=== PATIENT | female | born 2000 | race Caucasian/White ===

== ENCOUNTER 2021-12-30 10:39 | Outpatient (CLI) | payer MEDICAID, SELFPAY ==
--- OUTSIDE RECORDS SUMMARY | 2021-12-30 10:42 | XMS_ITS | Encounter Summary ---
:2000 Author Organization [place] Address [address] [facility] [place] [address] Care Team Providers Name Role Phone Caryl Trujillo MD Primary Care Provider [phone] Caryl Trujillo MD Unavailable [phone] Reason for Referral Care Coordination (Routine) - Closed Specialty Diagnoses / Procedures Referred By Contact Refer red To Contact Diagnoses Infection due to 2019 [place] [address] [place] [address] Referral ID Status Reason Start Date Expiration Date Visits Requ ested Visits Authorized [id number] Closed 02/13/2020 02/12/2021 1 1 Encounter Details Date Type Department Care Team Description 02/13/2020 Orders Only [facility] Caryl Trujillo Infecti on due to 2019 Care Coordination MD Sharee novel coronavirus [address] [address] [address] [place], [place] [id number] [phone] Social History Tobacco Use Types Packs/Day Years Used Date Former Smoker Quit: 04/26/19 18 Smokeless Tobacco: Never Used Alcohol Use Standard Drinks/Week Comments No 0 (1 standard drink = 0.6 oz pure alcoho l) Sex Assigned at Date Recorded Not on file COVID-19 Exposure Response Date Recorded In the last month, have you been in contact with No / Unsure 02/09/2020 2:48 PM CDT someone who was confirmed or suspected to have Coronavirus / COVID-19? 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
--- OUTSIDE RECORDS SUMMARY | 2021-12-30 10:42 | XMS_ITS | Encounter Summary ---
:2000 Author Organization [place] Address [address] [place] [address]. [place] [address] Care Team Providers Name Role Phone Caryl Trujillo MD Primary Care Provider [phone] Caryl Trujillo MD Unavailable [phone] Encounter Details Date Type Department Care Team Description 02/09/2020 Travel Social History Tobacco Use Types Packs/Day Years [...] as of this encounter Plan of Treatment Not on filedocumented as of this encounter Visit Diagnoses Not on filedocumented in this encounter Additional Health Concerns Assessment Noted Time PHQ-9 Depression Total Score: 6 11/07/2016 7:23 AM CDT documented as of this encounter Care Teams Prototype Machine Operator Relationship Specialty Start Date End Date Caryl Trujillo MD PCP - General Family Practice 12/16/10 Caryl Trujillo MD Assigned PCP 06/26/18 06/07/21 [id number] [address] [id number] documented as of this encounter
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
--- OUTSIDE RECORDS SUMMARY | 2021-12-30 10:42 | XMS_ITS | Encounter Summary ---
:2000 Author Organization [place] Address [facility] [address] Care Team Providers Name Role Phone Caryl Trujillo MD Primary Care Provider [phone] Caryl Trujillo MD Unavailable [phone] Reason for Visit Auth/Cert Specialty Diagnoses / Procedures Referred By Contact Refer red To Contact art history professor Diagnoses Breech Breech [O32.1XX0] Rh Labor And Delivery Procedures ZZC DELIVERY ONLY [facility] DELIVERY+ CARE ZZC C-SEC ONLY,PREV C-SEC SECTION primary [address] [place], [place] [address] Phone: Fax: Referral ID Status Reason Start Date Expiration Date Visits Requ ested Visits Authorized [id number] 1 1 Encounter Details Date Type Department Care Team Description 02/10/2020 Anesthesia Event [facility] Fly Fay DO [facility] [place] [address] [facility] [place] [place] [address] [facility] [phone] [address] [place], [place] [address] (Wo rk) Anesthesia Record Procedure Summary Procedure Name Responsible Anesthesia Start Anesthesia Stop Time Anesthesiologist Time SECTION Fly Fay DO 02/10/20 0816 02/10/20 0 903 primary (N/A Abdomen) Events Date Time Event Comment 02/10/2020 0816 An Start 0818 Present 0819 An Start Data 0833 Present 0834 AN INCISION 0835 An Induction 0836 Uterine Incision 0837 Baby Delivered 0839 Placenta Delivered 0840 MD Present 0900 an stop data 0901 Present 0903 An Stop Electronically s igned by Lupis Cummins APRN CRNA on February 10, 2020 9:03 AM 0925 Name Total bupivacaine spinal 0.75% in dextrose 8.25% 13.5 mg fentaNYL (SUBLIMAZE) injection 20 mcg morphine PF 1mg/mL 0.4 mg ondansetron 2mg/mL 4 mg oxytocin 30 units in 500 mL 0.9% NaCl infusion 200 mL ceFAZolin (ANCEF) intermittent infusion 2 g in 100 mL dextrose PRE-MIX 2 g phenylephrine 0.1 mg/mL infusion (mcg/kg/min) 0.42 mg lactated ringers infusion 1,000 mL Agents Name NO HELIOX O2 N2O Air Exp Sevoflurane Exp Isoflurane Exp Desflurane Exp N2O Ins Sevoflurane Ins Isoflurane Ins Desflurane O2 Auxiliary Blood No blood administrations on file. Lines, Drains, and Airways Type Details Placement Removal Incision/Surgical Site 02/10/20; 0909; 02/10/20 0909 by Abdomen Philomena Domingo RN Peripheral IV 02/10/20; 0634; 18 G; 02/10/20 0634 by 02/10/20 0930 by Left, Posterior; Aarti Sage RN Zwieg, Jenn ifer A, Hand; Chlorhexidine; RN None; Tolerated well Urethral Catheter 02/10/20; 0828; 02/10/20 0828 by 02/11/20 0000 by Anesthesia; 16 fr Philomena Domingo, Alysia Rowan RN documented in this encounter Social History Tobacco Use Types Packs/Day Years [...] / COVID-19? documented as of this encounter OR Notes Anesthesia Postprocedure Evaluation - Fly Fay DO - 02/10/2020 11:52 AM CDT Patient: Teodora Eisenberg Procedure(s): SECTION primary Diagnosis:Breech [O32.1XX0] Diagnosis Additional Information: No value filed. Anesthesia Type: Spinal Note: Anesthesia Post Evaluation Patient location during evaluation: PACU Patient participation: Able to fully participate in evaluation Level of consciousness: awake Pain management: adequate Airway patency: patent Cardiovascular status: acceptable Respiratory status: acceptable Hydration status: acceptable PONV: controlled Anesthetic complications: None Comments: .Anticipate full return of neurologic function Last vitals: Vitals: 02/10/20 1026 02/10/20 1027 02/10/20 1031 BP: 121/66 130/70 Resp: Temp: SpO2: 97% 97% Electronically Signed By: Fly Fay DO February 10, 2020 11:52 AM Anesthesia Procedure Notes - Fly Fay DO - 02/10/2020 9:24 AM CDT Associated Order(s): Spinal Block Procedure note : intrathecal Staff - Anesthesiologist: Fly Fay DO Performed By: anesthesiologist Pre-Procedure Performed by Fly Fay DO Location: OR Pre-Anesthestic Checklist: patient identified, IV checked, risks and benefits discussed, informed consent, monitors and equipment checked, pre-op evaluation and at physician/surgeon's request Timeout Correct Patient: Yes Correct Procedure: Yes Correct Site: Yes Correct Laterality: N/A Correct Position: Yes Site Marked: N/A . Procedure Documentation . Procedure: intrathecal, . Patient Position:sitting Insertion Site:L2-3 (midline approach) Patient Prep/Sterile Barriers; mask, sterile gloves, povidone-iodine 7.5% surgical scrub. . Needle: Spinal Needle (gauge): 24 Spinal/LP Needle Length (inches): 3.5 # of attempts: 1 and # of redirects: Introducer used . Assessment/Narrative Paresthesias: No. . . clear CSF fluid removed . Comments: .Bupivicaine 13.5mg + Fentanyl 20mcg + Morphine 0.2mg Christoph Fay Anesthesia Preprocedure Evaluation - Fly Fay DO - 02/10/2020 9:21 AM CDT Anesthesia Pre-Procedure Evaluation Patient: Teodora Eisenberg : 2000 Preoperative Diagnosis: Breech [O32.1XX0] Procedure(s): SECTION primary Past Medical History: Diagnosis Date ??? ADHD (attention deficit hyperactivity disorder) ??? Depression 2012 ??? Gastroesophageal reflux disease ??? Uncomplicated asthma exercise induced asthma Past Surgical History: Procedure Laterality Date ??? APPENDECTOMY OPEN 08/01/2012 Procedure: APPENDECTOMY OPEN; APPENDECTOMY OPEN; Surgeon: Lakisha Adame MD; Location: OR Anesthesia Evaluation . ROS/MED HX ENT/Pulmonary: - neg pulmonary ROS (+)asthma , . . Neurologic: - neg neurologic ROS Cardiovascular: - neg cardiovascular ROS METS/Exercise Tolerance: Hematologic: - neg hematologic ROS Musculoskeletal: - neg musculoskeletal ROS GI/Hepatic: (+) GERD Renal/Genitourinary: - ROS Renal section negative Endo: - neg endo ROS Psychiatric: (+) psychiatric history depression Infectious Disease: - neg infectious disease ROS Malignancy: Other: Comment: .Lab Test 02/10/20 09/26/12 07/31/12 0634 1116 2246 WBC -- 7.3 17.3* HGB 13.8 14.9 13.9 MCV -- 80 82 PLT -- 244 197 Lab Test 07/31/12 2246 NA 142 POTASSIUM 3.9 CHLORIDE 102 CO2 28 BUN 7 CR 0.71 ANIONGAP 12 BRIEN 9.5 GLC 74 - neg other ROS Physical Exam Normal systems: cardiovascular and pulmonary Airway Mallampati: II Dental Cardiovascular Rhythm and rate: regular and normal Pulmonary breath sounds clear to auscultation Lab Results Component Value Date WBC 7.3 09/26/2012 HGB 13.8 02/10/2020 HCT 41.3 09/26/2012 PLT 244 09/26/2012 CRP <2.9 11/24/2013 SED 6 11/24/2013 NA 142 07/31/2012 POTASSIUM 3.9 07/31/2012 CHLORIDE 102 07/31/2012 CO2 28 07/31/2012 BUN 7 07/31/2012 CR 0.71 07/31/2012 GLC 74 07/31/2012 BRIEN 9.5 07/31/2012 TSH 1.87 09/26/2012 HCG Negative 08/25/2014 HCGS Negative 07/31/2012 Preop Vitals BP Readings from Last 3 Encounters: 02/10/20 124/78 11/27/19 120/69 06/07/18 128/64 Pulse Readings from Last 3 Encounters: 06/07/18 76 11/06/16 56 01/22/16 60 Resp Readings from Last 3 Encounters: 02/10/20 24 06/07/18 20 11/06/16 16 SpO2 Readings from Last 3 Encounters: 02/10/20 98% 01/22/16 99% 11/19/15 97% Temp Readings from Last 1 Encounters: 02/10/20 97.9 ??F (36.6 ??C) (Oral) Ht Readings from Last 1 Encounters: 02/09/20 1.575 m (5' 2) Wt Readings from Last 1 Encounters: 02/09/20 91.6 kg (202 lb) Estimated body mass index is 36.95 kg/m?? as calculated from the following: Height as of this encounter: 1.575 m (5' 2). Weight as of this encounter: 91.6 kg (202 lb). Anesthesia Plan History & Physical Review History and physical reviewed and following examination; no interval change. ASA Status: 2 . Plan for Spinal PONV prophylaxis: Ondansetron (or other 5HT-3) and Dexamethasone or Solumedrol Breech presentation Postoperative Care Postoperative pain management: IV analgesics, Oral pain medications and Multi- modal analgesia. Consents Fly Fay DO . documented in this encounter Miscellaneous Notes Anesthesia Care Transfer Note - Lupis Cummins APRN PRIMARY THERAPIST - 02/10/2020 9:02 AM CDT Patient: Teodora Eisenberg Procedure(s): SECTION primary Diagnosis: Breech [O32.1XX0] Diagnosis Additional Information: No value filed. Anesthesia Type: No value filed. Note: Airway :Room Air Patient transferred to:Labor and Delivery Comments: VSS. Report to RN. Vitals: (Last set prior to Anesthesia Care Transfer) PRIMARY THERAPIST VITALS 02/10/2020 0830 - 02/10/2020 0902 02/10/2020 NIBP: 106/66 NIBP Mean: 73 Electronically Signed By: Lupis Cummins APRN CRNA February 10, 2020 9:02 AM documented in this encounter Plan of Treatment Not on filedocumented as of this encounter Procedures Procedure Name Priority Date/Time Associated Diagnosis Comme nts ANE SPINAL BLOCK Routine 02/10/2020 9:24 AM Resul ts for this FORM CDT procedure are i n the results section. documented in this encounter Results Spinal Block (02/10/2020 9:24 AM CDT) Narrative Fly Fay, DO - 02/10/2020 9:24 A M CDT Fly Fay, DO ? 02/10/2020 ??9:25 AM Procedure note : intrathecal Staff - Anesthesiologist: ??Fly Fay, Performed By: anesthesiologist Pre-Procedure Performed by Fly Fay, Location: OR ?? Pre-Anesthestic Checklist: patient ident ified, IV checked, risks and benefits discussed, informed consent, mo nitors and equipment checked, pre-op evaluation and at physician/surge on's request ?? Timeout Correct Patient: Yes Correct Procedure: Yes Correct Site: Yes Correct Laterality: N/A Correct Position: Yes Site Marked: N/A . Procedure Documentation . ?? Procedure: intrathecal, . Patient Position:sitting Insertion Site: L2-3 ??(midline approach) Patient Prep/Sterile Barriers; mask, latia rile gloves, povidone-iodine 7.5% surgical scrub. ??. ??Needle: ??Spinal N eedle (gauge): 24 ??Spinal/LP Needle Length (inches): 3.5 # of attempts: 1 an d # of redirects: ??Introducer used . ?? Assessment/Narrative Paresthesias: No. ??. ??. ??clear CSF fl uid removed . Comments: ??.Bupivicaine 13.5mg + Fentanyl 20mcg + Morphine 0.2mg Christoph Fay Fly D Nya DO ID ANESTHESIA documented in this encounter Visit Diagnoses Not on filedocumented in this encounter Administered Medications Inactive Administered Medications - up to 3 most recent administrations Medication Order MAR Action Action Date Dose Rate Site bupivacaine 0.75% in dextrose Given 02/10/2020 8:18 AM CDT 13.5 mg 8.25% (intrathecal) (SENSORCAINE) 0.75-8.25 % injection PRN, Starting on 02/10/20 at 0818, Anesthesia Intra-op ceFAZolin (ANCEF) intermittent infusion 2 g in Given 020 8:16 AM CDT 2 g 100 mL dextrose PRE-MIX STAT, 2 g, Intravenous, ONCE, On 02/10/20 at 0830, For 1 dose, Indications: Perioperative Pharmacoprophylaxis fentaNYL (PF) (SUBLIMAZE) injection Given 02/10/2020 8:18 AM CDT 20 mcg Intrathecal, PRN, Administer over 3-5 Minutes, Starting on 02/10/20 at 0818, Anesthesia Intra-op lactated ringers infusion New Bag 02/10/2020 8:36 AM CDT at 200 mL/hr, Intravenous, CONTINUOUS, Up to 500 mL total, Pre-procedure, Starting on 02/10/20 at 0630, Until 02/10/20 at 1536 New Bag 02/10/2020 8:16 AM CDT New Bag 02/10/2020 6:44 AM CDT 200 mL/hr morphine (PF) (DURAMORPH) injection Given 02/10/2020 8:18 AM CDT 0.4 mg Intrathecal, PRN, Administer over 4-5 Minutes, Starting on 02/10/20 at 0818, Anesthesia Intra-op ondansetron (ZOFRAN) injection Given 02/10/2020 8:31 AM CDT 4 mg PRN, Administer over 2-5 Minutes, Starting on 02/10/20 at 0831, Anesthesia Intra-op oxytocin (PITOCIN) 30 units in 500 mL 0.9% Given 02/10/2020 8:54 AM CDT 100 mLs NaCl infusion Intravenous, PRN, Starting on 02/10/20 at 0839, Anesthesia Intra-op Given 02/10/2020 8:39 AM CDT 100 mLs phenylephrine 0.1 mg/mL Rate/Dose 02/10/2020 8:45 0.05 mcg/kg/min 2. 7 mL/hr infusion (mcg/kg/min) Change AM CDT CONTINUOUS PRN, Starting on 02/10/20 at 0824, Anesthesia Intra-op Rate/Dose Change 02/10/2020 8:40 AM CDT 0.1 mcg/kg/min 5.5 mL/hr New Bag 02/10/2020 8:24 AM CDT 0.2 mcg/kg/min 11 mL/hr documented in this encounter Additional Health Concerns Assessment Noted Time PHQ-9 Depression Total Score: 6 11/07/2016 7:23 AM CDT documented as of this encounter Care Teams Sleeping Room Cleaner Relationship Specialty Start Date End Date Caryl Trujillo MD PCP - General Family Practice 12/16/10 Caryl Trujillo MD Assigned PCP 06/26/18 06/07/21 [id number] SAM[address] BRAMBILA [id number] documented as of this encounter
--- OUTSIDE RECORDS SUMMARY | 2021-12-30 10:42 | XMS_ITS | Encounter Summary ---
:2000 Author Organization [place] Address [facility] [place] [address] Care Team Providers Name Role Phone Caryl Trujillo MD Primary Care Provider Caryl Trujillo MD Unavailable [phone] Encounter Details Date Type Department Care Team Description 02/09/2020 Orders Only [facility] Services - Eugenio Mane, Womens and Child Service PA-C Line [address] [place] [phone] Social History Tobacco Use Types Packs/Day Years [...] filedocumented in this encounter Additional Health Concerns Infection Onset Date Last Indicated Resolved Time COVID-19 02/10/2020 02/10/2020 03/02/2020 11:39 PM H[employer] Assessment Noted Time PHQ-9 Depression Total Score: 6 11/07/2016 7:23 AM CDT documented as of this encounter Care Teams Quality Improvement Manager Relationship Specialty Start Date End Date Caryl Trujillo MD PCP - General Family Practice 12/16/10 Caryl Trujillo MD Assigned PCP 06/26/18 06/07/21 [id number] SAMANTHA BRAMBILA [id number] documented as of this encounter
--- OUTSIDE RECORDS SUMMARY | 2021-12-30 10:42 | XMS_ITS | Encounter Summary ---
:2000 Author Organization [place] Address [address] [place] [address]. [place] [address] Care Team Providers Name Role Phone Caryl Trujillo MD Primary Care Provider [phone] Caryl Trujillo MD Unavailable [phone] Encounter Details Date Type Department Care Team Description 11/27/2019 Travel Social History Tobacco Use Types Packs/Day [...] documented as of this encounter Care Teams Call Center Representative Relationship Specialty Start Date End Date Caryl Trujillo MD PCP - General Family Practice 12/16/10 Caryl Trujillo MD Assigned PCP 06/26/18 06/07/21 [id number] SAMANTHA BRAMBILA [id number] documented as of this encounter
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
--- OUTSIDE RECORDS SUMMARY | 2021-12-30 10:42 | XMS_ITS | Encounter Summary ---
:2000 Author Organization [place] Address [address] [facility] [place] [address] Care Team Providers Name Role Phone Caryl Trujillo MD Primary Care Provider [phone] Caryl Trujillo MD Unavailable [phone] Reason for Visit Reason Comments Scheduled Section Auth/Cert Specialty Diagnoses / Procedures Referred By Contact Refer red To Contact finishing lab technician Diagnoses Breech Breech [O32.1XX0] Rh Labor And Delivery Procedures ZZC DELIVERY ONLY ZZC DELIVERY+ CARE ZZC C-SEC ONLY,PREV C-SEC SECTION primary [address] [place], [place] [address] Phone: Fax: Referral ID Status Reason Start Date Expiration Date Visits Requ ested Visits Authorized [id number] 1 1 Encounter Details Date Type Department Care Team Description 02/10/2020 Surgery [facility] Francis Koenig SECTION primary [facility] MD Anthony [address] [facility] [place], [place] [address] [facility] [place] [id number] [address] [place], [place] [address] (Wo rk) Surgery Details Date/Time Status Location OR Service Patient Case Case Traum a Class Class Type Case? 02/10/20 8:00 Posted RH L+D LD 01 Obstetrics Surgery AM Admit Panel 1 Procedure LRB Anes Op Region Wound Class Commen ts SECTION primary N/A Regional Abdomen I-Clean Surgeon Surgeon Role Service Panel Francis Koenig MD Primary Obstetrics 1 Special Needs 5ft 2in, 202 lbs per ptLate add on-no co vid test scheduledPat labs on admissionCalled clinic for pre-op, Dr. Koenig will do d os. vh 02/09/20 documented in this encounter Social History Tobacco [...] Sign Reading Time Taken Comments Blood Pressure 129/79 02/10/2020 9:57 AM CDT Pulse - - Temperature 36.6 ??C (97.9 ??F) 02/10/2020 9:57 AM CDT Respiratory Rate 16 02/10/2020 9:57 AM CDT Oxygen Saturation 97% 02/10/2020 10:00 AM CDT Inhaled Oxygen Concentration - - Weight 91.6 kg (202 lb) 02/09/2020 3:00 PM CDT per pt Height 157.5 cm (5' 2) 02/09/2020 3:00 PM CDT per pt Body Mass Index 36.95 02/09/2020 3:00 PM CDT documented in this encounter Discharge Summaries Francis Koenig MD - 02/12/2020 10:50 AM CDT This patient had an uncomplicated and was discharged in good condition with her . Refer to chart for additional details. documented in this encounter Discharge Instructions Discharge InstructionsAllison Negron RN - 02/12/2020 8:17 AM CDT Postop Instructions Activity ?? Do not lift more than 10 pounds for 6 weeks after surgery. Ask family and friends for help when you need it. ?? No driving until you have stopped taking your pain medications (usually two weeks after surgery). ?? No heavy exercise or activity for 6 weeks. Don't do anything that will put a strain on your surgery site. ?? Don't strain when using the toilet. Your care team may prescribe a stool softener if you have problems with your bowel movements. To care for your incision: ?? Keep the incision clean and dry. ?? Do not soak your incision in water. No swimming or hot tubs until it has fully healed. You may soak in the bathtub if the water level is below your incision. ?? Do not use peroxide, gel, cream, lotion, or ointment on your incision. ?? Adjust your clothes to avoid pressure on your surgery site (check the elastic in your underwear for example). You may see a small amount of clear or pink drainage and this is normal. Check with your health care provider: ?? If the drainage increases or has an odor. ?? If the incision reddens, you have swelling, or develop a rash. ?? If you have increased pain and the medicine we prescribed doesn't help. ?? If you have a fever above 100.4 F (38 C) with or without chills when placing thermometer under your tongue. The area around your incision (surgery wound), will feel numb. This is normal. The numbness should go away in less than a year. Keep your hands clean: Always wash your hands before touching your incision (surgery wound). This helps reduce your risk ofinfection. If your hands aren't dirty, you may use an alcohol hand-rub to clean your hands. Keep your nails clean and short. Call your healthcare provider if you have any of these symptoms: ?? You soak a sanitary pad with blood within 1 hour, or you see blood clots larger than a golf ball. ?? Bleeding that lasts more than 6 weeks. ?? Vaginal discharge that smells bad. ?? Severe pain, cramping or tenderness in your lower belly area. ?? A need to urinate more frequently (use the toilet more often), more urgently (use the toilet veryquickly), or it king when you urinate. ?? Nausea and vomiting. ?? Redness, swelling or pain around a vein in your leg. ?? Problems or a red or painful area on your breast. ?? Chest pain and cough or are gasping for air. ?? Problems with coping with sadness, anxiety or depression. If you have concerns about hurting yourself or the baby, call your provider immediately. ?? You have questions or concerns after you return home. [facility] Referral: IF you have not been in contact with home care in the next 24 hours. Please call. Phone number: [phone] documented in this encounter Medications at Time of Discharge Medication Sig Dispensed Refills Start Date End Date acetaminophen (TYLENOL) Take 2 tablets (650 0 325 MG tabletIndications: mg) by mouth every 4 delivery hours as needed for delivered other (multimodal surgical pain management along with NSAIDS and opioid medication as indicated based on pain control and physical function) calcium carbonate (TUMS) Take 1 chew tab by 0 500 MG chewable tablet mouth as needed for heartburn hydrocortisone 2.5 % Place rectally 3 0 0 creamIndications: times daily as needed delivery delivered (hemorrhoids) ibuprofen (ADVIL/MOTRIN) Take 1 tablet (800 0 800 MG tabletIndications: mg) by mouth every 6 delivery hours as needed for delivered other (cramping) lanolin Apply topically every 0 02/12/2020 ointmentIndications: hour as needed for delivery dry skin (soreness) delivered oxyCODONE (ROXICODONE) 5 Take 1 tablet (5 mg) 20 tablet 0 1 MG tabletIndications: by mouth every 4 delivery hours as needed delivered Vit-Fe Take 1 tablet by 0 Fumarate-FA (PNV mouth daily PLUS MULTIVITAMIN) 27-1 MG TABS per tablet senna-docusate Take 1 tablet by 0 02/12/2020 (SENOKOT-S/PERICOLACE) mouth 2 times daily 8.6-50 MG tabletIndications: delivery delivered documented as of this encounter Progress Notes Mishel Krishnan RN - 02/12/2020 10:50 AM CDT Discharge instructions completed. Patient states she understands all discharge instructions and all her questions have been answered. Verbalizes when she needs to return to clinic for follow up for herself and baby. She is caring for herself and her baby independently. Prescriptions reviewed and sent with patient to fill in pharmacy. depression symptoms reviewed and encouraged frequent review of depression scale. Discharged home via ambulatory at 1055am in stable condition. Celia Valentine MD - 02/12/2020 9:00 AM CDT POD2 SPoke to patient over phone due to COVID positive status Feels well, pain controlled, no concerns. BP 122/54 Pulse 62 Temp 98.2 ??F (36.8 ??C) (Oral) Resp 16 Ht 1.575 m (5' 2) Wt 91.6 kg (202 lb) SpO2 100% Unknown BMI 36.95 kg/m?? She desires discharge to home today. Requests oxycodone prescription. Reviewed discharge instructions, f/u 2 weeks for virtual visit. Celia Valentine MD Francis Koenig MD - 02/11/2020 10:39 AM CDT LABOR PROGRESS NOTE Vitals were reviewed Induced Bradycardia with hyperstim on pitocin responded top pitocin off and 02 and position changes Cervical Exam C/C/+1 OP Spontaneousclear fluid Uterine activity:frequency q 2-3 minutes Status:Tier 2 (indeterminate) +BTBV and accels Impression: Induction Plan:Anticipate Francis Koenig MD - 02/11/2020 9:59 AM CDT [facility] Obstetrics Post-Op / Progress Note Interval History: Doing well. Pain is well-controlled. No fevers. No history of wound drainage, warmth or significant erythema. Good appetite. Denies chest pain, shortness of breath, nausea or vomiting. Ambulatory. well. Significant Problems: Medications: All medications related to the patient's surgery have been reviewed Physical Exam: All vitals stable EXAM: Constitutional: healthy, alert, no distress. Abdomen: Abdomen soft, non-tender. BS normal. No masses, fundus is firm. Incision: Clean, dry and intact, no erythema or induration. JOINT/EXTREMITIES: extremities normal- no calf tenderness Data: All laboratory data related to this surgery reviewed Lab Results Component Value Date HGB 11.5 (L) 02/11/2020 Assessment and Plan: Assessment: Post-operative day #1 Low transverse primary section Breech COVID + asymptomatic Plan: Ambulation encouraged Francis Koenig MD Francis Koenig MD - 02/10/2020 8:05 AM CDT Limited OB ultrasound dictated Breech Confirmed documented in this encounter H&P Notes Francis Koenig MD - 02/10/2020 8:05 AM CDT The patient's history and physical have been reviewed, and the patient was examined. There has been no interval change in condition. Francis Koenig MD documented in this encounter Miscellaneous Notes Plan of Care - Sharon Daly RN - 02/12/2020 6:13 AM CDT Good relief of incisional pain with Tylenol, Motrin, and Oxycodone. Tegraderm covering incision withold drainage. Afebrile. Good PO fluid intake. FF@U2. Scant rubra drainage. She was able to sleep well. Mother doing all cares. Father sleeping at bedside. Using lanolin to nipples which have scabbing. Breasts are feeling loo. Voiding without difficulty. Continue to monitor pain. Assist with breast feeding as needed. ROP needs to be filled out. Plan of Care - Charlene Sabillon RN - 02/11/2020 10:16 PM CDT Vital signs: Stable; BP stable; afebrile Pain Control: Pain controlled with PO oxycodone, PO Tylenol, and PO Motrin Diet: Regular; tolerating well; no nausea or vomiting Output: Voiding adequately. Passing gas. Denies stool. Given two senna. Activity: Independent; up in room frequently. Updates: independently. Scabbed nipples. Using Lanolin cream and hydrogel pads. Scant vaginal drainage. Fundus firm and U/2. Will continue to monitor and provide for cares. Plan of Care - Alyisa Myers RN - 02/11/2020 2:06 PM CDT Vital Signs: VSS. Afebrile. Pain/Comfort: Pain well managed with tylenol, motrin and oxycodone. Assessment: WDL. Fundus firm. Scant bleeding. Incision c/d/I. Breasts with some scabbing on nipplies, using nipple cream. Diet: Tolerating regular diet. Drinking well. Output: Voiding Activity/Ambulation: Up independently in room. Showered. Social: Attentive to infants needs, bonding well with baby. Significant other at bedside. Pharmacy-Admission Medication History - Chapo Wright, [facility] - 02/11/2020 6:37 AM CDT Medication reconciliation completed by pre-admitting. Prior to Admission medications Medication Sig Last Dose Taking? Auth Provider calcium carbonate (TUMS) 500 MG chewable tablet Take 1 chew tab by mouth as needed for heartburn YesReported, Patient Vit-Fe Fumarate-FA (PNV PLUS MULTIVITAMIN) 27-1 MG TABS per tablet Take 1 tablet by mouth daily 02/09/2020 at Unknown time Yes Reported, Patient Plan of Care - Sharon Daly RN - 02/11/2020 5:07 AM CDT Minimal incisional discomfort rated 2. Medicated with Toradol and Tylenol. Fundus firm At U1. Small rubra flow. Garland catheter drained 525 ml. Removed without complication. Stood and bedside and marched in place. N further nausea.Bowel sounds are hypoactive. Tolerated a cracker and water. Continued wit h itching on face, arms ,and chest. Benadryl given with little relief. Nubain given with some relief. Incision has unchanged serosanguinous drainage. Encourage PO fluids. IV infusing at 125 ml's/hr. Monitor for urination. Pain medication as needed. Ambulate in room. Remains on Covid isolation. Plan of Care - Charlene Sabillon RN - 02/10/2020 10:47 PM CDT Vital signs: Stable; afebrile; BP stable Pain Control: Pain controlled with scheduled IV Toradol and PO Tylenol as well as PO PRN oxycodone x1. Diet: Regular diet; frequent emesis post PO intact; Patient denies nausea with emesis. Given ODT Zofran, IV compazine, and scopolamine patch in place. Output: Garland catheter in place. Garland cares completed. Putting out small amounts of duc urine. Oral intake encouraged with patient and output carefully monitored. Activity: Stood at bedside with minimal assist from RN. Updates: Fundus firm and 1 below the U. Scant rubra vaginal drainage. Independently breast feeding. Denying nipple soreness. Plan: Encourage fluid intake. Garland out on POD #1 per order. Pain and nausea control as needed. Significant other at bedside and supportive of patient. Will continue to monitor and provide for cares. Plan of Care - Susy Esqueda RN - 02/10/2020 4:15 PM CDT Data: Teodora Eisenberg transferred to [facility] via cart at 1530. Baby transferred via parent's arms. Action: Receiving unit notified of transfer: Yes. Patient and family notified of room change. Reportgiven to Charlene CORREIA at 1545. Belongings sent to receiving unit. Accompanied by Registered Nurse. Oriented patient to surroundings. Call light within reach. ID bands double-checked with receiving RN. Response: Patient tolerated transfer and is stable. Op Note - Francis Koenig MD - 02/10/2020 8:59 AM CDT Procedure Date: 02/10/2020 PREOPERATIVE DIAGNOSIS: Breech presentation. POSTOPERATIVE DIAGNOSIS: Breech presentation. PROCEDURE: Primary low transverse section. SURGEON: Francis Koenig MD ANESTHESIA: Spinal. BLOOD LOSS: 409 mL COMPLICATIONS: None. INDICATIONS AND CONSENT: This patient is a 20-year-old 1, para 0 found to be breech. The patient is 40 weeks' gestation. She is offered a primary section. Alternatives of external version, which she declined. The benefits and risks were discussed including risks of bleeding, infection, injury to bowels, bladder, anesthetic complications, perioperative risks, blood transfusions life threatening risks including DVT and . Informed consent was obtained. DESCRIPTION PROCEDURE: The patient was taken to the operating room where spinal anesthesia was administered. She was placed in supine position on a wedge. Garland catheter was sterilely inserted. The abdomen, perineum and vagina were prepped and draped in the usual sterile fashion. A Pfannenstiel skin incision was made, carried out in layers to the fascia, which was sharply incised, extended laterally,dissected superiorly and inferiorly. Peritoneal cavity was sharply entered. Low transverse uterine incision was made and extended laterally with bandage scissors. Membranes were ruptured for clear fluid. The was delivered in the herber breech presentation using the standard breech cardinal maneuvers and the Pvrqsmzqt-Rulkbpu-Qzrk maneuver for the aftercoming head. The nares and oropharynx were suctioned on the abdomen. Delayed cord clamping and chloride employed. The cord was clamped and cut and the baby was taken to the [place]. This was a vigorous female with Apgars of 8 and 9. The placenta was manually removed, the uterus exteriorized. Fallopian tubes, ovaries and the uterus were normal in appearance. Uterus was swabbed clean with a sponge and closed with 2-layer closure of 0 Monocryl. There was excellent hemostasis and the uterus was placed in the pelvis. The pelvis was inspected and the uterine incision was again noted to be hemostatic. The subfascial space was noted to be hemostatic and the fascia was closed with 0 PDS. Subcutaneous tissue was well approximated and hemostatic and the skin was closed with Insorb subcuticular staple. Tegaderm dressing was placed. All sponge and instrument counts were reported to me as correct, and the total blood loss again by QBL was 409 mL FRANCIS KOENIG MD MT: Name: TEODORA NÚÑEZ MRN: [id number] Account: [id number] : 2000 Procedure Date: 02/10/2020 Document: [id number] L&D Delivery Note - Francis Koenig MD - 02/10/2020 8:55 AM CDT Primary LTCS for breech Op Note - Francis Koenig MD - 02/10/2020 8:07 AM CDT Procedure Date: 02/10/2020 PROCEDURE: Limited obstetric ultrasound. INDICATIONS: position. FINDINGS: Transabdominal imaging shows a single fetus in the herber breech presentation with normal cardiac activity. There is normal-appearing amniotic fluid. There is no evidence of placenta previa. IMPRESSION: Herber breech presentation. FRANCIS KOENIG MD MT: JOSE LUIS Name: TEODORA NÚÑEZ Account: [id number] : 2000 Procedure Date: 02/10/2020 Document: [id number] Plan of Care - Estefania Mabry RN - 02/10/2020 6:45 AM CDT Data: [facility]: 02/10/2020 5:59 AM for scheduled c/s. Patient is a . record reviewed. has been uncomplicated.. Gestational Age 40w1d. VSS. movement present. Patient denies uterine contractions, leaking of vaginal fluid/rupture of membranes, vaginal bleeding, abdominal pain, pelvic pressure, nausea, vomiting, headache, visual disturbances, epigastric or URQ pain, significant edema. Support person is present. Of note, when external monitor was first applied, the FHR was found to be in the 90's - 110's.70 seconds recorded on strip. Audibly longer in room. SPO2 monitor applied to compare maternal HR tofetal. FHR gradually, spontaneously, increased to normal limits, moderate variability, and frequent accelerations. No further decelerations. Also, heart rate is found on EFM bilateral lower abdomen, oppose to the upper abdomen where the heart rate is found when babies are breech. Will inform Dr. Koenig to preform a ultrasound prior to surgery. Action: Verbal consent for EFM. Initial assessment completed. Bill of rights reviewed. Response: Patient verbalized agreement with plan. Will contact Dr Francis Koenig with update and further orders. Estefania Mabry RN on 02/10/2020 at 7:34 AM documented in this encounter Plan of Treatment Not on filedocumented as of this encounter Procedures Procedure Name Priority Date/Time Associated Diagnosis Comme nts HEMOGLOBIN Routine 02/11/2020 7:05 AM Results f or this CDT procedure are i n the results section. GLUCOSE Routine 02/11/2020 7:05 AM Results f or this CDT procedure are i n the results section. SECTION 02/10/2020 8:18 AM Breech CDT Special Needs 5ft 2in, 202 lbs per ptLate add on-no covid test scheduledPat labs on admissionCalled clinic for p re-op, Dr. Koenig will do dos. vh 02/09/20 TREPONEMA ABS W REFLEX TO STAT 02/10/2020 6:34 AM CDT Results for this RPR AND TITER procedure are in the results section . HEMOGLOBIN STAT 02/10/2020 6:34 AM CDT Resul ts for this procedure are i n the results section . ABO/RH TYPE AND SCREEN STAT 02/10/2020 6:34 AM CDT Results for this procedure are i n the results section . SARS-COV-2 (COVID-19) VIRUS Routine 02/10/2020 6:20 AM CDT Results for this RT-PCR procedure are i n the results section . COVID-19 VIRUS STAT 02/10/2020 6:20 AM CDT Res ults for this (CORONAVIRUS) BY PCR procedu re are in the results section . GROUP B STREP PCR Routine 01/12/2020 Results fo r this procedure are i n the results section . RUBELLA ANTIBODY IGG Routine 07/13/2019 Results for this procedure are i n the results section . HIV ANTIGEN ANTIBODY COMBO Routine 07/13/2019 R esults for this procedure are i n the results section . HEPATITIS B SURFACE ANTIGEN Routine 07/13/2019 Results for this procedure are i n the results section . documented in this encounter Results Glucose (02/11/2020 7:05 AM CDT) athologist Signature Glucose 88 70 - 99 02/11/2020 [place] mg/dL 7:49 AM CDT [facility] Specimen Anatomical Collection Method Collection Time Receive d Time (Source) Location / / Volume Laterality Blood specimen 02/11/2020 7:05 AM 020 7:06 (specimen) CDT AM CDT Francis Koenig MD LAB - BLOOD ORDERABLES Performing Organization Address City/State/ZIP Code Phon e Number M [facility] [address] [address] [phone] [facility] [address] [place] [address], [place] [phone] (ABNORMAL) Hemoglobin (02/11/2020 7:05 AM CDT) athologist Signature Hemoglobin 11.5 (L) 11.7 - 15.7 02/11/2020 [place] g/dL 7:26 AM CDT [facility] Specimen Anatomical Collection Method Collection Time Receive d Time (Source) Location / / Volume Laterality Blood specimen 02/11/2020 7:05 AM 020 7:06 (specimen) CDT AM CDT Francis Koenig MD LAB - BLOOD ORDERABLES Performing Organization Address City/State/ZIP Code Phon e Number [facility] [address] [place], [place] [address] [facility] [address] [place], [place] [address] [phone] Treponema Abs w Reflex to RPR and Titer (02/10/2020 6:34 AM CDT) [employer] Method Time Signature Treponema Nonreactive NR^Nonrea 02/10/2020 [facility] ctive 12:50 PM CDT [facility] Comment: Methodology Change: Test performed on DiaSorin Liaison XL by Treponema pallidum Total Antibodies Assay as of . Specimen Anatomical Collection Method Collection Time Receive d Time (Source) Location / / Volume Laterality Blood specimen 02/10/2020 6:34 AM 020 6:54 (specimen) CDT AM CDT Francis Koenig MD LAB - BLOOD ORDERABLES Performing Organization Address City/State/ZIP Code Phon e Number [address] [address] [facility] Hemoglobin (02/10/2020 6:34 AM CDT) athologist Signature Hemoglobin 13.8 11.7 - 15.7 02/10/2020 [facility] [place] g/dL 6:59 AM CDT [facility] Specimen Anatomical Collection Method Collection Time Receive d Time (Source) Location / / Volume Laterality Blood specimen 02/10/2020 6:34 AM 020 6:54 (specimen) CDT AM CDT Francis Koenig MD LAB - BLOOD ORDERABLES Performing Organization Address City/[facility]/ZIP Code Phon e Number M [facility] [address] [place], [place] [address] [facility] [address] [place], [place] [address], [facility] [phone] ABO/Rh type and screen (02/10/2020 6:34 AM CDT) [place] DEPT. Method Time Signature ABO AB 02/10/2020 [place] 7:40 AM CDT [facility] RH(D) Pos [facility] Antibody Neg 02/10/2020 [place] Screen 7:40 AM CDT [facility] Test Valid [place] 02/10/2020 [place] Only [facility] 7:21 AM CDT [facility] Specimen 02/13/2020 02/10/2020 [place] Expires 7:21 AM T [facility] Specimen Anatomical Collection Method Collection Time Receive d Time (Source) Location / / Volume Laterality Blood specimen 02/10/2020 6:34 AM 020 6:54 (specimen) CDT AM CDT Francis Koenig MD LAB - BLOOD BANK TEST ORDER Performing Organization Address [facility] Phon e Number M [facility] [address] [place], [place] [address] [facility] [address] [place], [place] [address], [facility] [phone] (ABNORMAL) SARS-CoV-2 COVID-19 Virus (Coronavirus) RT-PCR Nasopharyngeal (02/10/2020 6:20 AM CDT) [facility] Method Time Signature SARS-CoV-2 Nasopharyngeal 02/10/2020 [facility] Virus 11:33 AM [place] [facility] Specimen CDT [facility] SARS-CoV-2 POSITIVE (AA) 02/10/2020 [facility] PCR Result 11:33 AM [place] MEDICAL CDT [facility] Comment: SARS-CoV2 (COVID-19) RNA detect ed, presumed positive. SARS-CoV-2 PCR Testing was performed using the Xpert Xpress SARS-CoV-2 Assay on the [employer] Gene-Xpert 02/10/2020 11:33 AM [facility] Comment Instrument Systems. Addition al information about this Emergency Use Authorization (EUA) [facility] assay can be found via the Lab Guide. [place] Comment: This test should be ordered for the dete ction of SARS-CoV-2 in individuals who meet SARS-CoV-2 clinical and/or epidemi ological criteria. Test performance is unknown in asymptomatic patients. This test is for in vitro diagnostic use under the FDA EUA for laboratories certified under CLIA to perform high com plexity testing. This test has not been FDA cleared or approved. A negative result does not rule out the presence of PCR inhibitors in the specimen or target RNA in concentration below the limit of detection for the assay. The possibility of a false negati ve should be considered if the patient's recent exposure or clinical pr esentation suggests COVID-19. This test was validated by the [facility]. This laboratory i s certified under the Clinical Laboratory Improvement Amendments of 198 8 (CLIA-88) as qualified to perform high complexity laboratory testing. Specimen (Source) Anatomical Collection Method Collection Time Re ceived Time Location / / Volume Laterality Specimen from 02/10/2020 6:20 02/10/2020 nasopharyngeal AM CDT 6:29 AM CDT structure (specimen) Francis Koenig MD LAB - MICRO GENERAL ORDERABL ES Performing Organization Address City/State/ZIP Code Phon e Number [facility] [address] [place], [place] [id number] [place] [address] Asymptomatic COVID-19 Virus (Coronavirus) by PCR (02/10/2020 6:20 AM CDT) Component Value Ref Test Analysis Performed At [facility] gist Range Method Time Signature COVID-19 Nasopharyngeal 02/10/2020 [place] Virus PCR to 6:29 AM CDT [facility] Source COVID-19 Test received-See 02/10/2020 INFECTIOUS Virus PCR to reflex to IDDL 10:33 AM DISEAS[facility] - test SARS CoV2 CDT DIAGNOSTIC Result (COVID-19) Virus LABORATORY, RT-PCR [facility] Comment: Critical Value/Significant Value called to and read back by MASOOD ESQUEDA ??02/10/2020 AT 11.40A M,ZG Specimen (Source) Anatomical Collection Method Collection Time Re ceived Time Location / / Volume Laterality Specimen from 02/10/2020 6:20 02/10/2020 nasopharyngeal AM CDT 6:29 AM CDT structure (specimen) Francis Koenig MD LAB - MICRO GENERAL ORDERABL ES Performing Organization Address City/State/ZIP Code Phon e Number INFECTIOUS DISEASES [address] [place] [address] DIAGNOSTIC LABORATORY, [facility] [address] [place] [address] [facility] [phone] Group B strep PCR (01/12/2020) athologist Signature Group B Strep positive PCR Patient Reported LAB - MICRO GENERAL ORDERABL ES Rubella Antibody IgG Quantitative (07/13/2019) athologist Signature Rubella YURIY IgG immune Specimen (Source) Anatomical Location Collection Method / Collectio n Time Received Time / Laterality Volume Blood specimen (specimen) Patient Reported LAB - BLOOD ORDERABLES HIV Antigen Antibody Combo (07/13/2019) Patholo gist Method Time Signature HIV Antigen non reactive Antibody Combo Specimen (Source) Anatomical Location Collection Method / Collectio n Time Received Time / Laterality Volume Blood specimen (specimen) Patient Reported LAB - BLOOD ORDERABLES Hepatitis B surface antigen (07/13/2019) athologist Signature Hep B Surface negative Agn Specimen (Source) Anatomical Location Collection Method / Collectio n Time Received Time / Laterality Volume Blood specimen (specimen) Patient Reported LAB - BLOOD ORDERABLES documented in this encounter Visit Diagnoses Diagnosis delivery delivered - Primary delivery, without mention of in dication, delivered, with or without mention of antepartum condition Breech Breech presentation without mention of v ersion, unspecified as to episode of care documented in this encounter Administered Medications Inactive Administered Medications - up to 3 most recent administrations Medication Order MAR Action Action Date Dose Rate Site acetaminophen (TYLENOL) tablet 650 mg 650 mg, Oral, EVERY 4 HOURS PRN, other, multimodal surgical pain management along with NSAIDS and opioid medication as ind icated based on pain control and physical function, Starting on Wed02/13/20 at 16 00, May give first dose 4 hours after last scheduled dose of acetaminophen. Maximum acetaminophen dose from all sources = 75 mg/kg/day not to exceed 4 grams/day., Post-procedure acetaminophen (TYLENOL) tablet 975 mg Given 02/12/2020 6:57 AM CDT 975 mg 975 mg, Oral, EVERY 6 HOURS, First dose on 02/10/20 at 1600, For 3 days, Do not use if patient has an active opioid/acetaminophen combined analgesic product ordered for pain. Maximum acetaminophen dose from all sources = 75 mg/kg/day not to exceed 4 grams/day., Post-procedure Given 02/12/2020 12:11 AM CDT 975 mg Given 02/11/2020 6:29 PM CDT 975 mg bisacodyl (DULCOLAX) Suppository 10 mg 10 mg, Rectal, DAILY PRN, constipation, Starting on 02/12/20 at 0000, Start POD 2 Hold for loose stools., Post-procedure dimenhyDRINATE (DRAMAMINE) injection 25 mg 25 mg, Intravenous, ONCE PRN, other, francisco j sea, Starting on 02/10/20 at 1523, For 1 dose, Dilute in 10 ml 0.9% Sodium chloride., PACU/Ph ase II diphenhydrAMINE (BENADRYL) injection 25 mg Given 02/11/2020 12:44 AM CDT 25 mg 25 mg, Intravenous, EVERY 6 HOURS PRN, itching, Starting on 02/10/20 at 1147, For ordered IV doses 1-50 mg, give IV Push undiluted. Give each 25mg over a minimum of 1 minute. Extend in non-emergency Given 02/10/2020 12:09 PM CDT 25 mg fentaNYL (PF) (SUBLIMAZE) injection 25-5 0 mcg 25-50 mcg, Intravenous, EVERY 15 MIN PRN, other, acute pain while in Phase II, Starting on 02/10/20 at 1523, Indica tions: Sedated State, MAX cumulative dose = 250 mcg. Use Fentanyl initially, as a sh ort acting agent for acute pain control. If insufficient, or a longer acting agent i s needed, begin Morphine or Hydromorphone if ordered. For ordered IV doses 1-100 m cg give IV Push undiluted over a minimum of 3-5 minutes., Phase ll hydrocortisone 2.5 % cream Rectal, 3 TIMES DAILY PRN, hemorrhoids, Starting on 02/10/20 at 0918, Apply to hemorrhoids. Send only if nurse requests., Post-proced ure HYDROmorphone (PF) (DILAUDID) injection Given 02/10/2020 3:20 PM CDT 0.5 mg 0.3-0.5 mg 0.3-0.5 mg, Intravenous, EVERY 30 MIN PRN, other, for pain control or improvement in physical function. Hold dose for analgesic side effects., Starting on 02/10/20 at 0918, Offer at least every 2 hours. Start at the lowest dose. May adjust dose by 0.1 mg every 2 hours as needed. Notify provider to assess for uncontrolled pain or analgesic side effects. Hold while on IV SEO ASSOCIATE. For ordered IV doses 0.1-4 mg give IV Push undiluted. Administer each 2mg over 2-5 minutes., Post-procedure Given 02/10/2020 1:44 PM CDT 0.5 mg Given 02/10/2020 12:50 PM CDT 0.5 mg HYDROmorphone (PF) (DILAUDID) injection 0.3-0.5 mg 0.3-0.5 mg, Intravenous, EVERY 10 MIN NE N, other, acute pain.?May administer if Respiratory Rate is greater than 10, Sta rting on 02/10/20 at 1523, If fentanyl is also ordered, use HYDROmorphone if pa in control insufficient with fentanyl or a longer acting agent is needed. Max cumulative dose = 2 mg For ordered IV doses 0.1-4 mg give IV Push undiluted. Adminis ter each 2mg over 2-5 minutes., PACU/Phase II ibuprofen (ADVIL/MOTRIN) tablet 800 mg Given 02/12/2020 6:57 AM CDT 800 mg 800 mg, Oral, EVERY 6 HOURS PRN, other, cramping, Starting on 02/11/20 at 0930, Start 6 hours after ketorolac is completed (if ordered). Max dose: 3200 mg/day, Post-procedure Given 02/11/2020 11:31 PM CDT 800 mg Given 02/11/2020 4:54 PM CDT 800 mg lactated ringers BOLUS 1,000 mL Intravenous, 1,000 mL, ONCE PRN, post hemorrhag e (PPH), Starting on 02/10/20 at 0918, For 1 dose, Rate: 500- 1000 mL/hr. Start IF HEMORRHAGE, Post-procedure lactated ringers BOLUS 250 mL Intravenous, 250 mL, ONCE PRN, other, hypotension, Sta rting on 02/10/20 at 0941, For 1 dose, If no improvement in Blood Pressure with repositioning(if ordered), administer IV bolus as ordered . Treat for Systolic Blood Pressure less than 100 mmHg or drop in Blood Pressure by 20%. If unr esponsive to Fluid Bolus, administer ePHEDrine OR phenylephrine (CESAR-SYNEPHRINE) [if ordered] or page Anesthesia. lanolin cream Given 02/12/2020 12:10 AM CDT Topical, EVERY 1 HOUR PRN, dry skin, soreness, Starting on 02/10/20 at 0918, Apply to sore nipples after feedings, Post-procedure lidocaine (LMX4) cream Topical, EVERY 1 HOUR PRN, pain, with VA D insertion or accessing implanted port., Starting on 02/10/20 at 0918, Do NOT give if patient has a history of allergy to any local anesthetic or any blaine p roduct. Apply at least 30 minutes prior to VAD insertion or port access. In divided doses as need ed for size of site for insertion with MAX Dose: 2.5 g (?? of 5 g tube), Post- procedure lidocaine (LMX4) cream Topical, EVERY 1 HOUR PRN, pain, with VA D insertion or accessing implanted port., Starting on 02/10/20 at 0941, Do NOT give if patient has a history of allergy to any local anesthetic or any blaine p roduct. Apply at least 30 minutes prior to VAD insertion or port access. In divided doses as need ed for size of site for insertion with MAX Dose: 2.5 g (?? of 5 g tube) lidocaine 1 % 0.1-1 mL 0.1-1 mL, Other, EVERY 1 HOUR PRN, mild pain with VAD insertion., Starting on 02/10/20 at 0918, Do NOT give if patient has a history of allergy to any local anesthetic or any blaine product. MAX dose 1 mL subcu taneous OR intradermal in divided doses as needed for VAD insertion., Post-proce dure lidocaine 1 % 0.1-1 mL 0.1-1 mL, Other, EVERY 1 HOUR PRN, mild pain with VAD insertion., Starting on 02/10/20 at 0941, Do NOT give if patient has a history of allergy to any local anesthetic or any blaine product. MAX dose 1 mL subcu taneous OR intradermal in divided doses as needed for VAD insertion. medication instruction CONTINUOUS PRN, Starting on 02/10/20 at 0941, Until 02/12/20 at 1257, -All intrathecal medications must be preserva tive free -All orders must be compounded in preservative free Normal Saline -Absolut natalie no anticoagulants, thrombolytics, or antiplatelet medications or other opioid analgesics or other sedatives without prior notification of Anesthesia Service -All patients who receive intrathecal medications must have IV access. meperidine (DEMEROL) injection 12.5 mg 12.5 mg, Intravenous, EVERY 15 MIN PRN, post anesthesia shivering, Starting on 02/10/20 at 1523, For 2 doses, Give IV P ush undiluted. 10-40 mg over 2-3 minutes, up to 125 mg over 3-15 minutes, PACU/Phase II nalbuphine (NUBAIN) injection 5 mg Given 02/11/2020 4:37 AM CDT 5 mg 5 mg, Intravenous, EVERY 2 HOURS PRN, itching, Starting on 02/10/20 at 0934 Given 02/10/2020 9:56 AM CDT 5 mg naloxone (NARCAN) injection 0.1-0.4 mg 0.1-0.4 mg, Intravenous, EVERY 2 MIN PRN , opioid reversal, Starting on 02/10/20 at 0918, For respiratory rate LESS than or EQUAL to 8. Partial reversal dose: 0.1 mg titrated q 2 minutes for Analgesia Si de Effects Monitoring Sedation Level of 3 (frequently drowsy, arousable, drifts to sleep during conversation).Full reversal dose: 0.4 mg bolus for Analgesia Side Effects Monitori ng Sedation Level of 4 (somnolent, minimal or no response to st imulation). For ordered IV doses 0.1-2mg give IVP. Give each 0.4mg over 15 second s in emergency situations. For non-emergent situations further dilute in 9mL of NS to facilitate t itration of response., Post-procedure No MMR Needed - Assessment: Patient does not need MMR vaccine CONTINUOUS PRN, Starting on 02/10/20 at 0918, Unti l 02/12/20 at 1257, Post-procedure NO Rho (D) immune globulin (RhoGam) need ed - mother Rh POSITIVE CONTINUOUS PRN, Starting on 02/10/20 at 0918, Unti l 02/12/20 at 1257, Post-procedure No Tdap Needed - Assessment: Patient castro s not need Tdap vaccine CONTINUOUS PRN, Starting on 02/10/20 at 0918, Unti l 02/12/20 at 1257, Post-procedure ondansetron (ZOFRAN) injection 4 mg 4 mg, Intravenous, EVERY 6 HOURS PRN, nausea, vomiting , Administer over 2-5 Minutes, Starting on 02/10/20 at 091 8, If nausea not resolved in 15 minutes, notify provider before proceeding to prochlorperazine (COMPAZINE) [if ordered]. Irritant. For ordered IV doses 0.1-4 mg, give IV Push undiluted over 2-5 minutes., Post-procedure ondansetron (ZOFRAN) injection 4 mg 4 mg, Intravenous, EVERY 30 MIN PRN, francisco j sea, vomiting, Administer over 2-5 Minutes, Starting on 02/10/20 at 1523, For 2 doses, MAX total dose = 8 mg, including OR dosing. This is step 1 of nausea and vomiting manageme nt. If not resolved in 15 minutes, then go to step 2 [prochlorpera zine (COMPAZINE) if ordered]. Irritant. For ordered IV doses 0.1-4 mg, give IV Push undiluted over 2-5 minutes., PACU/Phase II ondansetron (ZOFRAN-ODT) ODT tab 4 mg Given 02/10/2020 6:52 PM CDT 4 mg 4 mg, Oral, EVERY 30 MIN PRN, nausea, vomiting, Starting on 02/10/20 at 1523, For 2 doses, MAX total dose = 8 mg, including OR dosing. This is step 1 of nausea and vomiting management. If not resolved in 15 minutes, then go to step 2 [prochlorperazine (COMPAZINE) if ordered]. With dry hands, peel back foil backing and gently remove tablet. Do not push oral disintegrating tablet through foil backing. Administer immediately on tongue and oral disintegrating tablet dissolves in seconds, then swallow with saliva. Liquid not required., PACU/Phase II Opioid plan - medication inst ruction CONTINUOUS PRN, Starting on 02/10/20 at 0941, Until 02/12/20 at 1257, May give opioids (NOT Sedatives) as ordered by OB provider when patient meets parameters: respirations greater than 14 breaths per m inute, is NOT somnolent, oxygen saturation is greater than 95%, pain inadequate ly controlled with other adjuvant medications. May give other medications per O B provider orders. oxyCODONE (ROXICODONE) tablet 5 mg Given 02/12/2020 8:43 AM CDT 5 mg 5 mg, Oral, EVERY 4 HOURS PRN, other, pain control or improvement in physical function. Hold dose for analgesic side effects., Starting on 02/10/20 at 0918, Notify provider to assess for uncontrolled pain or analgesic side effects. Hold while on SEO ASSOCIATE or with regular IV opioid dosing. Maximum total is 60 mg in 24 hours., Post-procedure Given 02/12/2020 4:04 AM CDT 5 mg Given 02/11/2020 11:36 PM CDT 5 mg oxytocin (PITOCIN) 30 units in New Bag 02/10/2020 9:00 AM CDT 340 mL/hr 340 mL/hr 500 mL 0.9% NaCl infusion 340 mL/hr, Intravenous, CONTINUOUS PRN, for hemorrhage (PPH) UNTIL bleeding subsided, Starting on 02/10/20 at 0918, When bleeding subsides decrease rate to 100 mL/hr. Notify provider immediately when infusion begun. Oxytocin is first line medication for PPH., Post-procedure oxytocin (PITOCIN) injection 10 Units 10 Units, Intramuscular, ONCE PRN, postp artum hemorrhage (PPH). IF no IV access is available., Starting on 02/10/20 at 0918, For 1 dose, Oxytocin is first line medication for PPH., Post-procedure phenylephrine (CESAR-SYNEPHRINE) injection 100 mcg 100 mcg, Intravenous, EVERY 5 MIN PRN, if Systolic Blo od Pressure less than 100 mmHg., Starting on 02/10/20 at 0941, For 4 doses, IF unresponsive to phenylephrine, page Anesthesia Maximum of 4 doses (400 mcg) Vesicant. prochlorperazine (COMPAZINE) injection 1 0 mg Given 02/10/2020 9:37 PM CDT 10 mg 10 mg, Intravenous, EVERY 6 HOURS PRN, nausea, vomiting, Administer over 1-2 Minutes, Starting on 02/10/20 at 1523, This is Step 2 of nausea and vomiting management. If nausea not resolved in 15 minutes, give metoclopramide (REGLAN) if ordered [step 3 of nausea and vomiting management]. For ordered IV doses 0.1-10 mg, give IV push undiluted, each 5 mg over 1 minute., PACU/Phase II senna-docusate (SENOKOT-S/PERICOLACE) Given 02/11/2020 9:18 AM C DT 1 tablet 8.6-50 MG per tablet 1 tablet 1 tablet, Oral, 2 TIMES DAILY, First dose on 02/10/20 at 0930, If no bowel movement in 24 hours, increase to 2 tablets PO. Hold for loose stools. Preferred agent for constipation related to opioids. Hold for loose stools., Post-procedure Given 02/10/2020 8:23 PM CDT 1 tablet senna-docusate (SENOKOT-S/PERICOLACE) Given 02/12/2020 8:43 AM C DT 2 tablets 8.6-50 MG per tablet 2 tablet 2 tablet, Oral, 2 TIMES DAILY, First dose on 02/10/20 at 0930, Hold for loose stools. Preferred agent for constipation related to opioids. Hold for loose stools., Post-procedure Given 02/11/2020 8:57 PM CDT 2 tablets simethicone (MYLICON) chewable tablet 80 mg 80 mg, Oral, 4 TIMES DAILY PRN, other, gas, Starting o n 02/10/20 at 0918, Chew., Post-procedure sodium chloride (PF) 0.9% PF flush 3 mL 3 mL, Intracatheter, EVERY 1 MIN PRN, li ne flush, for peripheral IV flush post IV meds, Starting on 02/10/20 at 0918, Post-procedure sodium chloride (PF) 0.9% PF flush 3 mL 3 mL, Intracatheter, EVERY 1 MIN PRN, li ne flush, for peripheral IV flush post IV meds, Starting on 02/10/20 at 0941 sodium phosphate (FLEET ENEMA) 1 enema 1 enema, Rectal, DAILY PRN, constipation , , Starting on 02/12/20 at 0000, Use if bisacodyl not effective. Start POD 2. Hold for loos e stools., Post-procedure tranexamic acid 1 g in 100 mL 0.7% NaCl IV bag (premix) 1 g, Intravenous, Administer over 10 Minutes, EVERY 30 MIN PRN, Post- hemorrhage (PPH), Starting on 02/10/20 at 0918, Fo r 2 doses, Provider consultation REQUIRED and MUST be admini stered as soon as the ONSET of bleeding AND within 3 hours of regardless of ca use of the PPH (atony OR laceration). IF bleeding continues, a 2nd dose may be ad ministered after 30 minutes. IF concern for DIC (Disseminated Intravascular Coagulat ion), obtain coagulation studies PRIOR to administration. Mix in 50 mL or 100 mL n ormal saline and infuse. Contraindications include: history of PE (Pulmonary Emboli ), DVT (Deep Vein Thrombosis) and current Subarachnoid hemorrhage and active DIC., Post-procedur e documented in this encounter Active and Recently Administered Medications Times are shown in CDT. Scheduled Medication Order 02/10/2020 02/11/2020 02/12/2020 acetaminophen (TYLENOL) tablet 975 mg (COMPLETED) 0812 (Given - Provider: Susy Esqueda RN - Comment: pre op)1125 (Canceled Entry - Provider: Susy Esqueda RN) 975 mg, Oral, ONCE, 02/10/20 at 0830 , For 1 dose, Maximum acetaminophen dose from all sources = 75 mg/kg/day not to exceed 4 grams/day. acetaminophen (TYLENOL) tablet 975 mg 1734 (Given - Pr ovider: Charlene Sabillon RN) 0044 (Given - Provider: Sharon Daly RN)0546 (Not Given - Provider: Sharon Daly RN - Reason: Patient sleeping)0635 (Given - Provider: Sharon Daly RN)1229 (Given - Provider: Alysia Myers, MASOOD)1829 (Given - Provider: Brandie Mason, MASOOD) 0011 (Given - Provider: Sharon Daly, MASOOD)0657 (Given - Provider: Sharon Daly RN)1230 (Canceled Entry - Provider: Orders Generic Provider - Comment: Automatically canceled at discontinue of medication order) 975 mg, Oral, EVERY 6 HOURS, First dose on 02/10/20 at 1600, For 3 days, Do not use if patient has an active opioid/acetaminophen combined analgesic product ordered for pain. Maximum acetaminophen d ose from all sources = 75 mg/kg/day not to exceed 4 grams/da y., Post-procedure ceFAZolin (ANCEF) intermittent infusion 2 g in 100 mL dextrose PRE-MIX (COMPLETED) 08 (Given - Provider: Lupis Cummins APRN PIE ICER MACHINE) STAT, 2 g, Intravenous, ONCE, Sat at 0830, For 1 dose, Indications: Perioperative Pharmacoprophylaxis ketorolac (TORADOL) injection 30 mg (COMPLETED) 09 ( Given - Provider: Susy Esqueda RN)1519 (Given - Provider: Susy Esqueda RN)2135 (Given - Provider: Charlene Sabillon RN) 0335 (Given - Provider: Sharon Daly RN) 30 mg, Intravenous, EVERY 6 HOURS, First dose on 02/10/20 at 0930, For 24 hours, Give first dose in PACU (alright to give with narcotic analgesic if ordered) X 24 hours Can cause pain on injection. If ordered intravenously (IV) : administ er through a running maintenance fluid over 1 minute followed by a flush. If patient complains of pain on injection, may dilute 15-30 mg in 5 mL and push over 1 to 2 minutes. , Post-procedure scopolamine (TRANSDERM) 72 hr patch 1 patch (COMPLETED ) 1126 (Canceled Entry - Provider: Susy Esqueda RN)190 (Patch/Med Applied - Provider: Charlene Sabillon RN) 192 (Patch/Med Removed - Provider: Christoph Oliveira N) 1 patch, Transdermal, ONCE, Administer o annelise 24 Hours, 02/10/20 at 1000, For 1 dose, For nausea/vomiting. Apply patch to skin, behind ear. Remove after 24 hours. Each 1.5 mg patch delivers 1 mg of sc opolamine. Reminder: Remove previous patch before applying new p atch. senna-docusate (SENOKOT-S/PERICOLACE) 8. 6-50 MG per tablet 1 tablet(Linked Group 1) 1126 (Not Given - Provider: Susy fabian RN - Reason: Nausea)2022 (Given - Provider: Charlene Sabillon RN) 0918 (Given - Provider: Alysia Myers RN) 2056 (See Alternative - Provider: Charlene Sabillon RN) 0843 (See Alternative - Provider: Mishel Krishnan RN) 1 tablet, Oral, 2 TIMES DAILY, First dos e on 02/10/20 at 0930, If no bowel movement in 24 hours, increase to 2 tablets PO. Hold for loose stools. Preferred agent for constipation related to opioids. Hold for loose stools., Post-procedure senna-docusate (SENOKOT-S/PERICOLACE) 8. 6-50 MG per tablet 2 tablet(Linked Group 1) 1126 (See Alternative - Provider: Britt Esqueda RN)2022 (See Alternative - Provider: Charlene Sabillon RN) 0918 (See Alternative - Provider: Alysia Myers RN)2056 (Given - Provider: Charlene Sabillon RN) 0843 (Given - Provider: Mishel Krishnan RN) 2 tablet, Oral, 2 TIMES DAILY, First dos e on 02/10/20 at 0930, Hold for loose stools. Preferred agent for constipation related to opioids. Hold for loose stools., Post-procedure sodium chloride (PF) 0.9% PF flush 3 mL (CANCELED) 112 6 (Canceled Entry - Provider: Susy Esqueda RN)1910 (Not Given - Provider: Charlene Sabillon RN - Reason: IV Infusing) 0402 (Not Given - Provider: Sharon stubbs RN - Reason: IV Infusing)0647 (Given - Provider: Sharon Daly RN)1000 (Canceled Entry - Provider: Alysia Myers RN - Comment: Automatically canceled at discontinue of medication order) 3 mL, Intracatheter, EVERY 8 HOURS, Firs t dose on 02/10/20 at 1000, And Q1H PRN, to lock peripheral IV dormant line. Continuous Medication Order 02/10/2020 02/11/2020 02/12/2020 dextrose 5% in lactated ringers infusion (CANCELED) 11 25 (Canceled Entry - Provider: Susy Esqueda, MASOOD)1302 (New Bag - Provider: Susy Esqueda, MASOOD)202 (New Bag - Provider: Charlene Sabillon, MASOOD) 0353 (New Bag - Provider: Sharon Daly RN) at 125 mL/hr, Intravenous, CONTINUOUS, S ubsequent IV at nurse's discretion. DC IV when tolerating fluids or at nurse's discretion & saline lock., Post- procedure, Starting 02/10/20 at 0930, Until 02/11/20 at 1311 lactated ringers infusion (CANCELED) 0644 (New Bag - P rovider: Estefania Mabry RN)0816 (New Bag - Provider: Lupis Cummins APRN PIE ICER MACHINE)0836 (New Bag - Provider: Lupis Cummins APRN PIE ICER MACHINE) at 200 mL/hr, Intravenous, CONTINUOUS, U p to 500 mL total, Pre-procedure, Starting 02/10/20 at 0630, Until 02/10/20 at 1536 oxytocin (PITOCIN) 30 units in 500 mL 0.9% NaCl infusi on (CANCELED) 0955 (New Bag - Provider: Susy Esqueda, MASOOD) 100 mL/hr, at 100 mL/hr, Intravenous, CO NTINUOUS, Starting 02/10/20 at 0930, Anesthesia Provider to administer at 340 mL/hr for 30 minutes (or longer per provider discretion) then decrease to 100 mL /hr. Continue until a total of 2 bags ad ministered (1st bag initiated by Anesthesia Provider.) Discontinue IV or saline lock IV per nurse discretion., Post-procedure PRN Medication Order 02/10/2020 02/11/2020 02/12/2020 acetaminophen (TYLENOL) tablet 650 mg 650 mg, Oral, EVERY 4 HOURS PRN, other, multimodal surgical pain management along with NSAIDS and opioid medication as indicated based on pain control and physical function, Starting 02/13/20 at 160 0, May give first dose 4 hours after las t scheduled dose of acetaminophen. Maximum acetaminophen dose from all sources = 75 mg/kg/day not to exceed 4 grams/day., Post-procedure bisacodyl (DULCOLAX) Suppository 10 mg 10 mg, Rectal, DAILY PRN, constipation, Starting 02/12/20 at 0000, Start POD 2 Hold for loose stools., Post-procedure dimenhyDRINATE (DRAMAMINE) injection 25 mg 25 mg, Intravenous, ONCE PRN, other, francisco j sea, Starting 02/10/20 at 1523, For 1 dose, Dilute in 10 ml 0.9% Sodium chloride., PACU/Phase II diphenhydrAMINE (BENADRYL) injection 25 mg 1209 (Given - Provider: Susy Esqueda RN) 0044 (Given - Provider: Sharon Daly RN) 25 mg, Intravenous, EVERY 6 HOURS PRN, i tching, Starting 02/10/20 at 1147, For ordered IV doses 1-50 mg, give IV Push undiluted. Give each 25mg over a minimum of 1 minute. Extend in non-emergency fentaNYL (PF) (SUBLIMAZE) injection 25-50 mcg 25-50 mcg, Intravenous, EVERY 15 MIN PRN , other, acute pain while in Phase II, Starting 02/10/20 at 1523, Indications: Sedated State, MAX cumulative dose = 250 mcg. Use Fentanyl initially, as a shor t acting agent for acute pain control. I f insufficient, or a longer acting agent is needed, begin Morphine or Hydromorphone if ordered. For ordered IV doses 1- 100 mcg give IV Push undiluted over a minimum of 3-5 minutes., Phase ll hydrocortisone 2.5 % cream Rectal, 3 TIMES DAILY PRN, hemorrhoids, Starting 02/10/20 at 0918, Apply to hemorrhoids. Send only if nurse requests., Post-procedure HYDROmorphone (PF) (DILAUDID) injection 0.3-0.5 mg 120 3 (Given - Provider: Susy Esqueda RN)1250 (Given - Provider: Susy Esqueda RN)1344 (Given - Provider: Susy Esqueda, MASOOD)1520 (Given - Provider: Susy Esqueda RN) 0.3-0.5 mg, Intravenous, EVERY 30 MIN NE N, other, for pain control or improvement in physical function. Hold dose for analgesic side effects., Starting 02/10/20 at 0918, Offer at least every 2 hours . Start at the lowest dose. May adjust d ose by 0.1 mg every 2 hours as needed. Notify provider to assess for uncontrolled pain or analgesic side effects. Hold while on IV [employer] ASSOCI[employer]. For ordered IV doses 0.1-4 mg give IV Push undiluted. Administer e ach 2mg over 2-5 minutes., Post-procedure HYDROmorphone (PF) (DILAUDID) injection 0.3-0.5 mg 0.3-0.5 mg, Intravenous, EVERY 10 MIN NE N, other, acute pain.?May administer if Respiratory Rate is greater than 10, Starting 02/10/20 at 1523, If fentanyl is also ordered, use HYDROmorphone if p ain control insufficient with fentanyl o r a longer acting agent is needed. Max cumulative dose = 2 mg For ordered IV doses 0.1-4 mg give IV Push undiluted. Administer each 2mg over 2-5 minutes., PACU/Phase II ibuprofen (ADVIL/MOTRIN) tablet 800 mg 1 043 (Given - Provider: Alysia Myers RN)1654 (Given - Provider: Charlene Sabillon RN)2331 (Given - Provider: Sharon Daly, MASOOD) 0657 (Given - Provider: Sharon Daly, MASOOD) 800 mg, Oral, EVERY 6 HOURS PRN, other, cramping, Starting 02/11/20 at 0930, Start 6 hours after ketorolac is completed (if ordered). Max dose: 3200 mg/day, Post-procedure lactated ringers BOLUS 1,000 mL Intravenous, 1,000 mL, ONCE PRN, post pa rtum hemorrhage (PPH), Starting 02/10/20 at 0918, For 1 dose, Rate: 500-1000 mL/hr. Start IF HEMORRHAGE, Post-procedure lactated ringers BOLUS 250 mL Intravenous, 250 mL, ONCE PRN, other, hy potension, Starting 02/10/20 at 0941, For 1 dose, If no improvement in Blood Pressure with repositioning(if ordered), administer IV bolus as ordered. Treat fo r Systolic Blood Pressure less than 100 mmHg or drop in Blood Pressure by 20%. If unresponsive to Fluid Bolus, administer ePHEDrine OR phenylephrine (CESAR- SYNEPHRINE) [if ordered] or page Anesthesia. lanolin cream 0010 (Given - Pr ovider: Sharon Daly RN) Topical, EVERY 1 HOUR PRN, dry skin, sor eness, Starting 02/10/20 at 0918, Apply to sore nipples after feedings, Post-procedure lidocaine (LMX4) cream Topical, EVERY 1 HOUR PRN, pain, with VA D insertion or accessing implanted port., Starting 02/10/20 at 0918, Do NOT give if patient has a history of allergy to any local anesthetic or any blaine pr oduct. Apply at least 30 minutes prior t o VAD insertion or port access. In divided doses as needed for size of site for insertion with MAX Dose: 2.5 g (?? of 5 g tube), Post-procedure lidocaine (LMX4) cream Topical, EVERY 1 HOUR PRN, pain, with VA D insertion or accessing implanted port., Starting 02/10/20 at 0941, Do NOT give if patient has a history of allergy to any local anesthetic or any blaine pr oduct. Apply at least 30 minutes prior t o VAD insertion or port access. In divided doses as needed for size of site for insertion with MAX Dose: 2.5 g (?? of 5 g tube) lidocaine 1 % 0.1-1 mL 0.1-1 mL, Other, EVERY 1 HOUR PRN, mild pain with VAD insertion., Starting 02/10/20 at 0918, Do NOT give if patient has a history of allergy to any local anesthetic or any blaine product. MAX dose 1 mL subcutaneous OR intradermal in divi ded doses as needed for VAD insertion., Post-procedure lidocaine 1 % 0.1-1 mL 0.1-1 mL, Other, EVERY 1 HOUR PRN, mild pain with VAD insertion., Starting 10/17/20 at 0941, Do NOT give if patient has a history of allergy to any local anesthetic or any blaine product. MAX dose 1 mL subcutaneous OR intradermal in divided doses as needed for VAD insertion. medication instruction CONTINUOUS PRN, Starting 02/10/20 at 0941, Until 02/12/20 at 1257, -All intrathecal medications must be preservative free -All orders must be compounded in preservative free Normal Saline -Absol utely no anticoagulants, thrombolytics, or antiplatelet medications or other opioid analgesics or other sedatives without prior notification of Anesthesia Service -All patients who receive intrathecal medications must have IV access. meperidine (DEMEROL) injection 12.5 mg 12.5 mg, Intravenous, EVERY 15 MIN PRN, post anesthesia shivering, Starting 02/10/20 at 1523, For 2 doses, Give IV Push undiluted. 10-40 mg over 2-3 minutes, up to 125 mg over 3-15 minutes, PACU/Phase II nalbuphine (NUBAIN) injection 5 mg 0956 (Given - Provi mukul: Susy Esqueda, MASOOD) 0437 (Given - Provider: Sharon Daly, MASOOD) 5 mg, Intravenous, EVERY 2 HOURS PRN, itching, Starting Sat 01/24 11/12 at 0934 naloxone (NARCAN) injection 0.1-0.4 mg 0.1-0.4 mg, Intravenous, EVERY 2 MIN PRN , opioid reversal, Starting 02/10/20 at 0918, For respiratory rate LESS than or EQUAL to 8. Partial reversal dose: 0.1 mg titrated q 2 minutes for Analgesia S deepti Effects Monitoring Sedation Level of 3 (frequently drowsy, arousable, drifts to sleep during conversation).Full reversal dose: 0.4 mg bolus for Analgesia Side Effects Monitoring Sedation Level of 4 (somnolent, minimal or no response to st imulation). For ordered IV doses 0.1-2mg give IVP. Give each 0.4mg over 15 seconds in emergency situations. For non- emergent situations further dilute in 9mL of N S to facilitate titration of response., Post-procedure No MMR Needed - Assessment: Patient does not need MMR vaccine CONTINUOUS PRN, Starting 02/10/20 at 0918, Until 02/12/20 at 1257, Post-procedure NO Rho (D) immune globulin (RhoGam) needed - mother Rh POSITIVE CONTINUOUS PRN, Starting 02/10/20 at 0918, Until 02/12/20 at 1257, Post-procedure No Tdap Needed - Assessment: Patient does not need Tdap vaccine CONTINUOUS PRN, Starting 02/10/20 at 0918, Until 02/12/20 at 1257, Post-procedure ondansetron (ZOFRAN) injection 4 mg 4 mg, Intravenous, EVERY 6 HOURS PRN, na usea, vomiting, Administer over 2-5 Minutes, Starting 02/10/20 at 0918, If nausea not resolved in 15 minutes, notify provider before proceeding to prochlorper azine (COMPAZINE) [if ordered]. Irritant . For ordered IV doses 0.1-4 mg, give IV Push undiluted over 2-5 minutes., Post-procedure ondansetron (ZOFRAN) injection 4 mg(Linked Group 2) 18 52 (See Alternative - Provider: Charlene Sabillon RN) 4 mg, Intravenous, EVERY 30 MIN PRN, francisco j sea, vomiting, Administer over 2-5 Minutes, Starting 02/10/20 at 1523, For 2 doses, MAX total dose = 8 mg, including OR dosing. This is step 1 of nausea and v omiting management. If not resolved in 1 5 minutes, then go to step 2 [prochlorperazine (COMPAZINE) if ordered]. Irritant. For ordered IV doses 0.1-4 mg, give IV Push undiluted over 2-5 minutes., PACU/Phase II ondansetron (ZOFRAN-ODT) ODT tab 4 mg(Linked Group 2) 185 (Given - Provider: Charlene Sabillon, MASOOD) 4 mg, Oral, EVERY 30 MIN PRN, nausea, vo miting, Starting 02/10/20 at 1523, For 2 doses, MAX total dose = 8 mg, including OR dosing. This is step 1 of nausea and vomiting management. If not resolved in 15 minutes, then go to step 2 [prochl orperazine (COMPAZINE) if ordered]. With dry hands, peel back foil backing and gently remove tablet. Do not push oral disintegrating tablet through foil backing. Administer immediately on tongue and ora l disintegrating tablet dissolves in seconds, then swallow with saliva. Liquid not required., PACU/Phase II Opioid plan - medication instruction CONTINUOUS PRN, Starting 02/10/20 at 0941, Until 02/12/20 at 1257, May give opioids (NOT Sedatives) as ordered by OB provider when patient meets parameters: respirations greater than 14 breaths per minute, is NOT somnolent, oxygen sat uration is greater than 95%, pain inadequately controlled with other adjuvant medications. May give other medications per OB provider orders. oxyCODONE (ROXICODONE) tablet 5 mg 1810 (Given - Provider: Hannah Sabillon, MASOOD) 0635 (Given - Provider: Sharon Daly, MASOOD)1229 (Given - Provider: Alysia Myers RN)1829 (Given - Provider: Brandie aMson RN - Comment: cramping/incisional)2336 (Given - Provider: Sharon Daly, MASOOD) 0404 (Given - Provider: Sharon Daly, MASOOD)0843 (Given - Provider: Mishel Krishnan RN) 5 mg, Oral, EVERY 4 HOURS PRN, other, pa in control or improvement in physical function. Hold dose for analgesic side effects., Starting 02/10/20 at 0918, Notify provider to assess for uncontrolled p ain or analgesic side effects. Hold whil e on [employer] ASS[employer]IATE or with regular IV opioid dosing. Maximum total is 60 mg in 24 hours., Post-procedure oxytocin (PITOCIN) 30 units in 500 mL 0.9% NaCl infusi on 0900 (New Bag - Provider: Susy Esqueda RN) 340 mL/hr, at 340 mL/hr, Intravenous, CO NTINUOUS PRN, for hemorrhage (PPH) UNTIL bleeding subsided, Starting 02/10/20 at 0918, When bleeding subsides decrease rate to 100 mL/hr. Notify pr ovider immediately when infusion begun. Oxytocin is first line medication for PPH., Post-procedure oxytocin (PITOCIN) injection 10 Units 10 Units, Intramuscular, ONCE PRN, postp artum hemorrhage (PPH). IF no IV access is available., Starting 02/10/20 at 0918, For 1 dose, Oxytocin is first line medication for PPH., Post-procedure phenylephrine (CESAR-SYNEPHRINE) injection 100 mcg 100 mcg, Intravenous, EVERY 5 MIN PRN, i f Systolic Blood Pressure less than 100 mmHg., Starting 02/10/20 at 0941, For 4 doses, IF unresponsive to phenylephrine, page Anesthesia Maximum of 4 doses (400 mcg) Vesicant. prochlorperazine (COMPAZINE) injection 10 mg 2137 (Giv en - Provider: Charlene Sabillon RN) 10 mg, Intravenous, EVERY 6 HOURS PRN, n ausea, vomiting, Administer over 1-2 Minutes, Starting 02/10/20 at 1523, This is Step 2 of nausea and vomiting management. If nausea not resolved in 15 minute s, give metoclopramide (REGLAN) if order ed [step 3 of nausea and vomiting management]. For ordered IV doses 0.1-10 mg, give IV push undiluted, each 5 mg over 1 minute., PACU/Phase II simethicone (MYLICON) chewable tablet 80 mg 80 mg, Oral, 4 TIMES DAILY PRN, other, g as, Starting 02/10/20 at 0918, Chew., Post-procedure sodium chloride (PF) 0.9% PF flush 3 mL 3 mL, Intracatheter, EVERY 1 MIN PRN, li ne flush, for peripheral IV flush post IV meds, Starting 02/10/20 at 0918, Post-procedure sodium chloride (PF) 0.9% PF flush 3 mL 3 mL, Intracatheter, EVERY 1 MIN PRN, li ne flush, for peripheral IV flush post IV meds, Starting 02/10/20 at 0941 sodium phosphate (FLEET ENEMA) 1 enema 1 enema, Rectal, DAILY PRN, constipation , , Starting 02/12/20 at 0000, Use if bisacodyl not effective. Start POD 2. Hold for loose stools., Post-procedure tranexamic acid 1 g in 100 mL 0.7% NaCl IV bag (premix) 1 g, Intravenous, Administer over 10 Min utes, EVERY 30 MIN PRN, Post- hemorrhage (PPH), Starting 02/10/20 at 0918, For 2 doses, Provider consultation REQUIRED and MUST be administered as soon as the ONSET of bleeding AND within 3 ho urs of regardless of cause of the PPH (atony OR laceration). IF bleeding continues, a 2nd dose may be administered after 30 minutes. IF concern for DIC (Dis seminated Intravascular Coagulation), ob tain coagulation studies PRIOR to administration. Mix in 50 mL or 100 mL normal saline and infuse. Contraindications include: history of PE (Pulmonary Emboli), DV T (Deep Vein Thrombosis) and current Sub arachnoid hemorrhage and active DIC., Post-procedure Linked Groups Order Group 1: senna-docusate (SENOKOT-S/PERICOLACE) 8.6-50 MG per tablet 1 tabletJump to med 1 tablet, Oral, 2 TIMES DAILY, First dos e on 02/10/20 at 0930
If no bowel movement in 24 hours, increase to 2 tablets PO. Hold for loose stools. Preferred agent for constipation related to opioids.&nbs p;Hold for loose stools.
Post-procedure Or senna-docusate (SENOKOT-S/PERICOLACE) 8.6-50 MG per tablet 2 tabletJump to med 2 tablet, Oral, 2 TIMES DAILY, First dos e on 02/10/20 at 0930
Hold for loose stools. Preferred agent for constipation related to opioids. Hold for loose stools.
Post-procedure Group 2: ondansetron (ZOFRAN-ODT) ODT tab 4 mgJump to med 4 mg, Oral, EVERY 30 MIN PRN, nausea, vo miting, Starting 02/10/20 at 1523, For 2 doses
MAX total dose = 8 mg, including OR dosing. This is step 1 of nausea and vomiting management.&nbsp ; If not resolved in 15 minutes, th en go to step 2 [prochlorperazine (COMPAZINE) if ordered]. With dry hands, peel back foil backing and gently remove tablet. Do not push oral disinteg rating tablet through foil backing. Admi nister immediately on tongue and oral disintegrating tablet dissolves in seconds, then swallow with saliva. Liquid not required.
PACU/Phase II Or ondansetron (ZOFRAN) injection 4 mgJump to med 4 mg, Intravenous, EVERY 30 MIN PRN, francisco j sea, vomiting, Administer over 2-5 Minutes, Starting 02/10/20 at 1523, For 2 doses
MAX total dose = 8 mg, including OR dosing. This is step 1 of naus ea and vomiting management. I f not resolved in 15 minutes, then go to step 2 [prochlorperazine (COMPAZINE) if ordered]. Irritant. For ordered IV doses 0.1-4 mg, give IV Push undiluted over 2-5 minutes.
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
--- OUTSIDE RECORDS SUMMARY | 2021-12-30 10:42 | XMS_ITS | Encounter Summary ---
:2000 Author Organization [facility] Address [address] [place] [address]. [place] [address] Care Team Providers Name Role Phone Caryl Trujillo MD Primary Care Provider [phone] Caryl Trujillo MD Unavailable [phone] Yumiko Cheek RN Unavailable Encounter Details Date Type Department Care Team Description 06/07/2018 Travel Social History Tobacco Use Types Packs/Day Years Used Date Former Smoker Smokeless Tobacco: Never Used Alcohol Use Standard Drinks/Week Comments No 0 (1 standard drink = 0.6 oz pure alcoho l) Sex Assigned at Date Recorded Not on file documented as of this encounter Plan of Treatment Not on filedocumented as of this encounter Visit Diagnoses Not on filedocumented in this encounter Additional Health Concerns Assessment Noted Time PHQ-9 Depression Total Score: 6 11/07/2016 7:23 AM CDT documented as of this encounter Care Teams Tunnel Heading Supervisor Relationship Specialty Start Date End Date Caryl Trujillo, PCP - General Family Practice 12/16/10 Caryl Trujillo, PCP - Assigned PCP 11/07/17 06/28/18 [id number] [place] [address] Robeck, Yumiko L, RN Clinic Electronics Mechanic Apprentice 06/07/18 06/09/18 documented as of this encounter
--- OUTSIDE RECORDS SUMMARY | 2021-12-30 10:42 | XMS_ITS | Encounter Summary ---
:2000 Author Organization [place] Address Formerly [facility], later [facility] [place] [address] Care Team Providers Name Role Phone Caryl Trujillo MD Primary Care Provider [phone] Caryl Trujillo MD Unavailable [phone] Reason for Visit Reason Comments Scheduled Section Auth/Cert Specialty Diagnoses / Procedures Referred By Contact Refer red To Contact ball holder Diagnoses Breech Breech [O32.1XX0] Rh Labor And Delivery Procedures ZZC DELIVERY ONLY ZZC DELIVERY+ CARE ZZC C-SEC ONLY,PREV C-SEC SECTION primary [address] [place], [place] [address] Phone: Fax: Referral ID Status Reason Start Date Expiration Date Visits Requ ested Visits Authorized [id number] 1 1 Encounter Details Date Type Department Care Team Description 02/10/2020 - Hospital Encounter [facility] FransiscoFrancis Tito arean delivery 02/12/2020 [facility] Pediatric MD Anthony delivered (Primary [address] OBGYN Dx) [place], [place] [facility] [id number] [address] [facility] [phone] [address] [id number] Social History Tobacco Use Types Packs/Day Years [...] questions or concerns after you return home. [place] [facility] Referral: IF you have not been in contact with home care in the next 24 hours. Please call. Phone number: [phone] documented in this encounter Medications at Time [...] via ambulatory at 1055am in stable condition. Celai Valentine MD - 02/12/2020 9:00 AM CDT [...] Koenig MD - 02/11/2020 9:59 AM CDT [facility] Ob[facility]etrics Post-Op / Progress Note Interval [...] able to sleep well. Mother doing all infant cares. Father sleeping at bedside. Using lanolin [...] provide for cares. Plan of Care - Alysia Myers RN - 02/11/2020 2:06 PM CDT [...] at bedside. Pharmacy-Admission Medication History - Chapo Wright Naga - 02/11/2020 6:37 AM CDT Medication reconciliation [...] PM CDT Data: Teodora Eisenberg transferred to [facility] via cart at 1530. Baby transferred via parent's arms. Action: Receiving unit notified of transfer: Yes. Patient and family notified of room change. Reportgiven to Charlene RN at 1545. Belongings sent to receiving unit. [...] the standard breech cardinal maneuvers and the Lipbplfjq-Wmeqsjb-Kvwq maneuver for the aftercoming head. The nares and oropharynx were suctioned on the abdomen. Delayed cord clamping and chloride employed. The cord was clamped and cut and the baby was taken to the [place]. This was a vigorous female infant with Apgars of 8 and 9. The [...] FRANCIS KOENIG MD MT: Name: TEODORA NÚÑEZ Account: [id number] : 2000 Procedure Date: 02/10/2020 Document: [id number] L&D Delivery Note - Francis Koenig MD - 02/10/2020 8:55 AM CDT Primary LTCS for breech Op Note - Franics Koenig MD - 02/10/2020 8:07 AM CDT Procedure Date: 02/10/2020 PROCEDURE: Limited obstetric ultrasound. INDICATIONS: position. FINDINGS: Transabdominal imaging shows a single fetus in the herber breech presentation with normal cardiac activity. There is normal-appearing amniotic fluid. There is no evidence of placenta previa. IMPRESSION: Herber breech presentation. FRANCIS KOENIG MD MT: NTS Name: TEODORA NÚÑEZ Account: [id number] : 2000 Procedure Date: 02/10/2020 Document: [id number] Plan of Care - Estefania Mabry RN [...] Signature Glucose 88 70 - 99 02/11/2020 [place] mg/dL 7:49 AM CDT [facility] Specimen Anatomical Collection Method Collection Time Receive d Time (Source) Location / / Volume Laterality Blood specimen 02/11/2020 7:05 AM 020 7:06 (specimen) CDT AM CDT Francis Koenig MD LAB - BLOOD ORDERABLES Performing Organization Address City/State/ZIP Code Phon e Number M [facility] [address] [place] [address] [facility] [address] [address], [place] [phone] (ABNORMAL) Hemoglobin (02/11/2020 7:05 AM CDT) athologist Signature Hemoglobin 11.5 (L) 11.7 - 15.7 02/11/2020 [place] g/dL 7:26 AM CDT [facility] Specimen Anatomical Collection Method Collection Time Receive d Time (Source) Location / / Volume Laterality Blood specimen 02/11/2020 7:05 AM 020 7:06 (specimen) CDT AM CDT Francis Koenig MD LAB - BLOOD ORDERABLES Performing Organization Address City/[facility]/ZIP Code Phon e Number M [facility] [address], [place] [address] [facility] [address] [place], [place] [address], [facility] [phone] Treponema Abs w Reflex to RPR and Titer (02/10/2020 6:34 AM CDT) [facility] gist Method Time Signature Treponema Nonreactive NR^Nonrea 02/10/2020 [facility] ctive 12:50 PM CDT [facility] Comment: Methodology Change: Test performed on DiaSorin Liaison XL by Treponema pallidum Total Antibodies Assay as of . Specimen Anatomical Collection Method Collection Time Receive d Time (Source) Location / / Volume Laterality Blood specimen 02/10/2020 6:34 AM 020 6:54 (specimen) CDT AM CDT Francis Koenig MD LAB - BLOOD ORDERABLES Performing Organization Address City/[facility]/ZIP Code Phon e Number [facility] [address] [place] [address] [facility] Hemoglobin (02/10/2020 6:34 AM CDT) P athologist Signature Hemoglobin 13.8 11.7 - 15.7 02/10/[address] [facility] g/dL 6:59 AM CDT HOSPITAL Specimen Anatomical Collection Method Collection Time Receive d Time (Source) Location / / Volume Laterality Blood specimen 02/10/2020 6:34 AM 020 6:54 (specimen) CDT AM CDT Francis Koenig MD LAB - BLOOD ORDERABLES Performing Organization Address City/[facility]/ZIP Code Phon e Number M [facility] [address], [place] [address] [facility] [address] [place], [place] [address] [phone] ABO/Rh type and screen (02/10/2020 6:34 AM CDT) [facility] Method Time Signature ABO AB 02/10/2020 [place] 7:40 AM CDT [facility] RH(D) Pos [facility] Antibody Neg 02/10/2020 [place] Screen 7:40 AM T [facility] Test Valid [place] 02/10/2020 [place] Only At [facility] 7:21 AM CDT [facility] HOSPITAL Specimen 02/13/2020 02/10/2020 [place] Expires 7:21 AM [facility] Specimen Anatomical Collection Method Collection Time Receive d Time (Source) Location / / Volume Laterality Blood specimen 02/10/2020 6:34 AM 020 6:54 (specimen) CDT AM CDT Francis Koenig MD LAB - BLOOD BANK TEST ORDER Performing Organization Address City/State/ZIP Code Phon e Number M [place] [address], [place] [address] [phone] [facility] [address] [phone] (ABNORMAL) SARS-CoV-2 COVID-19 Virus (Coronavirus) RT-PCR Nasopharyngeal (02/10/2020 6:20 AM CDT) [facility] Method Time Signature SARS-CoV-2 Nasopharyngeal 02/10/2020 [facility] Virus 11:33 AM [facility] Specimen T [facility] SARS-CoV-2 POSITIVE (AA) 02/10/2020 [facility] PCR Result 11:33 AM [facility] Comment: SARS-CoV2 (COVID-19) RNA detect ed, presumed positive. SARS-CoV-2 PCR Testing was performed using the Xpert Xpress SARS-CoV-2 Assay on the [employer] Gene-Xpert 02/10/2020 11:33 AM [facility] Comment Instrument Systems. Addition al information about this Emergency Use Authorization (EUA) [facility] assay can be found via the Lab Guide. [place] Comment: This test should be ordered for [...] COVID-19. This test was validated by the [facility] Infectious Diseases Diagnostic Laboratory. This laboratory i [...] MICRO GENERAL ORDERABL ES Performing Organization Address City/[facility]/ZIP Code Phon e Number [facility] [address] [place], [place] [id number] [place] [address] Asymptomatic COVID-19 Virus (Coronavirus) by PCR (02/10/2020 6:20 AM CDT) Component Value Ref Test Analysis Performed At Patholo gist Range Method Time Signature COVID-19 Nasopharyngeal 02/10/2020 [place] Virus PCR to 6:29 AM CDT [facility] Source COVID-19 Test received-See 02/10/2020 INFECTIOUS Virus PCR to reflex to IDDL 10:33 AM DISEASES [facility] - test SARS CoV2 CDT DIAGNOSTIC Result (COVID-19) Virus LABORATORY, RT-PCR [facility] Comment: Critical Value/Significant Value called to and read back by MASOOD ESQUEDA ??02/10/2020 AT 11.40A M,ZG Specimen (Source) Anatomical Collection Method Collection Time Re ceived Time Location / / Volume Laterality Specimen from 02/10/2020 6:20 02/10/2020 nasopharyngeal AM CDT 6:29 AM CDT structure (specimen) Francis Koenig MD LAB - MICRO GENERAL ORDERABL ES Performing Organization Address City/[facility]/ZIP Code Phon e Number INFECTIOUS DISEASES [address] [place] [address] DIAGNOSTIC LABORATORY, [facility] [address] [place], [place] [address] [facility] [phone] Group B strep PCR (01/12/2020) athologist Signature Group B Strep positive PCR Patient Reported LAB - MICRO GENERAL ORDERABL ES Rubella Antibody IgG Quantitative (07/13/2019) athologist Signature Rubella YURIY IgG immune Specimen (Source) Anatomical Location Collection Method / Collectio n Time Received Time / Laterality Volume Blood specimen (specimen) Patient Reported LAB - BLOOD ORDERABLES HIV Antigen Antibody Combo (07/13/2019) [facility] gist Method Time Signature HIV Antigen non [...] with or without mention of antepartum condition documented in this encounter Administered Medications Inactive [...] Post-procedure acetaminophen (TYLENOL) tablet 975 mg Given 02/10/2020 8:12 AM CDT 975 mg 975 mg, Oral, ONCE, On 02/10/20 at 0830, For 1 dose, Maximum acetaminophen dose from all sources = 75 mg/kg/day not to exceed 4 grams/day. acetaminophen (TYLENOL) tablet 975 mg Given 02/12/2020 [...] POD 2 Hold for loose stools., Post-procedure dextrose 5% in lactated ringers infusion New Bag 02/11/2020 3:53 AM CDT 125 mL/hr at 125 mL/hr, Intravenous, CONTINUOUS, Subsequent IV at nurse's discretion. DC IV when tolerating fluids or at nurse's discretion & saline lock., Post-procedure, Starting on 02/10/20 at 0930, Until 02/11/20 at 1311 New Bag 02/10/2020 8:21 PM CDT 125 mL/hr New Bag 02/10/2020 1:02 PM CDT 125 mL/hr 125 mL/hr dimenhyDRINATE (DRAMAMINE) injection 25 mg 25 mg, [...] analgesic side effects. Hold while on IV FISH BIN TENDER. For ordered IV doses 0.1-4 mg give IV Push undiluted. Administer each 2mg over 2-5 minutes., Post-procedure Given 02/10/2020 1:44 PM CDT 0.5 mg Given 02/10/2020 12:50 PM CDT 0.5 mg HYDROmorphone (PF) (DILAUDID) injection 0.3-0.5 mg 0.3-0.5 mg, Intravenous, EVERY 10 MIN TX N, other, acute pain.?May administer if Respiratory [...] Given 02/11/2020 4:54 PM CDT 800 mg ketorolac (TORADOL) injection 30 mg Given 02/11/2020 3:35 AM CDT 30 mg 30 mg, Intravenous, EVERY 6 HOURS, First dose on 02/10/20 at 0930, For 24 hours, Give first dose in PACU (alright to give with narcotic analgesic if ordered) X 24 hours Can cause pain on injection. If ordered intravenously (IV) : administer through a running maintenance fluid over 1 minute followed by a flush. If patient complains of pain on injection, may dilute 15-30 mg in 5 mL and push over 1 to 2 minutes. , Post-procedure Given 02/10/2020 9:35 PM CDT 30 mg Given 02/10/2020 3:19 PM CDT 30 mg lactated ringers BOLUS 1,000 mL Intravenous, [...] phenylephrine (CESAR-SYNEPHRINE) [if ordered] or page Anesthesia. lactated ringers infusion New Bag 02/10/2020 8:36 AM CDT at 200 mL/hr, Intravenous, CONTINUOUS, Up to 500 mL total, Pre-procedure, Starting on 02/10/20 at 0630, Until 02/10/20 at 1536 New Bag 02/10/2020 8:16 AM CDT New Bag 02/10/2020 6:44 AM CDT 200 mL/hr lanolin cream Given 02/12/2020 12:10 AM CDT [...] PRN, Starting on 02/10/20 at 0941, Until Wed02/12/20 at 1257, -All intrathecal medications must be [...] or analgesic side effects. Hold while on FISH BIN TENDER or with regular IV opioid dosing. Maximum total is 60 mg in 24 hours., Post-procedure Given 02/12/2020 4:04 AM CDT 5 mg Given 02/11/2020 11:36 PM CDT 5 mg oxytocin (PITOCIN) 30 units in New Bag 02/10/2020 9:55 AM CDT 100 mL/hr 100 mL/hr 500 mL 0.9% NaCl infusion 100 mL/hr, Intravenous, CONTINUOUS, Starting on 02/10/20 at 0930, Anesthesia Provider to administer at 340 mL/hr for 30 minutes (or longer per provider discretion) then decrease to 100 mL/hr. Continue until a total of 2 bags administered (1st bag initiated by Anesthesia Provider.) Discontinue IV or saline lock IV per nurse discretion., Post-procedure oxytocin (PITOCIN) 30 units in New Bag [...] 5 mg over 1 minute., PACU/Phase II scopolamine (TRANSDERM) Patch/Med Applied 02/10/2020 7:09 PM 1 patch Behind Left 72 hr patch 1 patch CDT Ear 1 patch, Transdermal, ONCE, Administer over 24 Hours, On 02/10/20 at 1000, For 1 dose, For nausea/vomiting. Apply patch to skin, behind ear. Remove after 24 hours. Each 1.5 mg patch delivers 1 mg of scopolamine. Reminder: Remove previous patch before applying new patch. senna-docusate (SENOKOT-S/PERICOLACE) Given 02/11/2020 9:18 AM C [...] meds, Starting on 02/10/20 at 0941 sodium chloride (PF) 0.9% PF flush 3 mL Given 02/11/2020 6:47 AM CDT 3 mLs 3 mL, Intracatheter, EVERY 8 HOURS, First dose on 02/10/20 at 1000, And Q1H PRN, to lock peripheral IV dormant line. sodium phosphate (FLEET ENEMA) 1 enema 1 [...] Reason: Patient sleeping)0635 (Given - Provider: Sharon Daly, MASOOD)1229 (Given - Provider: Alysia Myers, MASOOD)1829 (Given - Provider: Brandie Mason RN) 0011 (Given - Provider: Sharon Daly RN)0657 (Given - Provider: Sharon Daly RN)1230 (Canceled [...] g in 100 mL dextrose PRE-MIX (COMPLETED) 0816 (Given - Provider: Lupis Cummins APRN PRIMING POWDER PREMIX BLENDER) STAT, 2 g, Intravenous, ONCE, Sat at 0830, For 1 dose, Indications: Perioperative Pharmacoprophylaxis ketorolac (TORADOL) injection 30 mg (COMPLETED) 0954 ( Given - Provider: Susy Esqueda RN)1519 (Given - Provider: Susy Esqueda RN)2135 (Given - Provider: Charlene Sabillon, MASOOD) 0335 (Given - Provider: Sharon Daly RN) [...] RN) 192 (Patch/Med Removed - Provider: Christoph Oliveira) 1 patch, Transdermal, ONCE, Administer o annelise [...] Britt Esqueda RN)2022 (See Alternative - Provider: Cahrlene Sabillon RN) 0918 (See Alternative - Provider: [...] Reason: IV Infusing)0647 (Given - Provider: Sharon Daly, MASOOD)1000 (Canceled Entry - Provider: Alysia Myers RN - Comment: Automatically canceled at discontinue of medication order) 3 mL, Intracatheter, EVERY 8 HOURS, Firs t dose on 02/10/20 at 1000, And Q1H PRN, to lock peripheral IV dormant line. Continuous Medication Order 02/10/2020 02/11/2020 02/12/2020 dextrose 5% in lactated ringers infusion (CANCELED) 11 25 (Canceled Entry - Provider: Susy Esqueda RN)1302 (New Bag - Provider: Susy Esqueda RN)2020 (New Bag - Provider: Charlene Sabillon RN) 0353 (New Bag - Provider: Sharon Daly RN) at 125 mL/hr, Intravenous, CONTINUOUS, S ubsequent IV at nurse's discretion. DC IV when tolerating fluids or at nurse's discretion & saline lock., Post- procedure, Starting 02/10/20 at 0930, Until 02/11/20 at 1311 lactated ringers infusion (CANCELED) 0644 (New Bag - P rovider: Estefania Mabry RN)0816 (New Bag - Provider: Lupis Cummins APRN PRIMING POWDER PREMIX BLENDER)0836 (New Bag - Provider: Lupis Cummins APRN PRIMING POWDER PREMIX BLENDER) at 200 mL/hr, Intravenous, CONTINUOUS, U p to 500 mL total, Pre-procedure, Starting 02/10/20 at 0630, Until 02/10/20 at 1536 oxytocin (PITOCIN) 30 units in 500 mL 0.9% NaCl infusi on (CANCELED) 0955 (New Bag - Provider: Susy Esqueda RN) 100 mL/hr, at 100 mL/hr, Intravenous, CO [...] 25 mg 1209 (Given - Provider: Susy Esqueda, RN) 0044 (Given - Provider: Sharon Daly [...] mg 120 3 (Given - Provider: Susy Esqueda, MASOOD)1250 (Given - Provider: Susy Esqueda, MASOOD)1344 (Given - Provider: Susy Esqueda RN)1520 (Given - Provider: Susy Esqueda RN) 0.3-0.5 mg, Intravenous, EVERY 30 MIN TX N, other, for pain control or improvement in physical function. Hold dose for analgesic side effects., Starting 02/10/20 at 0918, Offer at least every 2 hours . Start at the lowest dose. May adjust d ose by 0.1 mg every 2 hours as needed. Notify provider to assess for uncontrolled pain or analgesic side effects. Hold while on IV FISH BIN TENDER. For ordered IV doses 0.1-4 mg give IV Push undiluted. Administer e ach 2mg over 2-5 minutes., Post-procedure HYDROmorphone (PF) (DILAUDID) injection 0.3-0.5 mg 0.3-0.5 mg, Intravenous, EVERY 10 MIN TX N, other, acute pain.?May administer if Respiratory [...] Alysia Myers RN)1654 (Given - Provider: Charlene Sabillon, MASOOD)2331 (Given - Provider: Sharon Daly, MASOOD) 0657 [...] pain with VAD insertion., Starting 02/10/20 at 0941, Do NOT give [...] 0956 (Given - Provi mukul: Susy Esqueda, RN) 0437 (Given - Provider: Sharon Daly, MASOOD) [...] (ZOFRAN-ODT) ODT tab 4 mg(Linked Group 2) 1852 (Given - Provider: Charlene Sabillon RN) 4 mg, Oral, EVERY 30 MIN PRN, [...] 5 mg 1810 (Given - Provider: Hannah Sabillon RN) 0635 (Given - Provider: Sharon Daly RN)1229 (Given - Provider: Alysia Myers RN)1829 (Given - Provider: Brandie Mason RN - Comment: cramping/incisional)2336 (Given - Provider: Sharon Daly RN) 0404 (Given - Provider: Sharon Daly RN)0843 (Given - Provider: Mishel Krishnan, MASOOD) 5 mg, Oral, EVERY 4 HOURS PRN, other, pa in control or improvement in physical function. Hold dose for analgesic side effects., Starting 02/10/20 at 0918, Notify provider to assess for uncontrolled p ain or analgesic side effects. Hold whil e on FISH BIN TENDER or with regular IV opioid dosing. Maximum [...] mcg) Vesicant. prochlorperazine (COMPAZINE) injection 10 mg 213 (Giv en - Provider: Charlene Sabillon RN) [...] Time COVID-19 02/10/2020 02/10/2020 03/02/2020 11:39 PM MANAGER OF RECRUITING Assessment Noted Time PHQ-9 Depression Total Score: 6 11/07/2016 7:23 AM CDT documented as of this encounter Care Teams Supervisor Costuming Relationship Specialty Start Date End Date Caryl Trujillo MD PCP - General Family Practice 12/16/10 Caryl Trujillo MD Assigned PCP 06/26/18 06/07/21 [id number] [id number] documented as of this encounter
--- OUTSIDE RECORDS SUMMARY | 2021-12-30 10:43 | XMS_ITS | Encounter Summary ---
:2000 Author Organization [place] Address [address] [place] [address]. [place] [address] Care Team Providers Name Role Phone Caryl Trujillo MD Primary Care Provider [phone] Reason for Visit Reason Onset Date Comments Call Back 08/27/2014 returned mother's ca ll requesting info about diagnosis. Left message acknowledgin call and wanting to conncect withher and daughter.. Encounter Details Date Type Department Care Team Description 08/27/2014 Telephone [facility] Haley Harding LP Call Back (returned Services [facility] BUGGY DRIVER KNOB mother's call requesting BUGGY DRIVER KNOB [address] info about diagnosis. [place], [place]ag [place] [phone] acknowledgin call and [phone] wanting to conn cect (Work) withher and daughter.. ) Social History Tobacco Use Types Packs/Day Years Used Date Passive Smoke Exposure - Never Smoker Smokeless Tobacco: Never Used Comments: father and step-mom Alcohol Use Standard Drinks/Week Comments No 0 (1 standard drink = 0.6 oz pure alcoho l) Sex Assigned at Date Recorded Not on file documented as of this encounter Plan of Treatment Not on filedocumented as of this encounter Visit Diagnoses Not on filedocumented in this encounter Care Teams Candle Pourer Relationship Specialty Start Date End Date Caryl Trujillo MD PCP - General Family Practice 12/16/10 documented as of this encounter
--- OUTSIDE RECORDS SUMMARY | 2021-12-30 10:43 | XMS_ITS | Encounter Summary ---
:2000 Author Organization [place] Address [address] [place] [address]. [place] [address] Care Team Providers Name Role Phone Caryl Trujillo MD Primary Care Provider [phone] Encounter Details Date Type Department Care Team Description 01/08/2015 [facility] Haley Harding LP Documentation Services [facility] [place], [place] [id number] Social History Tobacco Use Types Packs/Day Years Used Date Passive Smoke Exposure - Never Smoker Smokeless Tobacco: Never Used Alcohol Use Standard Drinks/Week Comments No 0 (1 standard drink = 0.6 oz pure alcoho l) Sex Assigned at Date Recorded Not on file documented as of this encounter Progress Notes Haley Harding LP - 01/08/2015 4:08 PM CDT Images from the original note were not included. Discharge Summary Multiple Sessions Client Name: Teodora Eisenberg Date: 2000 Intake / Discharge Date: 01-08-15 DSM5 Diagnoses: (Sustained by DSM5 Criteria Listed Above) Diagnoses: ADHd/ ADD , anxiety, adjustment DO Psychosocial & Contextual Factors: student Presenting Concern: interpersonal Reason for Discharge: Client is satisfied with progress and Client did not return Disposition at Time of Last Encounter: Comments: none Risk Management: Client denies a history of suicidal ideation, suicide attempts, self-injurious behavior, homicidal ideation, homicidal behavior and and other safety concerns A safety and risk management plan has not been developed at this time, however client was given the after-hours number should there be a change in any of these risk factors. Referred To: Med managment Haley Harding LP 01/08/2015 documented in this encounter Plan of Treatment Not on filedocumented as of this encounter Visit Diagnoses Not on filedocumented in this encounter Care Teams Exchange Administrator Relationship Specialty Start Date End Date Caryl Trujillo MD PCP - General Family Practice 12/16/10 documented as of this encounter
--- OUTSIDE RECORDS SUMMARY | 2021-12-30 10:43 | XMS_ITS | Encounter Summary ---
:2000 Author Organization [place] Address [address] [place] [address]. [place] [address] Care Team Providers Name Role Phone Crayl Trujillo MD Primary Care Provider [phone] Reason for Visit Reason Onset Date Comments Patient Cancelled 06/10/2015 Adderall Encounter Details Date Type Department Care Team Description 06/10/2015 Virtual Visit [facility] Caryl Trujillo [facility] Vitor Tolliver MD ENCOUNTER--DISREGARD [facility] [address] [facility], [address] [place] [phone] Social History Tobacco Use Types Packs/Day Years Used Date Passive Smoke Exposure - Never Smoker Smokeless Tobacco: Never Used Alcohol Use Standard Drinks/Week Comments No 0 (1 standard drink = 0.6 oz pure alcoho l) Sex Assigned at Date Recorded Not on file documented as of this encounter Plan of Treatment Not on filedocumented as of this encounter Visit Diagnoses Diagnosis ERRONEOUS ENCOUNTER--DISREGARD documented in this encounter Additional Health Concerns Assessment Noted Time PHQ-9 Depression Total Score: 2 02/16/2015 7:24 AM CDT documented as of this encounter Care Teams Engine Tester Relationship Specialty Start Date End Date Caryl Trujillo MD PCP - General Family Practice 12/16/10 documented as of this encounter
--- OUTSIDE RECORDS SUMMARY | 2021-12-30 10:43 | XMS_ITS | Encounter Summary ---
:2000 Author Organization [place] Address [facility] [place] [address] Care Team Providers Name Role Phone Caryl Trujillo MD Primary Care Provider [phone] Reason for Visit Reason Onset Date Comments Panel Management 06/11/2016 Encounter Details Date Type Department Care Team Description 06/11/2016 Telephone [facility] Caryl Trujillo [place] [address] [facility], [address] [place] [address] [place] [address] [place] [address] [phone] Social History Tobacco Use Types Packs/Day Years Used Date Passive Smoke Exposure - Never Smoker Smokeless Tobacco: Never Used Comments: patient's boyfriend and also h is family Alcohol Use Standard Drinks/Week Comments No 0 (1 standard drink = 0.6 oz pure alcoho l) Sex Assigned at Date Recorded Not on file documented as of this encounter Miscellaneous Notes Telephone Encounter - Teressa Rose CMA - 06/11/2016 2:23 PM CST Patient returned call. ACT completed. Patient currently has NO INS. Teressa Rose CMA ASSOCIATE Telephone Encounter - Teressa Rose CMA - 06/11/2016 9:59 AM CST Panel Management Review Patient has the following on her problem list: Depression / Dysthymia review PHQ-9 SCORE 02/26/2014 08/28/2014 02/15/2015 Total Score 6 12 - Total Score - - 2 Patient is due for: FE-7 Asthma review ACT Total Scores 11/26/2015 ACT TOTAL SCORE (Goal Greater than or Equal to 20) 13 In the past 12 months, how many times did you visit the emergency room for your asthma without beingadmitted to the hospital? 0 In the past 12 months, how many times were you hospitalized overnight because of your asthma? 0 1. Is Asthma diagnosis on the Problem List? No 2. Is Asthma listed on Health Maintenance? No 3. Patient is due for: ACT Composite cancer screening Chart review shows that this patient is due/due soon for the following None Summary: Patient is due/failing the following: FE-7 and ACT Action needed: Patient needs office visit for ASTHMA. Type of outreach: Phone, left message for patient to call back. Questions for provider review: None Teressa Rose CMA Chart routed to Care Team . ASSOCIATE documented in this encounter Plan of Treatment Not on filedocumented as of this encounter Visit Diagnoses Not on filedocumented in this encounter Additional Health Concerns Assessment Noted Time PHQ-9 Depression Total Score: 2 02/16/2015 7:24 AM CDT documented as of this encounter Care Teams Sandblaster Glass Relationship Specialty Start Date End Date Caryl Trujillo MD PCP - General Family Practice 12/16/10 documented as of this encounter
--- OUTSIDE RECORDS SUMMARY | 2021-12-30 10:43 | XMS_ITS | Encounter Summary ---
:2000 Author Organization [place] Address [address] [place] [address]. [place] [address] Care Team Providers Name Role Phone Caryl Trujillo MD Primary Care Provider Reason for Visit Reason Comments Letter Request model technician animal letter. Anxiety Encounter Details Date Type Department Care Team Description 11/06/2016 Office Visit [facility] Marshal [facility] ed anxiety disorder (Primary Dx); Clinic Vitor Cuello MD Special screening examination for chlamy dial disease [address] [place] [address] [facility], [address] [place] [address] [place], [place] [phone] (Wo rk) [address] [phone] Social History Tobacco Use Types Packs/Day Years Used Date Current Every Day Smoker Smokeless Tobacco: Never Used Comments: patient smokes about [address] patient's boyfriend and also his family Alcohol Use Standard Drinks/Week Comments No 0 (1 standard drink = 0.6 oz pure alcoho l) Sex Assigned at Date Recorded Not on file documented as of this encounter Last Filed Vital Signs Vital Sign Reading Time Taken Comments Blood Pressure 100/64 11/06/2016 8:09 AM CDT Pulse 56 11/06/2016 8:09 AM CDT Temperature 36.8 ??C (98.3 ??F) 11/06/2016 8:09 AM CDT Respiratory Rate 16 11/06/2016 8:09 AM CDT Oxygen Saturation - - Inhaled Oxygen Concentration - - Weight 59.1 kg (130 lb 3.2 oz) 11/06/2016 8:09 AM CDT Height 160 cm (5' 3) 11/06/2016 8:09 AM CDT Body Mass Index 23.06 11/06/2016 8:09 AM CDT Body Mass Index Percentile 66.87 % 11/06/2016 8:09 AM CD T Growth Chart: [facility] (Girls, 2-20 Years) documented in this encounter Progress Notes Marshal Young MD - 11/06/2016 8:00 AM CDT HPI SUBJECTIVE: Teodora Eisenberg is a 16 year old female who presents to clinic today for the following health issues: Anxiety Follow-Up ?? Status since last visit: Worsened because patient has stopped her medication due to not having INS. ?? Other associated symptoms:None ?? Complicating factors: Significant life event: Yes- Has own apt. Current substance abuse: None Depression symptoms: Yes- Situational FE-7 SCORE 01/02/2014 02/27/2014 08/28/2014 Total Score 14 3 8 GAD7 ?? Amount of exercise or physical activity: 2-3 days/week for an average of 15- 30 minutes ?? Problems taking medications regularly: Yes, cost of medication due to NO INS coverage. ?? Medication side effects: not applicable ?? Diet: regular (no restrictions) DOCUMENTATION SPECIALIST LETTER TO HAVE A ANIMAL: Not currently using medication - was using citalopram previously, found it helpful. Would be willingto start again. Anxiety is moderate right now. Sleep is so-so, difficulty falling asleep. Has a dog that she finds helpful for her mood. Would like to be able to have at her apartment. Not looking to have it at work or school. Dog has no specific service animal certification or training. Not currently on control, single male partner, using condoms. Is currently sexually active. OCP made her gain weight. Not taking PNV. Review of Systems Constitutional: Negative. Respiratory: Negative. Cardiovascular: Negative. Psychiatric/Behavioral: Negative for substance abuse and suicidal ideas. The patient is nervous/anxious and has insomnia. Physical Exam Constitutional: She is oriented to person, place, and time and well-developed, well-nourished, and in no distress. Eyes: Conjunctivae and EOM are normal. Cardiovascular: Normal rate, regular rhythm and normal heart sounds. Pulmonary/Chest: Effort normal and breath sounds normal. Musculoskeletal: She exhibits no edema. Neurological: She is alert and oriented to person, place, and time. Skin: Skin is warm and dry. Psychiatric: Mood and affect normal. PHQ9:6 GAD7:6 Vitals reviewed. (F41.1) Generalized anxiety disorder (primary encounter diagnosis) Comment: printed rx - hopefully can fill and pay out of pocket Plan: citalopram (CELEXA) 20 MG tablet Letter provided to have dog in apt. (Z11.8) Special screening examination for chlamydial disease Comment: advised to be on PNV Plan: Chlamydia trachomatis PCR RTC in 1m Marshal Young MD documented in this encounter Nursing Notes Teressa Rose CMA - 11/06/2016 8:00 AM CDT Chief Complaint Patient presents with ??? Letter Request model technician animal letter. ??? Anxiety Initial BP 100/64 (BP Location: Right arm, Patient Position: Chair, Cuff Size: Adult Regular) Pulse 56 Temp 98.3 ??F (36.8 ??C) (Oral) Resp 16 Ht 5' 3 (1.6 m) Wt 130 lb 3.2 oz (59.1 kg) LMP 10/15/2016 BMI 23.06 kg/m2 Estimated body mass index is 23.06 kg/(m^2) as calculated from the following: Height as of this encounter: 5' 3 (1.6 m). Weight as of this encounter: 130 lb 3.2 oz (59.1 kg). BP completed using cuff size regular right arm. Teressa Rose CMA documented in this encounter Plan of Treatment Not on filedocumented as of this encounter Visit Diagnoses Diagnosis Generalized anxiety disorder - Primary Special screening examination for chlamy dial disease Special screening examination for unspec ified chlamydial disease documented in this encounter Additional Health Concerns Assessment Noted Time PHQ-9 Depression Total Score: 6 11/07/2016 7:23 AM CDT documented as of this encounter Care Teams Molding Utility Worker Relationship Specialty Start Date End Date Caryl Trujillo MD PCP - General Family Practice 12/16/10 documented as of this encounter
--- OUTSIDE RECORDS SUMMARY | 2021-12-30 10:43 | XMS_ITS | Encounter Summary ---
:2000 Author Organization [place] Address [address] [place] [address]. [place] [address] Care Team Providers Name Role Phone Caryl Trujillo MD Primary Care Provider [phone] Caryl Trujillo MD Unavailable [phone] Reason for Visit Reason Onset Date Comments No Show 12/07/2017 Encounter Details Date Type Department Care Team Description 12/07/2017 Office Visit [facility] Caryl Trujillo NO SHOW (Primary Dx) [place] [address] [place] [address] [facility], [address] [place] [id number] [place], [place] [phone] (Wo rk) [address] [phone] Social History Tobacco Use Types Packs/Day Years Used Date Current Every Day Smoker Smokeless Tobacco: Never Used Comments: patient smokes about [address] patient's boyfriend and also his family Alcohol Use Standard Drinks/Week Comments No 0 (1 standard drink = 0.6 oz pure alcoho l) Sex Assigned at Date Recorded Not on file documented as of this encounter Progress Notes Josefina Moore MA - 12/07/2017 11:00 AM CDT This patient was a no show for this scheduled appointment. documented in this encounter Plan of Treatment Not on filedocumented as of this encounter Visit Diagnoses Diagnosis NO SHOW - Primary documented in this encounter Additional Health Concerns Assessment Noted Time PHQ-9 Depression Total Score: 6 11/07/2016 7:23 AM CDT documented as of this encounter Care Teams Nurse Anesthetist Relationship Specialty Start Date End Date Caryl Trujillo MD PCP - General Family Practice 12/16/10 Caryl Trujillo MD PCP - Assigned PCP 11/07/17 06/28/18 [address] [place] [address] documented as of this encounter
--- OUTSIDE RECORDS SUMMARY | 2021-12-30 10:43 | XMS_ITS | Encounter Summary ---
:2000 Author Organization [place] Address [address] [place] [address]. [place] [address] Care Team Providers Name Role Phone Caryl Trujillo MD Primary Care Provider [phone] Reason for Visit Reason Onset Date Comments A.D.H.D No Show 04/16/2016 Encounter Details Date Type Department Care Team Description 04/16/2016 Office Visit [facility] Caryl Trujillo, NO SHOW Vitor CHERRY [address] [place] [address], [address] [place] [address] [place] [address] [place] [address] [phone] Social History Tobacco Use Types Packs/Day Years Used Date Passive Smoke Exposure - Never Smoker Smokeless Tobacco: Never Used Comments: patient's boyfriend and also h is family Alcohol Use Standard Drinks/Week Comments No 0 (1 standard drink = 0.6 oz pure alcoho l) Sex Assigned at Date Recorded Not on file documented as of this encounter Progress Notes Caryl Trujillo MD - 04/13/2016 3:41 PM CST HPI SUBJECTIVE: ROS Physical Exam This patient was a no show for this scheduled appointment. NO FLOOR RUNNER documented in this encounter Plan of Treatment Not on filedocumented as of this encounter Visit Diagnoses Diagnosis NO SHOW documented in this encounter Additional Health Concerns Assessment Noted Time PHQ-9 Depression Total Score: 2 02/16/2015 7:24 AM CDT documented as of this encounter Care Teams Shade Cloth Finisher Relationship Specialty Start Date End Date Caryl Trujillo MD PCP - General Family Practice 12/16/10 documented as of this encounter
--- OUTSIDE RECORDS SUMMARY | 2021-12-30 10:43 | XMS_ITS | Encounter Summary ---
:2000 Author Organization [place] Address [address] [place] [address] Care Team Providers Name Role Phone Caryl Trujillo MD Primary Care Provider [phone] Reason for Visit Reason Comments Well Child w/sports physical Encounter Details Date Type Department Care Team Description 11/26/2015 Office Visit [facility] Artemio Byers for routine child health examination with abnormal findings (Primary Dx); [facility] Exercise-induced asthma; [place] [address] [address] AV[address]lyn Vaccine refused by patient Road, [address] [place] [address] [place], [place] [phone] (Wo rk) [id number] [phone] Social History Tobacco Use Types Packs/Day Years [...] Sign Reading Time Taken Comments Blood Pressure 88/50 11/26/2015 2:37 PM CDT Pulse 42 11/26/2015 2:37 PM CDT Temperature 37.1 ??C (98.8 ??F) 11/26/2015 2:37 PM CDT Respiratory Rate 16 11/26/2015 2:37 PM CDT Oxygen Saturation - - Inhaled Oxygen Concentration - - Weight 67.1 kg (148 lb) 11/26/2015 2:37 PM CDT Height 159.4 cm (5' 2.75) 11/26/2015 2:37 PM CDT Body Mass Index 26.43 11/26/2015 2:37 PM CDT Body Mass Index Percentile 87.94 % 11/26/2015 2:37 PM CD T Growth Chart: [facility] (Girls, 2-20 Years) documented in this encounter Patient Instructions Patient InstructionsJosefina Moore MA - 11/26/2015 12:03 PM CDT Preventive Care at the 15 - 18 Year Visit Growth Percentiles & Measurements Weight: 0 lbs 0 oz / 67.77 kg / No weight on file for this encounter. Length: Data Unavailable / 0 cm No height on file for this encounter. BMI: There is no weight on file to calculate BMI. No unique date with height and weight on file. Blood Pressure: No blood pressure reading on file for this encounter. Next Visit ??? Continue to see your health care provider every one to two years for preventive care. Nutrition ??? It???s very important to eat breakfast. This will help you make it through the morning. ??? Sit down with your family for a meal on a regular basis. ??? Eat healthy meals and snacks, including fruits and vegetables. Avoid salty and sugary snack foods. ??? Be sure to eat foods that are high in calcium and iron. ??? Avoid or limit caffeine (often found in soda pop). Sleeping ??? Your body needs about 9 hours of sleep each night. ??? Keep screens (TV, computer, and video) out of the bedroom / sleeping area. They can lead to poorsleep habits and increased obesity. Health ??? Limit TV, computer and video time. ??? Set a goal to be physically fit. Do some form of exercise every day. It can be an active sport like skating, running, swimming, a team sport, etc. ??? Try to get 30 to 60 minutes of exercise at least three times a week. ??? Make healthy choices: don???t smoke or drink alcohol; don???t use drugs. In your teen years, you can expect . . . ??? To develop or strengthen hobbies. ??? To build strong friendships. ??? To be more responsible for yourself and your actions. ??? To be more independent. ??? To set more goals for yourself. ??? To use words that best express your thoughts and feelings. ??? To develop self-confidence and a sense of self. ??? To make choices about your education and future career. ??? To see big differences in how you and your friends grow and develop. ??? To have body odor from perspiration (sweating). Use underarm deodorant each day. ??? To have some acne, sometimes or all the time. (Talk with your doctor or nurse about this.) ??? Most girls have finished going through puberty by 15 to 16 years. Often, boys are still growing and building muscle mass. Sexuality ??? It is normal to have sexual feelings. ??? Find a supportive person who can answer questions about puberty, sexual development, sex, abstinence (choosing not to have sex), sexually transmitted diseases (STDs) and control. ??? Think about how you can say no to sex. Safety ??? Accidents are the greatest threat to your health and life. ??? Avoid dangerous behaviors and situations. For example, never drive after drinking or using drugs. Never get in a car if the sales driver has been drinking or using drugs. ??? Always wear a seat belt in the car. When you drive, make it a rule for all passengers to wear seat belts, too. ??? Stay within the speed limit and avoid distractions. ??? Practice a fire escape plan at home. Check smoke detector batteries twice a year. ??? Keep electric items (like blow dryers, razors, curling irons, etc.) away from water. ??? Wear a helmet and other protective gear when bike riding, skating, skateboarding, etc. ??? Use sunscreen to reduce your risk of skin cancer. ??? Learn first aid and CPR (cardiopulmonary resuscitation). ??? Avoid peers who try to pressure you into risky activities. ??? Learn skills to manage stress, anger and conflict. ??? Do not use or carry any kind of weapon. ??? Find a supportive person (teacher, parent, health provider, counselor) whom you can talk to whenyou feel sad, angry, lonely or like hurting yourself. ??? Find help if you are being abused physically or sexually, or if you fear being hurt by others. As a teenager, you will be given more responsibility for your health and health care decisions. While your parent or guardian still has an important role, you will likely start spending some time alonewith your health care provider as you get older. Some teen health issues are actually considered confidential, and are protected by law. Your health care team will discuss this and what it means with you. Our goal is for you to become comfortable and confident caring for your own health. documented in this encounter Progress Notes Artemio Byers PA-C - 11/26/2015 12:03 PM CDT SUBJECTIVE: Teodora Eisenberg is a 15 year old female, here for a routine health maintenance visit, accompanied by her self. Patient was roomed by: Josefina SOCIAL HISTORY Family members in house: father Language(s) spoken at home: [place] Recent family changes/social stressors: none noted SAFETY/HEALTH RISKS TB exposure: No Cardiac risk assessment: none VISION No corrective lenses Question Validity: no Right eye: 20/20 Left eye: 20/20 Vision Assessment: normal HEARING Right Ear: 500 Hz: RESPONSE- on Level: 20 db 1000 Hz: RESPONSE- on Level: 20 db 2000 Hz: RESPONSE- on Level: 20 db 4000 Hz: RESPONSE- on Level: 20 db Left Ear: 500 Hz: RESPONSE- on Level: 20 db 1000 Hz: RESPONSE- on Level: 20 db 2000 Hz: RESPONSE- on Level: 20 db 4000 Hz: RESPONSE- on Level: 20 db Question Validity: no Hearing Assessment: normal DENTAL Dental health HIGH risk factors: child has or had a cavity Water source: city water and BOTTLED WATER SPORTS QUESTIONNAIRE: School: [employer] Grade: 12th Sports: Soccer 1. YES - Has a doctor ever denied or restricted your participation in sports for any reason or told you to give up sports? Due to multiple concussions 2. no - Do you have an ongoing medical condition (like diabetes,asthma, anemia, infections)? 3. no - Are you currently taking any prescription or nonprescription (uzao-[id number]-[id number]) medicines orpills? 4. No - Do you have allergies to medicines, pollens, foods or stinging insects? 5. YES - Have you ever spent a night in a hospital? Appendectomy 2013 6. no - Have you ever had surgery? 7. no - Have you ever passed out or nearly passed out DURING exercise? 8. no - Have you ever passed out or nearly passed out AFTER exercise? 9. YES - Have you ever had discomfort, pain, tightness, or pressure in your chest during exercise? Shortness of breath with exercise 10.. YES - Does your heart race or skip beats (irregular beats) during exercise? Feels like it races 11. no - Has a doctor ever told you that you have High Blood Pressure, a Heart Murmur, High Cholesterol, a Heart Infection, Rheumatic Fever or Kawasaki's Disease? 12. no - Has a doctor ever ordered a test for your heart? (example, ECG/EKG, Echocardiogram, stress test) 13. YES -Do you get lightheaded or feel more short of breath than expected during exercise? Shortness of breath 14. no- Have you ever had an unexplained seizure? 15. YES - Do you get tired or short of breath more quickly than your friends do during exercise? Shortness of breath, tired easy 16. no- Has any family member or relative of heart problems or had an unexpected or unexplainedsudden before age 50 (including unexplained drowning, unexplained car accident or sudden syndrome)? 17. no - Does anyone in your family have hypertrophic cardiomyopathy, Marfan syndrome, arrhythmogenic right ventricular cardiomyopathy, long QT syndrome, short QT syndrome, Brugada syndrome, or catecholaminergic polymorphic ventricular tachycardia? 18. no - Does anyone in your family have a heart problem, pacemaker, or implanted defibrillator? 19.no- Has anyone in your family had an unexplained fainting, unexplained seizures, or near drowning? 20. YES - Have you ever had an injury, like a sprain, muscle or ligament tear or tendinitis, that caused you to miss a practice or game? What area: Knee, Ankle 21. no - Have you had any broken or fractured bones, or dislocated joints? 22. YES - Have you had an injury that required x-rays, MRI, CT, surgery, injections, therapy, a brace, a cast, or crutches? What area: Head, Hip 23. no - Have you ever had a stress fracture? 24. no - Have you ever been told that you have or have you had an x-ray for neck instability or atlantoaxial instability? (Down syndrome or dwarfism) 25. no - Do you regularly use a brace, orthotics or other assistive device? 26. no -Do you have a bone, muscle or joint injury that bothers you ? 27. no- Do any of your joints become painful, swollen, feel warm or look red? 28. no- Do you have a history of juvenile arthritis or connective tissue disease? 29. no - Has a doctor ever told you that you have asthma or allergies? 30. YES - Do you cough, wheeze, have chest tightness, or have difficulty breathing during or after exercise? Chest tightness, trouble breathing 31. YES - Is there anyone in your family who has asthma? Aunt, mother use to 32. no - Have you ever used an inhaler or taken asthma medicine? 33. no - Do you develop a rash or hives when you exercise? 34. no - Were you born without or are you missing a kidney, an eye, a testicle (males), or any otherorgan? 35. no- Do you have groin pain or a painful bulge or hernia in the groin area? 36. no - Have you had infectious mononucleosis (mono) within the last month? 37. no - Do you have any rashes, pressure sores, or other skin problems? 38. no - Have you had a herpes or MRSA skin infection? 39. YES - Have you ever had a head injury or concussion? concussion 40. YES - Have you ever had a hit or blow to the head that caused confusion, prolonged headaches or memory problems? Concussion - headache 41. no - Do you have a history of seizure disorder? 42. YES - Do you have headaches with exercise? Feel heart beating in head 43. no - Have you ever had numbness, tingling or weakness in your arms or legs after being hit or falling? 44. no - Have you ever been unable to move your arms or legs after being hit or falling? 45. YES - Have you ever become ill when exercising in the heat? Feels weak, over worked 46. no -Do you get frequent muscle cramps when exercising? 47. no - Do you or someone in your family have sickle cell trait or disease? 48. no - Have you had any problems with your eyes or vision? 49. no- Have you had any eye injuries? 50. no - Do you wear glasses or contact lenses? 51. no - Do you wear protective eyewear, such as goggles or a face shield? 52. no - Do you worry about your weight? 53. no - Are you trying to or has anyone recommended that you gain or lose weight? 54. YES - Are you on a special diet or do you avoid certain types of foods? Try to eat healthy 55. no - Have you ever had an eating disorder? 56. no - Do you have any concerns that you would like to discuss with a doctor? 57. YES - Have you ever had a menstrual period? 58. How old were you when you had your first menstrual period? [age]. How many menstrual periods have you had in the last year? 12 PROBLEM LIST Patient Active Problem List Diagnosis ??? Ulceration of vulva ??? Appendicitis ??? Muscle pain ??? Coxalgia ??? Adjustment disorder with mixed disturbance of emotions and conduct ??? Generalized anxiety disorder ??? Attention deficit hyperactivity disorder (ADHD), predominantly inattentive type ??? Irritable bowel syndrome with diarrhea MEDICATIONS Current Outpatient Prescriptions Medication Sig Dispense Refill ??? clindamycin (CLEOCIN T) 1 % external solution Apply topically 2 times daily 60 mL 3 ??? [START ON 01/20/2016] amphetamine-dextroamphetamine (ADDERALL XR) 20 MG per capsule Take 1 capsule (20 mg) by mouth daily 30 capsule 0 ??? norgestimate-ethinyl estradiol (ORTHO-CYCLEN, SPRINTEC) 0.25-35 MG-MCG per tablet Take 1 tablet by mouth daily 90 tablet 3 ??? psyllium 0.52 G capsule Take 1 capsule (0.52 g) by mouth daily 90 capsule 3 ??? amphetamine-dextroamphetamine (ADDERALL XR) 20 MG per capsule Take 1 capsule (20 mg) by mouth daily 30 capsule 0 ??? [START ON 12/20/2015] amphetamine-dextroamphetamine (ADDERALL XR) 20 MG per capsule Take 1 capsule (20 mg) by mouth daily 30 capsule 0 ??? amphetamine-dextroamphetamine (ADDERALL XR) 20 MG per capsule Take 1 capsule (20 mg) by mouth daily 30 capsule 0 ALLERGY No Known Allergies IMMUNIZATIONS Immunization History Administered Date(s) Administered ? ? DTAP (<7y) 1998, 1998, 1998, 04/15/1999 ??? HIB 1998, 1998, 1998, 04/15/1999 ??? Hepatitis B 2000, 1998, 1998 ??? IPV 1998, 1998, 04/15/1999, 08/14/2003 ??? MMR 04/15/1999, 08/14/2003 ??? Varicella 09/02/1999, 02/10/2000 HEALTH HISTORY SINCE LAST VISIT No surgery, major illness or injury since last physical exam HOME Living with father EDUCATION School: [employer] Grade: 12th School performance / Academic skills: at grade level - takes adderall for attention deficit. SAFETY Driving: Seat belt always worn: No: not always and Citations: yes: Explain: speeding Helmet worn for bicycle/roller blades/skateboard? Not applicable Guns/firearms in the home: No No safety concerns ACTIVITIES Do you get at least 60 minutes per day of physical activity, including time in and out of school: Yes Organized / team sports: Soccer ELECTRONIC MEDIA >2 hours/ day TV/video/DVD: Social media: DIET Do you get at least 4 helpings of a fruit or vegetable every day: NO How many servings of juice, non-diet soda, punch or sports drinks per day: 0 Meals: Trying to eat healthy QUESTIONS/CONCERNS: shortness of breath with exercise - she is wondering if she should have an inhaler. She has noticed that it feels like she has a hard time getting air in when she has restarted soccer. She feels that her performance is effected and that she has to stop to catch her breath. She has heard herself wheeze but denies feeling rattles in her chest. She also notes that her heart rate increases a lot when she exercises. SLEEP No concerns, sleeps well through night DRUGS Smoking: no Passive smoke exposure: no Alcohol: no Drugs: no SEXUALITY Sexual activity: Yes - with boyfriend control: oral contraceptives (combined) - for the past 2 years. PSYCHO-SOCIAL/DEPRESSION General screening: Pediatric Symptom Checklist-Youth PASS (score 16--<30 pass), no followup necessary =16 No concerns ROS GENERAL: See health history, nutrition and daily activities SKIN: No rash, hives or significant lesions HEENT: Hearing/vision: see above. No eye, nasal, ear symptoms. RESP: No cough or other concerns except for some difficulties catching her breath with exercise (seeabove) ACT: 13 CV: No concerns GI: See nutrition and elimination. No concerns. : See elimination. No concerns NEURO: No headaches or concerns. This document serves as a record of the services and decisions personally performed and made by Artemio Byers PA-C. It was created on her behalf by Aubrie Escalona, a trained medical bill processor. The creation of this document is based the provider's statements to the medical bill processor. Aubrie Escalona November 26, 2015 2:54 PM OBJECTIVE: EXAM BP 88/50 mmHg Pulse 42 Temp(Src) 98.8 ??F (37.1 ??C) (Oral) Resp 16 Ht 5' 2.75 (1.594 m) Wt 148 lb (67.132 kg) BMI 26.42 kg/m2 LMP 10/22/2015 (Approximate) 28%ile based on CDC 2-20 Years [id number] data using vitals from 11/26/2015. 83%ile based on CDC 2-20 Years [id number] data using vitals from 11/26/2015. 88%ile based on CDC 2-20 Years BMI-for-age data using vitals from 11/26/2015. Blood pressure percentiles are 2% systolic and 8% diastolic based on 2000 NHANES data. GENERAL: Active, alert, in no acute distress. SKIN: Clear. No significant rash, abnormal pigmentation or lesions HEAD: Normocephalic EYES: Pupils equal, round, reactive, Extraocular muscles intact. Normal conjunctivae. EARS: Normal canals. Tympanic membranes are normal; graves and translucent. NOSE: Normal without discharge. MOUTH/THROAT: Clear. No oral lesions. Teeth without obvious abnormalities. NECK: Supple, no masses. No thyromegaly. LYMPH NODES: No adenopathy LUNGS: Clear. No rales, rhonchi, wheezing or retractions HEART: Regular rhythm. Normal S1/S2. No murmurs. Normal pulses. ABDOMEN: Soft, non-tender, not distended, no masses or hepatosplenomegaly. Bowel sounds normal. NEUROLOGIC: No focal findings. Cranial nerves grossly intact: Normal gait, strength and tone BACK: Spine is straight, no scoliosis. EXTREMITIES: Full range of motion, no deformities : Exam deferred. SPORTS EXAM: Shoulder: normal Elbow: normal Hand/Wrist: normal Back: normal Quad/Ham: normal Knee: normal Ankle/Feet: normal Heel/Toe: normal ASSESSMENT/PLAN: 1. Encounter for routine child health examination with abnormal findings - PURE TONE HEARING TEST, AIR - SCREENING, VISUAL ACUITY, QUANTITATIVE, BILAT - BEHAVIORAL / EMOTIONAL ASSESSMENT [22818] - DEVELOPMENTAL SCREENING [65351] 2. Exercise-induced asthma Will try inhaler and discussed how to use the inhaler. - albuterol (PROAIR HFA, PROVENTIL HFA, VENTOLIN HFA) 108 (90 BASE) MCG/ACT inhaler; Inhale 2 puffs into the lungs every 4 hours as needed for shortness of breath / dyspnea or wheezing Dispense: 2 Inhaler; Refill: 1 - Follow up in 1 month or so for recheck (phone call, given ACT paper) Anticipatory Guidance The following topics were discussed: SOCIAL/ FAMILY: School/ homework NUTRITION: HEALTH / SAFETY: Adequate sleep/ exercise SEXUALITY: Dating/ relationships Contraception Safe sex/ STDs Preventive Care Plan Immunizations ?? Reviewed, parents have declined immunizations since age 3, and the patient does not wish to vaccinate, risks of not vaccinating discussed Referrals/Ongoing Specialty care: No See other orders in [facility]. Cleared for sports: Yes BMI at 88%ile based on CDC 2-20 Years BMI-for-age data using vitals from 11/26/2015. OBESITY ACTION PLAN the patient is exercising regularly and watching her diet Dental visit recommended: Yes, Continue care every 6 months FOLLOW-UP: in 1 year for a Preventive Care visit The information in this document, created by the medical bill processor for me, accurately reflects the services I personally performed and the decisions made by me. I have reviewed and approved this document for accuracy prior to leaving the patient care area. 2:54 PM 11/26/2015 Artemio Byers PA-C [facility] documented in this encounter Nursing Notes Josefina Moore MA - 11/26/2015 2:52 PM CDT Chief Complaint Patient presents with ??? Well Child w/sports physical Initial BP 88/50 mmHg Pulse 42 Temp(Src) 98.8 ??F (37.1 ??C) (Oral) Resp 16 Ht 5' 2.75 (1.594 m) Wt 148 lb (67.132 kg) BMI 26.42 kg/m2 LMP 10/22/2015 (Approximate) Estimated body mass index is 26.42 kg/(m^2) as calculated from the following: Height as of this encounter: 5' 2.75 (1.594 m). Weight as of this encounter: 148 lb (67.132 kg). BP completed using cuff size: regular Josefina Moore MA documented in this encounter Plan of Treatment Not on filedocumented as of this encounter Procedures Procedure Name Priority Date/Time Associated Diagnosis Comme nts HC SCREENING TEST, Routine 11/26/2015 3:12 PM Encounter for PURE TONE, AIR ONLY CDT routine child health examination with abnormal findings DIAGNOSTIC 11/26/2015 12:00 (NON-INVASIVE) AM CDT RESULT - HIM SCAN HC BEHAV ASSMT Routine 11/26/2015 Encounter for Results for this W/SCORE & DOCD/STAND routine child health procedure are in INSTRUMENT examination with the results abnormal findings section. documented in this encounter Results DIAGNOSTIC (NON-INVASIVE) RESULT - HIM SCAN (11/26/2015 12:00 AM CDT) Specimen (Source) Anatomical Location Collection Method / Collectio n Time Received Time / Laterality Volume 11/26/2015 Narrative This result has an attachment that is no t available. Provider Outside OTHER BEHAVIORAL / EMOTIONAL ASSESSMENT [23211] (11/26/2015) P athologist Signature YOUTH P[facility]IAT[facility]IC 13 SYMPTOM CHECK LIST - 35 (Y PSC ? 35) Artemio Byers PA-C OTHER documented in this encounter Visit Diagnoses Diagnosis Encounter for routine child health exami nation with abnormal findings - Primary Routine infant or child health check Exercise-induced asthma Exercise induced bronchospasm Vaccine refused by patient Vaccination not carried out for other re ason documented in this encounter Additional Health Concerns Assessment Noted Time PHQ-9 Depression Total Score: 2 02/16/2015 7:24 AM CDT documented as of this encounter Care Teams Astrobiologist Relationship Specialty Start Date End Date Caryl Trujillo MD PCP - General Family Practice 12/16/10 documented as of this encounter
--- OUTSIDE RECORDS SUMMARY | 2021-12-30 10:43 | XMS_ITS | Encounter Summary ---
:2000 Author Organization [place] Address [facility] [facility] [place] [address] Care Team Providers Name Role Phone Caryl Trujillo MD Primary Care Provider [phone] Reason for Visit Reason Onset Date Comments Patient Request for Note/Letter 11/04/2016 Isaiah n animal note for appartment Encounter Details Date Type Department Care Team Description 11/04/[address] [facility] Caryl Trujillo Patient Request for Clinic Vitor Tolliver MD Note/Letter (Gas Truck Driver [id number] [facility], [address] [place] [address] [employer] animal note for [address] [place] [address] appartment) [place], [place] [phone] (Wo rk) [phone] Social History Tobacco Use Types Packs/Day Years Used Date Passive Smoke Exposure - Never Smoker Smokeless Tobacco: Never Used Comments: patient's boyfriend and also h is family Alcohol Use Standard Drinks/Week Comments No 0 (1 standard drink = 0.6 oz pure alcoho l) Sex Assigned at Date Recorded Not on file documented as of this encounter Miscellaneous Notes Telephone Encounter - Alexa Niño - 11/05/2016 12:19 PM CDT Patient called, will schedule appointment. Alexa Niño. Referral Clerk Telephone Encounter - Velia Holt RN - 11/05/2016 11:11 AM CDT Patient has not been seen for anxiety/depression since 01/22/[address] Young. She needs to be seenagain for a note to be written. LMOM for patient to call clinic back. Velia Holt RN Telephone Encounter - Rafaela Vora - 11/04/2016 10:09 AM CDT Reason for call: Other Patient called regarding (reason for call): Note Additional comments: pt calling requesting a note for her apartment allowing her to have a companionanimal for anxiety/depression. Phone number to reach patient: Cell number on file: Telephone Information: Best Time: any Can we leave a detailed message on this number? YES Otis Diony Referral Clerk 11/04/16 documented in this encounter Plan of Treatment Not on filedocumented as of this encounter Visit Diagnoses Not on filedocumented in this encounter Additional Health Concerns Assessment Noted Time PHQ-9 Depression Total Score: 2 02/16/2015 7:24 AM CDT documented as of this encounter Care Teams Spanish Teacher Relationship Specialty Start Date End Date Caryl Trujillo MD PCP - General Family Practice 12/16/10 documented as of this encounter
--- OUTSIDE RECORDS SUMMARY | 2021-12-30 10:43 | XMS_ITS | Encounter Summary ---
:2000 Author Organization [facility] Address [address] [place] [address] Care Team Providers Name Role Phone Caryl Trujillo MD Primary Care Provider [phone] Reason for Visit Reason Onset Date Comments A.D.H.D 02/15/2015 Encounter Details Date Type Department Care Team Description 02/15/2015 Virtual Visit [facility] Caryl Trujillo Attent ion deficit hyperactivity disorder (ADHD), predominantly inattentive type (Primary Dx); Clinic Vitor Tolliver MD Major depressive disorder, recurrent epi sode, mild (H); [place] [address] [address] Attention deficit hyperactivity disorder (ADHD), combined type Road, [address] [place], [place] [phone] Social History Tobacco Use Types Packs/Day Years Used Date Passive Smoke Exposure - Never Smoker Smokeless Tobacco: Never Used Alcohol Use Standard Drinks/Week Comments No 0 (1 standard drink = 0.6 oz pure alcoho l) Sex Assigned at Date Recorded Not on file documented as of this encounter Progress Notes Caryl Trujillo MD - 02/15/2015 2:10 PM CDT Teodora Eisenberg is a 15 year old female who is being evaluated via a telephone visit. The patient has been notified of following: This telephone visit will be conducted via a call between you and your physician/provider. We have found that certain health care needs can be provided without the need for a physical exam. This service lets us provide the care you need with a short phone conversation. If a prescription is necessary we can send it directly to your pharmacy. If lab work is needed we can place an order for that and you can then stop by our lab to have the test done at a later time. We will bill your insurance company for this service. Please check with your medical insurance if this type of visit is covered. You may be responsible for the cost of this type of visit if insurance coverage is denied. The typical cost is $30 (10min), $59 (11-20min) and $85 (21-30min). Most often these visits are shorter than 10 minutes. If during the course of the call the physician/provider feels a telephone visit is not appropriate, you will not be charged for this service. Consent has been obtained for this service by 2 care team members: yes. See the scanned image in themedical record. Teodora Eisenberg complains of A.D.H.D I have reviewed and updated the patient's Past Medical History, Social History, Family History and Medication List. ALLERGIES Review of patient's allergies indicates no known allergies. Additional provider notes: insurance via [place]. Did not take her med during the summer, now back on themedication, working a lot and going school. Vitor Mares, living with her dad now. No motivation to be at school or get homework, procrastinates. And at work, does not feel like she wants to work if off the med, no motivation. Never hyper, just not able to focus. Assessment/Plan: (F90.0) Attention deficit hyperactivity disorder (ADHD), predominantly inattentive type (primary encounter diagnosis) Comment: continue same, doing well, will print 2 more months, so follow up 3 months Plan: no side effects and is working well (F33.0) Major depressive disorder, recurrent episode, mild Comment: restart med, follow up 3 months, med worked well for her in the past, menstrual related Plan: citalopram (CELEXA) 20 MG tablet (F90.2) Attention deficit hyperactivity disorder (ADHD), combined type Comment: Plan: amphetamine-dextroamphetamine (ADDERALL XR) 20 MG per capsule, DISCONTINUED: amphetamine-dextroamphetamine (ADDERALL XR) 20 MG per capsule I have reviewed the note as documented above. This accurately captures the substance of my conversation with the patient, Caryl Trujillo Family [facility], Total time of call between patient and provider was 7 minutes documented in this encounter Plan of Treatment Not on filedocumented as of this encounter Visit Diagnoses Diagnosis Attention deficit hyperactivity disorder (ADHD), predominantly inattentive type - Primary Major depressive disorder, recurrent epi sode, mild (H) Major depressive disorder, recurrent epi sode, mild Attention deficit hyperactivity disorder (ADHD), combined type documented in this encounter Additional Health Concerns Assessment Noted Time PHQ-9 Depression Total Score: 2 02/16/2015 7:24 AM CDT documented as of this encounter Care Teams Supervisor Multifocal Lens Relationship Specialty Start Date End Date Caryl Trujillo MD PCP - General Family Practice 12/16/10 documented as of this encounter
--- OUTSIDE RECORDS SUMMARY | 2021-12-30 10:43 | XMS_ITS | Encounter Summary ---
:2000 Author Organization [facility] Address [address] [place] [address]. 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) [facility] (Primary Dx) [employer] [place] [phone] Social History Tobacco Use Types Packs/Day Years Used Date Passive Smoke Exposure - Never Smoker Smokeless Tobacco: Never Used Comments: father and step-mom Alcohol Use Standard Drinks/Week Comments No 0 (1 standard drink = 0.6 oz pure alcoho l) Sex Assigned at Date Recorded Not on file documented as of this encounter Progress Notes Haley Harding LP - 06/05/2014 4:35 PM CST Progress Note Client Name: Teodora Eisenberg Date: 06-05-14 Service Type: [id number] Session Start Time: 4:30 Session End Time: 5:20 Session Length: 45-50 min Session #: 5 Attendees: Mother, client via phone Treatment Plan Last Reviewed: today DATA Progress Since Last Session (Related to Symptoms / Goals / Homework): Symptoms: stable per client report. Homework: Completed in session Episode of Care Goals: Satisfactory progress - PREPARATION (Decided to change - considering how); Intervened by negotiating a change plan and determining options / strategies for behavior change, identifying triggers, exploring social supports, and working towards setting a date to begin behavior change Current / Ongoing Stressors and Concerns: Discord with mom and step dad has been improving until last few daysweek Missing her family Having trouble with Geometry Treatment Objective(s) Addressed in This Session: Teach conflict relsoluaion skils identify 4 stressors which contribute to feelings of depression use cognitive strategies identified in therapy to challenge anxious thoughts complete at least 15 minutes of self-regulation practice (e.g.: yoga, meditation, relaxation breathing, etc.) per day Intervention: Mother presents for session; confirmed with client by phone that this is ok. Client on phone for 1/2 of the session. Mother shares that she has done work in letting go when Teodora moved out. Last Update is now dad is drinking and client wants to move to mothers. Client moved back to [employer] on Wednesday bringing 1 weeks worth of clothing.. Mother shows a family meeting booklet she put together that was used on Wednesday to set rules. Client shares she got triggered by that and was adjusting to how it was presented: overall didn't feel welcome. Client had a meeting at school today, principal and guidance counselor to talk about academics and stressors. Teodora indicates Geometry is of concern; mom thinks she is failing more classes. Mom shares they recommended family counseling. Gave referral for [facility] Rodriguez to mom . Mom indicates it was decided that mom would go to dad to get her things today . Once there client did not want to leave, mom called breaker engineer. Mom described that Teodora got triggered when mom said: Can I trust you to do whats right to come home when they got to dad's house. Each member indicating that they have love for each other. Teodora states she would like to be treated as a 14 year old. ASSESSMENT: Current Emotional / Mental Status (status of significant symptoms): Risk status (Self / Other harm or suicidal ideation) Client denies current fears or concerns for personal safety. Client denies current or recent suicidal ideation or behaviors. Client denies current or recent homicidal ideation or behaviors. Client denies current or recent self injurious behavior or ideation. Client denies other safety concerns. A safety and risk management plan has not been developed at this time, however client was given theafter-hours number should there be a change in any of these risk factors. Appearance: Appropriate Eye Contact: Good Psychomotor Behavior: Normal Attitude: Cooperative Orientation: All Speech Rate / Production: Normal Volume: Normal Mood: Anxious Depressed Normal Affect: Appropriate Thought Content: Clear Thought Form: Coherent Logical Insight: Good Medication Review: No current psychiatric medications prescribed Medication Compliance: Yes Changes in Health Issues: None reported Chemical Use Review: Substance Use: Chemical use reviewed, no active concerns identified Tobacco Use: No current tobacco use. Collateral Reports Completed: Not Applicable PLAN: (Client Tasks / Therapist Tasks / Other) Offered [facility] after hours number if conflict arise and creates triggers Invited Teodora to attend next weeks visit Referral for family counseling Past hw Share info on c/r from session with mom Past hw Respite at [facility] this reframe despair Invite parent to session Past hw 2 action steps Haley Harding LP Treatment Plan Client's Name: Teodora Eisenberg Date Of : 2000 Date: 02-26-14 DSM-V Diagnoses: ADHD, anxiety, depression Psychosocial / Contextual Factors: lives with mom and step dad WHODAS: n/a Referral / Collaboration: Referral to another professional/service is not indicated at this time.. Anticipated number of session or this episode of care: 6-10 MeasurableTreatment Goal(s) related to diagnosis / functional impairment(s) Goal 1: Client will use 6-9 skills daily to manage distresss ???I will know I've met my goal when ( i am no longer deeply effected by stressors).??? Objective #A (Client Action) Client will use cognitive strategies identified in therapy to challenge anxious and stressful thoughts. Status: New - Date: 02-26-14 Intervention(s) Therapist will teach CBT/ DBT skills. Teach conflict resolution skills Assist with identifying values and healthy expression of identify Client has reviewed and agreed to the above plan. Haley Beran, LP February 26, 2014 DATA Base line symtoms: Relationship problems with parents: More than half days. Onset: chldhoodd... client described as spicey. Severe. Relationship problems with siblings: More than half days. Onset: childhood. Moderate. The focus of initial interventions will be to increase ability to function adaptively, increase coping skills, increase self esteem, teach CBT skills, teach conflict management skills, teach DBT skillsand teach distress tolerance skills. Baseline of sx at DX Symptoms: Feeling sad: Several days. Onset: off and on for a few years. Mild. Problems concentrating: More than half days. Onset: unsure. Moderate. Seeming withdrawn or isolated: Several days. Onset: last few years. Mild. Low self-esteem, poor self-image: Nearly every day. Onset: 8th grade. Moderate. Worry: Several days. Onset: high schools. Moderate. Startles more easily: Several days. Onset: last few years. Moderate. Avoids people, situations: More than half days. Onset: last few years. Moderate. Irritable and angry: More than half days. Onset: 3-4 years. Moderate. Strives to be perfect: Several days. Onset: [employer]. Moderate. The mother denies their child has any of the following symptoms: Crying without knowing why, Sleeping more or less than normal, Wanting to eat more or less than normal, Fears or phobias, Nightmares Behaviors: Hyperactive: Several days. Onset: elementary school. Moderate. Tells lies: More than half days. Onset: school age. Moderate. Defiant: More than half days. Onset: school age. Moderate. Aggressive: More than half days. Onset: school age. Moderate. Problems with attention or focus: nearly every day. Onset: school age. Severe. The mother denies their child has any of the following symptoms: Shoplifts or steals, Sets fires, Stays up all night, Acts out sexually, Gets into fights, Cruel to animals, Running away, Bullying, Using weapons, Cruel to people, Property destruction Progress Note Client Name: Teodora Eisenberg Date: 05-14-14 Service Type: family Session Start Time: 12:30 Session End Time: 1:20 Session Length: 45-50 min Session #: 4 Attendees: Client Treatment Plan Last Reviewed: today DATA Progress Since Last Session (Related to Symptoms / Goals / Homework): Symptoms: stable Homework: Completed in session Episode of Care Goals: Satisfactory progress - PREPARATION (Decided to change - considering how); Intervened by negotiating a change plan and determining options / strategies for behavior change, identifying triggers, exploring social supports, and working towards setting a date to begin behavior change Current / Ongoing Stressors and Concerns: Discord with mom and step dad improving Missing her family Having trouble with Geometry Treatment Objective(s) Addressed in This Session: Teach conflict relsoluaion skils identify 4 stressors which contribute to feelings of depression use cognitive strategies identified in therapy to challenge anxious thoughts complete at least 15 minutes of self-regulation practice (e.g.: yoga, meditation, relaxation breathing, etc.) per day Intervention: Moved in with dad after Thanksgiving Step brother came and picked her up. Reviewed the experience. Got her licence and is driving back to her school every day. Is earning A's and B's except Geometrywhich she is likely gonna drop it. Visited moms house all weekend; 1st real visit since part March 2013. Has had some good conversation with bio mom. Step dad is making an effort and she and he have an outing planned. Client would like to go back more frequently. Bio mom and client talked about a clean slate. Shares that her mom indicated that she had been over controlling with client. ASSESSMENT: Current Emotional / Mental Status (status of significant symptoms): Risk status (Self / Other harm or suicidal ideation) Client denies current fears or concerns for personal safety. Client denies current or recent suicidal ideation or behaviors. Client denies current or recent homicidal ideation or behaviors. Client denies current or recent self injurious behavior or ideation. Client denies other safety concerns. A safety and risk management plan has not been developed at this time, however client was given theafter-hours number should there be a change in any of these risk factors. Appearance: Appropriate Eye Contact: Good Psychomotor Behavior: Normal Attitude: Cooperative Orientation: All Speech Rate / Production: Normal Volume: Normal Mood: Anxious Depressed Normal Affect: Appropriate Thought Content: Clear Thought Form: Coherent Logical Insight: Good Medication Review: No current psychiatric medications prescribed Medication Compliance: Yes Changes in Health Issues: None reported Chemical Use Review: Substance Use: Chemical use reviewed, no active concerns identified Tobacco Use: No current tobacco use. Collateral Reports Completed: Not Applicable PLAN: (Client Tasks / Therapist Tasks / Other) Share info on c/r from session with mom Past hw [facility] this weekend reframe despair Invite parent to session Past hw 2 action steps Haley Harding LP Treatment Plan Client's Name: Teodora Eisenberg Date Of : 2000 Date: 02-26-14 DSM-V Diagnoses: ADHD, anxiety, depression Psychosocial / Contextual Factors: lives with mom and step dad WHODAS: n/a Referral / Collaboration: Referral to another professional/service is not indicated at this time.. Anticipated number of session or this episode of care: 6-10 MeasurableTreatment Goal(s) related to diagnosis / functional impairment(s) Goal 1: Client will use 6-9 skills daily to manage distresss ???I will know I've met my goal when ( i am no longer deeply effected by stressors).??? Objective #A (Client Action) Client will use cognitive strategies identified in therapy to challenge anxious and stressful thoughts. Status: New - Date: 02-26-14 Intervention(s) Therapist will teach CBT/ DBT skills. Teach conflict resolution skills Assist with identifying values and healthy expression of identify Client has reviewed and agreed to the above plan. Haley Harding LP February 26, 2014 DATA Base line symtoms: Relationship problems with parents: More than half days. Onset: chldhoodd... client described as spicey. Severe. Relationship problems with siblings: More than half days. Onset: childhood. Moderate. The focus of initial interventions will be to increase ability to function adaptively, increase coping skills, increase self esteem, teach CBT skills, teach conflict management skills, teach DBT skillsand teach distress tolerance skills. Baseline of sx at DX Symptoms: Feeling sad: Several days. Onset: off and on for a few years. Mild. Problems concentrating: More than half days. Onset: unsure. Moderate. Seeming withdrawn or isolated: Several days. Onset: last few years. Mild. Low self-esteem, poor self-image: Nearly every day. Onset: 8th grade. Moderate. Worry: Several days. Onset: high schools. Moderate. Startles more easily: Several days. Onset: last few years. Moderate. Avoids people, situations: More than half days. Onset: last few years. Moderate. Irritable and angry: More than half days. Onset: 3-4 years. Moderate. Strives to be perfect: Several days. Onset: [employer]. Moderate. The mother denies their child has any of the following symptoms: Crying without knowing why, Sleeping more or less than normal, Wanting to eat more or less than normal, Fears or phobias, Nightmares Behaviors: Hyperactive: Several days. Onset: elementary school. Moderate. Tells lies: More than half days. Onset: school age. Moderate. Defiant: More than half days. Onset: school age. Moderate. Aggressive: More than half days. Onset: school age. Moderate. Problems with attention or focus: nearly every day. Onset: school age. Severe. The mother denies their child has any of the following symptoms: Shoplifts or steals, Sets fires, Stays up all night, Acts out sexually, Gets into fights, Cruel to animals, Running away, Bullying, Using weapons, Cruel to people, Property destruction [facility] [employer] documented in this encounter Plan of Treatment Not on filedocumented as of this encounter Visit Diagnoses Diagnosis ADHD (attention deficit hyperactivity di sorder) - Primary Attention deficit disorder with hyperact ivity documented in this encounter Care Teams Air Quality Consultant Relationship Specialty Start Date End Date Caryl Trujillo MD PCP - General Family Practice 12/16/10 documented as of this encounter
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
--- OUTSIDE RECORDS SUMMARY | 2021-12-30 10:43 | XMS_ITS | Encounter Summary ---
:2000 Author Organization [place] Address [facility] [place] [address] Care Team Providers Name Role Phone Caryl Trujillo MD Primary Care Provider [phone] Reason for Visit Reason Onset Date Comments Refill Request 11/15/2015 Adderall Encounter Details Date Type Department Care Team Description 11/15/2015 Refill [facility] Caryl Trujillo Refill Request Clinic Vitor Tolliver MD (Adderall) [address] [facility], [address] [place] [address] [address] [place] [address] [place], [place] [phone] (Wo rk) [address] [phone] Social History Tobacco Use Types Packs/Day Years Used Date Passive Smoke Exposure - Never Smoker Smokeless Tobacco: Never Used Comments: patient's boyfriend and also h is family Alcohol Use Standard Drinks/Week Comments No 0 (1 standard drink = 0.6 oz pure alcoho l) Sex Assigned at Date Recorded Not on file documented as of this encounter Miscellaneous Notes Telephone Encounter - Latosha Stephenson RN - 11/18/2015 11:49 AM CDT Pt no showed to the 08/13/15 appt Per last refill pt needs to be seen before next Spoke with patient and scheduled appt for tomorrow 11/19/15 Latosha Stephenson RN, BSN Telephone Encounter - Hilary Padron - 11/15/2015 10:15 AM CDT Controlled Substance Refill Request for Adderall Problem List Complete: No PROVIDER TO CONSIDER COMPLETION OF PROBLEM LIST AND OVERVIEW/CONTROLLED SUBSTANCE AGREEMENT Last Written Prescription Date: 10/18/15 Last Fill Quantity: 30, # refills: 0 Last Office Visit with [facility] primary care provider: 08/13/15 w/Dr Trujillo Future Office visit: Controlled substance agreement on file: No. Processing: Patient will corn picker in clinic COMMUNITY RELATIONS MANAGER checked in past 6 months? No, route to RN documented in this encounter Plan of Treatment Not on filedocumented as of this encounter Visit Diagnoses Diagnosis Attention deficit hyperactivity disorder (ADHD), predominantly inattentive type - Primary documented in this encounter Additional Health Concerns Assessment Noted Time PHQ-9 Depression Total Score: 2 02/16/2015 7:24 AM CDT documented as of this encounter Care Teams Storekeeper Helper Relationship Specialty Start Date End Date Caryl Trujillo MD PCP - General Family Practice 12/16/10 documented as of this encounter
--- OUTSIDE RECORDS SUMMARY | 2021-12-30 10:43 | XMS_ITS | Encounter Summary ---
:2000 Author Organization [place] Address [address] [place] [address]. [place] [address] Care Team Providers Name Role Phone Caryl Trujillo MD Primary Care Provider [phone] Reason for Visit Reason Onset Date Comments Derm Problem *Wants to talk about getting back on her acne medication* No Show 08/13/2015 Encounter Details Date Type Department Care Team Description 08/13/2015 Office Visit [facility] Carly Trujillo NO SHOW (Primary Dx) [place] [address] [place] [address] [facility], [address] [place] [address] [place], [place] [phone] (Wo rk) [phone] Social History Tobacco Use Types Packs/Day Years Used Date Passive Smoke Exposure - Never Smoker Smokeless Tobacco: Never Used Comments: patient's boyfriend and also h is family Alcohol Use Standard Drinks/Week Comments No 0 (1 standard drink = 0.6 oz pure alcoho l) Sex Assigned at Date Recorded Not on file documented as of this encounter Progress Notes Caryl Trujillo MD - 08/13/2015 9:10 AM CDT This patient was a no show for this scheduled appointment. documented in this encounter Plan of Treatment Not on filedocumented as of this encounter Visit Diagnoses Diagnosis NO SHOW - Primary documented in this encounter Additional Health Concerns Assessment Noted Time PHQ-9 Depression Total Score: 2 02/16/2015 7:24 AM CDT documented as of this encounter Care Teams Treating Inspector Relationship Specialty Start Date End Date Caryl Trujillo MD PCP - General Family Practice 12/16/10 documented as of this encounter
--- OUTSIDE RECORDS SUMMARY | 2021-12-30 10:43 | XMS_ITS | Encounter Summary ---
:2000 Author Organization [place] Address [address] [place] [address]. 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
--- OUTSIDE RECORDS SUMMARY | 2021-12-30 10:43 | XMS_ITS | Encounter Summary ---
:2000 Author Organization [place] Address [facility] [place] [address] Care Team Providers Name Role Phone Caryl Trujillo MD Primary Care Provider [phone] Reason for Visit Reason Comments A.D.H.D Recheck Medication Encounter Details Date Type Department Care Team Description 11/19/2015 Office Visit [facility] Caryl Trujillo on deficit hyperactivity disorder (ADHD), predominantly inattentive type (Primary Dx); Clinic Vitor Tolliver MD Irritable bowel syndrome with diarrhea; [place] [address] [facility] Screening examination for venereal disea se; [address], [address] [place], [place] Generalized anxiety disorder ; [place] [address] Acne vulgaris [id number] Social History Tobacco Use Types Packs/Day [...] Sign Reading Time Taken Comments Blood Pressure 100/60 11/19/2015 8:54 AM CDT Pulse 67 11/19/2015 8:54 AM CDT Temperature 36.6 ??C (97.8 ??F) 11/19/2015 8:54 AM CDT Respiratory Rate 18 11/19/2015 8:54 AM CDT Oxygen Saturation 97% 11/19/2015 8:54 AM CDT Inhaled Oxygen Concentration - - Weight 67.8 kg (149 lb 6.4 oz) 11/19/2015 8:54 AM CDT Height 159.4 cm (5' 2.75) 11/19/2015 8:54 AM CDT Body Mass Index 26.68 11/19/2015 8:54 AM CDT Body Mass Index Percentile 88.72 % 11/19/2015 8:54 AM CD T Growth Chart: [facility] (Girls, 2-20 Years) documented in this encounter Progress Notes Caryl Trujillo MD - 11/19/2015 8:52 AM CDT HPI SUBJECTIVE: Teodora Eisenberg is a 15 year old female who presents to clinic today for the following health issues: Medication Followup of ADDERALL ?? Taking Medication as prescribed: yes ?? Side Effects: None ?? Medication Helping Symptoms: Yes The patient reports that she cannot stay on task when she is not taking her adderall. She states that she has decreased appetite with adderall. PROBLEMS TO ADD ON... The patient reports that she never started taking her Celexa after the school year ended. She is concerned about side effects, and reports that it made her stomach hurt. She reports that once she stopped taking her medication her stomach pain disappeared. The patient states that she has more anxiety than depression but her symptoms are not as bad in the summer. The patient had stopped playing soccer but has started playing again. She also works at a [employer] and lives at home with her father. Acne: The patient states that tretinoin made her skin too dry. She states she does not have oily skin and breaks out once a month on her chin and between her eyebrows. She has not noticed a decrease since taking oral contraceptive. Problem list and histories reviewed & adjusted, as indicated. Additional history: as documented BP Readings from Last 3 Encounters: 11/19/15 100/60 06/18/15 100/60 10/17/14 96/60 Wt Readings from Last 3 Encounters: 11/19/15 67.767 kg (149 lb 6.4 oz) (84.12 %*) 06/18/15 69.174 kg (152 lb 8 oz) (86.82 %*) 10/17/14 64.048 kg (141 lb 3.2 oz) (79.60 %*) * Growth percentiles are based on [facility] 2-20 Years data. Labs reviewed in [facility] Problem list, Medication list, Allergies, and Medical/Social/Surgical histories reviewed in EPIC andupdated as appropriate. ROS: Constitutional, HEENT, cardiovascular, pulmonary, gi and gu systems are negative, except as otherwise noted. This document serves as a record of the services and decisions personally performed and made by Caryl Trujillo MD. It was created on her behalf by Aubrie Escalona, a trained medical oncologist. The creation of this document is based the provider's statements to the medical oncologist. Aubrie Escalona November 19, 2015 9:24 AM OBJECTIVE: BP 100/60 mmHg Pulse 67 Temp(Src) 97.8 ??F (36.6 ??C) (Oral) Resp 18 Ht 1.594 m (5' 2.75) Wt 67.767 kg (149 lb 6.4 oz) BMI 26.67 kg/m2 SpO2 97% LMP 10/22/2015 (Approximate) Body mass index is 26.67 kg/(m^2). GENERAL: healthy, alert and no distress EYES: Eyes grossly normal to inspection, PERRL and conjunctivae and sclerae normal NECK: no adenopathy, no asymmetry, masses, or scars and thyroid normal to palpation RESP: lungs clear to auscultation - no rales, rhonchi or wheezes CV: regular rate and rhythm, normal S1 S2, no S3 or S4, no murmur, click or rub, no peripheral edemaand peripheral pulses strong MS: no gross musculoskeletal defects noted, no edema SKIN: no suspicious lesions or rashes, minor judi noted in T zone NEURO: Normal strength and tone, mentation intact and speech normal, no tremors noted PSYCH: mentation appears normal, affect normal/bright ASSESSMENT/PLAN: (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 Plan: amphetamine-dextroamphetamine (ADDERALL XR) 20 MG per capsule, amphetamine-dextroamphetamine (ADDERALL XR) 20 MG per capsule, amphetamine-dextroamphetamine (ADDERALL XR) 20 MG per capsule Followup in January. (F41.1) Generalized anxiety disorder (K58.0) Irritable bowel syndrome with diarrhea Comment: The patient is not on Celexa. She feels that her symptoms have improved since the summer started. Plan: Follow up when school resumes. (Z11.3) Screening examination for venereal disease Comment: Plan: Chlamydia trachomatis PCR (L70.0) Acne vulgaris Comment: The patient was on tretinoin previously but did not like it. Will start clindamycin. Wash daily, also use daily lotion Plan: clindamycin (CLEOCIN T) 1 % external solution Follow up as needed. The information in this document, created by the medical oncologist for me, accurately reflects the services I personally performed and the decisions made by me. I have reviewed and approved this document for accuracy prior to leaving the patient care area. Caryl Trujillo MD 9:24 AM 11/19/2015 Caryl Trujillo MD [facility] Physical Exam documented in this encounter Nursing Notes Teressa Rose CMA - 11/19/2015 9:01 AM CDT Chief Complaint Patient presents with ??? A.D.H.D ??? Recheck Medication Initial BP 100/60 mmHg Pulse 67 Temp(Src) 97.8 ??F (36.6 ??C) (Oral) Resp 18 Ht 5' 2.75 (1.594 m) Wt 149 lb 6.4 oz (67.767 kg) BMI 26.67 kg/m2 SpO2 97% LMP 10/22/2015 (Approximate) Estimated body mass index is 26.67 kg/(m^2) as calculated from the following: Height as of this encounter: 5' 2.75 (1.594 m). Weight as of this encounter: 149 lb 6.4 oz (67.767 kg). BP completed using cuff size regular Teressa Rose CMA documented in this encounter Plan of Treatment Not on filedocumented as of this encounter Procedures Procedure Name Priority Date/Time Associated Diagnosis Comme nts CHLAMYDIA Routine 11/19/2015 9:14 AM Screening Results f or this TRACHOMATIS PCR CDT examination for procedure are in venereal disease the results section. documented in this encounter Results Chlamydia trachomatis PCR (11/19/2015 9:14 AM CDT) Component Value Ref Test Analysis Performed At [facility] [place] gist Range Method Time Signature Specimen Vagina [facility] Chlamydia Negative [facility] Negative for C. trachomatis rRNA by biodiesel plant manager mediated amplification. [place] [facility] PCR A negative result by transc ription mediated amplification does not preclude the [facility] presence of C. trachomatis infection because re sults are dependent on proper BANK and adequate collection, absence of inhibitors, and suffici ent rRNA to be detected. Specimen Anatomical Collection Method Collection Time Receive d Time (Source) Location / / Volume Laterality Specimen from 11/19/2015 9:14 AM 11/19/19 16 9:15 vagina CDT AM CDT (specimen) Caryl Trujillo MD LAB - MICRO GENERAL ORDERABL ES Performing Organization Address City/State/ZIP Code Phon e Number [address] [address] [facility] [id number] [place] [address] documented in this encounter Visit Diagnoses Diagnosis Attention deficit hyperactivity disorder (ADHD), predominantly inattentive type - Primary Irritable bowel syndrome with diarrhea Irritable bowel syndrome Screening examination for venereal disea se Generalized anxiety disorder Acne vulgaris Other acne documented in this encounter Additional Health Concerns Assessment Noted Time PHQ-9 Depression Total Score: 2 02/16/2015 7:24 AM CDT documented as of this encounter Care Teams Occupational Safety And Health Manager Relationship Specialty Start Date End Date Caryl Trujillo MD PCP - General Family Practice 12/16/10 documented as of this encounter
--- OUTSIDE RECORDS SUMMARY | 2021-12-30 10:43 | XMS_ITS | Encounter Summary ---
:2000 Author Organization [place] Address [facility] [place] [address] Care Team Providers Name Role Phone Caryl Trujillo MD Primary Care Provider [phone] Reason for Visit Reason Onset Date Comments Refill Request 02/13/2015 Encounter Details Date Type Department Care Team Description 02/13/2015 Refill [facility] Caryl Trujillo, Refill Request Vitor CHERRY [address] [facility], [address] [place] [address] [address] [place] [address] [place] [address] [phone] Social History Tobacco Use Types Packs/Day Years Used Date Passive Smoke Exposure - Never Smoker Smokeless Tobacco: Never Used Alcohol Use Standard Drinks/Week Comments No 0 (1 standard drink = 0.6 oz pure alcoho l) Sex Assigned at Date Recorded Not on file documented as of this encounter Miscellaneous Notes Telephone Encounter - Jazmine Hampton - 02/13/2015 8:07 AM CDT Ph. [phone] Pending Prescriptions: Disp Refills amphetamine-dextroamphetamine (ADDERALL X*30 cap*0 Sig: Take 1 capsule (20 mg) by mouth daily Last Written Prescription Date: 01/23/2015 Last Fill Quantity: 30, # refills: 0 Last Office Visit with [facility] primary care provider: 08/28/2014 Future Office visit: Routing refill request to provider for review/approval because: Drug not on the [facility] refill protocol or controlled substance Jazmine Hampton Cabinet Builder documented in this encounter Plan of Treatment Not on filedocumented as of this encounter Visit Diagnoses Diagnosis Attention deficit hyperactivity disorder (ADHD), combined type - Primary documented in this encounter Care Teams Law Examiner Relationship Specialty Start Date End Date Caryl Trujillo MD PCP - General Family Practice 12/16/10 documented as of this encounter
--- OUTSIDE RECORDS SUMMARY | 2021-12-30 10:43 | XMS_ITS | Encounter Summary ---
:2000 Author Organization [place] Address [facility] [place] [address] Care Team Providers Name Role Phone Caryl Trujillo MD Primary Care Provider [phone] Encounter Details Date Type Department Care Team Description 01/28/2015 Telephone [facility] Nurse Mariela Barr , RN [phone] [place] [address] Social History Tobacco Use Types Packs/Day Years Used Date Passive Smoke Exposure - Never Smoker Smokeless Tobacco: Never Used Alcohol Use Standard Drinks/Week Comments No 0 (1 standard drink = 0.6 oz pure alcoho l) Sex Assigned at Date Recorded Not on file documented as of this encounter Miscellaneous Notes Telephone Encounter - Mariela Barr RN - 01/28/2015 7:31 PM CDT Call Type: Triage Call Presenting Problem: Pt calling re Adderall refill, asking if it can be sent to [facility]. Referring to 01/25/15 9:38AM note, pt was informed that the prescription needs to be picked up at the [facility], and to bring her ID. Triage Note: Guideline Title: Medication Question Call (Pediatric) Recommended Disposition: Provide Information or Advice Only Original Inclination: Wanted to speak with a nurse Override Disposition: Intended Action: Follow advice given Physician Contacted: No Caller has medication question only, child not sick, and triager answers question ? YES Caller requesting information not related to medication ? NO Caller requesting a prescription for Strep throat and has a positive culture result ? NO Pharmacy calling with prescription question and triager unable to answer question ? NO Caller has medication question about med not prescribed by PCP and triager unable to answer question (e.g. compatibility with other med, storage) ? NO Diarrhea from taking antibiotic ? NO Caller has urgent medication question about med that PCP prescribed and triager unable to answer question ? NO Caller has nonurgent medication question about med that PCP prescribed and triager unable to answer question ? NO Immunization reaction suspected ? NO Diabetes medication overdose (e.g., insulin) ? NO Drug overdose and nurse unable to answer question ? NO [1] Asthma and [2] having symptoms of asthma (cough, wheezing, etc) ? NO [1] Caller requesting a non-essential refill (no harm to patient if med not taken) AND [2] triager unable to fill per unit policy ? NO [1] Prescription not at pharmacy AND [2] was prescribed today by PCP ? NO [1] Symptom of illness (e.g., headache, abdominal pain, earache, vomiting) AND [2] more than mild ? NO Medication administration techniques, questions about ? NO Medication refusal OR child uncooperative when trying to give medication ? NO Rash while taking a prescription medication or within 3 days of stopping it ? NO Vomiting or nausea due to medication OR medication re-dosing questions after vomiting medicine ? NO [1] Request for urgent new prescription or refill (likelihood of harm to patient if med not taken) AND [2] triager unable to fill per unit policy ? NO [1] Caller requesting a refill for spilled medication (e.g., antibiotics or essential medication) AND [2] triager unable to fill per unit policy ? NO Caller requesting a nonurgent new prescription (Exception: non-essential refill) ? NO Post-op pain or meds, questions about ? NO Reflux med questions and child fussy ? NO Physician Instructions: Care Advice: CARE ADVICE given per Medication Question Call - No Triage (Pediatric) guideline. documented in this encounter Plan of Treatment Not on filedocumented as of this encounter Visit Diagnoses Not on filedocumented in this encounter Care Teams Supervisor Rework Relationship Specialty Start Date End Date Caryl Trujillo MD PCP - General Family Practice 12/16/10 documented as of this encounter
--- OUTSIDE RECORDS SUMMARY | 2021-12-30 10:43 | XMS_ITS | Encounter Summary ---
:2000 Author Organization [place] Address [address] [place] [address]. [place] [address] Care Team Providers Name Role Phone Caryl Trujillo MD Primary Care Provider [phone] Reason for Visit Reason Comments Recheck Medication Encounter Details Date Type Department Care Team Description 01/22/[address] [facility] Marshal Young Attention deficit hyperactivity disorder (ADHD), predominantly inattentive type (Primary Dx); Clinic Vitor Cuello MD control counseling [id number] [address] [id number] [facility], [address] [place] [phone] Social History Tobacco Use Types Packs/Day Years [...] Sign Reading Time Taken Comments Blood Pressure 92/60 01/22/2016 8:33 AM CDT Pulse 60 01/22/2016 8:33 AM CDT Temperature 36.9 ??C (98.5 ??F) 01/22/2016 8:33 AM CDT Respiratory Rate 20 01/22/2016 8:33 AM CDT Oxygen Saturation 99% 01/22/2016 8:33 AM CDT Inhaled Oxygen Concentration - - Weight 67.1 kg (148 lb) 01/22/2016 8:33 AM CDT Height - - Body Mass Index 26.43 11/26/2015 2:37 PM CDT Body Mass Index Percentile 87.71 % 01/22/2016 8:33 AM CD T Growth Chart: [facility] (Girls, 2-20 Years) documented in this encounter Progress Notes Marshal Young MD - 01/22/2016 8:31 AM CDT HPI SUBJECTIVE: Teodora Eisenberg is a 16 year old female who presents to clinic today for the following health issues: Medication Followup of Adderall Taking Medication as prescribed: yes Side Effects: None Medication Helping Symptoms: yes 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 Denies appetite suppression, irritability, anxiety, sleep disturbance. Interested in Nexplanon, considering having this ut in at the end of this current pack of pills. Review of Systems Respiratory: Negative for shortness of breath. Cardiovascular: Negative for palpitations. Gastrointestinal: Negative. Psychiatric/Behavioral: Negative. Physical Exam Constitutional: She is oriented to [...] and dry. Psychiatric: Mood and affect normal. Vitals reviewed. 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 Recheck Medication Initial BP 92/60 mmHg Pulse 60 Temp(Src) 98.5 ??F (36.9 ??C) (Oral) Resp 20 Wt 148 lb (67.132 kg) SpO2 99% Estimated body mass index is 26.42 kg/(m^2) as calculated from the following: Height as of 16: 5' 2.75 (1.594 m). Weight as of this encounter: 148 lb (67.132 kg). BP completed using cuff size: regular Josefina Moore MA documented in this encounter Plan of Treatment Not on filedocumented as of this encounter Visit Diagnoses Diagnosis Attention deficit hyperactivity disorder (ADHD), predominantly inattentive type - Primary control counseling General counseling for initiation of oth er contraceptive measures documented in this encounter Additional Health Concerns Assessment Noted Time PHQ-9 Depression Total Score: 2 02/16/2015 7:24 AM CDT documented as of this encounter Care Teams Candle Making Supervisor Relationship Specialty Start Date End Date Caryl Trujillo MD PCP - General Family Practice 12/16/10 documented as of this encounter
--- OUTSIDE RECORDS SUMMARY | 2021-12-30 10:43 | XMS_ITS | Encounter Summary ---
:2000 Author Organization [place] Address [address] [place] [address]. [place] [address] Care Team Providers Name Role Phone Caryl Trujillo MD Primary Care Provider [phone] Reason for Visit Reason Comments Contraception Encounter Details Date Type Department Care Team Description 10/17/[address] [facility] Maribel Cruz Contrac eption (Primary [facility] [place] RICHY Roe CLOTHES SEPARATOR Dx) [address] [phone] [id number] Social History Tobacco Use Types Packs/Day Years Used Date Passive Smoke Exposure - Never Smoker Smokeless Tobacco: Never Used Alcohol Use Standard Drinks/Week Comments No 0 (1 standard drink = 0.6 oz pure alcoho l) Sex Assigned at Date Recorded Not on file documented as of this encounter Last Filed Vital Signs Vital Sign Reading Time Taken Comments Blood Pressure 96/60 10/17/2014 1:54 PM CDT Pulse 69 10/17/2014 1:54 PM CDT Temperature 36.7 ??C (98 ??F) 10/17/2014 1:54 PM CDT Respiratory Rate 16 10/17/2014 1:54 PM CDT Oxygen Saturation 99% 10/17/2014 1:54 PM CDT Inhaled Oxygen Concentration - - Weight 64 kg (141 lb 3.2 oz) 10/17/2014 1:54 PM CDT Height 157.5 cm (5' 2) 10/17/2014 1:54 PM CDT Body Mass Index 25.83 10/17/2014 1:54 PM CDT Body Mass Index Percentile 87.85 % 10/17/2014 1:54 PM CD T Growth Chart: [facility] (Girls, 2-20 Years) documented in this encounter Patient Instructions Patient InstructionsMaribel Cruz APRN CLOTHES SEPARATOR - 10/17/2014 2:06 PM CDT Images from the original note were not included. Control: The Pill control pills contain hormones that help prevent . The hormones stop the ovaries fromreleasing a mature egg. The pills are prescribed by your health care provider. There are many types of control pills available. If you have side effects from one type of pill, tell your health care provider. He or she may be able to prescribe a pill that works better for you. Rates Talk to your health care provider about the effectiveness of this control method. Using the Pill ?? Take one pill daily. Take it at around the same time each day. ?? Follow your health care provider???s guidelines on when to start your first pack of pills. You may need to use another form of control for a week or more after you start. ?? Know what to do if you forget to take a pill. (Consult your health care provider or check the package.) If you miss more than one pill, you may need to use a backup method of control for a week or more. Pros ?? Low rate. ?? No interruption to sex. ?? Easy to use. ?? Can help make periods more regular. ?? May lower your risk of ovarian cysts and certain cancers. ?? May decrease menstrual cramps, menstrual flow, and acne. Cons ?? Does not protect against sexually transmitted??infection (STIs). ?? Requires taking a pill on time each day. ?? May not work as well when taken with certain other medications. Check with your pharmacist. ?? May cause side effects such as nausea, weight gain, breast tenderness, fatigue, or mood changes. These often go away within 3 months. ?? May increase the risk of blood clots, heart attack, and stroke. The pill may not be for you if: ?? You are a smoker and over age 35. ?? You have??high blood pressure??or gallbladder, liver, or heart disease. ?? You have diabetes, migraines, bleeding, or vein problems. (In these cases, discuss the risks withyour doctor.) ?? [id number] [employer]. [address] [place] [address]. All rights reserved. This information is not intended as a substitute for professional medical care. Always follow your healthcare professional's instructions. documented in this encounter Progress Notes Maribel Cruz APRN CNP - 10/17/2014 1:55 PM CDT Images from the original note were not included. SUBJECTIVE: Teodora Eisenberg is a 14 year old female who presents to clinic today for the following health issues: Patient is here to talk about contraception. She was taking the pill without side effects, stopped at mother's request. She would like to get back on the pill, sexually active with monogamous male partner. LMP 10/12/14. No vaginal or urinary symptoms that are abnormal or concerning. Problem list and histories reviewed & adjusted, as indicated. Additional history: as documented Patient Active Problem List Diagnosis ??? Unspecified ulceration of vulva ??? Appendicitis ??? Muscle pain ??? ADHD (attention deficit hyperactivity disorder) ??? Coxalgia ??? Adjustment disorder with mixed disturbance of emotions and conduct ??? FE (generalised anxiety disorder) Past Surgical History Procedure Laterality Date ??? Appendectomy open 08/01/2012 Procedure: APPENDECTOMY OPEN; APPENDECTOMY OPEN; Surgeon: Lakisha Adame MD; Location: [facility] OR History Substance Use Topics ??? Smoking status: Passive Smoke Exposure - Never Smoker ??? Smokeless tobacco: Never Used ??? Alcohol Use: No Family History Problem Relation Age of Onset ??? Thyroid Disease Mother ??? Cancer - colorectal Paternal Grandfather ROS: Constitutional, HEENT, cardiovascular, pulmonary, gi and gu systems are negative, except as otherwise noted. OBJECTIVE: BP 96/60 mmHg Pulse 69 Temp(Src) 98 ??F (36.7 ??C) (Oral) Resp 16 Ht 5' 2 (1.575 m) Wt 141 lb 3.2 oz (64.048 kg) BMI 25.82 kg/m2 SpO2 99% LMP 10/09/2014 ? No Body mass index is 25.82 kg/(m^2). GENERAL: healthy, alert and no distress HENT: ear canals and TM's normal, nose and mouth without ulcers or lesions NECK: no adenopathy, no asymmetry, masses, or scars and thyroid normal to palpation RESP: lungs clear to auscultation - no rales, rhonchi or wheezes CV: regular rate and rhythm, normal S1 S2, no S3 or S4, no murmur, click or rub, no peripheral edemaand peripheral pulses strong ABDOMEN: soft, nontender, no hepatosplenomegaly, no masses and bowel sounds normal MS: no gross musculoskeletal defects noted, no edema SKIN: no suspicious lesions or rashes BACK: no CVA tenderness, no paralumbar tenderness PSYCH: mentation appears normal, affect normal/bright Diagnostic Test Results: Results for orders placed or performed in visit on 10/17/14 (from the past 24 hour(s)) Beta HCG qual IFA urine Result Value Ref Range Beta HCG Qual IFA Urine Negative NEG ASSESSMENT/PLAN: ICD-9-CM 1. Contraception V25.9 Beta HCG qual IFA urine norgestimate-ethinyl estradiol (ORTHO-CYCLEN, SPRINTEC) 0.25-35 MG-MCG tablet FUTURE APPOINTMENTS: - Follow-up for annual visit or as needed Patient Instructions Control: The Pill control pills contain hormones that help prevent . The hormones stop the ovaries fromreleasing a mature egg. The pills are prescribed by your health care provider. There are many types of control pills available. If you have side effects from one type of pill, tell your health care provider. He or she may be able to prescribe a pill that works better for you. Rates Talk to your health care provider about the effectiveness of this control method. Using the Pill ?? Take one pill daily. Take it at around the same time each day. ?? Follow your health care provider???s guidelines on when to start your first pack of pills. You may need to use another form of control for a week or more after you start. ?? Know what to do if you forget to take a pill. (Consult your health care provider or check the package.) If you miss more than one pill, you may need to use a backup method of control for a week or more. Pros ?? Low rate. ?? No interruption to sex. ?? Easy to use. ?? Can help make periods more regular. ?? May lower your risk of ovarian cysts and certain cancers. ?? May decrease menstrual cramps, menstrual flow, and acne. Cons ?? Does not protect against sexually transmitted??infection (STIs). ?? Requires taking a pill on time each day. ?? May not work as well when taken with certain other medications. Check with your pharmacist. ?? May cause side effects such as nausea, weight gain, breast tenderness, fatigue, or mood changes. These often go away within 3 months. ?? May increase the risk of blood clots, heart attack, and stroke. The pill may not be for you if: ?? You are a smoker and over age 35. ?? You have??high blood pressure??or gallbladder, liver, or heart disease. ?? You have diabetes, migraines, bleeding, or vein problems. (In these cases, discuss the risks withyour doctor.) ?? [id number] [employer]. [address] [place] [address], [place] [address]. All rights reserved. This information is not intended as a substitute for professional medical care. Always follow your healthcare professional's instructions. Maribel Cruz APRN CNP [facility] documented in this encounter Nursing Notes Aubrie Diaz, CHECO - 10/17/2014 1:55 PM CDT Chief Complaint Patient presents with ??? Contraception Initial Ht 5' 2 (1.575 m) Wt 141 lb 3.2 oz (64.048 kg) BMI 25.82 kg/m2 LMP 10/09/2014 ? No Estimated body mass index is 25.82 kg/(m^2) as calculated from the following: Height as of this encounter: 5' 2 (1.575 m). Weight as of this encounter: 141 lb 3.2 oz (64.048 kg). BP completed using cuff size: regular right arm. Aubrie Diaz CMA documented in this encounter Plan of Treatment Not on filedocumented as of this encounter Procedures Procedure Name Priority Date/Time Associated Diagnosis Comme nts BETA HCG QUALITATIVE Routine 10/17/2014 1:51 PM Contraception Results for this IFA URINE CDT procedure are i n the results section. documented in this encounter Results Beta HCG qual IFA urine (10/17/2014 1:51 PM CDT) athologist Signature Beta HCG Qual Negative NEG [facility] Urine [facility] Specimen Anatomical Collection Method Collection Time Receive d Time (Source) Location / / Volume Laterality Urine specimen 10/17/2014 1:51 PM 015 1:56 (specimen) CDT PM CDT Maribel Cruz APRN CLOTHES SEPARATOR LAB - URINE ORDERABLES Performing Organization Address City/State/ZIP Code Phon e Number [facility] [id number] [place] [address] documented in this encounter Visit Diagnoses Diagnosis Contraception - Primary Unspecified contraceptive management documented in this encounter Care Teams Emt/Dispatcher Relationship Specialty Start Date End Date Caryl Trujillo MD PCP - General Family Practice 12/16/10 documented as of this encounter
--- OUTSIDE RECORDS SUMMARY | 2021-12-30 10:43 | XMS_ITS | Encounter Summary ---
:2000 Author Organization [place] Address [facility] [place] [address] Care Team Providers Name Role Phone Caryl Trujillo MD Primary Care Provider [phone] Encounter Details Date Type Department Care Team Description 06/01/2015 Telephone [facility] rse Advisors Arelis Mcdonald RN [address] [place] [address] Social History Tobacco Use Types Packs/Day Years Used Date Passive Smoke Exposure - Never Smoker Smokeless Tobacco: Never Used Alcohol Use Standard Drinks/Week Comments No 0 (1 standard drink = 0.6 oz pure alcoho l) Sex Assigned at Date Recorded Not on file documented as of this encounter Miscellaneous Notes Telephone Encounter - Dante Navarro - 06/05/2015 2:20 PM CST Pt picked up rx with ID ICAL SECRETARY Telephone Encounter - Arelis Mcdonald RN - 06/01/2015 12:03 PM CST Call Type: Triage Call Presenting Problem: I want to come pickup a refill of my medication... caller requesting refill of Adderall. Instructed that clinic is closed on weekends and that FNA will send a request to her provider for review on Wednesday. Patient agreeable to plan. Triage Note: Guideline Title: Medication Question Call (Pediatric) Recommended Disposition: Call Provider When Office is Open Original Inclination: Wanted to speak with a nurse Override Disposition: Intended Action: See /Bayron Lópezt Physician Contacted: No [1] Caller requesting a non-essential refill (no harm to patient if med not taken) AND [2] triager unable to fill per unit policy ? YES Caller requesting information not related [...] asthma (cough, wheezing, etc) ? NO [1] Prescription not at pharmacy [...] to fill per unit policy ? NO Post-op pain or meds, questions about ? NO Reflux med questions and child fussy ? NO control pills, questions about ? NO Caller requesting a nonurgent new prescription (Exception: non-essential refill) ? NO Physician Instructions: Care Advice: CALL PCP WHEN OFFICE IS OPEN: You need to discuss this with your child's doctor within the next few days. Call him/her during regular office hours. CARE ADVICE given per Medication Question Call - No Triage (Pediatric) guideline. CALL BACK IF: * You have other questions or concerns * Your child becomes worse ICAL SECRETARY documented in this encounter Plan of Treatment Not on filedocumented as of this encounter Visit Diagnoses Not on filedocumented in this encounter Additional Health Concerns Assessment Noted Time PHQ-9 Depression Total Score: 2 02/16/2015 7:24 AM CDT documented as of this encounter Care Teams Retail Service Technician Relationship Specialty Start Date End Date Caryl Trujillo MD PCP - General Family Practice 12/16/10 documented as of this encounter
--- OUTSIDE RECORDS SUMMARY | 2021-12-30 10:43 | XMS_ITS | Encounter Summary ---
:2000 Author Organization [place] Address [facility] [place] [address] Care Team Providers Name Role Phone Caryl Trujillo MD Primary Care Provider [phone] Reason for Visit Reason Comments A.D.H.D Recheck Medication amphetamine-dextroamphetamin e (ADDERALL XR) 20 MG per capsule Encounter Details Date Type Department Care Team Description 06/18/2015 Office Visit [facility] Caryl Trujillo on deficit hyperactivity disorder (ADHD), predominantly inattentive type (Primary Dx); Clinic Vitor Tolliver MD Major depressive disorder, recurrent epi sode, mild (H); [place] [address] [address] Generalized anxiety disorder; [address] [place], [place] Screen for STD (sexually tra nsmitted disease); [place] [address] Irritable bowel syndrome with diarrhea; [id number] Encounter for other general counseling or advice on contraception Social History Tobacco Use Types Packs/Day Years [...] Reading Time Taken Comments Blood Pressure 100/60 06/18/2015 8:12 AM TORTS LAW PROFESSOR Pulse 87 06/18/2015 8:12 AM TORTS LAW PROFESSOR Temperature 36.7 ??C (98.1 ??F) 06/18/2015 8:12 AM TORTS LAW PROFESSOR Respiratory Rate 16 06/18/2015 8:12 AM TORTS LAW PROFESSOR Oxygen Saturation 96% 06/18/2015 8:12 AM TORTS LAW PROFESSOR Inhaled Oxygen Concentration - - Weight 69.2 kg (152 lb 8 oz) 06/18/2015 8:12 AM TORTS LAW PROFESSOR Height 159.4 cm (5' 2.75) 06/18/2015 8:12 AM TORTS LAW PROFESSOR Body Mass Index 27.23 06/18/2015 8:12 AM TORTS LAW PROFESSOR Body Mass Index Percentile 90.72 % 06/18/2015 8:12 AM CS T Growth Chart: [facility] (Girls, 2-20 Years) documented in this encounter Progress Notes Caryl Trujillo MD - 06/17/2015 3:02 PM CST HPI SUBJECTIVE: Teodora Eisenberg is a 15 year old female who presents to clinic today with self because of: Chief Complaint Patient presents with ??? A.D.H.D ??? Recheck Medication amphetamine-dextroamphetamine (ADDERALL XR) 20 MG per capsule HPI: ADHD Follow-Up Date of last ADHD office visit: 01/28/15-virtual visit Status since last visit: Stable Taking controlled (daily) medications as prescribed: No-for a few days patient has not taken it because she ran out Gets anxious at school, easily upset, her ex best friend was spreading rumors, and was so up set yesterday she was screaming. Still living with her dad, gets along well with her mom. Never picked up the celexa, so not on this, but feels she needs it. Gets irritable and anxious and really upset at times. Patient needing refill on control, is willing to get STD screening done. No sx School: Name of SCHOOL: [employer] Grade: 11th School Concerns/Teacher Feedback: Stable School services/Modifications: none Homework: Improving Grades: Stable Sleep: no problems Home/Family Concerns: Stable Peer Concerns: Worse, see above Co-Morbid Diagnosis: Depression Currently in counseling: no, but needs to be, really likes Haley Landeros Medication Benefits: Controlled symptoms: Attention span and School failure Uncontrolled symptoms: Impulse control Medication side effects: Parent/Patient Concerns with Medications: None Denies: All of the above appetite suppression, weight loss, insomnia, tics, palpitations, stomach ache, headache, emotional lability (due to anxiety and MDD, not depression), rebound irritability, drowsiness, zombie effect, growth suppression and dry mouth ROS: Negative for constitutional, eye, ear, nose, throat, skin, respiratory, cardiac, and gastrointestinal other than those outlined in the HPI. PROBLEM LIST: Patient Active Problem List Diagnosis Date Noted ??? Coxalgia 11/25/2013 Priority: Medium ??? ADHD (attention deficit hyperactivity disorder) 10/17/2013 Priority: Medium ??? Adjustment disorder with mixed disturbance of emotions and conduct 01/02/2014 ??? Generalized anxiety disorder 01/02/2014 Diagnosis updated by automated process. Provider to review and confirm. ??? Muscle pain 09/26/2012 ??? Appendicitis 08/01/2012 ??? Ulceration of vulva 12/18/2010 Problem list name updated by automated process. Provider to review MEDICATIONS: Current Outpatient Prescriptions Medication Sig Dispense Refill ??? amphetamine-dextroamphetamine (ADDERALL XR) 20 MG per capsule Take 1 capsule (20 mg) by mouth daily 15 capsule 0 ??? norgestimate-ethinyl estradiol (ORTHO-CYCLEN, SPRINTEC) 0.25-35 MG-MCG tablet Take 1 tablet by mouth daily 3 Package 3 ALLERGIES: No Known Allergies Problem list and histories reviewed & adjusted, as indicated. OBJECTIVE: BP 100/60 mmHg Pulse 87 Temp(Src) 98.1 ??F (36.7 ??C) (Oral) Resp 16 Ht 5' 2.75 (1.594 m) Wt 152 lb 8 oz (69.174 kg) BMI 27.22 kg/m2 SpO2 96% LMP 06/03/2015 Blood pressure percentiles are 16% systolic and 30% diastolic based on 2000 NHANES data. Blood pressure percentile targets: 90: 124/80, 95: 128/84, 99 + 5 mmH/96. GENERAL: Active, alert, in no acute distress. SKIN: Clear. No significant rash, abnormal pigmentation or lesions Mood appears normal DIAGNOSTICS: None ASSESSMENT/PLAN: 1. Attention deficit hyperactivity disorder (ADHD), predominantly inattentive type Follow up 3 month - amphetamine-dextroamphetamine (ADDERALL XR) 20 MG per capsule; Take 1 capsule (20 mg) by mouth daily Dispense: 30 capsule; Refill: 0 - amphetamine-dextroamphetamine (ADDERALL XR) 20 MG per capsule; Take 1 capsule (20 mg) by mouth daily Dispense: 30 capsule; Refill: 0 - amphetamine-dextroamphetamine (ADDERALL XR) 20 MG per capsule; Take 1 capsule (20 mg) by mouth daily Dispense: 30 capsule; Refill: 0 2. Major depressive disorder, recurrent episode, mild (HCC) Follow up 1 month , phone appointment ok - citalopram (CELEXA) 20 MG tablet; Take 1 tablet (20 mg) by mouth daily Dispense: 90 tablet; Refill: 1 3. Generalized anxiety disorder See above - citalopram (CELEXA) 20 MG tablet; Take 1 tablet (20 mg) by mouth daily Dispense: 90 tablet; Refill: 1 4. Screen for STD (sexually transmitted disease) Patient left in hurry, will ask her to get this next time - Chlamydia trachomatis PCR; Future 6. Irritable bowel syndrome with diarrhea Follow up if nto helpful - psyllium 0.52 G capsule; Take 1 capsule (0.52 g) by mouth daily Dispense: 90 capsule; Refill: 3 7. Encounter for other general counseling or advice on contraception refilled - norgestimate-ethinyl estradiol (ORTHO-CYCLEN, SPRINTEC) 0.25-35 MG-MCG per tablet; Take 1 tablet by mouth daily Dispense: 90 tablet; Refill: 3 FOLLOW UP: follow up 3 month Caryl Trujillo MD ROS Physical Exam S LAW PROFESSOR documented in this encounter Nursing Notes Teressa Rose, CHECO - 06/18/2015 8:17 AM CST Chief Complaint Patient presents with ??? A.D.H.D ??? Recheck Medication amphetamine-dextroamphetamine (ADDERALL XR) 20 MG per capsule Initial BP 100/60 mmHg Pulse 87 Temp(Src) 98.1 ??F (36.7 ??C) (Oral) Resp 16 Ht 5' 2.75 (1.594 m) Wt 152 lb 8 oz (69.174 kg) BMI 27.22 kg/m2 SpO2 96% LMP 06/03/2015 Estimated body massindex is 27.22 kg/(m^2) as calculated from the following: Height as of this encounter: 5' 2.75 (1.594 m). Weight as of this encounter: 152 lb 8 oz (69.174 kg). BP completed using cuff size regular right arm. Teressa Rose CMA S LAW PROFESSOR documented in this encounter Plan of Treatment Not on filedocumented as of this encounter Visit Diagnoses Diagnosis Attention deficit hyperactivity disorder (ADHD), predominantly inattentive type - Primary Major depressive disorder, recurrent epi sode, mild (H) Major depressive disorder, recurrent epi sode, mild Generalized anxiety disorder Encounter for other general counseling o r advice on contraception Irritable bowel syndrome with diarrhea Irritable bowel syndrome documented in this encounter Additional Health Concerns Assessment Noted Time PHQ-9 Depression Total Score: 2 02/16/2015 7:24 AM CDT documented as of this encounter Care Teams Bridge Builder Relationship Specialty Start Date End Date Caryl Trujillo MD PCP - General Family Practice 12/16/10 documented as of this encounter
--- OUTSIDE RECORDS SUMMARY | 2021-12-30 10:43 | XMS_ITS | Encounter Summary ---
:2000 Author Organization [place] Address [address] [place] [address]. 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 [facility] ADHD (atten tion deficit hyperactivity disorder); [facility] FE (generalised anxiety disorder) HYDROELECTRIC PLANT MAINTAIN[place] [address] [phone] Social History Tobacco Use Types Packs/Day Years Used Date Passive Smoke Exposure - Never Smoker Smokeless Tobacco: Never Used Alcohol Use Standard Drinks/Week Comments No 0 (1 standard drink = 0.6 oz pure alcoho l) Sex Assigned at Date Recorded Not on file documented as of this encounter Progress Notes Haley Harding LP - 08/28/2014 12:36 PM CDT Progress Note Client Name: Teodora Eisenberg Date: 08-28-14 Service Type: 00601 Session Start Time: 12:35 Session End Time: 1:25 Session Length: 45-50 min Session #: 6 Attendees: client , mother for colateral Treatment Plan Last Reviewed: today DATA Progress Since Last Session (Related to Symptoms / Goals / Homework): Symptoms: irritable, anxious , feeling misunderstood, low energy, depressed mood , denies SI/ SIB Homework: Completed in session Episode of Care Goals: Satisfactory progress - PREPARATION (Decided to change - considering how); Intervened by negotiating a change plan and determining options / strategies for behavior change, identifying triggers, exploring social supports, and working towards setting a date to begin behavior change Current / Ongoing Stressors and Concerns: Recent mood related ER visit Conflict with family Treatment Objective(s) Addressed in This Session: Teach conflict relsolution skils Intervention: Reviewed diagosis on record. Mom reports client is returning to Medications for depressin and ADHD Discussed current family constelations and patterns of communication /conflict / power struggle.. Helped client name experiences. Conducted conflict resolution skill work exploring manageable expectations/ triggers ASSESSMENT: Current Emotional / Mental Status (status [...] (Client Tasks / Therapist Tasks / Other) Attend family therapy Client to begin to look at triggers Past hw Offered [facility]V after hours number if conflict arise and creates triggers Invited Teodora to attend next weeks visit Referral for family counseling Past hw Share info on c/r from session with mom Past hw Respite at [facility] this weekend reframe despair Invite parent to [...] i am no longer deeply effected by stressors). Objective #A (Client Action) Client will use cognitive strategies identified in therapy to challenge anxious and stressful thoughts. identify 4 stressors which contribute to feelings of depression use cognitive strategies identified in therapy to challenge anxious thoughts complete at least 15 minutes of self-regulation practice (e.g.: yoga, meditation, relaxation breathing, etc.) per day Status: New - Date: 02-26-14 Update 08-28-14 continue with tx plan Intervention(s) Therapist will teach CBT/ DBT skills. 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
--- OUTSIDE RECORDS SUMMARY | 2021-12-30 10:43 | XMS_ITS | Encounter Summary ---
:2000 Author Organization [place] Address [facility] [place] [address] Care Team Providers Name Role Phone Caryl Trujillo MD Primary Care Provider Reason for Visit Reason Onset Date Comments Refill Request 10/17/2015 Adderall XR 20 Mg Refill Request 10/17/2015 Ortho Cyclen 0.25-35 Mg-MCG per tablet Encounter Details Date Type Department Care Team Description 10/17/2015 Refill [facility] Caryl Trujillo Refill Request Clinic Vitor Tolliver MD (Adderall XR 20 Mg); [facility], [address] [place] [address] Refill Request (Ortho [address] [place] [address] Cyclen 0.25-35 Mg-MCG [place], [place] [phone] (Wo rk) per tablet) [id number] [phone] Social History Tobacco Use Types Packs/Day Years [...] Notes Telephone Encounter - Dante Navarro - 10/18/2015 2:29 PM CDT Pt did poultry picker rx with ID Telephone Encounter - Dante Navarro - 10/18/2015 10:11 AM CDT Pt notified to poultry picker rx at manager front at Telephone Encounter - Caryl Trujillo MD - 10/18/2015 8:36 AM CDT I have not seen her since May, please recommend follow up appointment, will refill. Thank you Telephone Encounter - Susy Morataya I - 10/17/2015 12:11 PM CDT Please call patient at [phone] when paper Adderall prescription is available for poultry picker at the clinic. Susy Morataya/Chemical Engineering Technologist Telephone Encounter - Susy Morataya I - 10/17/2015 12:04 PM CDT Ortho Cyclen 0.25-35 Mg-MCG per tablet Last Written Prescription Date: 06/18/2015 Last Fill Quantity: 90, # refills: 3 Last Office Visit with [facility], [facility] or Health prescribing provider: 08/13/2015 Future Office visit: Please send control prescription to the [facility] pharmacy in [place]. Susy Morataya/Chemical Engineering Technologist Telephone Encounter - Susy Morataya I - 10/17/2015 12:02 PM CDT Adderall 20 Mg Last Written Prescription Date: 09/18/2015 Last Fill Quantity: 30, # refills: 0 Last Office Visit with [facility], [facility] or Health prescribing provider: 08/13/2015 Future Office visit: Routing refill request to provider for review/approval because: Drug not on the [facility], [facility] or Health refill protocol or controlled substance Please call patient when patients paper prescription is available for poultry picker at the [facility] clinic. Susy Morataya/Chemical Engineering Technologist documented in this encounter Plan of Treatment Not on filedocumented as of this encounter Visit Diagnoses Diagnosis Attention deficit hyperactivity disorder (ADHD), combined type - Primary Encounter for other general counseling o r advice on contraception documented in this encounter Additional Health Concerns Assessment Noted Time PHQ-9 Depression Total Score: 2 02/16/2015 7:24 AM CDT documented as of this encounter Care Teams Network Announcer Relationship Specialty Start Date End Date Caryl Trujillo MD PCP - General Family Practice 12/16/10 documented as of this encounter
--- OUTSIDE RECORDS SUMMARY | 2021-12-30 10:43 | XMS_ITS | Encounter Summary ---
:2000 Author Organization [place] Address [facility] [place] [address] Care Team Providers Name Role Phone Caryl Trujillo MD Primary Care Provider [phone] Reason for Visit Reason Onset Date Comments Medication Request 09/18/2015 Adderall Encounter Details Date Type Department Care Team Description 09/18/2015 Telephone [facility] Caryl Trujillo Medicat ion Request Clinic Vitor Tolliver MD (Adderall) [address] [facility], [address] [place] [address] [address] [place] [address] [place], [place] [phone] (Wo rk) [address] [phone] Social History Tobacco Use Types Packs/Day Years Used Date Passive Smoke Exposure - Never Smoker Smokeless Tobacco: Never Used Comments: patient's boyfriend and also h is family Alcohol Use Standard Drinks/Week Comments No 0 (1 standard drink = 0.6 oz pure alcoho l) Sex Assigned at Date Recorded Not on file documented as of this encounter Miscellaneous Notes Telephone Encounter - Manjula Christian - 09/19/2015 3:10 PM CDT PT picked up RX 09/19/15 Telephone Encounter - Susy Mendez - 09/18/2015 4:18 PM CDT Pt notified their RX is ready for garbage pick up man at manager front. Pt asked to bring ID when picking up. Susy KWON Addictions Counselor Assistant [facility] Telephone Encounter - Marshal Young MD - 09/18/2015 3:00 PM CDT Rx signed. Marshal Young MD Telephone Encounter - Velia Holt RN - 09/18/2015 10:32 AM CDT Adderall Last Written Prescription Date: 08/19/2015 Last Fill Quantity: 1 month, # refills: 0 Last Office Visit with [facility] or [facility] prescribing provider: 06/18/2015 Future Office visit: Routing refill request to provider for review/approval because: Drug not on the [facility] or [facility] refill protocol or controlled substance. Velia Holt, RN Telephone Encounter - Sajan Navarro - 09/18/2015 9:29 AM CDT Reason for Call: Medication or medication refill: Do you use a [facility]? Name of the pharmacy and phone number for the current request: Pt topick up at Name of the medication requested: Adderall 3 months at a time Other request: Can we leave a detailed message on this number? YES Phone number patient can be reached at: Home number on file [phone] (home) Best Time: Call taken on 09/18/2015 at 9:57 AM by SAJAN NAVARRO documented in this encounter Plan of Treatment Not on filedocumented as of this encounter Visit Diagnoses Diagnosis Attention deficit hyperactivity disorder (ADHD), predominantly inattentive type - Primary documented in this encounter Additional Health Concerns Assessment Noted Time PHQ-9 Depression Total Score: 2 02/16/2015 7:24 AM CDT documented as of this encounter Care Teams Insulation Worker Interior Surface Relationship Specialty Start Date End Date Caryl Trujillo MD PCP - General Family Practice 12/16/10 documented as of this encounter
--- OUTSIDE RECORDS SUMMARY | 2021-12-30 10:43 | XMS_ITS | Encounter Summary ---
:2000 Author Organization [place] Address [facility] [place] [address] Care Team Providers Name Role Phone Caryl Trujillo MD Primary Care Provider [phone] Reason for Visit Reason Onset Date Comments Refill Request 04/02/2015 rx Encounter Details Date Type Department Care Team Description 04/02/2015 Telephone [facility] Caryl Trujillo Refill Request (rx) [place] [address] [facility], [address] [place] [address] [address] [place] [address] [place], [place] [phone] (Wo rk) [id number] [phone] Social History Tobacco Use Types Packs/Day Years Used Date Passive Smoke Exposure - Never Smoker Smokeless Tobacco: Never Used Alcohol Use Standard Drinks/Week Comments No 0 (1 standard drink = 0.6 oz pure alcoho l) Sex Assigned at Date Recorded Not on file documented as of this encounter Miscellaneous Notes Telephone Encounter - Dante Navarro - 04/02/2015 12:31 PM CST Pt picked up rx at with ID OLOGICAL SURGEON documented in this encounter Plan of Treatment Not on filedocumented as of this encounter Visit Diagnoses Not on filedocumented in this encounter Additional Health Concerns Assessment Noted Time PHQ-9 Depression Total Score: 2 02/16/2015 7:24 AM CDT documented as of this encounter Care Teams E Commerce Developer Relationship Specialty Start Date End Date Caryl Trujillo MD PCP - General Family Practice 12/16/10 documented as of this encounter
--- OUTSIDE RECORDS SUMMARY | 2021-12-30 10:43 | XMS_ITS | Encounter Summary ---
:2000 Author Organization [place] Address [facility] [place] [address] Care Team Providers Name Role Phone Caryl Trujillo MD Primary Care Provider [phone] Reason for Visit Reason Onset Date Comments Refill Request 01/23/2015 Adderall Encounter Details Date Type Department Care Team Description [facility] [place] (Adderall) [address] [place] [address], [address] [place] [address] [address] [place] [address] [place], [place] [phone] (Wo rk) [id number] [phone] Social History Tobacco Use Types Packs/Day Years Used Date Passive Smoke Exposure - Never Smoker Smokeless Tobacco: Never Used Alcohol Use Standard Drinks/Week Comments No 0 (1 standard drink = 0.6 oz pure alcoho l) Sex Assigned at Date Recorded Not on file documented as of this encounter Miscellaneous Notes Telephone Encounter - Susy Mendez - 01/25/2015 9:38 AM CDT Pt notified their RX is ready for berry picker at front end software engineer. Pt asked to bring ID when picking up. Susy KWON Watch Case Polisher [facility] Telephone Encounter - Susy Mendez - 01/23/2015 9:08 AM CDT Teodora calling Pending Prescriptions: Disp Refills amphetamine-dextroamphetamine (ADDERALL X*30 cap*0 Sig: Take 1 capsule (20 mg) by mouth daily Last Written Prescription Date: 02/22/14 Last Fill Quantity: 30, # refills: 0 Last Office Visit [facility] primary care provider: 10/17/14 Future Office Visit: BP Readings from Last 3 Encounters: 10/17/14 96/60 08/28/14 110/60 08/25/14 94/50 documented in this encounter Plan of Treatment Not on filedocumented as of this encounter Visit Diagnoses Diagnosis ADHD (attention deficit hyperactivity di sorder) - Primary Attention deficit disorder with hyperact ivity documented in this encounter Care Teams Site Engineer Relationship Specialty Start Date End Date Caryl Trujillo MD PCP - General Family Practice 12/16/10 documented as of this encounter
--- OUTSIDE RECORDS SUMMARY | 2021-12-30 10:43 | XMS_ITS | Encounter Summary ---
:2000 Author Organization [place] Address [address] [place] [address]. [place] [address] Care Team Providers Name Role Phone Caryl Trujillo MD Primary Care Provider [phone] Reason for Visit Reason Comments ER F/U MENTAL HEALTH Anxiety *fill out FE-7 & PHQ-9* Encounter Details Date Type Department Care Team Description 08/28/2014 Office Visit [facility] Caryl Trujillo ADHD (a ttention deficit hyperactivity disorder) (Primary Dx); Clinic Vitor Tolliver MD FE (generalised anxiety disorder) [place] [address] [facility], [address] [place] [phone] Social History Tobacco Use Types Packs/Day Years Used Date Passive Smoke Exposure - Never Smoker Smokeless Tobacco: Never Used Alcohol Use Standard Drinks/Week Comments No 0 (1 standard drink = 0.6 oz pure alcoho l) Sex Assigned at Date Recorded Not on file documented as of this encounter Last Filed Vital Signs Vital Sign Reading Time Taken Comments Blood Pressure 110/60 08/28/2014 11:43 AM CDT Pulse 83 08/28/2014 11:43 AM CDT Temperature 36.8 ??C (98.3 ??F) 08/28/2014 11:43 AM CDT Respiratory Rate 16 08/28/2014 11:43 AM CDT Oxygen Saturation 99% 08/28/2014 11:43 AM CDT Inhaled Oxygen Concentration - - Weight 61.1 kg (134 lb 11.2 oz) 08/28/2014 11:43 AM CDT Height 160 cm (5' 3) 08/28/2014 11:43 AM CDT Body Mass Index 23.86 08/28/2014 11:43 AM CDT Body Mass Index Percentile 79.33 % 08/28/2014 11:43 AM CDT Growth Chart: CDC (Girls, 2-20 Years) documented in this encounter Progress Notes Caryl Trujillo MD - 08/27/2014 3:34 PM CDT HPI SUBJECTIVE: Teodora Eisenberg is a 14 year old female who presents to clinic today for the following health issues: ED/UC Followup: Facility: [facility]. Date of visit: 08/25/14 Reason for visit: Adjustment disorder with mixed disturbance of emotions and conduct Current Status: Concerns about: Proper diagnosis, medication check-she patient be on different medications or dosages? Does patient need a MRI Scan regarding multiple concussions that happened last year, Referral for a psychologist? Has moved back in with her mother. Her dad is living in a hotel currently. Reviewed the ED notes Meeting with Haley Reno after this appointment Family counseling meeting karley. In school every day, poor grades Restarted the celexa, 4 days ago Was off adderal for 6 months. PROBLEMS TO ADD ON... Problem list and histories reviewed & adjusted, as indicated. Additional history: as documented BP Readings from Last 3 Encounters: 08/28/14 110/60 08/25/14 94/50 05/01/14 100/68 Wt Readings from Last 3 Encounters: 08/28/14 134 lb 11.2 oz (61.1 kg) (72.95 %*) 05/01/14 123 lb 11.2 oz (56.11 kg) (57.59 %*) 03/29/14 123 lb (55.792 kg) (56.79 %*) * Growth percentiles are based on CDC 2-20 Years data. Labs reviewed in [facility] Problem list, Medication list, Allergies, and Medical/Social/Surgical histories reviewed in [facility] andupdated as appropriate. ROS: ROS:4 point ROS including Respiratory, CV, GI and , other than that noted in the HPI, is negative OBJECTIVE: BP 110/60 Pulse 83 Temp(Src) 98.3 ??F (36.8 ??C) (Oral) Resp 16 Ht 5' 3 (1.6 m) Wt 134 lb11.2 oz (61.1 kg) BMI 23.87 kg/m2 SpO2 99% LMP 08/20/2014 (Approximate) Body mass index is 23.87 kg/(m^2). GENERAL: healthy, alert and no distress MS: no gross musculoskeletal defects noted, no edema SKIN: no suspicious lesions or rashes NEURO: Normal strength and tone, mentation intact and speech normal PSYCH: mentation appears normal, affect normal/bright Diagnostic Test Results: none ASSESSMENT: PLAN: ICD-9-CM 1. ADHD (attention deficit hyperactivity disorder) 314.01 amphetamine- dextroamphetamine (ADDERALL XR) 30 MG per capsule amphetamine-dextroamphetamine (ADDERALL XR) 30 MG per capsule amphetamine-dextroamphetamine (ADDERALL XR) 30 MG per capsule 2. FE (generalised anxiety disorder) 300.02 citalopram (CELEXA) 20 MG tablet Regular exercise Follow up with talk therapist Follow up 1 month Caryl Trujillo MD [facility] Physical Exam documented in this encounter Nursing Teressa Butt CMA - 08/28/2014 11:46 AM CDT Chief Complaint Patient presents with ??? ER F/U MENTAL HEALTH ??? Anxiety *fill out FE-7 & PHQ-9* Initial BP 110/60 Pulse 83 Temp(Src) 98.3 ??F (36.8 ??C) (Oral) Resp 16 Ht 5' 3 (1.6 m) Wt 134 lb 11.2 oz (61.1 kg) BMI 23.87 kg/m2 SpO2 99% LMP 08/20/2014 Estimated body mass index is23.87 kg/(m^2) as calculated from the following: Height as of this encounter: 5' 3 (1.6 m). Weight as of this encounter: 134 lb 11.2 oz (61.1 kg). BP completed using cuff size regular right arm. Teressa Rose CMA documented in this encounter Plan of Treatment Not on filedocumented as of this encounter Visit Diagnoses Diagnosis ADHD (attention deficit hyperactivity di sorder) - Primary Attention deficit disorder with hyperact ivity FE (generalised anxiety disorder) Generalized anxiety disorder documented in this encounter Care Teams Molding Machine Setter Relationship Specialty Start Date End Date Caryl Trujillo MD PCP - General Family Practice 12/16/10 documented as of this encounter
--- OUTSIDE RECORDS SUMMARY | 2021-12-30 10:43 | XMS_ITS | Encounter Summary ---
:2000 Author Organization [place] Address [address] [facility] [place] [address] Care Team Providers Name Role Phone Caryl Trujillo MD Primary Care Provider [phone] Reason for Visit Reason Onset Date Comments Nurse Advice Line 06/01/2015 Adderall Refill Refill Request 06/04/2015 adderrall refill, sc heduled telephone visit, out until then Encounter Details Date Type Department Care Team Description 06/01/2015 Telephone [facility] Caryl Trujillo Nurse A dvice Line Clinic Vitor Tolliver MD (Adderall Refill ); [facility], [address] [place] [address] Refill Request [address] [place] [address] (adderrall refill, [place], [place] [phone] (Wo rk) scheduled telephone [phone] visit, out until then) [phone] Social History Tobacco Use Types Packs/Day Years Used Date Passive Smoke Exposure - Never Smoker Smokeless Tobacco: Never Used Alcohol Use Standard Drinks/Week Comments No 0 (1 standard drink = 0.6 oz pure alcoho l) Sex Assigned at Date Recorded Not on file documented as of this encounter Miscellaneous Notes Telephone Encounter - Velia Holt RN - 06/05/2015 8:52 AM CST Left a detailed message that rx was ready to be picked up at the front office director. Velia Holt RN HIC SPECIALIST Telephone Encounter - Artemio Byers PA-C - 06/04/2015 5:42 PM GRAPHIC SPECIALIST #15 given. ajp HIC SPECIALIST Telephone Encounter - Yady Bella - 06/04/2015 8:07 AM CST Patient scheduled a telephone visit for this. She is completely out of meds until then. Can we give her enough to hold her over until her visit? Please call patient to advise. HIC SPECIALIST Telephone Encounter - Artemio Byers PA-C - 06/03/2015 1:05 PM GRAPHIC SPECIALIST She is very overdue for OV. I will let Dr. Trujillo take care of this when back in office. Artemio Delgado HIC SPECIALIST Telephone Encounter - Sada Caballero RN - 06/03/2015 12:23 PM CST amphetamine-dextroamphetamine (ADDERALL XR) 20 MG Last Written Prescription Date: 02/15/15 Last Fill Quantity: 30, # refills: 0 Last Office Visit with [facility] primary care provider: 10/17/14 Future Office visit: Routing refill request to provider for review/approval because: Drug not on the [facility] refill protocol or controlled substance - Unable to check PROGRAM CHECKER Out of medication. Please call Teodora at [phone] when ready to grain picker. Sarai Caballero RN, BSN HIC SPECIALIST Telephone Encounter - Arelis Mcdonald RN - 06/01/2015 11:58 AM CST Clinic Action Needed: Please call Teodora on her home phone when the rx is ready for pickup. Reason for Call: Teodora calling FNA requesting a refill of Adderall. Patient Recommendations/Teaching: None at this time. Routed to: [place] Nurse Sal Mcdonald RN/[place] Nurse Advisor HIC SPECIALIST documented in this encounter Plan of Treatment Not on filedocumented as of this encounter Visit Diagnoses Diagnosis Attention deficit hyperactivity disorder (ADHD), combined type - Primary documented in this encounter Additional Health Concerns Assessment Noted Time PHQ-9 Depression Total Score: 2 02/16/2015 7:24 AM CDT documented as of this encounter Care Teams Dealer Card Room Relationship Specialty Start Date End Date Caryl Trujillo MD PCP - General Family Practice 12/16/10 documented as of this encounter
--- OUTSIDE RECORDS SUMMARY | 2021-12-30 10:43 | XMS_ITS | Encounter Summary ---
:2000 Author Organization [place] Address [facility] [place] [address] Care Team Providers Name Role Phone Caryl Trujillo MD Primary Care Provider [phone] Reason for Visit Reason Onset Date Comments Same Day Appointment 01/20/2016 Telephone visit Encounter Details Date Type Department Care Team Description 01/20/2016 Telephone [facility] Caryl Trujillo Same Da y Appointment Clinic Vitor Tolliver MD (Telephone visit) [address] [facility], [address] [place] [address] [address] [place] [address] [place], [place] [phone] (Wo rk) [address] [phone] Social History Tobacco Use Types Packs/Day Years [...] Telephone Encounter - Latosha Stephenson RN - 01/22/2016 8:15 AM CDT Pt is scheduled for today with Dr Hannah Stephenson RN, BSN Telephone Encounter - Carol Rodrigez - 01/21/2016 2:17 PM CDT LVM asking patient to call the clinic, please inform her the message below and help her make a telephone/office visit with a provider. Carol Rodrigez Follow Up Clerk Telephone Encounter - Caryl Trujillo MD - 01/21/2016 12:06 PM CDT Can she do this with Sophia instead? I am out of the office this afternoon. Is there anyway she cancome in? Telephone Encounter - Carol Rodrigez - 01/20/2016 1:16 PM CDT Patient needs a refill on her Adderall medication, patient states she needs a telephone visit and would like one tomorrow because she will be out of her Adderall medication. Will Dr. Trujillo do a telephone visit tomorrow for patient? Carol Rodrigez Follow Up Clerk documented in this encounter Plan of Treatment Not on filedocumented as of this encounter Visit Diagnoses Not on filedocumented in this encounter Additional Health Concerns Assessment Noted Time PHQ-9 Depression Total Score: 2 02/16/2015 7:24 AM CDT documented as of this encounter Care Teams Insulation Professional Relationship Specialty Start Date End Date Caryl Trujillo MD PCP - General Family Practice 12/16/10 documented as of this encounter
--- OUTSIDE RECORDS SUMMARY | 2021-12-30 10:43 | XMS_ITS | Encounter Summary ---
:2000 Author Organization [place] Address [address] [place] [address] Care Team Providers Name Role Phone Caryl Trujillo MD Primary Care Provider [phone] Reason for Visit Reason Comments Psychiatric Evaluation Fight with Mother. Parents a re and patient justmoved in with Mom and Step Dad [place] ago. Arguments about living situation and punishment, mota [employer] phone taken away. Told her Mother SI this AM. Currently denies SI, or Hx SI. Encounter Details Date Type Department Care Team Description 08/25/2014 Emergency [facility] Lawrence Desai , Adjustment disorder Emergency Department MD with mixed disturbance [address] [facility] [place] [place] [address] [employer] conduct [phone] [place] [address] (Wo rk) Social History Tobacco Use Types Packs/Day Years [...] Sign Reading Time Taken Comments Blood Pressure 94/50 08/25/2014 1:16 PM CDT Pulse - - Temperature 36.6 ??C (97.9 ??F) 08/25/2014 1:16 PM CDT Respiratory Rate 18 08/25/2014 1:16 PM CDT Oxygen Saturation 98% 08/25/2014 1:16 PM CDT Inhaled Oxygen Concentration - - Weight - - Height - - Body Mass Index - - documented in this encounter Discharge Instructions Discharge InstructionsLawrence Desai MD - 08/25/2014 12:39 PM CDT Follow-up established care and services. Continue with family therapy. documented in this encounter Medications at Time of Discharge Medication Sig Dispensed Refills Start Date End Date amphetamine-dextroamphet Take 1 capsule (20 30 capsule 0 01/23/2015 amine (ADDERALL XR) 20 mg) by mouth daily MG per capsuleIndications: ADHD (attention deficit hyperactivity disorder) amphetamine-dextroamphet Take 1 tablet (10mg) 30 tablet 0 1 08/28/2014 amine (ADDERALL) 10 MG in the afternoon as tabletIndications: ADHD needed. (attention deficit hyperactivity disorder) citalopram (CELEXA) 20 Take 1 tablet (20 45 tablet 0 201408/28/2014 MG tabletIndications: mg) by mouth daily FE (generalised anxiety disorder) documented as of this encounter ED Notes Lawrence Desai MD - 08/25/2014 12:09 PM CDT History Chief Complaint Patient presents with ??? Psychiatric Evaluation Fight with Mother. Parents are and patient justmoved in with Mom and Step Dad a week ago. Arguments about living situation and punishment, having phone taken away. Told her Mother SI this AM.Currently denies SI, or Hx SI. The history is provided by the patient. Teodora Eisenberg is a 14 year old female who is here after she made suicidal commentsout of anger from an argument with mother this morning. Patient recently moved back to live with mother and stepfather as it would save on gas money and commuting to school. In addition, mother was threatening her with lack of family support if she does not return to live with her. She previously had lived with father for past 6 months. Patient also works at [employer]. She reports there wereinsurance issues and she has not taken her meds. Since she has returned to live with mother, her Adderall has been restarted but her citalopram is still in process. Mother requires that she takes her meds. They had an argument this morning about patient not taking her meds. Mother also noticed a speeding ticket in her car. She took the car keys and cell phone away and patient got angry as she needed to go to work. She commented about she might as well kill herself. Patient denies any intent or thoughts or plan presently. There is no sign of major depression or psychosis. Patient has no history of suicide attempt. She has had family therapy previously. She is open to trying family therapy. She is planning on possibly moving back with father, once school is done. I have reviewed the Medications, Allergies, Past Medical and Surgical History, and Social History inthe [employer] system. Review of Systems Constitutional: Negative. HENT: Negative. Eyes: Negative. Respiratory: Negative. Cardiovascular: Negative. Gastrointestinal: Negative. Endocrine: Negative. Genitourinary: Negative. Musculoskeletal: Negative. Skin: Negative. Allergic/Immunologic: Negative. Neurological: Negative. Hematological: Negative. Psychiatric/Behavioral: Positive for suicidal ideas, behavioral problems and decreased concentration. Negative for hallucinations. The patient is not hyperactive. All other systems reviewed and are negative. Physical Exam BP: 90/44 mmHg Heart Rate: 60 Temp: 98 ??F (36.7 ??C) Resp: 14 SpO2: 100 % Physical Exam Constitutional: She appears well-developed and well-nourished. HENT: Head: Normocephalic. Eyes: Pupils are equal, round, and reactive to light. Neck: Normal range of motion. Cardiovascular: Normal rate. Pulmonary/Chest: Effort normal. Abdominal: Soft. Musculoskeletal: Normal range of motion. Neurological: She is alert. Skin: Skin is warm. Psychiatric: She has a normal mood and affect. Her speech is normal and behavior is normal. Judgmentand thought content normal. She is not agitated, not aggressive, not hyperactive, not actively hallucinating and not combative. Thought content is not paranoid and not delusional. Cognition and memory are normal. She expresses no homicidal and no suicidal ideation. Nursing note and vitals reviewed. ED Course Procedures Labs Ordered and Resulted from Time of ED Arrival Up to the Time of Departure from the ED - No data to display Assessments & Plan (with Medical Decision Making) Patient with family conflict. She can be discharged. She is to follow-up established care and services. She would benefit from family therapy. I have reviewed the nursing notes. I have reviewed the findings, diagnosis, plan and need for follow up with the patient. New Prescriptions No medications on file Final diagnoses: None 08/25/2014 [facility] [place], EMERGENCY DEPARTMENT Lawrence Desai MD 08/25/14 1238 Suzanne Concepcion RN - 08/25/2014 11:49 AM CDT Patient had a fight with her Mother today and expressed SI. Patient then retracted saying SI statement was just for attention. Patient has just recently moved in with her Mother and Step Father after living with her Father for the last 6 months to 1 year, where she felt she had more freedom. Argumentswith Mother regarding living situation and punishments, such as taking away her cell phone. Patient has medical history of ADD/ADHD and Depression. Noncompliant with Celexa and Adderal. Carol Diamond RN - 08/25/2014 11:43 AM CDT Bed: ED10 Expected date: Expected time: Means of arrival: Comments: falgunialfreda Walters Age 14 Psych eval. documented in this encounter Plan of Treatment Not on filedocumented as of this encounter Procedures Procedure Name Priority Date/Time Associated Diagnosis Comme nts HCG QUALITATIVE STAT 08/25/2014 12:00 Results for this URINE PM CDT procedure are i n the results section. DRUG ABUSE SCREEN 6 STAT 08/25/2014 12:00 Adjustment disord er Results for this CHEM DEP URINE PM CDT with mixed procedure are in ([facility]) disturbance of the results emotions and conduct section . documented in this encounter Results HCG qualitative urine (08/25/2014 12:00 PM CDT) Analysis Performed At Patho logist Time Signature HCG Qual Urine Negative NEG [facility] Specimen Anatomical Collection Method Collection Time Receive d Time (Source) Location / / Volume Laterality Urine specimen URINE SPECIMEN 08/25/2014 12:00 015 (specimen) OBTAINED BY CLEAN PM CDT 12:09 PM C DT CATCH PROCEDURE / Unknown Joshua Rosario MD LAB - URINE ORDERABLES Performing Organization Address City/State/ZIP Code Phon e Number [facility] [address] [place] [address] [facility] Drug abuse screen 6 urine (tox) (08/25/2014 12:00 PM CDT) Component Value Ref Test Analysis Performed Pathologis t Range Method Time At Signature Amphetamine Qual Negative [facility]G [facility] Urine Cutoff for a negative amphetamine is 500 ng/mL or less. [facility] Barbiturates Qual Negative [facility]G [facility] Urine Cutoff for a negative barbiturate is 200 ng/mL or less. [facility] Benzodiazepine Negative [facility] Qual Urine Cutoff for a negative benzodiazepine is 200 ng/mL or less . [facility] Cannabinoids Qual Negative [facility] Urine Cutoff for a negative cannabinoid is 50 ng/mL or less. [facility] Cocaine Qual Negative [facility] Urine Cutoff for a negative cocaine is 300 ng/mL or less. [facility] Ethanol Qual Negative [facility] Urine Cutoff for a negative urine ethanol is 0.05 g/dL or less [facility] Opiates Negative [facility] Qualitative Urine Cutoff for a negative opiate is 300 ng/mL or less. [facility] Specimen Anatomical Collection Method Collection Time Receive d Time (Source) Location / / Volume Laterality Urine specimen URINE SPECIMEN 08/25/2014 12:00 015 (specimen) OBTAINED BY CLEAN PM CDT 12:09 PM C DT CATCH PROCEDURE / Unknown Joshua Rosario MD LAB - URINE ORDERABLES Performing Organization Address City/State/ZIP Code Phon e Number [facility] documented in this encounter Visit Diagnoses Diagnosis Adjustment disorder with mixed disturban ce of emotions and conduct documented in this encounter Care Teams Cryogenics Repairer Relationship Specialty Start Date End Date Cassandra, Caryl Sharee, MD PCP - General Family Practice 12/16/10 documented as of this encounter
--- OUTSIDE RECORDS SUMMARY | 2021-12-30 10:43 | XMS_ITS | Encounter Summary ---
:2000 Author Organization [place] Address [facility] [place] [address] Care Team Providers Name Role Phone Caryl rTujillo MD Primary Care Provider [phone] Reason for Visit Reason Onset Date Comments Refill Request 03/23/2016 amphetamine-dextroam phetamine (ADDERALL XR) 20 MG per capsule Encounter Details Date Type Department Care Team Description 03/23/[address] [facility] Caryl Trujillo Refill Request Clinic Vitor Tolliver MD (amphetamine-dextroamph [facility], [address] [place] [address] etamine (ADDERALL XR) [address] [place] [address] 20 MG per capsule) [place], [place] [phone] (Wo rk) [address] [phone] Social History Tobacco Use Types Packs/Day Years [...] Notes Telephone Encounter - Dante Navarro - 03/24/2016 4:01 PM CST Pt did crab picker rx with ID ULTING UTILITY FORESTER Telephone Encounter - Carol Rodrigez - 03/24/2016 3:27 PM CST Rx approve by Dr. Trujillo but didn't sign before she left, Otis spoke with Artemio Byers and she will sign the Rx. Gave patient the message below, made it very clear that Dr. Trujillo will not be able to replace Rx's in the future. Otis will placed Rx up at the front end developer javascript html css for patient to crab picker. Carol Rodrigez Animal Scientist ULTING UTILITY FORESTER Telephone Encounter - Caryl Trujillo MD - 03/24/2016 1:12 PM CONSULTING UTILITY FORESTER Please have her use [facility], as they will hold all rx, were are not supposed to refill lost or stollen rx's ULTING UTILITY FORESTER Telephone Encounter - Cecilia Acosta RN - 03/23/2016 3:19 PM CST Routing refill request to provider for review/approval because: Drug not on the [facility] refill protocol ORGANIC GARDENING TEACHER done 03/13/16, last fill 12/20/15 Routed to PCP Cecilia Acosta RN, BS Message handled by Nurse Triage . ULTING UTILITY FORESTER Telephone Encounter - Rafaela Vora - 03/23/2016 12:04 PM CONSULTING UTILITY FORESTER Pt just moved into an apartment and lost her script for March 24. Pending Prescriptions: Disp Refills amphetamine-dextroamphetamine (ADDERALL X*30 cap*0 Sig: Take 1 capsule (20 mg) by mouth daily Controlled Substance Refill Request for amphetamine-dextroamphetamine (ADDERALL XR) 20 MG per capsule Problem List Complete: No PROVIDER TO CONSIDER COMPLETION OF PROBLEM LIST AND OVERVIEW/CONTROLLED SUBSTANCE AGREEMENT Last Written Prescription Date: 01/22/16 Last Fill Quantity: 30, # refills: 2 Last Office Visit with [facility] primary care provider: 01/22/16 Future Office visit: Next 5 appointments (look out 90 days) Apr 16, 2016 1:00 PM SHORT with Caryl Trujillo MD [facility] [address] [place] [address], [address] [facility] [address] Controlled substance agreement on file: No. Processing: Patient will crab picker in clinic ORGANIC GARDENING TEACHER checked in past 6 months? No, route to RN OK to leave detailed VM on Cell phone [phone] Otis Vora Animal Scientist ULTING UTILITY FORESTER documented in this encounter Plan of Treatment Not on filedocumented as of this encounter Visit Diagnoses Diagnosis Attention deficit hyperactivity disorder (ADHD), predominantly inattentive type - Primary documented in this encounter Additional Health Concerns Assessment Noted Time PHQ-9 Depression Total Score: 2 02/16/2015 7:24 AM CDT documented as of this encounter Care Teams Legal Referee Relationship Specialty Start Date End Date Caryl Trujillo MD PCP - General Family Practice 12/16/10 documented as of this encounter
--- OUTSIDE RECORDS SUMMARY | 2021-12-30 10:43 | XMS_ITS | Encounter Summary ---
:2000 Author Organization [place] Address [address] [place] [address]. [place] [address] Care Team Providers Name Role Phone Caryl Trujillo MD Primary Care Provider [phone] Reason for Visit Reason Comments Recheck Medication Contraception Patient requesting a form of BC. Encounter Details Date Type Department Care Team Description 10/17/2014 Office Visit [facility] Artemio ByersS [facility] NAZARIO Mir ENCOUNTER--DISREGARD [place] [id number] [place] [address] (Primary Dx) [facility], [address] [place] [address] [place], [place] [phone] (Wo rk) [address] [phone] Social History Tobacco Use Types Packs/Day Years Used Date Passive Smoke Exposure - Never Smoker Smokeless Tobacco: Never Used Alcohol Use Standard Drinks/Week Comments No 0 (1 standard drink = 0.6 oz pure alcoho l) Sex Assigned at Date Recorded Not on file documented as of this encounter Progress Notes Artemio Byers PA-C - 10/17/2014 8:26 AM CDT Patient no-showed today's appointment. documented in this encounter Plan of Treatment Not on filedocumented as of this encounter Visit Diagnoses Diagnosis ERRONEOUS ENCOUNTER--DISREGARD - Primary documented in this encounter Care Teams Waistline Joiner Overlock Relationship Specialty Start Date End Date Caryl Trujillo MD PCP - General Family Practice 12/16/10 documented as of this encounter
--- OUTSIDE RECORDS SUMMARY | 2021-12-30 10:44 | XMS_ITS | Encounter Summary ---
:2000 Author Organization [place] Address On license of [facility] [place] [address] Care Team Providers Name Role Phone Caryl Trujillo MD Primary Care Provider [phone] Reason for Visit Reason Comments Vaginal Problem 4 days ago had burning with urination, frequency and urgency. Vaginal area was also itchy. Encounter Details Date Type Department Care Team Description 05/01/[address] [facility] Caryl Trujillo Acne (P rimary Dx); Clinic Vitor Tolliver MD Contraception; [facility], [address] [place] [address] Vaginal discharge [address] [place] [address] [place], [place] [phone] (Wo rk) [address] [phone] Social History Tobacco Use Types Packs/Day Years [...] Sign Reading Time Taken Comments Blood Pressure 100/68 05/01/2014 10:20 AM DATA DEVELOPER Pulse 96 05/01/2014 10:20 AM DATA DEVELOPER Temperature 37 ??C (98.6 ??F) 05/01/2014 10:20 AM DATA DEVELOPER Respiratory Rate 16 05/01/2014 10:20 AM DATA DEVELOPER Oxygen Saturation - - Inhaled Oxygen Concentration - - Weight 56.1 kg (123 lb 11.2 oz) 05/01/2014 10:20 AM DATA DEVELOPER Height 158.8 cm (5' 2.5) 05/01/2014 10:20 AM DATA DEVELOPER Body Mass Index 22.26 05/01/2014 10:20 AM DATA DEVELOPER Body Mass Index Percentile 68.66 % 05/01/2014 10:20 AM DATA DEVELOPER Growth Chart: [facility] (Girls, 2-20 Years) documented in this encounter Progress Notes Caryl Trujillo MD - 05/01/2014 10:24 AM CST HPI SUBJECTIVE: Teodora Eisenberg is a 14 year old female who presents to clinic today for the following health issues: Vaginal Symptoms ?? Onset: Day of New avtar. Symptoms for (4) days , resolved now, itching and burning, had to void all the time, bu then could not. Slowly went away on its own. ?? In grown hair was lanced a few weeks ago, resolved now. ?? Description: Vaginal Discharge: none Itching (Pruritis): no Burning sensation: YES Odor: no ?? Accompanying Signs & Symptoms: Pain with Urination: YES Abdominal Pain: no Fever: no ?? History: Sexually active: YES New Partner: no Possibility of : YES ?? Precipitating factors: Recent Antibiotic Use: no ?? Alleviating factors: none ?? Therapies Tried and outcome: warm wash cloth and warm bath. Lives with her dad and step-mom, is here today for OCPs, her mom brings her in today, mom is not happy with her being sexually active. Patient did take home test, which was negative. Has not actually missed a period, but has been having unprotected sex. Also wanting refills on celexa-doing well, see PHQ-9. And adderal, also doing well, able to focus inschool and no side effects, this dose is working well for her. PROBLEMS TO ADD ON... Problem list and histories reviewed & adjusted, as indicated. Additional history: as documented Problem list, Medication list, Allergies, and Medical/Social/Surgical histories reviewed in EPIC andupdated as appropriate. ROS: Constitutional, HEENT, cardiovascular, pulmonary, gi and gu systems are negative, except as otherwise noted. OBJECTIVE: BP 100/68 Pulse 96 Temp(Src) 98.6 ??F (37 ??C) (Oral) Resp 16 Ht 5' 2.5 (1.588 m) Wt 123 lb 11.2 oz (56.11 kg) BMI 22.25 kg/m2 LMP 04/08/2014 Body mass index is 22.25 kg/(m^2). GENERAL: healthy, alert and no distress. Her mother was asked to step out of room. EYES: Eyes grossly normal to inspection, PERRL [...] no gross musculoskeletal defects noted, no edema Diagnostic Test Results: none ASSESSMENT/PLAN: ICD-9-CM 1. Acne 706.1 tretinoin (RETIN-A) 0.025 % cream 2. Contraception V25.9 Beta HCG qual IFA urine norgestimate-ethinyl estradiol (ORTHO-CYCLEN, SPRINTEC) 0.25-35 MG-MCG tablet 3. Vaginal discharge 623.5 Wet prep Chlamydia trachomatis PCR Neisseria gonorrhoeae PCR Concerns raised about unprotected sex, risk of stds and using 2 forms of control. Patient reassured this is confidential and will not be discussed with mom. Follow up 3 months Caryl Trujillo MD [facility] Physical Exam DEVELOPER documented in this encounter Nursing Notes Teressa Rose, CHECO - 05/01/2014 10:23 AM CST Chief Complaint Patient presents with ??? Vaginal Problem 4 days ago had burning with urination, frequency and urgency. Vaginal area was also itchy. Initial BP 100/68 Pulse 96 Temp(Src) 98.6 ??F (37 ??C) (Oral) Resp 16 Ht 5' 2.5 (1.588 m) Wt 123 lb 11.2 oz (56.11 kg) BMI 22.25 kg/m2 LMP 04/08/2014 Estimated body mass index is 22.25 kg/(m^2) as calculated from the following: Height as of this encounter: 5' 2.5 (1.588 m). Weight as of this encounter: 123 lb 11.2 oz (56.11 kg). BP completed using cuff size regular right arm. Teressa Rose CMA DEVELOPER documented in this encounter Plan of Treatment Not on filedocumented as of this encounter Procedures Procedure Name Priority Date/Time Associated Diagnosis Comme nts BETA HCG QUALITATIVE Routine 05/01/2014 10:59 Contraception Re sults for this IFA URINE AM DATA DEVELOPER procedure are i n the results section. WET PREPARATION Routine 05/01/2014 10:58 Vaginal discharge Res ults for this AM DATA DEVELOPER procedure are i n the results section. NEISSERIA Routine 05/01/2014 10:58 Vaginal discharge Result s for this GONORRHOEAE PCR AM DATA DEVELOPER procedure ar e in the results section. CHLAMYDIA Routine 05/01/2014 10:58 Vaginal discharge Result s for this TRACHOMATIS PCR AM DATA DEVELOPER procedure ar e in the results section. documented in this encounter Results Beta HCG qual IFA urine (05/01/2014 10:59 AM DATA DEVELOPER) Analysis Performed At [facility] logist Time Signature Beta HCG Qual Negative NEG [facility] Urine [facility] Specimen Anatomical Collection Method Collection Time Receive d Time (Source) Location / / Volume Laterality Urine specimen 05/01/2014 10:59 5 (specimen) AM DATA DEVELOPER 11:00 AM DATA DEVELOPER Caryl Trujillo MD LAB - URINE ORDERABLES Performing Organization Address City/State/ZIP Code Phon e Number [facility] [place] [address] Neisseria gonorrhoeae PCR (05/01/2014 10:58 AM DATA DEVELOPER) Component Value Ref Test Analysis Performed At [facility] gist Range Method Time Signature Specimen Urine [facility] N Gonorrhea Negative NEG [facility] PCR Negative for N. gonorrhoeae rRNA by transcripti on mediated amplification. MICROBIOLOGY A negative result by transc ription mediated amplification does not preclude the presence of N. gonorrhoeae infection because re sults are dependent on proper and adequate collection, absence of inhibitors, and suffici ent rRNA to be detected. Specimen Anatomical Collection Method Collection Time Receive d Time (Source) Location / / Volume Laterality Urine specimen 05/01/2014 10:58 5 (specimen) AM DATA DEVELOPER 10:59 AM DATA DEVELOPER Caryl Trujillo MD LAB - MICRO GENERAL ORDERABL ES Performing Organization Address City/[facility]/ZIP Code Phon e Number [address] [address] [facility] MICROBIOLOGY Chlamydia trachomatis PCR (05/01/2014 10:58 AM DATA DEVELOPER) Component Value Ref Test Analysis Performed At Patholo gist Range Method Time Signature Specimen Urine [facility] Chlamydia Negative NEG [facility] Trachomatis Negative for C. trachomatis rRNA by kaitara taraka mediated amplification. MICROBIOLOGY PCR A negative result by transc ription mediated amplification does not preclude the presence of C. trachomatis infection because re sults are dependent on proper and adequate collection, absence of inhibitors, and suffici ent rRNA to be detected. Specimen Anatomical Collection Method Collection Time Receive d Time (Source) Location / / Volume Laterality Urine specimen 05/01/2014 10:58 5 (specimen) AM DATA DEVELOPER 10:59 AM DATA DEVELOPER Caryl Trujillo MD LAB - MICRO GENERAL ORDERABL ES Performing Organization Address City/[facility]/ZIP Code Phon e Number [address] [address] [facility] MICROBIOLOGY (ABNORMAL) Wet prep (05/01/2014 10:58 AM DATA DEVELOPER) Component Value Ref Test Analysis Performed At Patholo gist Range Method Time Signature Specimen Vagina SELF [place] Description [facility] Wet Prep No Trichomonas seen [place] No clue cells seen CLINICS Yeast seen [place] (A) Micro Report [facility] Status 05/01/2014 [facility] Specimen Anatomical Collection Method Collection Time Receive d Time (Source) Location / / Volume Laterality 05/01/2014 10:58 05/01/2014 AM DATA DEVELOPER 10:59 AM DATA DEVELOPER Caryl Trujillo MD LAB - MICRO GENERAL ORDERABL ES Performing Organization Address City/[facility]/ZIP Code Phon e Number [place] [address] [place] [address] documented in this encounter Visit Diagnoses Diagnosis Acne - Primary Other acne Contraception Unspecified contraceptive management Vaginal discharge Leukorrhea, not specified as infective documented in this encounter Care Teams Nutrition Tech Relationship Specialty Start Date End Date Caryl Trujillo MD PCP - General Family Practice 12/16/10 documented as of this encounter
--- OUTSIDE RECORDS SUMMARY | 2021-12-30 10:44 | XMS_ITS | Encounter Summary ---
:2000 Author Organization [place] Address [address] [place] [address]. 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 (Primary Dx); Services [facility] CROWN PERFORATOR OPERATOR [facility] ADHD (atten tion deficit hyperactivity disorder); [facility] FE (generalised anxiety disorder) CROWN PERFORATOR OPERATOR [place] [phone] Social History Tobacco Use Types Packs/Day Years Used Date Passive Smoke Exposure - Never Smoker Smokeless Tobacco: Never Used Comments: father and step-mom Alcohol Use Standard Drinks/Week Comments No 0 (1 standard drink = 0.6 oz pure alcoho l) Sex Assigned at Date Recorded Not on file documented as of this encounter Progress Notes Haley Harding LP - 05/14/2014 12:30 PM CST Progress Note Client Name: Teodora Eisenberg Date: 05-14-14 Service Type: Individual Session Start Time: 12:30 Session End Time: [...] she had been over controlling with client. Explored how to have more predictability. Reviewed conflict resolution: using approach, avoid, attack. Client connects with concept of when she becomes dysregulated or having poor choice or and dishonors others, that she can find a way to re-balance the account and honor them again. Made a list of example. 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
--- OUTSIDE RECORDS SUMMARY | 2021-12-30 10:44 | XMS_ITS | Encounter Summary ---
:2000 Author Organization [place] Address [address] [place] [address]. [place] [address] Care Team Providers Name Role Phone Caryl Trujillo MD Primary Care Provider [phone] Encounter Details Date Type Department Care Team Description 05/01/2014 Telephone [facility] [place] [address] [facility], [address] [place] [address] [address] [place] [address] [place] [address] [phone] Social History Tobacco Use Types Packs/Day Years Used Date Passive Smoke Exposure - Never Smoker Smokeless Tobacco: Never Used Comments: father and step-mom Alcohol Use Standard Drinks/Week Comments No 0 (1 standard drink = 0.6 oz pure alcoho l) Sex Assigned at Date Recorded Not on file documented as of this encounter Miscellaneous Notes Telephone Encounter - Dante Navarro - 05/18/2014 10:12 AM CST Mom picked up rx with ID SHARPSHOOTER Telephone Encounter - Caryl Trujillo MD - 05/01/2014 12:59 PM [employer] SHARPSHOOTER Refilled and printed adderal SHARPSHOOTER Telephone Encounter - Dante Navarro - 05/01/2014 11:11 AM CST Pt's phone number is [phone]. Pt is requesting new written rx's for Adderall and her Celexa. Please call mom at [phone] when rx's are ready. Pt was just seen this morning. SHARPSHOOTER documented in this encounter Plan of Treatment Not on filedocumented as of this encounter Visit Diagnoses Diagnosis FE (generalised anxiety disorder) - Prema muniz Generalized anxiety disorder ADHD (attention deficit hyperactivity di sorder) Attention deficit disorder with hyperact ivity documented in this encounter Care Teams Lacquerer Relationship Specialty Start Date End Date Caryl Trujillo MD PCP - General Family Practice 12/16/10 documented as of this encounter
--- OUTSIDE RECORDS SUMMARY | 2021-12-30 10:45 | XMS_ITS | Encounter Summary ---
:2000 Author Organization [place] Address Formerly [facility]0 [facility] [place] [address] Care Team Providers Name Role Phone Caryl Trujillo MD Primary Care Provider [phone] Reason for Referral - Closed Specialty Diagnoses / Procedures Referred By Contact Refer red [place] [address] [place] [address] Referral ID Status Reason Start Date Expiration Date Visits Requ ested Visits Authorized [id number] Closed 09/26/2012 03/25/2013 1 1 Reason for Visit Reason Comments Well Child Encounter Details Date Type Department Care Team Description 09/26/2012 Office Visit [facility] Caryl Kumar Routine or child health check (Primary Dx); Clinic Vitor Tolliver MD Muscle pain; [place] [address] [address] (H) [facility], [address] [place] [address] [place], [place] [phone] (Wo rk) [address] [phone] Social History Tobacco Use Types Packs/Day Years Used Date Never Smoker Alcohol Use Standard Drinks/Week Comments No 0 (1 standard drink = 0.6 oz pure alcoho l) Sex Assigned at Date Recorded Not on file documented as of this encounter Last Filed Vital Signs Vital Sign Reading Time Taken Comments Blood Pressure 92/62 09/26/2012 10:39 AM CDT Pulse 70 09/26/2012 10:39 AM CDT Temperature 36.6 ??C (97.9 ??F) 09/26/2012 10:39 AM CDT Respiratory Rate 16 09/26/2012 10:39 AM CDT Oxygen Saturation 98% 09/26/2012 10:39 AM CDT Inhaled Oxygen Concentration - - Weight 53 kg (116 lb 12.8 oz) 09/26/2012 10:39 AM CDT Height 157.5 cm (5' 2) 09/26/2012 10:39 AM CDT Body Mass Index 21.36 09/26/2012 10:39 AM CDT Body Mass Index Percentile 68.53 % 09/26/2012 10:39 AM C DT Growth Chart: [facility] (Girls, 2-20 Years) documented in this encounter Patient Instructions Patient InstructionsDoCaryl robles MD - 09/26/2012 11:10 AM CDT The Mediterranean Diet can reduce your risk of Heart Disease and Stroke Recommended: [place] oil >4 Tbs/day Tree nuts >3 handfuls/wk, prefer once daily 1/4 cup, Almonds, Walnuts, Hazelnuts preferred Fresh Fruits >3/day Vegetables >2/day Fish, seafood >3/week Legumes >3/week White meat Instead of red meat Wine with meals, optional, only for those who wish to drink, up to 7 drinks per week Discouraged; Limit the following Soda drinks <1/day Commercial baked goods, sweets, pastries <3/week Spread fats <1/day Red meat <1/day Or processed meats <1/day Taken from [place] [facility] May 2012 documented in this encounter Progress Notes Caryl Trujillo MD - 09/26/2012 10:42 AM CDT Teodora Eisenberg is an 12 year old female here for a routine health maintenance visit, accompanied by her self, mother and sister. QUESTIONS/CONCERNS: 1. Neck pain-tightness issues. 2. Major muscle tension 3. Right hip out of place since March. Daily pain. FAMILY/ SOCIAL HISTORY Child lives with: mother, father, brother and 2 sisters Recent family changes/social stressors: none noted Family History: No changes since last physical Language(s) spoken at home: Y[place]ut ENVIRONMENTAL RISK ASSESSMENT Is your child around anyone who smokes? NO Seat belt? YES Bike/sport helmet? NO (Recommended) TB exposure? NO Pets in the home? NO Guns/firearms in the home? YES, Trigger locks present? YES, Ammunition separate from firearm: YES Water source: [facility] water CHICKEN POX HISTORY: Previously vaccinated with 2 doses of Varivax DEVELOPMENTAL/ Behavioral Screening form: Form given. VISION Wears glasses? NONE. Right eye: 20/20 Left eye: 20/20 Both eyes: 20/20 HEARING Right Ear: 500 Hz: RESPONSE- on Level: 20 db 1000 Hz: RESPONSE- on Level: 20 db 2000 Hz: RESPONSE- on Level: 20 db 4000 Hz: RESPONSE- on Level: 20 db Left Ear: 500 Hz: RESPONSE- on Level: 20 db 1000 Hz: RESPONSE- on Level: 20 db 2000 Hz: RESPONSE- on Level: 20 db 4000 Hz: RESPONSE- on Level: 20 db REQUIRED VITAL SIGNS COMPLETED: yes BP 92/62 Pulse 70 Temp 97.9 ??F (36.6 ??C) (Oral) Resp 16 Ht 5' 2 (1.575 m) Wt 116 lb 12.8 oz (52.98 kg) BMI 21.36 kg/m2 SpO2 98% LMP 09/22/2012 26.69%ile based on CDC 2-20 Years [id number] data. 56.68%ile based on CDC 2-20 Years mbokem-ssj-xiy data. 68.52%ile based on CDC 2-20 Years BMI-for-age data. Will you need a sports physical in the next year? No sports physical needed. Staff signature: Teressa Santa CMA HEALTH HISTORY SINCE LAST VISIT No surgery, major illness or injury since last physical exam Cardiac risk assessment: none Immunization History Administered Date(s) Administered ? ? DTAP (<7y) 1998, 1998, 1998, 04/15/1999 ??? HIB 1998, 1998, 1998, 04/15/1999 ??? Hepatitis B 1998, 1998, 1998 ??? IPV 1998, 1998, 04/15/1999, 08/14/2003 ??? MMR 04/15/1999, 08/14/2003 ??? Varicella 09/02/1999, 02/10/2000 ALLERGIES No Known Allergies DAILY ACTIVITIES NUTRITION: good appetite, eats variety of foods SLEEP: No concerns, sleeps well through night ELIMINATION: Normal bowel movements and Normal urination EXERCISE/ RECREATION: Organized / Team sports: cheerleading and soccer ACTIVITIES: none TV/ Media: < 2 hours/ day EDUCATION / EMPLOYMENT Concerns: no School performance / Academic skills: doing well in school MENTAL HEALTH Concerns: no SEXUALITY Dating: no SUBSTANCE ABUSE Smoking: no Alcohol: no Drugs: no VISION: For details see above, normal HEARING: For details see above, normal ROS GENERAL: See health history, nutrition and daily activities SKIN: No rash, hives or significant lesions HEENT: Hearing/vision: see above. No eye redness/discharge, nasal congestion, sneezing, snoring RESP: No cough, wheezing, SOB CV: No cyanosis, palpitations, syncope GI: See nutrition and elimination : See elimination MS: No swelling, arthralgia, weakness, gait problem NEURO: No headaches PSYCH: See development and behavior, or mental health EXAM GENERAL: Active, alert, in no acute distress. SKIN: Clear. No significant rash, abnormal pigmentation or lesions HEAD: Normocephalic EYES: Sharp optic discs. Pupils equal, round, reactive, Extraocular muscles intact. [...] No focal findings. Cranial nerves grossly intact: DTR's normal. Normal gait, strength and tone BACK: Spine is straight, no scoliosis. EXTREMITIES: Full range of motion, no deformities : Exam deferred. SPORTS EXAM: Shoulder: normal Elbow: normal Hand/Wrist: normal Back: normal Quad/Ham: normal Knee: normal Ankle/Feet: normal Heel/Toe: normal Duck walk: normal ANTICIPATORY GUIDANCE The following topics were discussed: SOCIAL/ FAMILY: School/ homework Future plans/ College NUTRITION: HEALTH / SAFETY: SEXUALITY: ASSESSMENT 1. Well teen with normal growth and development 2. Muscle aches, discussed diet, exercise, stretches for SI joint, lab work ordered PLAN 68.52%ile based on CDC 2-20 Years BMI-for-age data. Immunizations: Reviewed, up to date [facility] Referrals/Ongoing Specialty care: No Dental visit recommended: Yes Lifestyle, health, and safety counseling RTC: 1 year RHM visit This patient is cleared for sports: YES documented in this encounter Nursing Notes 09/26/2012 11:00 AM CDT >> TERESSA SANTA Mon Sep 26, 2012 10:50 AM Patient presents with: Well Child Initial BP 92/62 Pulse 70 Temp 97.9 ??F (36.6 ??C) (Oral) Resp 16 Ht 5' 2 (1.575 m) Wt 116 lb 12.8 oz (52.98 kg) BMI 21.36 kg/m2 SpO2 98% LMP 09/22/2012 Estimated Body mass index is 21.36 kg/(m^2) as calculated from the following: Height as of this encounter: 5' 2(1.575 m). Weight as of this encounter: 116 lb 12.8 oz(52.98 kg). BP completed using cuff size regular right arm. Teressa Santa CMA documented in this encounter Plan of Treatment Scheduled Referrals Name Type Priority Associated Diagnoses Order [facility] MENTAL HEALTH REFERRAL Referral Routine Mood swings (H) Or dered: 09/26/2012 documented as of this encounter Procedures Procedure Name Priority Date/Time Associated Comments Diagnosis VITAMIN D DEFICIENCY Routine 09/26/2012 11:16 AM Muscle pain Results for this SCREENING CDT procedure are i n the results section. TSH WITH FREE T4 Routine 09/26/2012 11:16 AM Muscle pain Resu lts for this REFLEX CDT procedure are i n the results section. CBC WITH PLATELETS Routine 09/26/2012 11:16 AM Muscle pain Re sults for this CDT procedure are i n the results section. HC SCREENING TEST, Routine 09/26/2012 11:05 AM Routine or PURE TONE, AIR ONLY CDT child health check documented in this encounter Results CBC with platelets (09/26/2012 11:16 AM CDT) athologist Signature WBC 7.3 4.0 - 11.0 [facility] 10e9/L [facility] RBC Count 5.16 3.7 - 5.3 [place] 10e12/L [facility] Hemoglobin 14.9 11.7 - [facility] 15.7 g/dL [facility] Hematocrit 41.3 35.0 - [facility] 47.0 % [facility] MCV 80 77 - 100 [facility] MCH 28.9 26.5 - [facility] 33.0 pg [facility] MCHC 36.1 31.5 - [facility] 36.5 g/dL [facility] RDW 12.3 10.0 - [facility] 15.0 % [facility] Platelet Count 244 150 - 450 [place] 10e9/L [facility] Specimen Anatomical Collection Method Collection Time Receive d Time (Source) Location / / Volume Laterality Blood specimen 09/26/2012 11:16 3 (specimen) AM CDT 11:18 AM CDT Caryl Trujillo MD LAB - BLOOD ORDERABLES Performing Organization Address City/State/ZIP Code Phon e Number [facility] [place] [address] [facility] [place], [place] [id number] LAB Vitamin D Deficiency (09/26/2012 11:16 AM CDT) athologist Signature Vitamin D 41 30 - 75 [facility] Deficiency ug/L [place] [facility] screening Comment: Season, race, dietary intake, and treatm ent affect the concentration of 17-cuoejlp-Ivwzmpu D. Values may decrea se during winter months and increase during summer months. Values less than 30 ug/L may indicate Vitamin D deficiency. Vitamin D determiniation is routinely p erformed by an immunoassay specific for 25 hydroxyvitamin D3. ??If an individua l is on vitamin D2 (ergocalciferol) supplementation, please specify 25 [place] v itamin D2 and D3 level determination by LCMSMS test VITD23. ??For questions, pl ease contact the laboratory at [phone]. Specimen Anatomical Collection Method Collection Time Receive d Time (Source) Location / / Volume Laterality Blood specimen 09/26/2012 11:16 3 (specimen) AM CDT 11:18 AM CDT Caryl Trujillo MD LAB - BLOOD ORDERABLES Performing Organization Address City/[facility]/ZIP Code Phon e Number [phone] [place] [address] LABS TSH with free T4 reflex (09/26/2012 11:16 AM CDT) athologist Signature TSH 1.87 0.4 - 5.0 [place] [facility] mU/L CLINIC LAB Specimen Anatomical Collection Method Collection Time Receive d Time (Source) Location / / Volume Laterality Blood specimen 09/26/2012 11:16 3 (specimen) AM CDT 11:18 AM CDT Caryl Trujillo MD LAB - BLOOD ORDERABLES Performing Organization Address City/State/ZIP Code Phon e Number [facility] [address] [place] [address] [facility] [address] [place] [id number] documented in this encounter Visit Diagnoses Diagnosis Routine infant or child health check - P rimary Muscle pain Mylagia and myositis, unspecified Mood swings Other specified episodic mood disorder documented in this encounter Care Teams Assessment Nurse Practitioner Relationship Specialty Start Date End Date Caryl Trujillo MD PCP - General Family Practice 12/16/10 documented as of this encounter
--- OUTSIDE RECORDS SUMMARY | 2021-12-30 10:45 | XMS_ITS | Encounter Summary ---
:2000 Author Organization [place] Address Formerly [facility] [place] [address] Care Team Providers Name Role Phone Caryl Trujillo MD Primary Care Provider [phone] Reason for Visit Reason Onset Date Comments Refill Request 02/05/2014 Concerta 27mg, Cital opram 20mg Encounter Details Date Type Department Care Team Description 02/05/2014 Refill [facility] Caryl Trujillo Refill Request Clinic Vitor Tolliver MD (Concerta 27mg, [address] [facility], [address] [place] [address] Citalopram 20mg) [address] [place] [address] [place], [place] [phone] (Wo rk) [address] [phone] Social History Tobacco Use Types Packs/Day Years Used Date Never Smoker Smokeless Tobacco: Never Used Alcohol Use Standard Drinks/Week Comments No 0 (1 standard drink = 0.6 oz pure alcoho l) Sex Assigned at Date Recorded Not on file documented as of this encounter Miscellaneous Notes Telephone Encounter - Dante Navarro - 02/06/2014 10:49 AM CDT Pt mom advised to lemon picker rx at Telephone Encounter - Velia Holt RN - 02/05/2014 7:56 AM CDT Teodora Needs a refill on her ADHD meds and her anti-depressant as well. She informed me today-Wednesday, that she was taking her last pill! Can you please have this ready RAMIRO Wednesday /, so she can take itbefore school? Sorry for the late notice. Sarai Eisenberg Last OV: 01/02/2014 Reason: ADHD Last filled: 01/02/2014 #30 Velia Holt RN documented in this encounter Plan of Treatment Not on filedocumented as of this encounter Visit Diagnoses Diagnosis ADHD (attention deficit hyperactivity di sorder) Attention deficit disorder with hyperact ivity FE (generalised anxiety disorder) Generalized anxiety disorder documented in this encounter Care Teams Car Repossessor Relationship Specialty Start Date End Date Caryl Trujillo MD PCP - General Family Practice 12/16/10 documented as of this encounter
--- OUTSIDE RECORDS SUMMARY | 2021-12-30 10:45 | XMS_ITS | Encounter Summary ---
:2000 Author Organization [place] Address [address] [place] [address]. [place] [address] Care Team Providers Name Role Phone Caryl Trujillo MD Primary Care Provider [phone] Reason for Visit Reason Comments MOOD CHANGES depression, anxiety and OCD brought up in counseling with Haley see note Encounter Details Date Type Department Care Team Description 01/02/2014 Office Visit [facility] Marshal Young FE (gene ralised Clinic [place] Cuello MD anxiety disorder) [address] [address] [address] [facility] (Primary Dx) [facility], [address] [place] [address] [place], [place] [phone] (Wo rk) [address] [phone] Social History Tobacco Use Types Packs/Day Years Used Date Never Smoker Smokeless Tobacco: Never Used Alcohol Use Standard Drinks/Week Comments No 0 (1 standard drink = 0.6 oz pure alcoho l) Sex Assigned at Date Recorded Not on file documented as of this encounter Last Filed Vital Signs Vital Sign Reading Time Taken Comments Blood Pressure 98/62 01/02/2014 3:48 PM CDT Pulse 78 01/02/2014 3:48 PM CDT Temperature 37.5 ??C (99.5 ??F) 01/02/2014 3:48 PM CDT Respiratory Rate 14 01/02/2014 3:48 PM CDT Oxygen Saturation - - Inhaled Oxygen Concentration - - Weight 54.4 kg (120 lb) 01/02/2014 3:48 PM CDT Height 158.8 cm (5' 2.5) 01/02/2014 3:48 PM CDT Body Mass Index 21.6 01/02/2014 3:48 PM CDT Body Mass Index Percentile 63.87 % 01/02/2014 3:48 PM CD T Growth Chart: [facility] (Girls, 2-20 Years) documented in this encounter Patient Instructions Patient InstructionsMarshal Young MD - 01/02/2014 4:30 PM CDT Your new medication is citalopram 20mg. Take this dose daily for two weeks. If after two weeks you are not noticing much improvement you should double your dose. Please be seen for follow-up in one month. documented in this encounter Progress Notes Marshal Young MD - 01/02/2014 4:16 PM CDT HPI Started seeing behavioral counseling yesterday. Did confirm depression, some aspects of OCD. Perhapssome ODD. Teodora's biggest concern is more on anxiety side of the spectrum, worry, tearful, irritable/angry. Feels tired, some difficulty falling asleep. Does c/o frequent OREILLY. Finds disruption or distraction extremely unsettling. Denies suicidal thoughts. Review of Systems Constitutional: Negative. Respiratory: Negative. Cardiovascular: Negative. Neurological: Negative. Psychiatric/Behavioral: Positive for depression. Negative for suicidal ideas. The patient is nervous/anxious and has insomnia. Physical Exam Constitutional: She is oriented to person, place, and time and well-developed, well-nourished, and in no distress. Neurological: She is alert and oriented to person, place, and time. Skin: Skin is warm and dry. Psychiatric: Mood and affect normal. PHQ9: 14 GAD7: 14 (300.02) FE (generalised anxiety disorder) (primary encounter diagnosis) Comment: double PRN in 2 w Plan: citalopram (CELEXA) 20 MG tablet RTC in 1m Marshal Young MD documented in this encounter Miscellaneous Notes Addendum Note - Mario Christian - 01/02/2014 6:10 PM CDT Addended by: MARIO CHRISTIAN on: 01/02/2014 06:10 PM Modules accepted: Orders, SmartSet documented in this encounter Plan of Treatment Not on filedocumented as of this encounter Visit Diagnoses Diagnosis FE (generalised anxiety disorder) - [facility] Generalized anxiety disorder documented in this encounter Care Teams Machinist Outside Relationship Specialty Start Date End Date Caryl Trujillo MD PCP - General Family Practice 12/16/10 documented as of this encounter
--- OUTSIDE RECORDS SUMMARY | 2021-12-30 10:45 | XMS_ITS | Encounter Summary ---
:2000 Author Organization [place] Address [address] [place] [address]. [place] [address] Care Team Providers Name Role Phone Caryl Trujillo MD Primary Care Provider [phone] Encounter Details Date Type Department Care Team Description 09/04/2013 Therapy Visit [facility] for Pascual James, DARRIAN Pain in joint, pelvic Athletic Medicine - [address] region and thigh, Marcelina Physical SAMANTHA KAUR [address] unspecified Therapy [phone] laterality (Primary [address] (Work) Dx) [place]THA KAUR [address] Social History Tobacco Use Types Packs/Day Years Used Date Never Smoker Smokeless Tobacco: Never Used Alcohol Use Standard Drinks/Week Comments No 0 (1 standard drink = 0.6 oz pure alcoho l) Sex Assigned at Date Recorded Not on file documented as of this encounter Progress Notes Pascual James, PT - 10/30/2013 3:28 PM CDT Subjective: HPI Objective: System Physical Exam General ROS Assessment/Plan: DISCHARGE REPORT Progress reporting period is from 08/14/13 to 09/04/13. SUBJECTIVE Subjective changes noted by patient: Patient was last seen on 09/04/13 and no showed an appointment on 09/12/13. When last seen she reported that she could not participate in any activities until 5 days without concussion symptoms. That day was the 3rd day. No hip pain since last in. No soccer for 2 weeks. Current pain level is NA . Previous pain level was 5/10 (intermittently). Changes in function: Yes (See Goal flowsheet attached for changes in current functional level) Adverse reaction to treatment or activity: None OBJECTIVE Changes noted in objective findings: Yes, Bilateral glut medius grade 5/5. Fair to good lower abdominal control. ASSESSMENT/PLAN Updated problem list and treatment plan: Diagnosis 1: Bilateral hip pain Pain - home program Decreased strength - home program Decreased function - home program STG/LTGs have been met or progress has been made towards goals: Yes (See Goal flow sheet completed today.) Assessment of Progress: The patient has not returned to therapy. Current status is unknown. Self Management Plans: Patient has been instructed in a home treatment program. Teodora continues to require the following intervention to meet STG and LTG's: PT intervention is no longer required to meet STG/LTG. Recommendations: This patient will be discharged from therapy and continue their home treatment program after failingto return for any appointments. Please refer to the daily flowsheet for treatment today, total treatment time and time spent performing 1:1 timed codes. documented in this encounter Miscellaneous Notes Addendum Note - Pascual James PT - 10/30/2013 3:34 PM CDT Addended by: PASCUAL JAMES on: 10/30/2013 03:34 PM Modules accepted: Orders documented in this encounter Plan of Treatment Not on filedocumented as of this encounter Procedures Procedure Name Priority Date/Time Associated Diagnosis Comme nts [facility] NEUROMUSCULAR Routine 09/04/2013 5:04 PM Pain in joint, pe lvic RE-EDUCATION CDT region and thigh, unspecified laterality [facility] THERAPEUTIC EXERCISES Routine 09/04/2013 5:04 PM Pain in j oint, pelvic CDT region and thigh, unspecified laterality documented in this encounter Visit Diagnoses Diagnosis Pain in joint, pelvic region and thigh, unspecified laterality - Primary documented in this encounter Care Teams Knuckler Relationship Specialty Start Date End Date Caryl Trujillo MD PCP - General Family Practice 12/16/10 documented as of this encounter
--- OUTSIDE RECORDS SUMMARY | 2021-12-30 10:45 | XMS_ITS | Encounter Summary ---
:2000 Author Organization [place] Address [facility] [place] [address] Care Team Providers Name Role Phone Caryl Trujillo MD Primary Care Provider [phone] Reason for Visit Reason Onset Date Comments Medication Question 02/22/2014 ADHD meds Encounter Details Date Type Department Care Team Description 02/22/[address] [facility] Marshal Young Medicnamo n Question Clinic Vitor Cuello MD (ADHD meds) [address] [facility], [address] [place] [address] [address] [place] [address] [place], [place] [phone] (Wo rk) [address] [phone] Social History Tobacco Use Types Packs/Day Years Used Date Never Smoker Smokeless Tobacco: Never Used Alcohol Use Standard Drinks/Week Comments No 0 (1 standard drink = 0.6 oz pure alcoho l) Sex Assigned at Date Recorded Not on file documented as of this encounter Miscellaneous Notes Telephone Encounter - Susy Mendez - 02/23/2014 8:53 AM CDT RX placed at front facer for cook pickled meat. Telephone Encounter - Marshal Young MD - 02/22/2014 4:22 PM CDT Pt will need f/u visit for refill. Rx signed. Marshal Young MD Telephone Encounter - Velia Holt RN - 02/22/2014 4:02 PM CDT Patient mom calling stating the patient and mom don't think that the Concerta 36mg is working well for her. Does not feel like it is doing anything. Becoming unfocused again. Would like to go back to taking Adderall XR 20mg in am and Adderall 10mg in afternoon. Please advise. [phone] documented in this encounter Plan of Treatment Not on filedocumented as of this encounter Visit Diagnoses Diagnosis ADHD (attention deficit hyperactivity di sorder) Attention deficit disorder with hyperact ivity documented in this encounter Care Teams Reading Teacher Relationship Specialty Start Date End Date Caryl Trujillo MD PCP - General Family Practice 12/16/10 documented as of this encounter
--- OUTSIDE RECORDS SUMMARY | 2021-12-30 10:45 | XMS_ITS | Encounter Summary ---
:2000 Author Organization [place] Address [address] [place] [address]. 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 Progress Note Client Name: Teodora Eisenberg Date: 01-08-14 Service Type: Individual Session Start Time: 12:30 Session End Time: 1:20 Session Length: 45 - 50 Session #: 2 Attendees: Client Treatment Plan pending see below DATA Base line symtoms: Relationship problems with parents: More than half days. Onset: cong... client described as spicey. Severe. Relationship problems with siblings: More than half days. Onset: childhood. Moderate. The mother denies their child has any of the following issues: Relationship problems with peers The mother reports hours per week their child spends in the following: Internet use: 1 hour, plus school work time Computer or video games: social media 1 hr, video games 0. TV: 3 hours The family uses blocking devices for computer, TV, or internet: NO. Computer is in an open area of the home? YES Other information reported by parent: client interested in the or law enforcement DSM-IV Diagnoses: AXIS I: 309.40 - Adjustment Disorder with Mixed Disturbance of Emotions and Conduct 314.01 - Attention Deficit With Hyperactivity By History Concerta 27 mg AXIS II: V71.09 - No Diagnosis AXIS III: acne AXIS IV: Interpersonal conflict AXIS V: Int GAF estimated at:55 Highest GAF past year estimated at:68 Preliminary Treatment Plan: As a preliminary treatment goal, client will develop coping/problem-solving skills to facilitate more adaptive adjustment. The focus of initial interventions will be to increase ability to function adaptively, increase coping skills, increase self esteem, teach CBT skills, teach conflict management skills, teach DBT skillsand teach distress tolerance skills. Over the past 2 weeks, mother reports their child had problems with the following: Symptoms: Feeling sad: Several days. Onset: off [...] Using weapons, Cruel to people, Property destruction Treatment Objective(s) Addressed in This Session will develop coping/problem-solving skills to facilitate more adaptive adjustment Progress on / Status of Treatment Objective(s) / Homework: Satisfactory progress - ACTION (Actively working towards change); Intervened by reinforcing change plan / affirming steps taken Intervention: Explore triggers. Client able to own and articulate several. Reviewed / processed bullying experience Current Stressors / Issues: interpersonal Medication Review: No changes to current psychiatric medication(s) Medication Compliance: Yes Changes in Health Issues: None reported Chemical Use Review: Substance Use: Chemical use reviewed, no active concerns identified Tobacco Use: No current tobacco use. 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
--- OUTSIDE RECORDS SUMMARY | 2021-12-30 10:45 | XMS_ITS | Encounter Summary ---
:1998 Author Organization [place] Address [address] [place] [address] Care Team Providers Name Role Phone Caryl Trujillo MD Primary Care Provider [phone] Reason for Visit Reason Onset Date Comments Refill Request 01/01/2014 methylphenidate (CON CERTA) 27 MG CR tablet Encounter Details Date Type Department Care Team Description 01/01/2014 Refill [facility] Marshal Young Refill Re [facility] MD Cuate (methylphenidate [address] [facility], [address] [place] [address] MINOO BRISENO (CONCERTA) 27 MG CR [address] [place] [address] tablet) [place], [place] [phone] (Wo rk) [address] [phone] Social History Tobacco Use Types Packs/Day Years Used Date Never Smoker Smokeless Tobacco: Never Used Alcohol Use Standard Drinks/Week Comments No 0 (1 standard drink = 0.6 oz pure alcoho l) Sex Assigned at Date Recorded Not on file documented as of this encounter Miscellaneous Notes Telephone Encounter - Susy Ojeda RN - 01/02/2014 3:18 PM CDT Refill request for Concerta 27mg. Last OV 12/18/13, last filled 12/18/13 qty 15. Pt had appt 01/01/14 with Haley Núñez Unable to refill per SO protocol, to for auth. Telephone Encounter - Manjula Christian - 01/01/2014 3:03 PM CDT MomSarai, requesting a refill of methylphenidate (CONCERTA) 27 MG CR tablet. documented in this encounter Plan of Treatment Not on filedocumented as of this encounter Visit Diagnoses Diagnosis ADHD (attention deficit hyperactivity di sorder) Attention deficit disorder with hyperact ivity documented in this encounter Care Teams Cath Lab Radiological Technologist Relationship Specialty Start Date End Date Caryl Trujillo MD PCP - General Family Practice 12/16/10 documented as of this encounter
--- OUTSIDE RECORDS SUMMARY | 2021-12-30 10:45 | XMS_ITS | Encounter Summary ---
:2000 Author Organization [place] Address [address] [place] [address]. [place] [address] Care Team Providers Name Role Phone Caryl Trujillo MD Primary Care Provider [phone] Encounter Details Date Type Department Care Team Description 08/14/2013 Therapy Visit [facility] for Debra Pendleton PT Pain in joint, pelvic Athletic Medicine - [address] region and thigh, Marcelina Physical SAMANTHA KAUR [address] unspecified Therapy [phone] laterality (Primary [address] (Work) Dx) [place] [id number] Social History Tobacco Use Types Packs/Day Years Used Date Never Smoker Smokeless Tobacco: Never Used Alcohol Use Standard Drinks/Week Comments No 0 (1 standard drink = 0.6 oz pure alcoho l) Sex Assigned at Date Recorded Not on file documented as of this encounter Progress Notes Vandana Romeo - 08/15/2013 7:51 AM CDT Subjective: Pertinent medical history includes: Mental illness. Medical allergies: no. Other surgeries include:Other. Current medications: Other. Current occupation is student. Objective: System Physical Exam General ROS Assessment/Plan: Debra Pendleton PT - 08/14/2013 4:42 PM CDT [facility] Initial Evaluation Subjective: Teodora Eisenberg is a 13 year old female with a bilateral hips (currently left greater than right) condition. Condition occurred with: Repetition/overuse. Condition occurred: during recreation/sport. This is a chronic condition Patient reports a 2 year history of bilateral hip pain which is getting worse over time. Pain is related to soccer and cheerleading. Chief complaints are of intermittent bilateral lateral hip pain after running, jumping and sitting cross legged. Once painful ittake a week to resolve. he does also have some stiffness. Nothing make it better. Last episode was 1month ago.. Patient reports pain: Lateral. Radiates to: Low back. and is intermittent and reported as 7/10. Associated symptoms: Loss of strength. Symptoms are exacerbated by activity and running and relieved by nothing. Since onset symptoms are gradually worsening. Previous treatment includes chiropractic. Therewas moderate improvement following previous treatment. General health as reported by patient is good. Objective: System Lumbar/SI Evaluation SI joint/Sacrum: SI screen is negative Hip Evaluation HIP AROM: AROM: Left Hip: Normal (except IR 50 deg bilaterally) Right Hip: Hip Strength: : poor lower abdominal control. Flexion: Left: 5-/5 Pain: Right: 5-/5 Pain: Extension: Left: 5/5 Pain:Right: 5/5 Pain: Abduction: Left: 4-/5 Pain:Right: 4-/5 Pain: Hip Special Testing: Left hip positive for the following special tests: Perez and Fadir/Labrum Left hip negative for the following special tests: Bogdan Right hip positive for the following special tests: Perez and Fadir/LabrumRight hip negative for the following special tests: Bogdan Hip Palpation: Left hip tenderness present at: Greater Trachanter and IT Band Right hip tenderness present at: Greater Trachanter and IT Band Functional Testing: Quad: Single leg squat: Left: Femoral IR Right: Femoral IR Proprioception: Stork balance test: Left: 30 Right: 30 % of Uninvolved: General ROS Assessment/Plan: Patient is a 13 year old female with both sides hip complaints. Patient has the following significant findings with corresponding treatment plan. Diagnosis 1: Bilateral hip pain Pain - hot/cold therapy and education Decreased strength - therapeutic exercise and therapeutic activities Inflammation - cold therapy Impaired muscle performance - neuro re-education Decreased function - therapeutic activities Previous and current functional limitations: (See Goal Flow Sheet for this information) Short term and FPC goals: (See Goal Flow Sheet for this information) Communication ability: Patient appears to be able to clearly communicate and understand verbal and written communication and follow directions correctly. Treatment Explanation - The following has been discussed with the patient: RX ordered/plan of care Anticipated outcomes Possible risks and side effects This patient would benefit from PT intervention to resume normal activities. Rehab potential is good. Frequency: 1 X week, once daily Duration: for 8 weeks Discharge Plan: Achieve all LTG. Independent in home treatment program. Reach maximal therapeutic benefit. Please refer to the daily flowsheet for treatment today, total treatment time and time spent performing 1:1 timed codes. documented in this encounter Plan of Treatment Not on filedocumented as of this encounter Procedures Procedure Name Priority Date/Time Associated Diagnosis Comme nts Z NEUROMUSCULAR Routine 08/14/2013 5:39 PM Pain in joint, pe lvic RE-EDUCATION CDT region and thigh, unspecified laterality [facility] THERAPEUTIC EXERCISES Routine 08/14/2013 5:39 PM Pain in j oint, pelvic CDT region and thigh, unspecified laterality documented in this encounter Visit Diagnoses Diagnosis Pain in joint, pelvic region and thigh, unspecified laterality - Primary documented in this encounter Care Teams Manager Animal Relationship Specialty Start Date End Date Caryl Trujillo MD PCP - General Family Practice 12/16/10 documented as of this encounter
--- OUTSIDE RECORDS SUMMARY | 2021-12-30 10:45 | XMS_ITS | Encounter Summary ---
:1998 Author Organization [place] Address [address] [place] [address]. [place] [address] Care Team Providers Name Role Phone Caryl Trujillo MD Primary Care Provider [phone] Reason for Visit Reason Comments Recheck Medication Encounter Details Date Type Department Care Team Description 02/07/2014 Office Visit [facility] Marshal Young FE (gene ralised anxiety disorder) (Primary Dx); Clinic Vitor Cuello MD ADHD (attention deficit hyperactivity di sorder) [place] [address] [facility], [address] [place] [phone] Social History Tobacco Use Types Packs/Day Years Used Date Never Smoker Smokeless Tobacco: Never Used Alcohol Use Standard Drinks/Week Comments No 0 (1 standard drink = 0.6 oz pure alcoho l) Sex Assigned at Date Recorded Not on file documented as of this encounter Last Filed Vital Signs Vital Sign Reading Time Taken Comments Blood Pressure 98/60 02/07/2014 11:26 AM CDT Pulse 66 02/07/2014 11:26 AM CDT Temperature 37 ??C (98.6 ??F) 02/07/2014 11:26 AM CDT Respiratory Rate 16 02/07/2014 11:26 AM CDT Oxygen Saturation 98% 02/07/2014 11:26 AM CDT Inhaled Oxygen Concentration - - Weight 54 kg (119 lb) 02/07/2014 11:26 AM CDT Height - - Body Mass Index - - documented in this encounter Progress Notes Marshal Young MD - 02/07/2014 11:27 AM CDT SUBJECTIVE: Teodora Eisenberg is a 14 year old female who presents to clinic today for the following health issues: Medication Followup of ADHD ?? Taking Medication as prescribed: yes ?? Side Effects: None ?? Medication Helping Symptoms: yes Problem list and histories reviewed & adjusted, as indicated. Additional history: none Had occasion to use one of brother's 20mg XR Adderall this last weekend and found it distinctly moreeffective than Concerta alone. Mom reports that she is still really struggling with school, failing two classes. Mom does find that mood is better. Sleep is OK, no irritablility. HPI Review of Systems Constitutional: Negative. Cardiovascular: Negative. Psychiatric/Behavioral: Negative for depression. The patient is not nervous/anxious and does not have insomnia. Physical Exam Constitutional: She is oriented to person, place, and time and well-developed, well-nourished, and in no distress. Neurological: She is alert and oriented to person, place, and time. Skin: Skin is warm and dry. Psychiatric: Mood and affect normal. Vitals reviewed. (300.02) FE (generalised anxiety disorder) (primary encounter diagnosis) Comment: Plan: (314.01) ADHD (attention deficit hyperactivity disorder) Comment: Plan: methylphenidate (CONCERTA) 36 MG CR tablet Somewhat unclear if other med is more effecive or if simply needing higher dose. Initially switched off of Adderall due to mood concerns, but this may have been anxiety rather that side effects. Feels mood much improved on citalopram. We will try higher dose of Concerta for now, consider switching back to Adderall RTC in 1m Marshal Young MD documented in this encounter Nursing Notes Juan Diego Mai CMA - 02/07/2014 11:27 AM CDT Chief Complaint Patient presents with ??? Recheck Medication Initial BP 98/60 Pulse 66 Temp(Src) 98.6 ??F (37 ??C) (Oral) Resp 16 Wt 119 lb (53.978 kg) SpO2 98% Estimated body mass index is 21.41 kg/(m^2) as calculated from the following: Height as of 01/02/14: 5' 2.5 (1.588 m). Weight as of this encounter: 119 lb (53.978 kg). BP completed using cuff size: regular.Juan Diego Hawthorne MA documented in this encounter Plan of Treatment Not on filedocumented as of this encounter Visit Diagnoses Diagnosis FE (generalised anxiety disorder) - Prema muniz Generalized anxiety disorder ADHD (attention deficit hyperactivity di geovany) Attention deficit disorder with hyperact ivity documented in this encounter Care Teams Outdoor Adventure Guides Relationship Specialty Start Date End Date Caryl Trujillo MD PCP - General Family Practice 12/16/10 documented as of this encounter
--- OUTSIDE RECORDS SUMMARY | 2021-12-30 10:45 | XMS_ITS | Encounter Summary ---
:1998 Author Organization [place] Address [address] [place] [address]. [place] [address] Care Team Providers Name Role Phone Crayl Trujillo MD Primary Care Provider [phone] Encounter Details Date Type Department Care Team Description 02/26/2014 Office Visit [facility] Haley Harding LP ADHD (attention deficit hyperactivity di sorder) (Primary Dx); Services [facility] HAND CANDLE MOLDER [facility] Adjustment disorder with mixed disturbance of emotions and conduct; [facility] FE (generalised anxiety disorder) HAND CANDLE [place] [phone] Social History Tobacco Use Types Packs/Day Years Used Date Never Smoker Smokeless Tobacco: Never Used Alcohol Use Standard Drinks/Week Comments No 0 (1 standard drink = 0.6 oz pure alcoho l) Sex Assigned at Date Recorded Not on file documented as of this encounter Progress Notes Haley Harding LP - 02/26/2014 2:56 PM CST Progress Note Client Name: Teodora Eisenberg Date: 02-26-14 Service Type: Individual Session Start Time: 2:30 Session End Time: 3:20 Session Length: 45-50 min Session #: 3 Attendees: Client Treatment Plan Last Reviewed: today PHQ-9 = 6 FE-7= 3 DATA Progress Since Last Session (Related to Symptoms / Goals / Homework): Symptoms: increasing. Homework: Completed in session Episode of Care Goals: Satisfactory progress - PREPARATION (Decided to change - considering how); Intervened by negotiating a change plan and determining options / strategies for behavior change, identifying triggers, exploring social supports, and working towards setting a date to begin behavior change Current / Ongoing Stressors and Concerns: Discord with mom and step dad Treatment Objective(s) Addressed in This Session: identify 4 stressors which contribute to feelings of depression use cognitive strategies identified in therapy to challenge anxious thoughts complete at least 15 minutes of self-regulation practice (e.g.: yoga, meditation, relaxation breathing, etc.) per day Intervention: CBT, Interpersonal Therapy,Motivational Interviewing . Identified dynamics of feeling unheard and disrespected. Client tearful in session. Feels she can never be good enough , do enough for her parents. Explored what she has been teaching them about how to treat her. Client owns several ex of impulsivenesss. 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
--- OUTSIDE RECORDS SUMMARY | 2021-12-30 10:45 | XMS_ITS | Encounter Summary ---
:1998 Author Organization [place] Address [facility] [place] [address] Care Team Providers Name Role Phone Caryl Trujillo MD Primary Care Provider [phone] Reason for Visit Reason Onset Date Comments Refill Request 03/29/2014 Adderall Encounter Details Date Type Department Care Team Description 03/29/2014 Refill [facility] Caryl Trujillo Refill Request Clinic Vitor Tolliver MD (Adderall) [address] [facility], [address] [place] [address] [address] [place] [address] [place], [place] [phone] (Wo rk) [phone] Social History Tobacco Use Types Packs/Day Years Used Date Never Smoker Smokeless Tobacco: Never Used Alcohol Use Standard Drinks/Week Comments No 0 (1 standard drink = 0.6 oz pure alcoho l) Sex Assigned at Date Recorded Not on file documented as of this encounter Miscellaneous Notes Telephone Encounter - Susy Mendez - 03/29/2014 10:57 AM RESIDENTIAL REMODELING SUBCONTRACTOR Refill request (pt has appt today at 230) Adderall XR 20 MG Qty 30 Adderall 10MG Qty 30 Last OV: 02/22/2014 DENTIAL REMODELING SUBCONTRACTOR documented in this encounter Plan of Treatment Not on filedocumented as of this encounter Visit Diagnoses Diagnosis ADHD (attention deficit hyperactivity di sorder) Attention deficit disorder with hyperact ivity documented in this encounter Care Teams Sales Branch Manager Relationship Specialty Start Date End Date Caryl Trujillo MD PCP - General Family Practice 12/16/10 documented as of this encounter
--- OUTSIDE RECORDS SUMMARY | 2021-12-30 10:45 | XMS_ITS | Encounter Summary ---
:2000 Author Organization [facility] Address [address] [place] [address] Care Team Providers Name Role Phone Caryl Trujillo MD Primary Care Provider [phone] Reason for Referral Consultation - Closed Specialty Diagnoses / Procedures Referred By Contact Refer red To Contact Diagnoses Bilateral hip pain Danis Eagle DO [facility] [address] [place] [address] [address] [place] [address] Phone: [phone] Referral ID Status Reason Start Date Expiration Date Visits Requ ested Visits Authorized [id number] Closed 11/24/2013 05/23/2014 1 1 Reason for Visit Reason Comments Hip Pain NEW B hip pain, R>L Encounter Details Date Type Department Care Team Description 11/24/2013 Office Visit [facility] Danis Eagle Bilat eral hip pain Orthopedic DO (Primary Dx) [facility] [address] [place], [place] [address], [facility] [id number] [address] [place] [address] Social History Tobacco Use Types Packs/Day Years Used Date Never Smoker Smokeless Tobacco: Never Used Alcohol Use Standard Drinks/Week Comments No 0 (1 standard drink = 0.6 oz pure alcoho l) Sex Assigned at Date Recorded Not on file documented as of this encounter Patient Instructions Patient InstructionsIsaiahCarol leggett - 11/24/2013 8:51 AM CDT We addressed the following today: 1. Bilateral hip pain Referral to Rheumatology Activity modification as discussed Home exercise program as instructed OTC Medication: Acetaminophen (Tylenol) maximum of 1000 mg three times a day Ibuprofen (Advil) maximum of 800 mg three times a day with food Other specific instructions: Complete laboratory work at [facility] Continue with daily activities as tolerated Will call patient with results of laboratory testing after completion for discussion and further medical care [or sooner if needed. Please call [phone] if questions do arise.] documented in this encounter Progress Notes Danis Eagle - 11/24/2013 8:23 AM CDT [facility] Visit s Nov 24, 2013 Subjective: Teodora Danielsluis Eisenberg is a 13 year old female who is seen in consultation at the request of Dr. Young for evaluation of bilateral hip pain. Patient is accompanied in clinic today by her father. Symptoms began 3 years ago but had been worsening over the past few weeks with more competitive soccer activities. Reports insidious onset without acute precipitating event. Reports sharp bilateral anterior hip pain with radiation absent. Pain is 10/10 in maximal severity and 10/10 currently. Symptomsare generally worse with running, soccer activities, stairs, and walking and better with rest. Othertreatment has consisted of ice, Ibuprofen, physical therapy/home exercises, and icy hot with moderate relief. Denies any numbness/tingling of the lower extremities. Notes weakness of the lower extremities. Notes low back pain. Denies any previous back/hip injuries/surgeries. Patient's past medical, surgical, social and family histories were reviewed today. Medical history includes: Past Medical History Diagnosis Date ??? ADHD (attention deficit hyperactivity disorder) Review of Systems: Constitutional: NEGATIVE for fever, chills, change in weight Skin: NEGATIVE for worrisome rashes, moles or lesions Neuro: NEGATIVE for weakness, dizziness or paresthesias MSK: see HPI Objective: LMP 10/25/2013 General: healthy, alert, and no distress Skin: no suspicious lesions or rashes Psych: mentation appears normal and affect normal/bright Gait: antalgic Neuro: normal light touch sensory exam of the lower extremities. Motor strength as noted below MSK: BILATERAL HIPS Inspection: No swelling, bruising, discoloration, or obvious deformity or asymmetry Palpation: Tender about the greater trochanteric region, gluteus medius insertion, gluteal muscles, and SI joint Crepitus is absent Passive Range of Motion: Flexion within normal limits / extension within normal limits / IR within normal limits / ER limited by pain Strength: Flexion 5/5 / extension 5/5 / adduction 5/5 / abduction 5/5 Special Tests: Positive: ALONZO and anterior impingement (FADIR) Negative: Logroll, Sammy's, SI provocative testing, and passive ER with hip flexion (Drehman's) THORACIC/LUMBAR SPINE Inspection: No redness, swelling, overlying skin change, or gross deformity/asymmetry Palpation: Tender about the lower lumbar spinous processes and lower lumbar facet joints No tenderness over the left para lumbar muscles or right para lumbar muscles Range of Motion: Lumbar flexion within normal limits Lumbar extension limited by pain Strength: Quadriceps 5/5, hamstrings 5/5, gastrocsoleus 5/5, and tibialis anterior 5/5 Special Tests: Positive: Slump test (bilateral - right leg and left low back) and facet compression test (bilateral) Negative: Straight leg raise (bilateral), femoral stretch test (bilateral), and SI joint compression (bilateral) Imaging: No x-rays indicated during today's visit Previous films were reviewed today and results were discussed with the patient/father AP pelvis - 06/20/2013 Impression: 1. Negative for fracture, subluxation, joint space narrowing, or other acute osseous abnormalities. ASSESSMENT: 1. Bilateral hip pain - differential diagnosis includes juvenile rheumatoid arthritis, transient synovitis, labral tear, hip impingement, etc. PLAN: 1. Discussed etiology and natural history of differential diagnoses, as well as treatment options including activity modification, use of Acetaminophen/Ibuprofen for symptomatic relief, home exercise program, etc. 2. Continue with home exercise program as prescribed during formal physical therapy. 3. Activity modification as discussed, including limitation of activities that cause pain/discomfort. 4. Laboratory testing ordered including ESR, CRP, CM screen, and rheumatoid factor for further evaluation of current medical state. 5. Referral to Arthritis and Rheumatology for further evaluation of current medical state. 6. Call patient with results after completion of laboratory testing for discussion and further medical care. Consider further diagnostic imaging as deemed appropriate after completion of laboratory testing. Instructed to contact our office sooner should the condition evolve or worsen. Physician spent 15 minutes [id number] with more than 50% spent on counseling/coordination of care,including discussion of previous imaging, further diagnostic imaging, oral pain medication management, physical therapy/home exercise program, laboratory testing, rheumatologic referral, and follow-up. Danis Eagle DO [facility] Disclaimer: This note consists of symbols derived from keyboarding, dictation and/or voice recognition software. As a result, there may be errors in the script that have gone undetected. Please consider this when interpreting information found in this chart. documented in this encounter Nursing Notes Carol Ventura - 11/24/2013 8:23 AM CDT Chief Complaint Patient presents with ??? Hip Pain NEW B hip pain, R>L Initial LMP 10/25/2013 Estimated body mass index is 21.94 kg/(m^2) as calculated from the following: Height as of 11/15/13: 5' 2.5 (1.588 m). Weight as of 11/15/13: 122 lb (55.339 kg). 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
--- OUTSIDE RECORDS SUMMARY | 2021-12-30 10:45 | XMS_ITS | Encounter Summary ---
:2000 Author Organization [facility] Address [facility] [place] [address] Care Team Providers Name Role Phone Caryl Trujillo MD Primary Care Provider [phone] Encounter Details Date Type Department Care Team Description 08/01/2012 Anesthesia Event [facility] Se Corona MD [facility] ANESTHESIA [address] [facility] [address] [place], [place] [id number] PeriOp Services Renee Umaña APRN [facility] ANESTH [address] [facility] [address] [place], [place] [id number] [address] [place] [address] Anesthesia Record Procedure Summary Procedure Name Responsible Anesthesia Start Anesthesia Stop Anesthesiologist Time Time APPENDECTOMY OPEN (N/A Se Corona 08/01/12 0600 08/01 0702 Abdomen) MD Estevan Events Date Time Event Comment 08/01/2012 0600 An Start 0602 An Start Data 0602 Present 0604 An Induction 0604 MD Present 0606 An Intubation 0606 MD Present 0608 MD Present 0608 Quick Note Smooth IV induct ion and intubation. Airway controlled. 0627 MD Present 0642 MD Present 0656 MD Present 0656 Quick Note To PACU with ETT in place with full respiration. 0656 an stop data 0702 MD Present 0702 An Stop Electronically s igned by Renee Umaña CRNA on August 01, 2012 7: 02 AM 0702 Quick Note Awake with cough reflex. Extubation uneventful. BN Name Total midazolam 1 mg/mL 2 mg fentaNYL 50 mcg/mL 150 mcg lidocaine 1% 30 mg propofol 10 mg/mL 150 mg rocuronium 10 mg/mL 30 mg glycopyrrolate 0.2 mg/mL 0.8 mg neostigmine 1mg/mL 3 mg dexamethasone 4 mg/mL 4 mg ondansetron 2 mg/mL 4 mg ketorolac 30 mg/mL 30 mg HYDROmorphone 1 mg/ml 1 mg naloxone 0.4 mg/mL 40 mcg LR 850 mL Agents Name O2 N2O Exp Sevoflurane Blood No blood administrations on file. Lines, Drains, and Airways Type Details Placement Removal Peripheral IV 08/01/12; 0035; 22 G; 08/01/12 0035 by 08/01/12 1530 by Right; Upper forearm; Brittany Guevara RN Johnso n, Elizabeth Chlorhexidine; F, KITCHEN STEWARD/STEWARDESS Tolerated well RETIRED ETT 08/01/12; 0606; Airway 08/01/12 0606 by 08/01/12 0702 by Size: 7; Cuffed; Oral Renee Umaña Naber, Barbara Ann, endotracheal tube; FAMILY LAW MEDIATORAdriane MARTINEZ APRN, CRNA Blade Type: Lara; Blade Size: 2; Place by: bnaber; Insertion Attempts: 1; Breath Sounds: Equal, clear and bilateral; End Tidal CO2: Present; Dentition: Intact; Grade View of Cords: 2 Incision/Surgical Site 08/01/12; 0631; 08/01/12 0631 by 08/25/14 0000 by Anterior; Abdomen; Juan Carlos Mcdowell, MASOOD Concepcion, Rick Baird, 08/25/14 (Patient did RN not present to ED with incision. ) documented in this encounter Social History Tobacco Use Types Packs/Day Years Used Date Never Smoker Alcohol Use Standard Drinks/Week Comments No 0 (1 standard drink = 0.6 oz pure alcoho l) Sex Assigned at Date Recorded Not on file documented as of this encounter OR Notes Anesthesia Postprocedure Evaluation - Se Corona MD - 08/01/2012 7:03 AM CDT Anesthesia Post-Evaluation Note Patient: Teodora Eisenberg Patient location: PACU Procedure(s) Performed: Procedure(s) with comments: APPENDECTOMY OPEN - APPENDECTOMY OPEN Anesthesia type: General Patient Condition Respiratory Function (RR / SpO2 / Airway Patency): Satisfactory Cardiac Function (HR / Rhythm / BP): Satisfactory Mental Status: Satisfactory Temperature: Satisfactory Pain Control: Satisfactory PONV: None Beta-Theresa Therapy: None indicated Hydration Status: Satisfactory Last Vitals: Filed Vitals: 08/01/12 0212 08/01/12 0320 08/01/12 0500 BP: 117/63 Temp: 98.7 ??F (37.1 ??C) Resp: 20 16 20 SpO2: 99% Additional Comments: Anesthesia Preprocedure Evaluation - Se Corona MD - 08/01/2012 5:44 AM CDT Anesthesia Evaluation ROS/Med Hx No history of anesthetic complications (-) malignant hyperthermia and tuberculosis Cardiovascular Findings - negative ROS Neuro Findings - negative ROS Pulmonary Findings - negative ROS GI/Hepatic/Renal Findings - negative ROS Endocrine/Metabolic Findings - negative ROS Additional Notes ADHD Physical Exam Normal systems: cardiovascular, pulmonary and dental Airway Mallampati: I TM distance: >3 FB Neck ROM: full Dental Cardiovascular Rhythm and rate: regular and normal Pulmonary breath sounds clear to auscultation Anesthesia Plan ASA Score 2 and emergent. Plan for General and ETT with Intravenous induction. Routine analgesia and antiemetics to be used for post-operative care. Anesthetic plan, risks, benefits and alternatives discussed with: patient or medical claims representative. Lab Test 07/31/12 2246 WBC 17.3* HGB 13.9 MCV 82 PLT 197 INR -- Lab Test 07/31/12 2246 NA 142 POTASSIUM 3.9 CHLORIDE 102 CO2 28 BUN 7 CR 0.71 ANIONGAP 12 BRIEN 9.5 GLC 74 History & Physical Review History and physical reviewed; no interval change. documented in this encounter Miscellaneous Notes Addendum Note - Se Corona MD - 08/01/2012 7:12 AM CDT Addendum created 08/01/12711 by Se Corona MD Modules edited:Orders, PRL Based Order Sets Anesthesia Care Transfer Note - Renee Umaña APRN CRNA - 08/01/2012 7:01 AM CDT Anesthesia Care Transfer Note Patient: Teodora Eisenberg Transferred to: PACU Patient vital signs: stable Airway: ETT Sleeping with full respirations--ETT in place. documented in this encounter Plan of Treatment Not on filedocumented as of this encounter Visit Diagnoses Not on filedocumented in this encounter Administered Medications Inactive Administered Medications - up to 3 most recent administrations Medication Order MAR Action Action Date Dose Rate Site dexamethasone (DECADRON) injection Given 08/01/2012 6:02 AM CDT 4 mg PRN, Administer over 1-4 Minutes, Starting on Wed08/01/12 at 0602, Anesthesia Intra-op fentaNYL (SUBLIMAZE) injection Given 08/01/2012 6:02 AM CDT 150 mcg PRN, moderate to severe pain, Starting on Wed08/01/12 at 0602, Anesthesia Intra-op glycopyrrolate (ROBINUL) injection Given 08/01/2012 6:46 AM CDT 0.6 mg PRN, Administer over 20 Minutes, Starting on Wed08/01/12 at 0602, Anesthesia Intra-op Given 08/01/2012 6:02 AM CDT 0.2 mg HYDROmorphone (PF) (DILAUDID) injection Given 08/01/2012 6:02 AM CDT 1 mg PRN, moderate to severe pain, Starting on Wed08/01/12 at 0602, Anesthesia Intra-op ketorolac (TORADOL) injection Given 08/01/2012 6:02 AM CDT 30 mg PRN, moderate pain, Starting on Wed08/01/12 at 0602, Anesthesia Intra-op lactated ringers infusion New Bag 08/01/2012 6:00 AM CDT mL Intravenous, CONTINUOUS PRN, Anesthesia Intra-op, Starting on Wed08/01/12 at 0600, Until Wed08/01/12 at 0702 lidocaine 1 % injection Given 08/01/2012 6:02 AM CDT 30 mg PRN, Starting on Wed08/01/12 at 0602, Anesthesia Intra-op midazolam (VERSED) injection Given 08/01/2012 6:02 AM CDT 2 mg PRN, anxiety, Starting on Wed08/01/12 at 0602, Anesthesia Intra-op naloxone (NARCAN) injection Given 08/01/2012 6:49 AM CDT 40 mcg PRN, opioid reversal, Starting on Wed08/01/12 at 0649, Use Full Reversal dose for apnea or imminent respiratory arrest that is unexpected. Partial Reversal for severe sedation, decrease in respiratory depth, quality, or rate. Full Reversal: Dose = 0.01mg/kg (see Admin Amount on JUN), * Partial Reversal Dose for Pt < 20 kg , <5 years = 0.01 mg. *Partial Reversal for Pt >/= 20Kg , >/= 5 years = 0.04 mg. Give Undiluted. STOP opioid and notify MD., Anesthesia Intra-op neostigmine (PROSTIGMINE) injection Given 08/01/2012 6:46 AM CDT 3 mg Intravenous, PRN, Starting on Wed08/01/12 at 0646, Anesthesia Intra-op ondansetron (ZOFRAN) injection Given 08/01/2012 6:02 AM CDT 4 mg PRN, nausea, vomiting, Administer over 2-5 Minutes, Starting on Wed08/01/12 at 0602, Anesthesia Intra-op propofol (DIPRIVAN) injection Given 08/01/2012 6:02 AM CDT 150 mg PRN, Starting on Wed08/01/12 at 0602, Anesthesia Intra-op rocuronium (ZEMURON) injection Given 08/01/2012 6:02 AM CDT 30 mg PRN, Starting on Wed08/01/12 at 0602, Anesthesia Intra-op documented in this encounter Care Teams Insurance Counselor Relationship Specialty Start Date End Date Caryl Trujillo MD PCP - General Family Practice 12/16/10 documented as of this encounter
--- OUTSIDE RECORDS SUMMARY | 2021-12-30 10:45 | XMS_ITS | Encounter Summary ---
:2000 Author Organization [facility] Address [address] [place] [address]. [place] [address] Care Team Providers Name Role Phone Caryl Trujillo MD Primary Care Provider [phone] Reason for Visit Reason Comments Headache kneed in head 08/19/13, durin g soccer game, headache since, hurts more with movements Encounter Details Date Type Department Care Team Description 08/25/2013 Office Visit [facility] Artemio Byers (Primary Dx) [facility] [place] [address] [address] [facility] [place] [id number] [place], [place] [phone] (Wo rk) [address] [phone] Social History Tobacco Use Types Packs/Day Years Used Date Never Smoker Smokeless Tobacco: Never Used Alcohol Use Standard Drinks/Week Comments No 0 (1 standard drink = 0.6 oz pure alcoho l) Sex Assigned at Date Recorded Not on file documented as of this encounter Last Filed Vital Signs Vital Sign Reading Time Taken Comments Blood Pressure 88/56 08/25/2013 10:31 AM CDT Pulse 64 08/25/2013 10:31 AM CDT Temperature 37.1 ??C (98.7 ??F) 08/25/2013 10:31 AM CDT Respiratory Rate 16 08/25/2013 10:31 AM CDT Oxygen Saturation - - Inhaled Oxygen Concentration - - Weight 55.3 kg (122 lb) 08/25/2013 10:31 AM CDT Height - - Body Mass Index - - documented in this encounter Patient Instructions Patient InstructionsChArtemio cobb PA-C - 08/25/2013 10:49 AM CDT Regular tylenol/advil over the counter. Rest at home and from sports. Follow up with me by visit or phone in 7-10 days for note back to sports. Follow up sooner if needed. documented in this encounter Progress Notes Artemio Manzo PA-C - 08/25/2013 10:27 AM CDT SUBJECTIVE: Teodora Eisenberg is a 13 year old female who presents to clinic today for the following health issues: Headache ?? Onset: 08/19/13 ?? Description: Location: unilateral in the left temporal area Character: squeezing pain Frequency: Since 08/19/13 Duration: all day ?? Intensity: 9/10 ?? Progression of Symptoms: worse waxing and waning ?? Accompanying Signs & Symptoms: Stiff neck: no Neck or upper back pain: YES- upper back Fever: no Sinus pressure: YES Nausea or vomiting: no Dizziness: no Numbness: no Weakness: no Visual changes: no ?? History: Head trauma: YES- concussion last year Family history of migraines: no Previous tests for headaches: no Neurologist evaluations: no Able to do daily activities: YES Wake with a headaches: YES Do headaches wake you up: no Daily pain medication use: no Work/school stressors/changes: YES- cheerleading tryouts ?? Precipitating factors: Does light make it worse: YES Does sound make it worse: YES ?? Alleviating factors: Does sleep help: YES ?? Therapies Tried and outcome: Ibuprofen (Advil, Motrin) Patient was hit by another players knee one week ago during a soccer game. She did not lose consciousness or have any vomiting. She finished the game and has also been participating in cheerleading this week. She does states she's had a headache during this entire time. It is present at school and keeping her up at night also. Tried 400mg ibuprofen yesterday that did not help. Problem list and histories reviewed & adjusted, as indicated. Additional history: as documented Problem list, Medication list, Allergies, and Medical/Social/Surgical histories reviewed in EPIC andupdated as appropriate. ROS: Constitutional, HEENT, cardiovascular, pulmonary, gi and gu systems are negative, except as otherwise noted. OBJECTIVE: BP 88/56 Pulse 64 Temp(Src) 98.7 ??F (37.1 ??C) (Oral) Resp 16 Wt 122 lb (55.339 kg) There is no height on file to calculate BMI. GENERAL APPEARANCE: healthy, alert and no distress EYES: Eyes grossly normal to inspection, PERRL and conjunctivae and sclerae normal HENT: ear canals and TM's normal and nose and mouth without ulcers or lesions RESP: lungs clear to auscultation - no rales, rhonchi or wheezes CV: regular rates and rhythm, normal S1 S2, no S3 or S4 and no murmur, click or rub LYMPHATICS: normal ant/post cervical and supraclavicular nodes SKIN: no suspicious lesions or rashes NEURO: Normal strength and tone, mentation intact, speech normal, cranial nerves 2-12 intact, nystagmus - NO and normal strength throughout PSYCH: mentation appears normal and affect normal/bright Diagnostic test results: none ASSESSMENT/PLAN: (784.0) Headache (primary encounter diagnosis) Comment: Plan: discussed at length the concussion criteria and post concussion syndrome. It does not appear that she has an acute process at the moment. She is to rest from sports for one week and follow up with me for note back to activities. She can try tylenol or advil during the day for the headache. Discussed signs and sx for which to seek emergent care. Artemio Manzo PA-C [facility] documented in this encounter Plan of Treatment Not on filedocumented as of this encounter Visit Diagnoses Diagnosis Headache(784.0) - Primary Headache documented in this encounter Care Teams Montessori Paraprofessional Relationship Specialty Start Date End Date Caryl Trujillo MD PCP - General Family Practice 12/16/10 documented as of this encounter
--- OUTSIDE RECORDS SUMMARY | 2021-12-30 10:45 | XMS_ITS | Encounter Summary ---
:1998 Author Organization [facility] Address [facility] [place] [address] Care Team Providers Name Role Phone Caryl Trujillo MD Primary Care Provider [phone] Reason for Visit Reason Onset Date Comments Results 11/30/2013 Encounter Details Date Type Department Care Team Description 11/30/2013 Telephone [facility] Danis Eagle, DO Results [facility] Med [address] [facility] [place] [address] [place] [address] Social History Tobacco Use Types Packs/Day Years Used Date Never Smoker Smokeless Tobacco: Never Used Alcohol Use Standard Drinks/Week Comments No 0 (1 standard drink = 0.6 oz pure alcoho l) Sex Assigned at Date Recorded Not on file documented as of this encounter Miscellaneous Notes Telephone Encounter - Julee Overton RN - 11/30/2013 9:10 AM CDT Call placed to pt's mother LVM informing her of Dr. Eagle's recommendations: Please call patient/family to inform them that laboratory testing completed was noted to be unremarkable. Would recommend continuation of home exercise program and activity modification and oral pain medications as discussed. Continue with rheumatology referral for further medical workup and follow-upafter completion of rheumatologic workup for further discussion of medical care if no improvement ofsymptoms noted at that time for consideration of further diagnostic imaging as deemed appropriate. Encouraged her to call with questions or concerns. Julee Overton, RN documented in this encounter Plan of Treatment Not on filedocumented as of this encounter Visit Diagnoses Not on filedocumented in this encounter Care Teams Trousseau Consultant Relationship Specialty Start Date End Date Caryl Trujillo MD PCP - General Family Practice 12/16/10 documented as of this encounter
--- OUTSIDE RECORDS SUMMARY | 2021-12-30 10:45 | XMS_ITS | Encounter Summary ---
:2000 Author Organization [facility] Address [address] [place] [address]. [place] [address] Care Team Providers Name Role Phone Caryl Trujillo MD Primary Care Provider [phone] Reason for Visit Reason Comments A.D.H.D med check Encounter Details Date Type Department Care Team Description 12/18/2013 Office Visit [facility] Marshal Young Acne (Prema muniz Dx); Clinic Vitor Cuello MD ADHD (attention deficit hyperactivity di sorder) [place] [address] [facility], [address] [place] [phone] Social History Tobacco Use Types Packs/Day Years Used Date Never Smoker Smokeless Tobacco: Never Used Alcohol Use Standard Drinks/Week Comments No 0 (1 standard drink = 0.6 oz pure alcoho l) Sex Assigned at Date Recorded Not on file documented as of this encounter Last Filed Vital Signs Vital Sign Reading Time Taken Comments Blood Pressure 98/52 12/18/2013 8:04 AM CDT Pulse 74 12/18/2013 8:04 AM CDT Temperature 37.2 ??C (98.9 ??F) 12/18/2013 8:04 AM CDT Respiratory Rate 12 12/18/2013 8:04 AM CDT Oxygen Saturation - - Inhaled Oxygen Concentration - - Weight 54.4 kg (120 lb) 12/18/2013 8:04 AM CDT Height 158.8 cm (5' 2.5) 12/18/2013 8:04 AM CDT Body Mass Index 21.6 12/18/2013 8:04 AM CDT Body Mass Index Percentile 64.08 % 12/18/2013 8:04 AM CD T Growth Chart: [facility] (Girls, 2-20 Years) documented in this encounter Progress Notes Marshal Young MD - 12/18/2013 8:04 AM CDT SUBJECTIVE: Teodora Eisenberg is a 13 year old female accompanied by her mother for ADHD follow-up. Changes since last visit: Yes: focus but not cranky Status since last visit: Improving Taking controlled (daily) medications as prescribed: Yes Name of SCHOOL: [employer] Grade: 10th Patient Active Problem List Diagnosis ??? Unspecified ulceration of vulva ??? Appendicitis ??? Muscle pain ??? ADHD (attention deficit hyperactivity disorder) ??? Coxalgia Past Medical History Diagnosis Date ??? ADHD (attention deficit hyperactivity disorder) History Substance Use Topics ??? Smoking status: Never Smoker ??? Smokeless tobacco: Never Used ??? Alcohol Use: No Some concerns about med wearing off - tends to be done about 5, feels that especially once school starts she will need longer effect to get some homework time. Also concerned about closed comedone acne School Concerns/Teacher Feedback: Summer vacation. School services/Modifications: none Homework: None Grades: None Sleep: no problems Home/Family Concerns: Improving Peer/Sibling Concerns: Improving Co-Morbid Diagnosis: None Currently in counseling: No Current Outpatient Prescriptions Medication Sig Dispense Refill ??? methylphenidate (CONCERTA) 27 MG CR tablet Take 1 tablet (27 mg) by mouth every morning 14 tablet 0 ??? amphetamine-dextroamphetamine (ADDERALL) 10 MG tablet 0 ??? amphetamine-dextroamphetamine (ADDERALL XR) 20 MG per capsule Take 1 capsule (20 mg) by mouth daily 30 capsule 0 Medication Benefits: Controlled symptoms: Attention span, Finishing tasks and Impulse control Uncontrolled symptoms: None Medication side effects: Parent/Patient Concerns with Medications: None Denies: appetite suppression and rebound irritability Allergies: No Known Allergies OBJECTIVE: Vital Signs: [facility] 11/30/2013 GENERAL: Alert and interactive., EYES: Normal extra-ocular movements. PERRLA, LUNGS: Clear, HEART: Normal rate and rhythm. Normal S1 and S2. No murmurs., ABDOMEN: Soft, non-tender, no organomegaly. andNEURO: No tics or tremor. Normal tone and strength. Normal gait and balance. ASSESSMENT/PLAN: ADHD--combined type ADHD Medications: Concerta 36 mg in the morning - trial bump to try for the next two weeks No change in medication. Continue on current Rx. (706.1) Acne (primary encounter diagnosis) Comment: Plan: tretinoin (RETIN-A) 0.025 % cream Follow up: RTC 2 wks Time: I spent 15 with patient; greater than one half devoted to coordination of care for diagnosis and plan above. Marshal Young MD [facility] documented in this encounter Plan of Treatment Not on filedocumented as of this encounter Visit Diagnoses Diagnosis Acne - Primary Other acne ADHD (attention deficit hyperactivity di sorder) Attention deficit disorder with hyperact ivity documented in this encounter Care Teams Handy Worker Relationship Specialty Start Date End Date Caryl Trujillo MD PCP - General Family Practice 12/16/10 documented as of this encounter
--- OUTSIDE RECORDS SUMMARY | 2021-12-30 10:45 | XMS_ITS | Encounter Summary ---
:2000 Author Organization [facility] Address [address] [place] [address]. [place] [address] Care Team Providers Name Role Phone Caryl Trujillo MD Primary Care Provider Reason for Visit Reason Comments Well Child Encounter Details Date Type Department Care Team Description 10/10/2013 [facility] Routine i nfant or child health check (Primary Dx); Clinic Vitor Cuello MD Attention deficit disorder with hyperact ivity [id number] [address] [facility], [address] [place] [phone] Social History Tobacco Use Types Packs/Day Years Used Date Never Smoker Smokeless Tobacco: Never Used Alcohol Use Standard Drinks/Week Comments No 0 (1 standard drink = 0.6 oz pure alcoho l) Sex Assigned at Date Recorded Not on file documented as of this encounter Last Filed Vital Signs Vital Sign Reading Time Taken Comments Blood Pressure 100/60 10/10/2013 4:13 PM CDT Pulse 82 10/10/2013 4:13 PM CDT Temperature 37.1 ??C (98.8 ??F) 10/10/2013 4:13 PM CDT Respiratory Rate 20 10/10/2013 4:13 PM CDT Oxygen Saturation 99% 10/10/2013 4:13 PM CDT Inhaled Oxygen Concentration - - Weight 54.8 kg (120 lb 14.4 oz) 10/10/2013 4:13 PM CDT Height 158.8 cm (5' 2.5) 10/10/2013 4:13 PM CDT Body Mass Index 21.76 10/10/2013 4:13 PM CDT Body Mass Index Percentile 66.67 % 10/10/2013 4:13 PM CD T Growth Chart: [facility] (Girls, 2-20 Years) documented in this encounter Patient Instructions Patient InstructionsMilan Gomez Sigifredo - 10/10/2013 11:46 AM CDT Preventive Care at the 15 - 18 Year Visit Growth Percentiles & Measurements Weight: 0 lbs 0 oz / Patient actual weight not available. / No weight on file for this encounter. Length: Data Unavailable / 0 cm No height on file for this encounter. BMI: There is no height or weight on file to calculate BMI. No unique date with height and weight onfile. Blood Pressure: No BP reading on file for this encounter. Next [...] Never get in a car if the driver's education instructor has been drinking or using drugs. ??? [...] health. documented in this encounter Progress Notes Fouzia Singh MD - 10/10/2013 11:46 AM CDT SUBJECTIVE: Teodora Eisenberg is a 13 year old female, here for a routine health maintenance visit, accompanied by her mother and sister. Patient was roomed by: Milan BRODERICK QUESTIONS/CONCERNS: * bump in her ear that shed like looked at by the Dr. HOME Family members in house: mother, father, 2 sisters and1 brothers Language(s) spoken at home: Serbian Recent family changes/social stressors: none noted HEALTH RISKS TB exposure: No Cardiac risk assessment: none VISION: Testing not done; patient has seen eye doctor in the past 6 months. HEARING: Testing not done, normal hearing test last year, no current hearing concerns. DENTAL Dental health HIGH risk factors: none Water source: city water No sports physical needed. HOME Family members in house: mother, father, 2 sisters and 1 brothers Language(s) spoken at home: Serbian Recent family changes/social stressors: none noted SAFETY Car seat belt always worn: Yes Helmet worn for bicycle/roller blades/skateboard? NO Guns/firearms in the home: YES, Trigger locks present? YES, Ammunition separate from firearm: YES ELECTRONIC MEDIA TV in bedroom: No 0 hours EDUCATION School: [employer] Grade: 10th School performance / Academic skills: doing well in school Concerns: no ACTIVITIES Do you get at least 60 minutes per day of physical activity, including time in and out of school: Yes Extra-curricular activities: Cheerleading and soccer, job Organized / team sports: soccer and Cheerleading DIET Do you get at least 4 helpings of a fruit or vegetable every day: NO Do you eat breakfast every day: Yes How many servings of juice, non-diet soda, punch or sports drinks per day: 0 Does your family eat out (take out, delivery, fast food, restaurant) more than one day per week: No SLEEP No concerns, sleeps well through night DRUGS Smoking: no Passive smoke exposure: no Alcohol: no Drugs: no SEXUALITY Has anyone ever approached you or touched you in a way that was unwanted? Have you ever been physically or psychologically mistreated by anyone? Tell me about that. DEPRESSION {PROVIDER INTERVIEW--Depression What do you do to make yourself feel better when you're stressed? Have you ever had low moods that lasted more than a few hours? A few days? Have your moods ever been so low that you thought of hurting yourself? Did you act on those thoughts? Tell me about that. If you had those kinds of thoughts in the future, which adult could you tell? No Known Allergies Immunization History Administered Date(s) Administered ? ? DTAP (<7y) 1998, 1998, 1998, 04/15/1999 ??? HIB 1998, 1998, 1998, 04/15/1999 ??? Hepatitis B 1998, 1998, 1998 ??? IPV 1998, 1998, 04/15/1999, 08/14/2003 ??? MMR 04/15/1999, 08/14/2003 ??? Varicella 09/02/1999, 02/10/2000 Patient Active Problem List Diagnosis ??? Unspecified ulceration of vulva ??? Appendicitis ??? Muscle pain ??? Pain in joint, pelvic region and thigh HEALTH HISTORY SINCE LAST VISIT No surgery, major illness or injury since last physical exam Patient Active Problem List Diagnosis ??? Unspecified ulceration of vulva ??? Appendicitis ??? Muscle pain ??? Pain in joint, pelvic region and thigh No Known Allergies Immunization History Administered Date(s) Administered ? ? DTAP (<7y) 1998, 1998, 1998, 04/15/1999 ??? HIB 1998, 1998, 1998, 04/15/1999 ??? Hepatitis B 1998, 1998, 1998 ??? IPV 1998, 1998, 04/15/1999, 08/14/2003 ??? MMR 04/15/1999, 08/14/2003 ??? Varicella 09/02/1999, 02/10/2000 PSYCHO-SOCIAL Screening: No screening tool used No concerns ROS GENERAL: See health history, nutrition and daily activities SKIN: No rash, hives or significant lesions HEENT: Hearing/vision: see above. No eye, nasal, ear symptoms. RESP: No cough or other concerns CV: No concerns GI: See nutrition and elimination. No concerns. : See elimination. No concerns NEURO: No headaches or concerns. OBJECTIVE: EXAM There were no vitals taken for this visit. No height on file for this encounter. No weight on file for this encounter. No unique date with height and weight on file. No BP reading on file for this encounter. GENERAL: Active, alert, in no acute distress. [...] of motion, no deformities : Exam deferred. ASSESSMENT/PLAN: 1. Well teen with normal growth and development DENTAL VARNISH Dental Varnish not indicated Anticipatory Guidance The following topics were discussed: SOCIAL/ FAMILY: Limits/ consequences TV/ media NUTRITION: Healthy food choices HEALTH / SAFETY: Sunscreen/ insect repellent SEXUALITY: Preventive Care Plan Immunizations ?? Reviewed, up to date Referrals/Ongoing Specialty care: No See other orders in EpicCare. Dental visit recommended: Yes Vision: normal Hearing: normal Cleared for sports: Yes BMI at No unique date with height and weight on file. No weight concerns. FOLLOW-UP: in 1 year for a Preventive Care visit Fouzia Singh MD [facility] documented in this encounter Nursing Notes Milan Gomez I - 10/10/2013 4:09 PM CDT Chief Complaint Patient presents with ??? Well Child Initial There were no vitals taken for this visit. Estimated body mass index is 22.14 kg/(m^2) as calculated from the following: Height as of 06/20/13: 5' 2.25 (1.581 m). Weight as of 08/25/13: 122 lb (55.339 kg). BP completed using cuff size: regular documented in this encounter Miscellaneous Notes Addendum Note - Fouzia Singh MD - 10/10/2013 4:47 PM CDT Addended by: FOUZIA SINGH on: 10/10/2013 04:47 PM Modules accepted: Orders documented in this encounter Plan of Treatment Not on filedocumented as of this encounter Procedures Procedure Name Priority Date/Time Associated Diagnosis Comme nts ZZC DEVELOPMENTAL SCREEN Routine 10/10/2013 4:29 PM Routine in eric or W INTERP/REPORT CDT child health check HC SCREENING TEST, PURE Routine 10/10/2013 4:29 PM Routine inf ant or TONE, AIR ONLY CDT child health check documented in this encounter Visit Diagnoses Diagnosis Routine or child health check - P rimary Attention deficit disorder with hyperact ivity(314.01) Attention deficit disorder with hyperact ivity documented in this encounter Care Teams Lumber Planer Relationship Specialty Start Date End Date Caryl Trujillo MD PCP - General Family Practice 12/16/10 documented as of this encounter
--- OUTSIDE RECORDS SUMMARY | 2021-12-30 10:45 | XMS_ITS | Encounter Summary ---
:2000 Author Organization [facility] Address [facility] [place] [address] Care Team Providers Name Role Phone Caryl Trujillo MD Primary Care Provider [phone] Reason for Visit Reason Onset Date Comments Medication Request 10/16/2013 switch to Adderall i nstead of Vyvanse Encounter Details Date Type Department Care Team Description 10/16/2013 Telephone [facility] Marshal Young Medicatio n Request Clinic Vitor Cuello MD (switch to Adderall [facility], [address] [place] [address] [place] [place] instead of Vyvanse) [address] [place] [address] [place], [place] [phone] (Wo rk) [address] [phone] Social History Tobacco Use Types Packs/Day Years Used Date Never Smoker Smokeless Tobacco: Never Used Alcohol Use Standard Drinks/Week Comments No 0 (1 standard drink = 0.6 oz pure alcoho l) Sex Assigned at Date Recorded Not on file documented as of this encounter Miscellaneous Notes Telephone Encounter - Manjula Christian - 10/18/2013 4:22 PM CDT Mom picked up RX 10/18/13. Telephone Encounter - Velia Holt RN - 10/17/2013 3:38 PM CDT Patient's mom notified. Rx placed up front. Velia Holt RN Telephone Encounter - Marshal Young MD - 10/17/2013 3:17 PM CDT Rx sent. Will need f/u appt in one month for ongoing refill. Marshal Young MD Telephone Encounter - Velia Holt RN - 10/17/2013 1:26 PM CDT Patient's mom called. Spoke to patient's mom. Patient has not been taking any medications for the last week. She has been off all meds x 1 week. She was previously on Vyvanse 30mg in am and Adderall 10mg in pm. She does not want to be on Vyvanse anymore because it is making her crabby and edgy. Would like to switch back to Adderall XR 20mg in am and Adderall 10mg in pm. Please advise. Velia Holt RN Telephone Encounter - Marshal Young MD - 10/17/2013 11:49 AM CDT It looks like Teodora got both Adderall and Vyvanse at her last visit. How is she using both meds currently and what did she used to use? Marshal Young MD Telephone Encounter - Dante Navarro - 10/16/2013 4:17 PM CDT Pt calling to request to switch back to Adderall (currently on Vyvanse and Just got new rx 10/10/13).Pt states that she is cranky on Vyvanse and that she was not so angel on Adderall in the past. Pt's mom Sarai can be reached at [phone] for any questions. documented in this encounter Plan of Treatment Not on filedocumented as of this encounter Visit Diagnoses Diagnosis ADHD (attention deficit hyperactivity di sorder) - Primary Attention deficit disorder with hyperact ivity documented in this encounter Care Teams Baker Apprentice Relationship Specialty Start Date End Date Caryl Trujillo MD PCP - General Family Practice 12/16/10 documented as of this encounter
--- OUTSIDE RECORDS SUMMARY | 2021-12-30 10:45 | XMS_ITS | Encounter Summary ---
:2000 Author Organization [facility] Address [address] [place] [address]. [place] [address] Care Team Providers Name Role Phone Caryl Trujillo MD Primary Care Provider [phone] Encounter Details Date Type Department Care Team Description 11/24/2013 Hospital Encounter [facility] Danis Eagle teral hip pain [facility] Luis, DO [address] [place] [phone] Social History Tobacco Use Types Packs/Day Years Used Date Never Smoker Smokeless Tobacco: Never Used Alcohol Use Standard Drinks/Week Comments No 0 (1 standard drink = 0.6 oz pure alcoho l) Sex Assigned at Date Recorded Not on file documented as of this encounter Medications at Time of Discharge Medication Sig Dispensed Refills Start Date End Date amphetamine-dextroampheta Take 1 capsule (20 30 capsule 0 02/07/2014 mine (ADDERALL XR) 20 MG mg) by mouth daily per capsuleIndications: ADHD (attention deficit hyperactivity disorder) amphetamine-dextroampheta 0 10/11/2013 02/07/2014 mine (ADDERALL) 10 MG tablet amphetamine-dextroampheta Take 1 tablet (10 60 tablet 0 12/05/2013 mine (ADDERALL) 10 MG mg) by mouth 2 tabletIndications: times daily Attention deficit disorder with hyperactivity(314.01) documented as of this encounter Plan of Treatment Not on filedocumented as of this encounter Procedures Procedure Name Priority Date/Time Associated Comments Diagnosis RHEUMATOID FACTOR Routine 11/24/2013 9:07 AM Bilateral hip judy n Results for this CDT procedure are i n the results section. ERYTHROCYTE Routine 11/24/2013 9:07 AM Bilateral hip pain Res ults for this SEDIMENTATION RATE CDT procedure are in AUTO the results section. CRP INFLAMMATION Routine 11/24/2013 9:07 AM Bilateral hip pain Results for this CDT procedure are i n the results section. ANTINUCLEAR ANTIBODY Routine 11/24/2013 9:07 AM Bilateral hip pain Results for this SCREEN BY EIA CDT procedure are in the results section. documented in this encounter Results Erythrocyte sedimentation rate auto (11/24/2013 9:07 AM CDT) athologist Signature Sed Rate 6 0 - 15 mm/h [facility] Specimen Anatomical Collection Method Collection Time Receive d Time (Source) Location / / Volume Laterality Blood specimen 11/24/2013 9:07 AM 014 9:10 (specimen) CDT AM CDT Danis Eagle DO LAB - BLOOD ORDERABLES Performing Organization Address City/[facility]/[place] [facility] [place] [facility] [address] [phone] [place] [address] LAB CRP inflammation (11/24/2013 9:07 AM CDT) athologist Signature CRP Inflammation <2.9 0.0 - 8.0 EVENING SHADE mg/L [facility] LAB Specimen Anatomical Collection Method Collection Time Receive d Time (Source) Location / / Volume Laterality Blood specimen 11/24/2013 9:07 AM 014 9:10 (specimen) CDT AM CDT Danis Eagle DO LAB - BLOOD ORDERABLES Performing Organization Address City/[facility] Phon e Number [facility] [address] [place], [place] [address] [phone] [place] [address] LAB Antinuclear antibody screen by EIA (11/24/2013 9:07 AM CDT) [facility] Method Time Signature CM Screen by <1.0 <1.0 [facility] EIA Interpretation: ??Negative [facility] Specimen Anatomical Collection Method Collection Time Receive d Time (Source) Location / / Volume Laterality Blood specimen 11/24/2013 9:07 AM 014 9:10 (specimen) CDT AM CDT Danis Eagle DO LAB - BLOOD ORDERABLES Performing Organization Address City/[facility]/ZIP Code Phon e Number [address] LABS Rheumatoid factor (11/24/2013 9:07 AM CDT) P athologist Signature Rheumatoid <20 <20 IU/mL [facility] LABS Specimen Anatomical Collection Method Collection Time Receive d Time (Source) Location / / Volume Laterality Blood specimen 11/24/2013 9:07 AM 014 9:10 (specimen) CDT AM CDT Danis Eagle DO LAB - BLOOD ORDERABLES Performing Organization Address City/[facility]/ZIP Code Phon e Number [address] LABS documented in this encounter Visit Diagnoses Diagnosis Bilateral hip pain Pain in joint, pelvic region and thigh documented in this encounter Care Teams Hardening Machine Operator Relationship Specialty Start Date End Date Caryl Trujillo MD PCP - General Family Practice 12/16/10 documented as of this encounter
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
--- OUTSIDE RECORDS SUMMARY | 2021-12-30 10:45 | XMS_ITS | Encounter Summary ---
:2000 Author Organization [facility] Address [facility] [place] [address] Care Team Providers Name Role Phone Caryl Trujillo MD Primary Care Provider [phone] Reason for Visit Reason Onset Date Comments Appointment 05/01/2014 double book? Encounter Details Date Type Department Care Team Description 05/01/2014 Telephone [facility] Caryl Trujillo Appoint ment (double Clinic Vitor Tolliver MD book?) [address] [facility], [address] [place] [address] [address] [place] [address] [place], [place] [phone] (Wo rk) [address] [phone] Social History Tobacco Use Types Packs/Day Years Used Date Passive Smoke Exposure - Never Smoker Smokeless Tobacco: Never Used Comments: father and step-mom Alcohol Use Standard Drinks/Week Comments No 0 (1 standard drink = 0.6 oz pure alcoho l) Sex Assigned at Date Recorded Not on file documented as of this encounter Miscellaneous Notes Telephone Encounter - Dante Navarro - 05/01/2014 8:33 AM CST Got pt in at 10:00. FACULTY ASSISTANT Telephone Encounter - Dante Navarro - 05/01/2014 8:06 AM CST See mssg below and call Sarai at [phone] to discuss. FACULTY ASSISTANT Telephone Encounter - Dante Navarro - 05/01/2014 8:03 AM CST Mom stopped in this morning to try to get pt in for an appt. Mom thinks pt is doing drugs and said pt is willing to take a drug test, also pt is now sexually active and mom is very concerned and would like have pt meet with you today. Can we double book her? FACULTY ASSISTANT documented in this encounter Plan of Treatment Not on filedocumented as of this encounter Visit Diagnoses Not on filedocumented in this encounter Care Teams Roof Bolter Relationship Specialty Start Date End Date Caryl Trujillo MD PCP - General Family Practice 12/16/10 documented as of this encounter
--- OUTSIDE RECORDS SUMMARY | 2021-12-30 10:45 | XMS_ITS | Encounter Summary ---
:2000 Author Organization [facility] Address [address] [place] [address]. [place] [address] Care Team Providers Name Role Phone Caryl Trujillo MD Primary Care Provider [phone] Encounter Details Date Type Department Care Team Description 08/21/2013 Therapy Visit [place] for Debra Pendleton, PT Pain in joint, pelvic Athletic Medicine - [address] region and thigh, Marcelina Physical [place] [address] unspecified Therapy [phone] laterality (Primary [address] (Work) Dx) [place] [id number] Social History Tobacco Use Types Packs/Day Years Used Date Never Smoker Smokeless Tobacco: Never Used Alcohol Use Standard Drinks/Week Comments No 0 (1 standard drink = 0.6 oz pure alcoho l) Sex Assigned at Date Recorded Not on file documented as of this encounter Progress Notes Debra Pendleton, PT - 08/21/2013 4:51 PM CDT Subjective: HPI Objective: System Physical Exam General ROS Assessment/Plan: SUBJECTIVE Subjective changes as noted by pt: Had a soccer tournament all weekend. 3 games and a practice over 3 days. Played 90% of the time. Pain (7/10) started on Wednesday for 1 day. Did not use ice. Current pain level: 2/10 Changes in function: Yes (See Goal flowsheet attached for changes in current functional level) Adverse reaction to treatment or activity: None OBJECTIVE Changes in objective findings: Yes, Bilateral hip abduction grade 4+/5. Fair abdominal control. Fairto good hip control with 4 inch step down bilaterally. ASSESSMENT Teodora continues to require intervention to meet STG and LTG's: PT Patient's symptoms are resolving. Response to therapy has shown an improvement in strength and muscle control Progress made towards STG/LTG? Yes (See Goal flowsheet attached for updates on achievement of STG and LTG) PLAN Current treatment program is being advanced to more complex exercises. SEWING MACHINE OPERATOR SEMIAUTOMATIC/ATC plan: N/A Please refer to the daily flowsheet for treatment today, total treatment time and time spent performing 1:1 timed codes. documented in this encounter Plan of Treatment Not on filedocumented as of this encounter Procedures Procedure Name Priority Date/Time Associated Diagnosis Comme nts Z NEUROMUSCULAR Routine 08/21/2013 4:52 PM Pain in joint, pe lvic RE-EDUCATION CDT region and thigh, unspecified laterality [facility] THERAPEUTIC EXERCISES Routine 08/21/2013 4:52 PM Pain in j oint, pelvic CDT region and thigh, unspecified laterality documented in this encounter Visit Diagnoses Diagnosis Pain in joint, pelvic region and thigh, unspecified laterality - Primary documented in this encounter Care Teams Drill Foreman Relationship Specialty Start Date End Date Caryl Trujillo MD PCP - General Family Practice 12/16/10 documented as of this encounter
--- OUTSIDE RECORDS SUMMARY | 2021-12-30 10:45 | XMS_ITS | Encounter Summary ---
:2000 Author Organization [facility] Address [address] [place] [address]. [place] [address] Care Team Providers Name Role Phone Caryl Trujillo MD Primary Care Provider [phone] Reason for Visit Reason Comments Refill Request Adderall Vaginal Problem mass in labia area Encounter Details Date Type Department Care Team Description 03/29/2014 Office Visit [facility] Marshal Young ADHD (att ention deficit hyperactivity disorder) (Primary Dx); Clinic Vitor Cuello MD Labial abscess [address] [address] [facility], [address] [place] [phone] Social History Tobacco Use Types Packs/Day Years Used Date Never Smoker Smokeless Tobacco: Never Used Alcohol Use Standard Drinks/Week Comments No 0 (1 standard drink = 0.6 oz pure alcoho l) Sex Assigned at Date Recorded Not on file documented as of this encounter Last Filed Vital Signs Vital Sign Reading Time Taken Comments Blood Pressure 80/56 03/29/2014 2:39 PM SCALING MACHINE OPERATOR Pulse 64 03/29/2014 2:39 PM SCALING MACHINE OPERATOR Temperature 36.9 ??C (98.5 ??F) 03/29/2014 2:39 PM SCALING MACHINE OPERATOR Respiratory Rate 16 03/29/2014 2:39 PM SCALING MACHINE OPERATOR Oxygen Saturation - - Inhaled Oxygen Concentration - - Weight 55.8 kg (123 lb) 03/29/2014 2:39 PM SCALING MACHINE OPERATOR Height - - Body Mass Index - - documented in this encounter Progress Notes Marshal Young MD - 03/29/2014 2:34 PM CST HPI SUBJECTIVE: Teodora Eisenberg is a 14 year old female who presents to clinic today for the following health issues: Medication Followup of Adderall ?? Taking Medication as prescribed: yes ?? Side Effects: None ?? Medication Helping Symptoms: yes Mass/vaginal area ?? Duration: about a week ?? Description (location/character/radiation): painful, getting bigger, redness, hard ball ?? Intensity: severe ?? Accompanying signs and symptoms: warm to touch ?? History (similar episodes/previous evaluation): None ?? Precipitating or alleviating factors: None ?? Therapies tried and outcome: None Has a sore on R labia for the last week. Getting bigger, purple initially, seems to be resolving. Even underwear rubbing on it is uncomfortable. No fever, vaginal discharge. LMP approx 03/12/14. No bleeding, pus. No interventions tried. Review of Systems Constitutional: Negative for fever and weight loss. Gastrointestinal: Negative. Genitourinary: Negative. Labial sore Physical Exam Constitutional: She is oriented to person, place, and time and well-developed, well-nourished, and in no distress. Eyes: Conjunctivae and EOM are normal. Cardiovascular: Normal rate, regular rhythm and normal heart sounds. Pulmonary/Chest: Effort normal and breath sounds normal. Abdominal: Soft. Bowel sounds are normal. There is no tenderness. There is no rebound and no guarding. Genitourinary: Vulva exhibits lesion. No vaginal discharge found. 3mm abscess between superior R labia and clitoral clarke. Musculoskeletal: She exhibits no edema. Neurological: She is alert and oriented to person, place, and time. Skin: Skin is warm and dry. Vitals reviewed. (314.01) ADHD (attention deficit hyperactivity disorder) (primary encounter diagnosis) Comment: Plan: amphetamine-dextroamphetamine (ADDERALL XR) 20 MG per capsule, amphetamine-dextroamphetamine (ADDERALL XR) 20 MG per capsule, amphetamine-dextroamphetamine (ADDERALL XR) 20 MG per capsule (616.4) Labial abscess Comment: Verbal consent obtained. Area prepped with alcohol. Anesthesia with ethyl chloride. Incision into abscess made with 18ga needle. Contents expressed. Dry dressing applied. Patient tolerated procedure well. Plan: DRAIN SKIN ABSCESS SIMPLE/SINGLE RTC in 1w Marshal Young MD ING MACHINE OPERATOR documented in this encounter Nursing Notes Josefina Moore MA - 03/29/2014 2:43 PM CST Chief Complaint Patient presents with ??? Refill Request Adderall ??? Vaginal Problem mass in labia area Initial BP 80/56 Pulse 64 Temp(Src) 98.5 ??F (36.9 ??C) (Oral) Resp 16 Wt 123 lb (55.792 kg) ? No Estimated body mass index is 22.12 kg/(m^2) as calculated from the following: Height as of 01/02/14: 5' 2.5 (1.588 m). Weight as of this encounter: 123 lb (55.792 kg). BP completed using cuff size: regular Josefina Moore MA ING MACHINE OPERATOR documented in this encounter Plan of Treatment Not on filedocumented as of this encounter Procedures Procedure Name Priority Date/Time Associated Diagnosis Comme nts HC DRAIN SKIN ABSCESS Routine 03/29/2014 3:17 PM SCALING MACHINE OPERATOR Labial ab scess SIMPLE/SINGLE documented in this encounter Visit Diagnoses Diagnosis ADHD (attention deficit hyperactivity di sorder) - Primary Attention deficit disorder with hyperact ivity Labial abscess Other abscess of vulva documented in this encounter Care Teams Textile Screen Maker Relationship Specialty Start Date End Date Caryl Trujillo MD PCP - General Family Practice 12/16/10 documented as of this encounter
--- OUTSIDE RECORDS SUMMARY | 2021-12-30 10:45 | XMS_ITS | Encounter Summary ---
:2000 Author Organization [place] Address [address] [facility] [place] [address] Care Team Providers Name Role Phone Caryl Trujillo MD Primary Care Provider [phone] Reason for Referral [facility] Physical Therapy - Closed Specialty Diagnoses / Procedures Referred By Contact Refer red To Contact Diagnoses Pain in joint, pelvic region and thigh, unspecified laterality Artemio Byers, [facility]-C MED [id number] [address] [place] [id number] Phone: [phone] Referral ID Status Reason Start Date Expiration Date Visits Requ ested Visits Authorized [id number] Closed 06/20/2013 12/17/2013 1 1 FORGER HELPER Reason for Visit Reason Comments Musculoskeletal Problem left hip, painful, sees chir o, Encounter Details Date Type Department Care Team Description 06/20/2013 Office Visit [facility] Artemio Byers Pain i n joint, pelvic Clinic Vitor Mir PA-C region and thigh, [address] [address] [facility] [address], [address] [place] [address] laterality (Primary [place], [place] [phone] (Wo rk) Dx) [address] [phone] Social History Tobacco Use Types Packs/Day Years Used Date Never Smoker Smokeless Tobacco: Never Used Alcohol Use Standard Drinks/Week Comments No 0 (1 standard drink = 0.6 oz pure alcoho l) Sex Assigned at Date Recorded Not on file documented as of this encounter Last Filed Vital Signs Vital Sign Reading Time Taken Comments Blood Pressure 82/40 06/20/2013 4:32 PM DROP FORGER HELPER Pulse 64 06/20/2013 4:32 PM DROP FORGER HELPER Temperature 36.9 ??C (98.5 ??F) 06/20/2013 4:32 PM DROP FORGER HELPER Respiratory Rate 20 06/20/2013 4:32 PM DROP FORGER HELPER Oxygen Saturation - - Inhaled Oxygen Concentration - - Weight 54 kg (119 lb) 06/20/2013 4:32 PM DROP FORGER HELPER Height 158.1 cm (5' 2.25) 06/20/2013 4:32 PM DROP FORGER HELPER Body Mass Index 21.59 06/20/2013 4:32 PM DROP FORGER HELPER Body Mass Index Percentile 66.65 % 06/20/2013 4:32 PM CS T Growth Chart: [facility] (Girls, 2-20 Years) documented in this encounter Patient Instructions Patient InstructionsChrisArtemio mcallister PA-C - 06/20/2013 4:53 PM DROP FORGER HELPER Physical Therapy referral given. Xrays done today. Take 400mg ibuprofen three times daily for 1-2 weeks. Rest from soccer for one week. Follow up after Physical Therapy if still having pain. FORGER HELPER documented in this encounter Progress Notes Artemio Manzo PA-C - 06/20/2013 4:30 PM CST SUBJECTIVE: Teodora Eisenberg is a 13 year old female who presents to clinic today for the following health issues: Musculoskeletal problem/pain ?? Duration: couple years ?? Description Location: left hip ?? Intensity: moderate ?? Accompanying signs and symptoms: weakness of left leg and cramping ?? History Previous similar problem: no Previous evaluation: none ?? 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 Therapies tried and outcome: massage, stretching, NSAID - Ibuprofen and chiropractor Patient has had pain on and off in both hips for two years. In the last two weeks she noticed that she can pop the hip joints out of place if she places stress on them. She does cheerleading and soccer. Has noticed that these activities both worsen her pain. Problem list and histories reviewed & adjusted, as indicated. Additional history: as documented Problem list, Medication list, Allergies, and Medical/Social/Surgical histories reviewed in [facility] andupdated as appropriate. ROS: Constitutional, HEENT, cardiovascular, pulmonary, gi and gu systems are negative, except as otherwise noted. OBJECTIVE: BP 82/40 Pulse 64 Temp 98.5 ??F (36.9 ??C) (Oral) Resp 20 Ht 5' 2.25 (1.581 m) Wt 119 lb (53.978 kg) BMI 21.59 kg/m2 ? No Body mass index is 21.59 kg/(m^2). GENERAL APPEARANCE: healthy, alert and no distress MS: extremities normal- no gross deformities noted ORTHO: Hip Exam: Palpation: Tender: None Range of Motion: Full ROM, both hips Strength: full strength but pain with opposed adduction and abduction Special tests: not done SKIN: no suspicious lesions or rashes NEURO: Normal strength and tone, mentation intact, speech normal and DTR symmetrically normal in lower extremities PSYCH: mentation appears normal and affect normal/bright Diagnostic test results: Xray - no acute abnormalities, will have radiology review it. ASSESSMENT/PLAN: 719.45 Pain in joint, pelvic region and thigh, unspecified laterality (primary encounter diagnosis) Comment: Plan: XR Pelvis 1/2 Views, [facility] PT, HAND, AND CHIROPRACTIC REFERRAL See Patient Instructions Artemio Manzo PA-C [facility] FORGER HELPER documented in this encounter Nursing Notes 06/20/2013 4:20 PM CST >> JONNATHAN Stout Jun 20, 2013 4:39 PM Patient presents with: Musculoskeletal Problem - left hip, painful, sees chiro, Initial BP 82/40 Pulse 64 Temp 98.5 ??F (36.9 ??C) (Oral) Resp 20 Ht 5' 2.25 (1.581 m) Wt119 lb (53.978 kg) BMI 21.59 kg/m2 ? NoBMIHIS@ BP Completed using cuff size regular Health maintenance updated yes Josefina Moore MA documented in this encounter Plan of Treatment Scheduled Referrals Name Type Priority Associated Diagnoses Order S chedule [facility] PT, HAND, AND Referral Routine Pain in joint, pelvic O rdered: 06/20/2013 CHIROPRACTIC REFERRAL region and thigh, unspecified laterality documented as of this encounter Visit Diagnoses Diagnosis Pain in joint, pelvic region and thigh, unspecified laterality - Primary documented in this encounter Care Teams Medical Transcription Relationship Specialty Start Date End Date Caryl Trujillo MD PCP - General Family Practice 12/16/10 documented as of this encounter
--- OUTSIDE RECORDS SUMMARY | 2021-12-30 10:45 | XMS_ITS | Encounter Summary ---
:2000 Author Organization [place] Address [facility] [place] [place] [address] Care Team Providers Name Role Phone Caryl Trujillo MD Primary Care Provider [phone] Encounter Details Date Type Department Care Team Description 06/20/2013 Radiant Appointment [facility] Artemio Byers Pain in joint, Clinic [place] NAZARIO Mir pelvic region and [address] [address] [address] thigh, [address], [address] [place] [address] [id number] Social History Tobacco Use Types Packs/Day Years Used Date Never Smoker Smokeless Tobacco: Never Used Alcohol Use Standard Drinks/Week Comments No 0 (1 standard drink = 0.6 oz pure alcoho l) Sex Assigned at Date Recorded Not on file documented as of this encounter Plan of Treatment Not on filedocumented as of this encounter Procedures Procedure Name Priority Date/Time Associated Diagnosis Comme nts XR PELVIS 1/2 VIEWS Routine 06/20/2013 5:00 PM Pain in joint, Results for this [employer] pelvic region and procedure are in thigh, unspecified the resul ts laterality section. documented in this encounter Results XR Pelvis 1/2 Views (06/20/2013 5:00 PM [employer]) Anatomical Region Laterality Modality Abdomen/Pelvis Computed Radiography Specimen (Source) Anatomical Location Collection Method / Collectio n Time Received Time / Laterality Volume Impressions 06/21/2013 8:52 AM [employer] IMPRESSION: Negative. ?? FABIAN LOONEY MD Narrative 06/21/2013 8:52 AM [employer] PELVIS ONE TO TWO VIEWS June 20, 2013 5:00 PM ?? HISTORY: Pain in joint, pelvic region an d thigh. COMPARISON: 08/01/2012 CT. FINDINGS: No acute fracture, degenerativ e change or soft tissue abnormality. Procedure Note Fabian Looney MD - 06/21/2013Format ting of this note might be different from the original. PELVIS ONE TO TWO VIEWS June 20 5:00 PM HISTORY: Pain in joint, pelvic region an d thigh. COMPARISON: 08/01/2012 CT. FINDINGS: No acute fracture, degenerativ e change or soft tissue abnormality. IMPRESSION IMPRESSION: Negative. FABIAN LOONEY MD Artemio Byers PA-C IMG DIAGNOSTIC IMAGING ORDER FRANCES documented in this encounter Visit Diagnoses Diagnosis Pain in joint, pelvic region and thigh, unspecified laterality documented in this encounter Care Teams Support Service Tech Relationship Specialty Start Date End Date Caryl Trujillo MD PCP - General Family Practice 12/16/10 documented as of this encounter
--- OUTSIDE RECORDS SUMMARY | 2021-12-30 10:45 | XMS_ITS | Encounter Summary ---
:2000 Author Organization [facility] Address [address] [place] [address]. [place] [address] Care Team Providers Name Role Phone Caryl Trujillo MD Primary Care Provider [phone] Reason for Visit Reason Comments A.D.H.D med check has some concerns Sports Physical forms Encounter Details Date Type Department Care Team Description 12/05/2013 Office Visit [facility] Marshal Young ADHD (att ention deficit Clinic Vitor Cuello MD hyperactivity disorder) [address] [address] [facility] (Primary Dx) [facility], [address] [place] [id number] Social History Tobacco Use Types Packs/Day Years Used Date Never Smoker Smokeless Tobacco: Never Used Alcohol Use Standard Drinks/Week Comments No 0 (1 standard drink = 0.6 oz pure alcoho l) Sex Assigned at Date Recorded Not on file documented as of this encounter Last Filed Vital Signs Vital Sign Reading Time Taken Comments Blood Pressure 100/58 12/05/2013 8:33 AM CDT Pulse 60 12/05/2013 8:33 AM CDT Temperature 36.9 ??C (98.4 ??F) 12/05/2013 8:33 AM CDT Respiratory Rate 12 12/05/2013 8:33 AM CDT Oxygen Saturation - - Inhaled Oxygen Concentration - - Weight 54.9 kg (121 lb) 12/05/2013 8:33 AM CDT Height 158.8 cm (5' 2.5) 12/05/2013 8:33 AM CDT Body Mass Index 21.78 12/05/2013 8:33 AM CDT Body Mass Index Percentile 66.08 % 12/05/2013 8:33 AM CD T Growth Chart: [facility] (Girls, 2-20 Years) documented in this encounter Progress Notes Marshal Young MD - 12/05/2013 8:47 AM CDT HPI Needs sports physical forms for the fall. Had WCC in September of this year. Being seen at peds rheum forjoint and muscle pain. Having more issues with ADHD. Decided to try Vyvance recently, didn't work well, went back to Adderall. Feels that being on meds makes her angrier. Mom notes variable moods between happy, mad and tunedout. Mom feels that mood shifts are impacting family. Has not been on meds recently, impulsive behaviors, spent a day at a friends house without communicating to parents. Mom has been journaling, noteschange in behaviors sometime before the end of the school year. First went on Vyvance in 03/08, doseup in 04/07, back to Adderall on 10/07. Reports some friends that are more about fun than being a good person - felt pressured to smoke MJ recently. Has been withdrawing from this friend group. Denies sexual activity, abuse, other drug use. Feels that Vyvanse doesn't help, but Adderall makes her irritable. Has not yet tried shorter acting meds.(314.01) ADHD (attention deficit hyperactivity disorder) (primary encounter diagnosis) Comment: will trial concerta, referred to CBT Plan: methylphenidate (CONCERTA) 27 MG CR tablet Greater than 50% of this 45 minute visit spent in counseling and coordination of care. Topics discussed included: direct couselling, philosophy and limits of stumlants, referral and coordination RTC in 2w Marshal Young MD ROS Physical Exam documented in this encounter Plan of Treatment Not on filedocumented as of this encounter Visit Diagnoses Diagnosis ADHD (attention deficit hyperactivity di sorder) - Primary Attention deficit disorder with hyperact ivity documented in this encounter Care Teams Scheduling Administrator Relationship Specialty Start Date End Date Caryl Trujillo MD PCP - General Family Practice 12/16/10 documented as of this encounter
--- OUTSIDE RECORDS SUMMARY | 2021-12-30 10:45 | XMS_ITS | Encounter Summary ---
:2000 Author Organization [place] Address [address] [place] [address]. [place] [address] Care Team Providers Name Role Phone Caryl Trujillo MD Primary Care Provider [phone] Encounter Details Date Type Department Care Team Description 08/30/2013 Therapy Visit [place] for Debra Pendleton, PT Pain in joint, pelvic Athletic Medicine - [address] region and thigh, Marcelina Physical [place] [address] unspecified Therapy [phone] laterality (Primary [address] (Work) Dx) [place] [address] Social History Tobacco Use Types Packs/Day Years Used Date Never Smoker Smokeless Tobacco: Never Used Alcohol Use Standard Drinks/Week Comments No 0 (1 standard drink = 0.6 oz pure alcoho l) Sex Assigned at Date Recorded Not on file documented as of this encounter Progress Notes Debra Pendleton, PT - 08/30/2013 4:58 PM CDT Subjective: HPI Objective: System Physical Exam General ROS Assessment/Plan: SUBJECTIVE Subjective changes as noted by pt: Wednesday was playing soccer and sustained a concussion. She is onrestricted activity. No hip pain. Current pain level: (2/10 right, 0/10 left) Changes in function: Yes (See Goal flowsheet attached for changes in current functional level) Adverse reaction to treatment or activity: None OBJECTIVE Changes in objective findings: Yes, Bilateral 4+/5 bilaterally. Fair to good abdominal control. Faircontrol with SL squat on right, fair to good on left. ASSESSMENT Teodora continues to require intervention to meet STG and LTG's: PT Patient's symptoms are resolving. Response to therapy has shown an improvement in muscle control Progress made towards STG/LTG? Yes (See Goal flowsheet attached for updates on achievement of STG and LTG) PLAN Current treatment program is being advanced to more complex exercises. MEAT COUNTER WORKER/ATC plan: N/A Please refer to the daily flowsheet for treatment today, total treatment time and time spent performing 1:1 timed codes. documented in this encounter Plan of Treatment Not on filedocumented as of this encounter Procedures Procedure Name Priority Date/Time Associated Diagnosis Comme nts [facility] [[email or web address]] NEUROMUSCULAR Routine 08/30/2013 5:33 PM Pain in joint, pe lvic RE-EDUCATION CDT region and thigh, unspecified laterality [facility] [[email or web address]] THERAPEUTIC EXERCISES Routine 08/30/2013 5:33 PM Pain in j oint, pelvic CDT region and thigh, unspecified laterality documented in this encounter Visit Diagnoses Diagnosis Pain in joint, pelvic region and thigh, unspecified laterality - Primary documented in this encounter Care Teams Cloth Seconds Sorter Relationship Specialty Start Date End Date Caryl Trujillo MD PCP - General Family Practice 12/16/10 documented as of this encounter
--- OUTSIDE RECORDS SUMMARY | 2021-12-30 10:45 | XMS_ITS | Encounter Summary ---
:2000 Author Organization [facility] Address [address] [place] [address]. [place] [address] Care Team Providers Name Role Phone Caryl Trujillo MD Primary Care Provider [phone] Reason for Visit Reason Comments Concussion Auth/Cert - Closed Specialty Diagnoses / Procedures Referred By Contact Refer red To Contact Pediatrics Diagnoses Appendicitis [id number] [facility] Procedures APPENDECTOMY OPEN [address] [place] [phone] Phone: Fax: Referral ID Status Reason Start Date Expiration Date Visits Requ ested Visits Authorized Closed 08/01/2012 01/28/2013 Encounter Details Date Type Department Care Team Description 08/01/2012 Surgery [facility] Lakisha Dash MD APPENDECTOMY OPEN [facility] [address] [place] [address] [place] [address] Surgery Details Date/Time Status Location OR Service Patient Class Case Case Trauma Class Type Case? 08/01/12 6:00 AM Posted OR OR 02 General Inpatient Panel 1 Procedure [facility] Anes Op Region Wound Class Commen ts APPENDECTOMY OPEN N/A General Abdomen II-Clean Contamina samantha APPENDECTOMY OPEN Surgeon Surgeon Role Service Panel Lakisha Díaz MD Primary General 1 documented in this encounter Social History Tobacco Use Types Packs/Day Years Used Date Never Smoker Alcohol Use Standard Drinks/Week Comments No 0 (1 standard drink = 0.6 oz pure alcoho l) Sex Assigned at Date Recorded Not on file documented as of this encounter Last Filed Vital Signs Vital Sign Reading Time Taken Comments Blood Pressure 117/63 08/01/2012 2:12 AM CDT Pulse - - Temperature 37.1 ??C (98.7 ??F) 08/01/2012 2:12 AM CDT Respiratory Rate 20 08/01/2012 5:00 AM CDT Oxygen Saturation 99% 08/01/2012 5:00 AM CDT Inhaled Oxygen Concentration - - Weight 56 kg (123 lb 7.3 oz) 07/31/2012 10:18 PM CDT Height - - Body Mass Index - - documented in this encounter Discharge Instructions Discharge InstructionsCarol Gregory PA-C - 08/01/2012 1:57 PM CDT HOME CARE FOLLOWING APPENDECTOMY Car Alicia, Grabiel Cerda, Velma Vázquez, R. O???Hany Ortiz INCISIONAL CARE: Replace the bandage over your incision (or incisions) until all drainage stops, or if more comfortable to have in place. If present, leave the steri-strips (white paper tapes) in place till they fall off. If you have liliana in your incision at the time of discharge, they will be removed at your follow-up appointment. If Dermabond (a type of skin glue) is present, leave in place until it wears/flakesoff. BATHING: Avoid baths for 1 week after surgery. Showers are okay. You may wash your hair at any time. Gently pat your incision dry after bathing. ACTIVITY: Light Activity -- you may immediately be up and about as tolerated. Driving -- you may drive when comfortable and off narcotic pain medications. Light Work -- resume when comfortable off pain medications. (If you can drive, you probably can work.) Strenuous Work/Activity -- limit lifting to 20 pounds for 1 week. Progressively increase with time. Active Sports (running, biking, etc.) -- cautiously resume after 2 weeks. DISCOMFORT: Use pain medications as prescribed by your surgeon. Take the pain medication with some food, when possible, to minimize side effects. Intermittent use of ice packs at the incision sites may help duringthe first 48 hours. Expect gradual improvement. DIET: No restrictions. Drink plenty of fluids. While taking pain medications, increase dietary fiber or add a fiber supplementation like Metamucil or Citrucel to help prevent constipation - a possible side effect of pain medications. NAUSEA: If nauseated from the anesthetic/pain meds; rest in bed, get up cautiously with assistance, and drink clear liquids (juice, tea, broth). RETURN APPOINTMENT: Schedule a follow-up visit 1-3 weeks post-op. Office CONTACT US IF THE FOLLOWING DEVELOPS: 1. A fever that is above 101?? 2. If there is a large amount of drainage, bleeding, or swelling. 3. Severe pain that is not relieved by your prescription. 4. Drainage that is thick, cloudy, yellow, green or white. 5. Any other questions not answered by ???Frequently Asked Questions?? sheet. FREQUENTLY ASKED QUESTIONS: Q: How should my incision look? A: Normally your incision will appear slightly swollen with light redness directly along the incision itself as it heals. It may feel like a bump or ridge as the healing/scarring happens, and over time(3-4 months) this bump or ridge feeling should slowly go away. In general, clear or pink watery drainage can be normal at first as your incision heals, but should decrease over time. Q: How do I know if my incision is infected? A: Look at your incision for signs of infection, like redness around the incision spreading to surrounding skin, or drainage of cloudy or foul-smelling drainage. If you feel warm, check your temperature to see if you are running a fever. If any of these things occur, please notify the nurse at our office. We may need you to come into the office for an incision check. Q: How do I take care of my incision? A: If you have a dressing in place - Starting the day after surgery, replace the dressing 1-2 times a day until there is no further drainage from the incision. At that time, a dressing is no longer needed. Try to minimize tape on the skin if irritation is occurring at the tape sites. If you have significant irritation from tape on the skin, please call the office to discuss other method of dressing your incision. Small pieces of tape called ???steri-strips?? may be present directly overlying your incision; these may be removed 10 days after surgery unless otherwise specified by your surgeon. If these tapes start to loosen at the ends, you may trim them back until they fall off or are removed. A: If you had ???Dermabond?? tissue glue used as a dressing (this causes your incision to look shiny with a clear covering over it) - This type of dressing wears off with time and does not require more dressings over the top unless it is draining around the glue as it wears off. Do not apply ointments or lotions over the incisions until the glue has completely worn off. Q: There is a piece of tape or a sticky ???lead?? still on my skin. Can I remove this? A: Sometimes the sticky ???leads?? used for monitoring during surgery or for evaluation in the emergency department are not all removed while you are in the hospital. These sometimes have a tab or metal dot on them. You can easily remove these on your own, like taking off a band-aid. If there is a gel substance under the ???lead?? , simply wipe/clean it off with a washcloth or paper towel. Q: What can I do to minimize constipation (very hard stools, or lack of stools)? A: Stay well hydrated. Increase your dietary fiber intake or take a fiber supplement -with plenty ofwater. Walk around frequently. You may consider an cvno-jpz-[id number] stool-softener. Your Pharmacist can assist you with choosing one that is stocked at your pharmacy. Constipation is also one of the most common side effects of pain medication. If you are using pain medication, be pro-active and try toPREVENT problems with constipation by taking the steps above BEFORE constipation becomes a problem. Q: What do I do if I need more pain medications? A: Call the office to receive refills. Be aware that certain pain meds cannot be called into a pharmacy and actually require a paper prescription. A change may be made in your pain med as you progress thru your recovery period or if you have side effects to certain meds. --Pain meds are NOT refilled after 5pm on weekdays, and NOT AT ALL on the weekends, so please look ahead to prevent problems. Q: Why am I having a hard time sleeping now that I am at home? A: Many medications you receive while you are in the hospital can impact your sleep for a number of days after your surgery/hospitalization. Decreased level of activity and naps during the day may alsomake sleeping at night difficult. Try to minimize day-time naps, and get up frequently during the day to walk around your home during your recovery time. Sleep aides may be of some help, but are not recommended for long-term use. Q: I am having some back discomfort. What should I do? A: This may be related to certain positioning that was required for your surgery, extended periods of time in bed, or other changes in your overall activity level. You may try ice, heat, acetaminophen,or ibuprofen to treat this temporarily. Note that many pain medications have acetaminophen in them and would state this on the prescription bottle. Be sure not to exceed the maximum of 4000mg per day of acetaminophen. If the pain you are having does not resolve, is severe, or is a flare of back pain you have had onother occasions prior to surgery, please contact your primary physician for further recommendations or for an appointment to be examined at their office. Q: Why am I having headaches? A: Headaches can be caused by many things: caffeine withdrawal, use of pain meds, dehydration, high blood pressure, lack of sleep, over-activity/exhaustion, flare-up of usual migraine headaches. If youfeel this is related to muscle tension (a band-like feeling around the head, or a pressure at the low-back of the head) you may try ice or heat to this area. You may need to drink more fluids (try electrolyte drink like Gatorade), rest, or take your usual migraine medications. If your headaches do not resolve, worsen, are accompanied by other symptoms, or if your blood pressure is high, please call your primary physician for recommendation and/or examination. Q: I am unable to urinate. What do I do? A: A small percentage of people can have difficulty urinating initially after surgery. This includesbeing able to urinate only a very small amount at a time and feeling discomfort or pressure in the very low abdomen. This is called ???urinary retention?? , and is actually an urgent situation. Proceedto your nearest Emergency department for evaluation (not an Urgent Care Center). Sometimes the bladder does not work correctly after certain medications you receive during surgery, or related to certain procedures. You may need to have a catheter placed until your bladder recovers. When planning to goto an Emergency department, it may help to call the ER to let them know you are coming in for this problem after a surgery. This may help you get in quicker to be evaluated. If you have symptoms of a urinary tract infection, please contact your primary physician for the proper evaluation and treatment. If you have other questions, please call the office Wednesday thru Wednesday between 8am and 5pm to discuss with the nurse or physician personal injury legal assistant. # There is a surgeon WATER QUALITY ANALYST on weekday evenings and over the weekend in case of urgent need only, andmay be contacted at the same number. If you are having an emergency, call 911 or proceed to your nearest emergency department. documented in this encounter Medications at Time of Discharge Medication Sig Dispensed Refills Start Date End Date Amphetamine-Dextroamphetam Take 10 mg by mouth 0 10/10/2013 ine (ADDERALL XR PO) daily. HYDROcodone-acetaminophen Take 1 tablet by 30 tablet 0 11/201209/26/2012 5-325 MG per mouth every 4 hours tabletIndications: as needed. Appendicitis documented as of this encounter Progress Notes Carol Gregory PA-C - 08/01/2012 1:[address] [facility] General Surgery Progress Note Assessment and Plan: Assessment: POD#0 s/p Procedure(s) with comments: APPENDECTOMY OPEN - APPENDECTOMY OPEN Plan: DC home when meets criteria Rx [facility] 1-3 weeks Interval History: Pain controlled with IV meds. C/o nausea this am, controlled now with Zofran. Up to bathroom only. Not voiding normally yet. Tolerating clear liquids. No flatus yet. Physical Exam: Blood pressure 98/60, temperature 97.6 ??F (36.4 ??C), temperature source Axillary, resp. rate 16, weight 56 kg (123 lb 7.3 oz), last menstrual period 07/29/2012, SpO2 99.00%. I/O last 3 completed shifts: In: 1037.5 [I.V.:1037.5] Out: 130 [Urine:125; Blood:5] Abdomen: soft, non-distended, tenderness noted in the right lower quadrant Inc(s) - clean, dry, intact Data: Recent Labs Lab Test 07/31/12 2246 HGB 13.9 WBC 17.3* Carol Gregory PA-C documented in this encounter H&P Notes Lakisha Díaz MD - 08/01/2012 5:[address] [facility] - H&P Teodora Eisenberg Age: [age] year old Date of : 2000 HPI: Patient has been experiencing acute RLQ and generalized abdominal pain for the past 36 hours associated with nausea and anorexia. These symptoms have been increasing in severity. Patient denies fever, chills, dysuria or diarrhea. History is obtained from the patient and the patient's parent(s) Review Of Systems: Respiratory: No shortness of breath, dyspnea on exertion, cough, or hemoptysis Cardiovascular: negative Gastrointestinal: as above Genitourinary: negative PMH: Past Medical History Diagnosis Date ??? ADHD (attention deficit hyperactivity disorder) PSH: History reviewed. No pertinent past surgical history. Allergies: No Known Allergies Home Medications: Outpatient Prescriptions Marked as Taking for the 07/31/12 encounter (Hospital Encounter): Amphetamine-Dextroamphetamine (ADDERALL PO) Take by mouth. Disp: Rfl: Social History: History Substance Use Topics ??? Smoking status: Never Smoker ??? Smokeless tobacco: Not on file ??? Alcohol Use: No Objective: BP 117/63 Temp(Src) 98.7 ??F (37.1 ??C) (Oral) Resp 20 Wt 56 kg (123 lb 7.3 oz) SpO2 99% LMP 07/29/2012 General appearance: healthy, alert and mild distress Hydration: mildly dehydrated Neck: normal, supple and no adenopathy Lungs: normal and clear to auscultation Heart: regular rate and rhythm and no murmurs, clicks, or gallops Abdomen: flat and symmetric, hypoactive bowel sounds. Tenderness: present: RLQ moderate Masses: none Organomegaly: none Labs Reviewed: WBC 17.3 07/31/2012 HGB 13.9 07/31/2012 PLT 197 07/31/2012 Last Basic Metabolic Panel: NA 142 07/31/2012 POTASSIUM 3.9 07/31/2012 CHLORIDE 102 07/31/2012 BRIEN 9.5 07/31/2012 CO2 28 07/31/2012 BUN 7 07/31/2012 CR 0.71 07/31/2012 GLC 74 07/31/2012 Radiology: CT abdomen reveals a dilated, thick-walled appendix with surrounding fat stranding. Appendix is retrocecal. All imaging studies reviewed by me. ASSESSMENT/PLAN: The patient's history, physical exam, laboratory and imaging studies are suspicious for acute appendicitis. I have offered the patient appendectomy. The risks, benefits, and alternatives have been discussed in detail. All of the patient's questions have been answered. They elect to proceed and we willgo to the OR at the soonest availability. Pre-operative antibiotics have been ordered. Lakisha Díaz MD documented in this encounter Nursing Notes Kendra Mac RN - 08/01/2012 7:38 AM CDT At 7:30, pt had a short episode of irregular heart rythmn. Dr. Corona notified. Mother states pt has seen a multiple drill operator in the past for irregular heart beat. BP remains stable. Pt sleepy. documented in this encounter ED Notes Javier Harden - 07/31/2012 11:09 PM CDT Patient transported to Radiology (CT). Lupis Renae MD - 07/31/2012 10:29 PM CDT History Chief Complaint: Headache HPI Teodora Eisenberg is a 12 year old female who presents with a headache. Yesterday the patient was playing volleyball when she struck her right forehead. She did not lose consciousness or vomit. Since then she has had a headache while feeling nauseated, dizzy and irritable. Then this evening she began to feel diffuse abdominal pain so she decided to present here to the ED. Currently the patient rates her pain as 7/10 and describes it as a sharp sensation. The pain does not radiate to any other location and there are no exacerbating or relieving factors. The patient has not taken any medication for her symptoms today. She mentions that about a month ago she hit her head for which she visited her chiropractor. Otherwise the patient denies any fever, chills, appetite decrease, diarrhea,vomiting, cough, rash, dysuria, chest pain, neck pain, gait trouble, eye pain, confusion or any other physical complaints at this time. Allergies: None known Medications: Adderall Past Medical History: ADHD Unspecified ulceration of vulva Past Surgical History: The patient does not have any past pertinent surgical history. Family History: Family medical history: thyroid NOS Social History: Tobacco use: Never Alcohol use: No Patient presents to the ED with her mother. Review of Systems Constitutional: Negative for fever, chills and appetite change. HENT: Negative for neck pain. Eyes: Negative for pain. Respiratory: Negative for cough. Gastrointestinal: Positive for nausea and abdominal pain. Negative for vomiting and diarrhea. Genitourinary: Negative for dysuria. Musculoskeletal: Negative for gait problem. Skin: Negative for rash. Neurological: Positive for dizziness and headaches. Negative for syncope. Psychiatric/Behavioral: Positive for agitation. Negative for confusion. All other systems reviewed and are negative. Physical Exam First Vitals: BP: 123/68 mmHg Heart Rate: 66 Temp: 98.1 ??F (36.7 ??C) Resp: 18 Weight: 56 kg (123 lb 7.3 oz) SpO2: 100 % Physical Exam Constitutional: She is cooperative. HENT: Right Ear: Tympanic membrane normal. Left Ear: Tympanic membrane normal. Mouth/Throat: Oropharynx is clear and moist and mucous membranes are normal. Tender in the right temporal area, no step off or depression. Eyes: Conjunctivae are normal. Neck: Normal range of motion. Cardiovascular: Regular rhythm and normal heart sounds. Pulmonary/Chest: Effort normal and breath sounds normal. Abdominal: Soft. Normal appearance and bowel sounds are normal. There is tenderness. There is no rebound and no guarding. Tender in RLQ, maximal at [place]'s point. Musculoskeletal: Normal range of motion. Lymphadenopathy: She has no cervical adenopathy. Neurological: She is alert. She has normal strength and normal reflexes. No cranial nerve deficit orsensory deficit. Coordination and gait normal. GCS eye subscore is 4. GCS verbal subscore is 5. GCS motor subscore is 6. Skin: Skin is warm and dry. Psychiatric: She has a normal mood and affect. Emergency Department Course Imaging: CT head w/o contrast: No acute abnormality. Preliminary interpretation from Dr. Laughlin of Radiology at 2342. CT abdomen and pelvis: Acute appendicitis Laboratory: BMP: Cr 0.71 (WNL), otherwise (WNL) CBC: WBC 17.3 (H), HGB 13.9 (WNL), PLT 197 (WNL), %N 65.8 (H), otherwise (WNL) HCG qual: negative UA: clear, light yellow, Bld small (A), otherwise (WNL) Interventions: 2252: Zofran, 4 mg, PO 0032: Lidocaine 1 % 0032: Dilaudid, 0.4 mg, IV Iohexol, 25 ml, PO Iohexol, 25 ml, PO Iopamidol, 100 ml, IV ED Course: The patient was roomed. 2229: The patient's medical charts were reviewed and I examined the patient. I discussed the plan ofcare with the patient which included imaging studies and laboratory work. IV was inserted and blood was drawn. Patient improved after medication. Impression & Plan Medical Decision Makin y.o. young woman presented actually with a chief complaint of recent head injury. She reported that she had already felt unwell prior to playing volleyball yesterday and then sustained a head injury. Since then she has been feeling nauseated, dizzy and irritable. Only while here did she mention her abdominal pain which was becoming worse through the day today. Her head CT scan shows no significantevidence of intracranial injury. She does have significant leukocytosis, and CT confirms acute appendicitis. I think this rather than the head injury is the cause of her symptoms. Plan: I discussed the case with Dr. Díaz of general surgery. She will admit patient in anticipation of surgery. Diagnosis: 1. 541 Appendicitis (primary encounter diagnosis) I, Surya Willock, am serving as a scribe on 07/31/2012 at 10:29 PM to personally document services performed by Dr. Renae based on my observations and the provider's statements to me. Lupis Renae MD 08/01/12 0135 Osman Alonso, RN - 07/31/2012 10:21 PM CDT Patient alert and oriented x 4. ABC's intact. States struck her head yesterday playing volley ball.No LOC documented in this encounter Miscellaneous Notes Initial Assessments - Lakisha Díaz MD - 08/01/2012 11:16 PM CDT Provider Notification - Mary Dixon CCLS - 08/01/2012 3:49 PM CDT 08/01/12 1549 [facility] Location Med/Surg (inpt pediatric unit) Intervention Initial Assessment (provided movie at bedside) Anxiety Low Anxiety Outcomes/Follow Up Continue to Follow/Support Briefly introduced self to pt and family. Pt appears to be coping well with hospitalization and is present with Mom at bedside. Pt requesting movie which was provided to pt. No other needs noted at this time. Will continue to follow and support as needed throughout stay. Utilization Review - Mary Samuel MD - 08/01/2012 2:55 PM CDT Admission Status; Secondary Review Determination Under the authority of the Utilization Management Committee, the utilization review process indicated a secondary review on the above patient. The review outcome is based on review of the medical records, discussions with staff, and applying clinical experience noted on the date of the review. () Inpatient Status Appropriate - This patient's medical care is consistent with medical management for inpatient care and reasonable inpatient medical practice. () Observation Status Appropriate - This patient does not meet hospital inpatient criteria and is placed in observation status. If this patient's primary payer is Medicare and was admitted as an inpatient, Condition Code 44 should be used and patient status changed to observation. (X) Admission Status Not Appropriate - This patient's medical care is not consistent with medical management for Inpatient or Observation Status and is correctly admitted under PACU/outpatient management. RATIONALE FOR DETERMINATION Teodora Eisenberg is a 12 year old female who presents with about a 36 hours history of RLQ abdominal pain and diffuse abdominal pain. She has had nausea, anorexia and pain worse with movement. She has a physicial exam consistant with appendicitis and CT evidence of acute, retrocecal appendicitis. She was brought to the operating room at this time for appendectomy. For this admission: - Continuous pulse ox and vitals q4h - IV ertepenem, IVF bolus, IV dilaudid, morphine and fentanyl, IV Ancef, IV Zofran and IV decadron given preop/at time of surgery. Pt was admitted for acute, non-perforated appendicitis and surgical intervention. Given age and uncomplicated studies, care is consistent with outpatient management. The information on this document is developed by the utilization review team in order for the business office to ensure compliance. This only denotes the appropriateness of proper admission status and does not reflect the quality of care rendered. The definitions of Inpatient Status and Observation Status used in making the determination above are those provided in the CMS Coverage Manual, Chapter 1 and Chapter 6, section 70.4. Sincerely, Mary Samuel MD Utilization Review/ Case Management [facility] Admission Status; Secondary Review Determination Plan of Care - Roxane Garcia RN - 08/01/2012 1:29 PM CDT Problem: General Plan of Care (Pediatric) Goal: Individualization/Patient-Specific Goal (Pediatric) The patient and/or their employment program representative will achieve their patient-specific goals related to the plan of care. The patient-specific goals include:1. Will tolerate a regular diet. 2. Pain will be managed with oral medication. 3. Will tolerate ambulating in the tate. Outcome: Improving Pt returned from surgery early this shift. Heart rate irregular, baseline for patient. Dressing CDI.Morphine IV x1 for pain (was too soon to give toradol). Pt tried clear liquids; increased nausea. Zofran given x1. Pt voiding post surgery; became nauseated and dizzy when out of bed. Pt returned to bed. Enducated on deep breathing, coughing and abd splinting. Mom present in room. This afternoon, pt ambulated in hallway without difficulty. Toradol for pain. DC when criteria met. Pharmacy-Admission Medication History - Deuce Riley RPH - 08/01/2012 12:59 PM CDT Admission medication history interview status for this patient is complete. See [facility] admission navigator for allergy information, prior to admission medications and immunization status. Medication history interview source(s):Patient Medication history resources (including written lists, pill bottles, clinic record):None Primary pharmacy: Changes made to [facility] medication list: Added: adderall xl 10mg daily Deleted: none Changed: none Actions taken by pharmacist (provider contacted, etc):None Additional medication history information:None Medication reconciliation/reorder completed by provider prior to medication history? No Prior to Admission Medications Medication Last Dose Informant Patient Reported? Taking? Amphetamine-Dextroamphetamine (ADDERALL PO) Yes Yes Take by mouth. Amphetamine-Dextroamphetamine (ADDERALL XR PO) 07/31/2012 at Unknown Yes Yes Take 10 mg by mouth daily. Op Note - Lakisha Díaz MD - 08/01/2012 6:50 AM CDT PREOPERATIVE DIAGNOSIS: Acute appendicitis. POSTOPERATIVE DIAGNOSIS: Acute non-perforated, retrocecal appendicitis. PROCEDURE: Appendectomy. ANESTHESIA: General. PREOPERATIVE MEDICATION: Invanz 1 gm IV. SURGEON: Lakisha Díaz MD RETURNED TELEPHONE EQUIPMENT APPRAISER: NONE INDICATIONS: Teodora Eisenberg is a 12 year old female who presents with about a 36 hours history of RLQ abdominal pain and diffuse abdominal pain. She has had nausea, anorexia and pain worse with movement. She has a physicial exam consistant with appendicitis and CT evidence of acute, re trocecal appendicitis. She is brought to the operating room at this time for appendectomy. PROCEDURE: The patient was placed supine, abdomen prepped and draped in usual sterile fashion. Rightlower quadrant transverse incision is made and the abdomen is entered through the rectus sheath without dividing any rectus muscle fibers. Upon entering the abdomen, there was a small amount of clear fluid. Artemio wound protector was then placed in position and the appendix was easily palpable throughthe incision site. The appendix was carefully mobilized up into the incision by dividing the tight retroperitoneal attachments. It is clearly inflamed but non-perforated. The mesoappendix was taken down by double ligation and division. The base of the appendix was ligated with an 0 Vicryl and transected distal to the ligature. The stump was not inverted. The right lower quadrant was then copiously irrigated with Ancef solution and the returns are clear. Incision is then closed using running 0 Vicrylfor anterior and posterior fascia and 4-0 subcuticular Monocryl for skin. Exparel was instilled for p ostoperative pain control. The patient transferred to recovery in good condition. ESTIMATED BLOOD LOSS: Less than 10 cc. INTRAOPERATIVE FINDINGS: Acute non-perforated appendicitis. PLAN: Will need pain management. Okay to discharge when criteria are met. Plan of Care - Sharon Daly RN - 08/01/2012 4:59 AM CDT Problem: General Plan of Care (Pediatric) Goal: Individualization/Patient-Specific Goal (Pediatric) The patient and/or their employment program representative will achieve their patient-specific goals related to the plan of care. The patient-specific goals include:1. Will tolerate a regular diet. 2. Pain will be managed with oral medication. 3. Will tolerate ambulating in the tate. Outcome: No Change Has remained NPO. Denies nausea. Complained of mid abdominal pain rated 6. Morphine given with relief. Denies headache. Stated she was not dizzy when ambulating. Smiling and pleasant. Mom at bedside and appropriately concerned. Mom will go to pre-op with daughter. Taken to pre-op in wheelchair with IVsaline locked. Voided clear colored urine.. Plan of Care - Sharon Daly RN - 08/01/2012 4:19 AM CDT Problem: General Plan of Care (Pediatric) Goal: Individualization/Patient-Specific Goal (Pediatric) The patient and/or their employment program representative will achieve their patient-specific goals related to the plan of care. The patient-specific goals include:1. Will tolerate a regular diet. 2. Pain will be managed with oral medication. 3. Will tolerate ambulating in the tate. Outcome: No Change Denied abdominal pain on admit. REMOVER documented in this encounter Plan of Treatment Not on filedocumented as of this encounter Procedures Procedure Name Priority Date/Time Associated Diagnosis Comme nts SURGICAL PATHOLOGY Routine 08/01/2012 6:29 AM Res ults for this EXAM CDT procedure are i n the results section. APPENDECTOMY, OPEN 08/01/2012 5:[address] ABDOMEN PELVIS W STAT 08/01/2012 1:12 AM Re sults for this CONTRAST CDT procedure are i n the results section. CT HEAD W/O CONTRAST STAT 07/31/2012 11:35 Res ults for this PM CDT procedure are i n the results section. CBC WITH PLATELETS & STAT 07/31/2012 10:46 Res ults for this DIFFERENTIAL PM CDT procedure are i n the results section. ROUTINE UA WITH STAT 07/31/2012 10:46 Results for this MICROSCOPIC PM CDT procedure are i n the results section. HCG QUALITATIVE STAT 07/31/2012 10:46 Results for this PM CDT procedure are i n the results section. BASIC METABOLIC PANEL STAT 07/31/2012 10:46 Re sults for this PM CDT procedure are i n the results section. documented in this encounter Results Surgical pathology exam (08/01/2012 6:29 AM CDT) Component Value Ref Test Analysis Performed At [facility] Range Method Time Signature Copath Report Patient Name: TEODORA NÚÑEZ MR#: [id number] Specimen #: [id number] Collected: 08/01/2012 Received: 08/01/2012 Reported: 08/02/2012 11:41 Ordering Phy(s): LAKISHA DÍAZ SPECIMEN(S): Appendix FINAL DIAGNOSIS: Appendix, appendectomy - Acute appendicitis. Electronically signed out by: Wang Roe M.D. CLINICAL HISTORY: Appendicitis. GROSS: The specimen, labeled appendix, consists of an appendix me asuring 5.8 cm in length x up to 0.9 cm in diameter. ??The serosal surfa ce is congested. ??The mesoappendiceal margin proximally is 0.3 cm and in the mid portion 0.9 cm. ??No suspicious masses are seen on secti oning. ??Block 1 - proximal margin cross section and bisected tip; block 2 - cross sections. ??Entirely submitted. ??CARRIEK/sg MICROSCOPIC: Microscopic evaluation is performed. ERICK/vicky 08-02-12 TESTING LAB LOCATION: [address] ??[id number] COLLECTION SITE: Client: [facility] Location: RHPED (R) Specimen Anatomical Collection Method Collection Time Receive d Time (Source) Location / / Volume Laterality 08/01/2012 6:29 AM 3 7:11 CDT AM CDT Lakisha Díaz MD [facility] [employer] [facility] [employer] [facility] Performing Organization Address City/State/ZIP Code Phon e Number COPATH CT Abdomen Pelvis w Contrast (08/01/2012 1:12 AM CDT) Anatomical Region Laterality Modality Abdomen/Pelvis, SUBRAD CT BODY, UMP CT ABDOMEN PELVIS Computed Tomography Specimen (Source) Anatomical Collection Method Collection Time Re ceived Time Location / / Volume Laterality 08/01/2012 1:12 AM CDT Impressions 08/01/2012 11:44 AM CDT IMPRESSION: 1. Acute appendicitis. No evidence for a ssociated abscess or perforation. 2. Trace amount of free fluid in the pel vis is nonspecific, but likely related to the acute appendicitis . The preliminary report was provided by Sarath Laughlin at 1:21 AM. ELIDA RODRIGUEZ MD Narrative 08/01/2012 11:[address] ABDOMEN/PELVIS WITH CONTRAST August 01, 2012 1:12 AM HISTORY: Right lower quadrant pain. TECHNIQUE: 61 mL Isovue-370IV was admini stered without complication. Oral contrast was also administered. Aft er contrast administration, volumetric helical sections were acquire d from the lung bases to the ischial tuberosities. Coronal images wer e also reconstructed. COMPARISON: None. FINDINGS: The appendix is thickened and fluid-filled, measuring up to 0.9 cm in diameter. The appendix is note d to be in a retrocecal position. There is moderate periappendic eal inflammatory change. A small calcified appendicolith is noted w ithin the appendiceal lumen near the base. Findings are consistent w ith acute appendicitis. No evidence for periappendiceal abscess or perforation. Trace amount of free fluid in the pelvis is nonspecific, but is likely related to the appendicitis. No bowel obstruction. No f ree intraperitoneal air. The liver, gallbladder, spleen, adrenal glan ds, pancreas, and kidneys are unremarkable. No hydronephrosis. The janes g bases are clear. Bilateral L5 spondylolysis has a chronic appearanc e. Procedure Note Elida Rodriguez MD - 08/01/2012Forma tting of this note might be different from the original. CT ABDOMEN/PELVIS WITH CONTRAST August 01, 2012 1:12 AM HISTORY: Right lower quadrant pain. TECHNIQUE: 61 mL Isovue-370IV was admini stered without complication. Oral contrast was also administered. Aft er contrast administration, volumetric helical sections were acquire d from the lung bases to the ischial tuberosities. Coronal images wer e also reconstructed. COMPARISON: None. FINDINGS: The appendix is thickened and fluid-filled, measuring up to 0.9 cm in diameter. The appendix is note d to be in a retrocecal position. There is moderate periappendic eal inflammatory change. A small calcified appendicolith is noted w ithin the appendiceal lumen near the base. Findings are consistent w ith acute appendicitis. No evidence for periappendiceal abscess or perforation. Trace amount of free fluid in the pelvis is nonspecific, but is likely related to the appendicitis. No bowel obstruction. No f ree intraperitoneal air. The liver, gallbladder, spleen, adrenal glan ds, pancreas, and kidneys are unremarkable. No hydronephrosis. The janes g bases are clear. Bilateral L5 spondylolysis has a chronic appearanc e. IMPRESSION IMPRESSION: 1. Acute appendicitis. No evidence for a ssociated abscess or perforation. 2. Trace amount of free fluid in the pel vis is nonspecific, but likely related to the acute appendicitis . The preliminary report was provided by Sarath Laughlin at 1:21 AM. ELIDA RODRIGUEZ MD Lupis Renae MD IMG CT ORDERABLES Head CT w/o contrast (07/31/2012 11:35 PM CDT) Anatomical Region Laterality Modality Head, SUBRAD CT NEURO, SUBRAD CT NEURO, UMP CT NEURO Computed Tomography Specimen (Source) Anatomical Collection Method Collection Time Re ceived Time Location / / Volume Laterality 07/31/2012 11:35 PM CDT Impressions 08/01/2012 7:54 AM CDT IMPRESSION: ?Normal CT scan of the head. I agree with the preliminary report that was communicated to the referring physician. DANNY ANGELES MD Narrative 08/01/2012 7:[address] SCAN OF THE HEAD WITHOUT ? CONTRA ST ?? 07/31/2012 11:35 PM HISTORY: Trauma. TECHNIQUE: ??Axial images of the head wi thout ? IV contrast material. COMPARISON: None. FINDINGS: ??The ventricles are normal in size, shape and configuration. ??The brain parenchyma an d subarachnoid spaces are normal. There is no evidence of intracra nial hemorrhage, mass, acute infarct or anomaly. The visualized portions of the sinuses a nd mastoids appear normal. There is no evidence of trauma. Procedure Note Danny Angeles MD - 08/01/2012Formatt ing of this note might be different from the original. CT SCAN OF THE HEAD WITHOUT CONTRAST 07/31 11:35 PM HISTORY: Trauma. TECHNIQUE: Axial images of the head with out IV contrast material. COMPARISON: None. FINDINGS: The ventricles are normal in s ize, shape and configuration. The brain parenchyma and subarachnoid spaces are normal. There is no evidence of intracra nial hemorrhage, mass, acute infarct or anomaly. The visualized portions of the sinuses a nd mastoids appear normal. There is no evidence of trauma. IMPRESSION IMPRESSION: Normal CT scan of the head. I agree with the preliminary report that was communicated to the referring physician. DANNY ANGELES MD Lupis Renae MD IMG CT ORDERABLES (ABNORMAL) UA with Microscopic (07/31/2012 10:46 PM CDT) [facility] Method Time Signature Color Urine Light Yellow [facility] Appearance Urine Clear [facility] Glucose Urine Negative NEG mg/dL [facility] Bilirubin Urine Negative NEG [facility] Ketones Urine Negative NEG mg/dL [facility] Specific [place] 1.004 1.003 - [place] Urine 1.035 [facility] Blood Urine Small (A) NEG [facility] pH Urine 5.5 5.0 - 7.0 [place] pH [facility] Protein Albumin Negative NEG mg/dL [facility] Urobilinogen Normal 0.0 - 2.0 [place] mg/dL mg/dL [facility] Nitrite Urine Negative NEG [facility] Leukocyte Negative NEG [place] Esterase Urine [facility] Source Midstream [place] Urine [facility] WBC Urine 1 0 - 2 [place] /[facility] RBC Urine <1 0 - 2 [place] /[facility] Squamous 1 0 - 1 [place] Epithelial /HPF /HPF [facility] Specimen Anatomical Collection Method Collection Time Receive d Time (Source) Location / / Volume Laterality Urine specimen URINE SPECIMEN 07/31/2012 10:46 013 (specimen) OBTAINED BY CLEAN PM CDT 11:09 PM C DT CATCH PROCEDURE / Unknown Lupis Renae MD LAB - URINE ORDERABLES Performing Organization Address City/State/ZIP Code Phon e Number [place] [address], [place] [address] [facility] Basic metabolic panel (07/31/2012 10:46 PM CDT) [facility] Method Time Signature Sodium 142 133 - 143 [place] mmol/L [facility] Potassium 3.9 3.4 - 5.3 [place] mmol/L [facility] Chloride 102 96 - 110 [place] mmol/L [facility] Carbon Dioxide 28 20 - 32 [place] mmol/L [facility] Anion Gap 12 6 - 17 [place] mmol/L [facility] Glucose 74 60 - 99 [place] mg/dL [facility] Urea Nitrogen 7 5 - 24 [place] mg/dL [facility] Creatinine 0.71 0.39 - [place] 0.73 [facility] mg/dL [facility] GFR Estimate GFR not mL/min/1. [facility] calculated, 7m2 [facility] patient <16 [facility] years old. GFR Estimate If GFR not mL/min/1. [facility] [place] calculated, 7m2 [facility] patient <16 [facility] years old. Calcium 9.5 8.7 - [place] 10.8 [facility] mg/dL [facility] Specimen Anatomical Collection Method Collection Time Receive d Time (Source) Location / / Volume Laterality Blood specimen 07/31/2012 10:46 3 (specimen) PM CDT 11:08 PM CDT Lupis Renae MD LAB - BLOOD ORDERABLES Performing Organization Address City/[facility] Phon e Number M [facility] [address], [place] [address] [facility] HCG QUALitative (07/31/2012 10:46 PM CDT) [facility] Method Time Signature HCG Qualitative Negative NEG [facility] LAB Specimen Anatomical Collection Method Collection Time Receive d Time (Source) Location / / Volume Laterality Blood specimen 07/31/2012 10:46 3 (specimen) PM CDT 11:09 PM CDT Lupis Renae MD LAB - BLOOD ORDERABLES Performing Organization Address City/[facility] Phon e Number M [facility] [address], [place] [address] [facility] (ABNORMAL) CBC with platelets differential (07/31/2012 10:46 PM CDT) [facility] Method Time Signature WBC 17.3 (H) 4.0 - [place] 11.0 [facility] 10e9/[facility] RBC Count 4.93 3.7 - 5.3 [place] 10e12/L [facility] Hemoglobin 13.9 11.7 - [place] 15.7 g/dL [facility] Hematocrit 40.3 35.0 - [place] 47.0 % [facility] MCV 82 77 - 100 [place] fl [facility] MCH 28.2 26.5 - [place] 33.0 pg [facility] MCHC 34.5 31.5 - [place] 36.5 g/dL [facility] RDW 12.8 10.0 - [facility] % [facility] Platelet Count 197 150 - [address] [place] [address] [place] [address] LAB Diff Method Automated [facility] % Neutrophils 65.8 (H) 32 - 64 % [facility] % Lymphocytes 26.6 26 - 50 % [facility] % Monocytes 6.6 0 - 12 % [facility] % Eosinophils 0.6 0 - 6 % [facility] % Basophils 0.2 0 - 2 % [facility] % Immature 0.2 0 - 0.4 % [place] Granulocytes [facility] Absolute 11.4 (H) 1.3 - 7.0 [place] Neutrophil 10e9/L [facility] Absolute 4.6 1.0 - 5.8 [place] Lymphocytes [address] Absolute 1.1 0.0 - 1.3 [place] Monocytes [address] LAB Absolute 0.1 0.0 - 0.7 [place] Eosinophils [facility] Absolute 0.0 0.0 - 0.2 [place] Basophils [address] [place] [address] LAB Abs Immature 0.0 0 - 0.03 [place] Granulocytes [address] [place] [address] LAB Specimen Anatomical Collection Method Collection Time Receive d Time (Source) Location / / Volume Laterality Blood specimen 07/31/2012 10:46 3 (specimen) PM CDT 11:08 PM CDT Lupis Renae MD LAB - BLOOD ORDERABLES Performing Organization Address City/State/ZIP Code Phon e Number M [facility] [address], [place] [address] [phone] [place] [address] LAB documented in this encounter Visit Diagnoses Not on filedocumented in this encounter Administered Medications Inactive Administered Medications - up to 3 most recent administrations Medication Order MAR Action Action Date Dose Rate Site 0.9 % sodium chloride IV New Bag 08/01/2012 8:00 AM CDT 1,000 mLs 75 mL/hr solution at 75 mL/hr, Intravenous, CONTINUOUS, Starting on Wed08/01/12 at 0300, Until Wed08/01/12 at 0814 New Bag 08/01/2012 2:30 AM CDT 1,000 mLs 75 mL/hr bupivacaine liposome Given 08/01/2012 6:38 AM 20 mLs Operative Site/Surgical (EXPAREL) 1.3 % LONG ACTING CDT Site injectable suspension PRN, Starting on Wed08/01/12 at 0638, Invert vial to re-suspend particles immediately prior to withdrawal from vial. Stable for 4 hours at room temperature once removed from vial., Intra-procedure ceFAZolin 1000 mg in NaCl Given 08/01/2012 6:39 AM 1,000 mLs Operative 1000 mL CDT Site/Surgical S ite PRN, Starting on Wed08/01/12 at 0639, Intra-procedure dextrose 5 % and 0.45% NaCl New Bag 08/01/2012 9:45 AM CDT 1,000 m Ls 75 mL/hr solution 1,000 mL at 75 mL/hr, Intravenous, CONTINUOUS, Saline lock when taking PO., Post-procedure, Starting on Wed08/01/12 at 0815, Until Wed08/01/12 at 2343 ertapenem (INVanz) 840 mg in NaCl 0.9% New Bag 08/01/2012 2:03 AM CDT 840 mg PEDS/NICU infusion STAT, 840 mg (15 mg/kg ? 56 kg), Intravenous, ONCE, On Wed08/01/12 at 0200, For 1 dose, Infuse over 30 minutes. FREQ per ED MD: Q12H. NOTE: This E.D. medication will NOT continue upon admission unless ordered by admitting physician. , Indications: Perioperative Pharmacoprophylaxis HYDROcodone-acetaminophen 5-325 MG per Given 08/01/2012 8:52 PM CDT 1 tablet tablet 1 tablet 1 tablet, Oral, EVERY 4 HOURS PRN, moderate to severe pain, Starting on Wed08/01/12 at 0814, Max: 5 doses in 24 hours, Post-procedure Given 08/01/2012 4:03 PM CDT 1 tablet HYDROmorphone (DILAUDID) injection 0.4 m g Given 08/01/2012 12:39 AM CDT 0.4 mg 0.4 mg, Intravenous, ONCE, 1 dose, On Wed08/01/12 at 0000 iohexol (OMNIPAQUE) 140 mg/mL solution 2 5 mL Given 08/01/2012 12:30 AM CDT 25 mLs 25 mL, Oral, EVERY 30 MIN, First dose on Wed08/01/12 at 0000, For 2 doses Given 08/01/2012 12:00 AM CDT 25 mLs iopamidol (ISOVUE-370) 76% solution 100 mL Given 08/01/2012 1:13 AM CDT 61 mLs 100 mL, Intravenous, ONCE, On Wed08/01/12 at 0115, For 1 dose ketorolac (TORADOL) injection 15 mg Given 08/01/2012 2:16 PM CDT 15 mg 15 mg, Intravenous, EVERY 6 HOURS PRN, moderate to severe pain, Starting on Wed08/01/12 at 0919 lidocaine BUFFERED 1 % 1 % solution Given 08/01/2012 12:39 AM CDT 0.2 mLs Starting on Wed08/01/12 at 0028, For 1 dose, TONY GUEVARA: cabinet override morphine injection 1-2 mg Given 08/01/2012 2:49 AM CDT 2 mg 1-2 mg, Intravenous, EVERY 1 HOUR PRN, Starting on Wed08/01/12 at 0244, moderate to severe pain morphine injection 1-2 mg Given 08/01/2012 9:46 AM CDT 1 mg 1-2 mg, Intravenous, EVERY 30 MIN PRN, pain, Starting on Wed08/01/12 at 0920 ondansetron (ZOFRAN-ODT) disintegrating tablet Given 0 07/31/2012 10:52 PM CDT 4 mg 4 mg 4 mg, Oral, ONCE, On Wed07/31/12 at 2245, For 1 dose, With dry hands, peel back foil backing and gently remove tablet; do not push oral disintegrating tablet through foil backing; administer immediately on tongue and oral disintegrating tablet dissolves in seconds; then swallow with saliva; liquid not required. ondansetron (ZOFRAN-ODT) disintegrating tablet Given 0 08/01/2012 1:14 PM CDT 4 mg 4 mg 4 mg, Oral, EVERY 6 HOURS PRN, nausea, Starting on Wed08/01/12 at 1040, With dry hands, peel back foil backing and gently remove tablet; do not push oral disintegrating tablet through foil backing; administer immediately on tongue and oral disintegrating tablet dissolves in seconds; then swallow with saliva; liquid not required. sodium chloride 0.9 % BOLUS 1,000 mL New Bag 08/01/2012 1:14 AM CDT 55 mLs Intravenous, 1,000 mL, ONCE, On Wed08/01/12 at 0115, For 1 dose documented in this encounter Active and Recently Administered Medications Times are shown in CDT. Scheduled Medication Order 07/30/2012 07/31/2012 08/01/2012 ertapenem (INVanz) 840 mg in NaCl 0.9% PEDS/NICU infusion (COMPL ETED) 0203 (New Bag - Provider: Tony Guevara RN)0206 (ED Infusing on Admission/transfer - Provider: Tony Guevara RN) 15 mg/kg ? 56 kg = 840 mg, Intravenous, ONCE, Wed08/01/12 at 0200, For 1 dose, Infuse over 30 minutes. FREQ per ED MD: Q12H. NOTE: This E.D. medication will NOT continue upon admission unless ordered by admitting physician. , Indications: Surgical Prophylaxis HYDROmorphone (DILAUDID) injection 0.4 mg (COMPLETED) 003 (Given - Provider: Tony Guevara RN) 0.4 mg, Intravenous, ONCE, 1 dose, Wed08/01/12 at 0000 iohexol (OMNIPAQUE) 140 mg/mL solution 25 mL (COMPLETED) 0000 (Given - Provider: Tony Guevara RN)003 (Given - Provider: Tony Guevara RN) 25 mL, Oral, EVERY 30 MIN, First dose on Wed08/01/12 at 0000, For 2 doses iopamidol (ISOVUE-370) 76% solution 100 mL (COMPLETED) 011 (Given - Provider: Shaye Zavala - Comment: 39 discarded) 100 mL, Intravenous, ONCE, 08/01/13 at 0115, For 1 dose ondansetron (ZOFRAN-ODT) disintegrating tablet 4 mg (COMPLET ED) 2252 (Given - Provider: Yady Churchill, MASOOD) 4 mg, Oral, ONCE, 07/31/12 at 2245, Fo r 1 dose, With dry hands, peel back foil backing and gently remove tablet; do not push oral disintegrating tablet through foil backing; administer immediately on tongue and oral disintegrating tablet di ssolves in seconds; then swallow with saliva; liquid not required. sodium chloride 0.9 % BOLUS 1,000 mL (COMPLETED) 0114 (New Bag - Provider: Shaye Zavala - Comment: bulk)0139 (Stopped - Provider: Tony Guevara, MASOOD) Intravenous, 1,000 mL, ONCE, 08/01/12 at 0115, For 1 dose Continuous Medication Order 07/30/2012 07/31/2012 08/01/2012 0.9 % sodium chloride IV solution (CANCELED) 0230 (New Bag - Provider: Sharon Daly RN)0800 (New Bag - Provider: Yady Looney LPN) at 75 mL/hr, Intravenous, CONTINUOUS dextrose 5 % and 0.45% NaCl solution 1,000 mL (CANCELED) 0945 (New Bag - Provider: Roxane Garcia, MASOOD) at 75 mL/hr, Intravenous, CONTINUOUS, Sa line lock when taking PO., Post-procedure PRN Medication Order 07/30/2012 07/31/2012 08/01/2012 bupivacaine liposome (EXPAREL) 1.3 % JUANITA G ACTING injectable suspension (CANCELED) 0638 (Given - Provid er: Lakisha Díaz MD) PRN, Starting 08/01/12 at 0638, Invert vial to re-suspend particles immediately prior to withdrawal from vial. Stable for 4 hours at room temperature once removed from vial., Intra-procedure ceFAZolin 1000 mg in NaCl 1000 mL (CANCELED) 0639 (Given - Provider: Lakisha Díaz MD) PRN, Starting 08/01/12 at 0639, Intra-procedure HYDROcodone-acetaminophen 5-325 MG per tablet 1 tablet 1603 (Given - Provider: Zelda Solitario RN)2052 (Given - Provider: Zelda Solitario RN) 1 tablet, Oral, EVERY 4 HOURS PRN, moder ate to severe pain, Starting Wed08/01/12 at 0814, Max: 5 doses in 24 hours, Post-procedure ketorolac (TORADOL) injection 15 mg (CANCELED) 1416 (Given - Provider: Roxane Garcia RN) 15 mg, Intravenous, EVERY 6 HOURS PRN, S tarting Wed08/01/12 at 0919, moderate to severe pain morphine injection 1-2 mg (CANCELED) 0249 (Given - Provider: Kendra Moses, MASOOD) 1-2 mg, Intravenous, EVERY 1 HOUR PRN, m oderate to severe pain, Starting Wed08/01/12 at 0244 morphine injection 1-2 mg (CANCELED) 0300 (Canceled Entry - Provider: Roxane Garcia RN - Comment: not charted; clearing flag)0946 (Given - Provider: Roxane Garcia RN) 1-2 mg, Intravenous, EVERY 30 MIN PRN, pain, Starting Wed08/01/12 at 0920 ondansetron (ZOFRAN-ODT) disintegrating tablet 4 mg (CANCELED) 1314 (Given - Provider: Roxane Garcia RN) 4 mg, Oral, EVERY 6 HOURS PRN, nausea, S tarting Wed08/01/12 at 1040, With dry hands, peel back foil backing and gently remove tablet; do not push oral disintegrating tablet through foil backing; administ er immediately on tongue and oral disint egrating tablet dissolves in seconds; then swallow with saliva; liquid not required. No Frequency Medication Order 07/30/2012 07/31/2012 08/01/2012 lidocaine BUFFERED 1 % 1 % solution (COMPLETED) 0039 (Given - Provider: Tony Guevara, MASOOD) Starting Wed08/01/12 at 0028, For 1 dose, TONY GUEVARA: harrison lanier override documented in this encounter Care Teams Unitizer Relationship Specialty Start Date End Date Caryl Trujillo MD PCP - General Family Practice 12/16/10 documented as of this encounter
--- OUTSIDE RECORDS SUMMARY | 2021-12-30 10:45 | XMS_ITS | Encounter Summary ---
:2000 Author Organization [place] Address [address] [facility] [place] [address] Care Team Providers Name Role Phone Caryl Trujillo MD Primary Care Provider [phone] Reason for Referral Consultation - Closed Specialty Diagnoses / Procedures Referred By Contact Refer red To Contact Orthopedics and Sports Diagnoses Knee pain, unspecified laterality Cervicalgia Pain in joint involving ankle and foot, unspecified laterality Marshal Young [employer] [facility] MD [facility] [address] [place] [address] [place] [address] [address] [place] [address] Phone: [phone] Fax: [phone] Referral ID Status Reason Start Date Expiration Date Visits Requ ested Visits Authorized [id number] Closed 11/15/2013 05/14/2014 1 1 Reason for Visit Reason Comments Musculoskeletal Problem both knees hurt, neck pain, right ankle Encounter Details Date Type Department Care Team Description 11/15/2013 Office Visit [facility] Marshal Young ia (Primary Dx); Clinic Vitor Cuello MD Knee pain, unspecified laterality; [place] [address] Pain in joint involving ankle and foot, unspecified laterality Road, [address] [place] [address] [place], [place] [phone] (Wo rk) [address] [phone] Social History Tobacco Use Types Packs/Day Years Used Date Never Smoker Smokeless Tobacco: Never Used Alcohol Use Standard Drinks/Week Comments No 0 (1 standard drink = 0.6 oz pure alcoho l) Sex Assigned at Date Recorded Not on file documented as of this encounter Last Filed Vital Signs Vital Sign Reading Time Taken Comments Blood Pressure 98/50 11/15/2013 9:31 AM CDT Pulse 78 11/15/2013 9:31 AM CDT Temperature 36.7 ??C (98 ??F) 11/15/2013 9:31 AM CDT Respiratory Rate 10 11/15/2013 9:31 AM CDT Oxygen Saturation - - Inhaled Oxygen Concentration - - Weight 55.3 kg (122 lb) 11/15/2013 9:31 AM CDT Height 158.8 cm (5' 2.5) 11/15/2013 9:31 AM CDT Body Mass Index 21.96 11/15/2013 9:31 AM CDT Body Mass Index Percentile 68.07 % 11/15/2013 9:31 AM CD T Growth Chart: CDC (Girls, 2-20 Years) documented in this encounter Progress Notes Marshal Young MD - 11/15/2013 9:34 AM CDT HPI SUBJECTIVE: Teodora Eisenberg is a 13 year old female who presents to clinic today for the following health issues: Joint Pain Right ankle pain x 1 month Knee pain X 1 month Neck pain x 3 years ?? Description: Location: neck, right ankle and both knees Character: Sharp ?? Intensity: moderate ?? Progression of Symptoms: worse with activity ?? Accompanying Signs & Symptoms: Other symptoms: none ?? History: Previous similar pain: no ?? Precipitating factors: Trauma or overuse: YES- plays soccer ?? Alleviating factors: Improved by: massage ?? Therapies Tried and outcome: ice, massage Neck, shoulder and head pain, bothersome for the last three years. Worse with soccer. No injuries inpast. Has done chiro and massage. Some recurrent OREILLY, has had a couple of concussion through soccer. Does regularly head ball in soccer. No vision, seizure, LOC, numbness/tingling in her arms. MULUGETA ankle pain, R>L, feel weak. Bothering her in the last two months, pain is at the back, hurts to point her toes. Feels like it's harder to lock her ankles, kicking soccer ball has gotten worse. Has been doing stretching, chiro, massage, ice. MULUGETA knee pain, feels like she has water in them. Hurts under knees, underneath knee cap. R>L. Intermitent, not to bad today. Review of Systems Constitutional: Negative. HENT: Positive for neck pain. Cardiovascular: Negative. Musculoskeletal: Positive for joint pain. Neurological: Negative. Physical Exam Musculoskeletal: Right knee: She exhibits normal range of motion, no swelling, no LCL laxity, normal patellar mobility and no bony tenderness. Tenderness found. Patellar tendon tenderness noted. No medial joint line, no lateral joint line, no MCL and no LCL tenderness noted. Left knee: She exhibits normal range of motion, no swelling, normal patellar mobility and normal meniscus. Tenderness found. Patellar tendon tenderness noted. No medial joint line, no lateral joint line, no MCL and no LCL tenderness noted. Right ankle: She exhibits normal range of motion and no swelling. No lateral malleolus, no medial malleolus, no AITFL, no CF ligament, no posterior TFL, no head of 5th metatarsal and no proximal fibula tenderness found. Achilles tendon exhibits pain. Achilles tendon exhibits no defect and normal Farrar's test results. Left ankle: She exhibits normal range of motion and no swelling. No lateral malleolus, no medial malleolus, no AITFL, no CF ligament, no posterior TFL, no head of 5th metatarsal and no proximal fibulatenderness found. Achilles tendon exhibits pain. Achilles tendon exhibits no defect and normal Farrar's test results. Cervical back: She exhibits tenderness and spasm. She exhibits normal range of motion. MULUGETA knee pain at hamstring insertion MULUGETA ankle pain at achilles insertion and proximally into calves. Vitals reviewed. (723.1) Cervicalgia (primary encounter diagnosis) Comment: Plan: ORTHO ADVERTISING OPERATIONS MANAGER REFERRAL (025.46) Knee pain, unspecified laterality Comment: Plan: ORTHO ADVERTISING OPERATIONS MANAGER REFERRAL (921.47) Pain in joint involving ankle and foot, unspecified laterality Comment: Plan: ORTHO ADVERTISING OPERATIONS MANAGER REFERRAL Perhaps some concern about mood, but physically seems more like over use in active young athlete. I will refer to sports med for deeper eval, but if this is negative would recc looking more at mood. RTC in Marshal Young MD documented in this encounter Nursing Notes Pam Tripathi MA - 11/15/2013 9:33 AM CDT Chief Complaint Patient presents with ??? Musculoskeletal Problem both knees hurt, neck pain, right ankle Initial BP 98/50 Pulse 78 Temp(Src) 98 ??F (36.7 ??C) (Oral) Resp 10 Ht 5' 2.5 (1.588 m) Wt 122 lb (55.339 kg) BMI 21.94 kg/m2 LMP 10/25/2013MIHIS@ BP completed using cuff size regular. Pam Tripathi, Real Estate Representative documented in this encounter Plan of Treatment Not on filedocumented as of this encounter Visit Diagnoses Diagnosis Cervicalgia - Primary Knee pain, unspecified laterality Pain in joint involving ankle and foot, unspecified laterality documented in this encounter Care Teams Case Management Director Relationship Specialty Start Date End Date Caryl Trujillo MD PCP - General Family Practice 12/16/10 documented as of this encounter
--- OUTSIDE RECORDS SUMMARY | 2021-12-30 10:45 | XMS_ITS | Encounter Summary ---
:2000 Author Organization [place] Address [facility] [place] [address] Care Team Providers Name Role Phone Caryl Trujillo MD Primary Care Provider [phone] Reason for Visit Reason Onset Date Comments Medication Request 11/30/2013 Adderall Encounter Details Date Type Department Care Team Description 11/30/2013 Telephone [facility] Caryl Trujillo Medicat ion Request Clinic Vitor Tolliver MD (Adderall) [address] [facility], [address] [place] [address] [address] [place] [address] [place], [place] [phone] (Wo rk) [address] [phone] Social History Tobacco Use Types Packs/Day Years Used Date Never Smoker Smokeless Tobacco: Never Used Alcohol Use Standard Drinks/Week Comments No 0 (1 standard drink = 0.6 oz pure alcoho l) Sex Assigned at Date Recorded Not on file documented as of this encounter Miscellaneous Notes Telephone Encounter - Latosha Stephenson RN - 12/23/2013 10:52 AM CDT Pt has been seen since encounter Latosha Stephenson RN, BSN Telephone Encounter - Velia Holt RN - 12/01/2013 11:24 AM CDT LM on mom's voice mail to call clinic back. Velia Holt RN Telephone Encounter - Marshal Young MD - 12/01/2013 10:45 AM CDT Which of these are they using currently? We were trying the twice a day short acting, she has been on the once a day long acting in the past. Marshal Young MD Telephone Encounter - Velia Holt RN - 12/01/2013 10:[address] Young, You saw this patient in September 2013 for ADHD. Can you refill this? Velia Holt RN Telephone Encounter - Caryl Trujillo MD - 12/01/2013 9:21 AM CDT I have not seen this person in over 1 yr, she needs appts every 3 months to discuss ADHD Telephone Encounter - Dante Navarro - 11/30/2013 4:08 PM CDT Pt mom calling to request pt's Adderall RX's to be picked up at the front end web designer at . Call mom at [phone] when ready. Med: Adderall XR and Adderall Last OV Reason Hip Pain Provider: Danis Eagle Last Filled: 10/17/13 And Quanity: 30 and 60 documented in this encounter Plan of Treatment Not on filedocumented as of this encounter Visit Diagnoses Diagnosis ADHD (attention deficit hyperactivity di sorder) Attention deficit disorder with hyperact ivity Attention deficit disorder with hyperact ivity(314.01) Attention deficit disorder with hyperact ivity documented in this encounter Care Teams Digital Pre Press Operator Relationship Specialty Start Date End Date Caryl Trujillo MD PCP - General Family Practice 12/16/10 documented as of this encounter
--- OUTSIDE RECORDS SUMMARY | 2021-12-30 10:46 | XMS_ITS | Encounter Summary ---
:2000 Author Organization [place] Address [address] [place] [address]. [place] [address] Care Team Providers Name Role Phone Caryl Trujillo MD Primary Care Provider [phone] Encounter Details Date Type Department Care Team Description 10/06/2004 Historic Oil Field Equipment Mechanic INTERFACED REPORT Robyn Sher Social History Tobacco Use Types Packs/Day Years Used Date Never Assessed Sex Assigned at Date Recorded Not on file documented as of this encounter Progress Notes Interface, Oil Field Equipment Mechanic - 04/01/2011 2:58 AM SENIOR FUND ACCOUNTANT : 89 CHIEF COMPLAINT: Injury to left finger. HISTORY OF PRESENT ILLNESS: Karine is a 4-year-old white female who jammed her fifth finger on the trampoline. She complained of pain and presents to emergency department. PAST MEDICAL HISTORY: Significant for otitis media. MEDICATIONS: None were given. IMMUNIZATIONS: Up to date. ALLERGIES: No known drug allergies. REVIEW OF SYSTEMS: Please see history of present illness and past medical history. Musculoskeletal reveals crooked fifth fingers on both hands. After distracting patient's attention there is no point tenderness or pressure tenderness over the left fifth finger. All other review of systems are unremarkable. FAMILY HISTORY: Noncontributory. SOCIAL HISTORY: In the household are living mother, father, patient and three siblings. No smoking. No pets. The patient is at home. No recent traveling abroad. PHYSICAL EXAMINATION: VITAL SIGNS: Temperature 97.7, heart rate 75, respirations 18, oxygen saturation 99% on room air, weight 22.6 kg. GENERAL: Well-developed, well-nourished white female with both fifth fingers crooked. HEAD, EYES, EARS, NOSE, AND THROAT: HEAD is normocephalic, atraumatic. EYES: PUPILS equal and reactive to light. Sclerae and conjunctivae are clean. NOSTRILS are clean and patent. ORAL CAVITY: Mucous membranes are moist and clean. EARS: Intact tympanic membranes bilaterally. NECK: Supple. No adenopathy or thyromegaly. CHEST: Symmetrical. HEART: Regular sinus rate and rhythm with no murmur appreciated. LUNGS: Equal breath sounds. Good air exchange. No wheezing, rhonchi, crackles or rales. ABDOMEN is soft with no hepatosplenomegaly, masses, tenderness, rebound or guarding. SKIN: Clean. No rash, petechiae or hematoma. LYMPHATICS: No adenopathy. NEUROLOGIC: Grossly intact. MUSCULOSKELETAL: Both fifth fingers are slightly deformed, but they are deformed symmetrically. Neither right nor left fifth finger has swelling, palpable point tenderness or identifiable deformity. Focused evaluation of the fifth finger of the left hand reveals full range of motion. No point tenderness. No bruises or abrasion. Prompt capillary refill and full range of motion. MEDICAL DECISION MAKING PROCESS: X-ray was obtained as patient sustained injury over trampoline. PEDIATRIC EMERGENCY ROOM COURSE: X-ray did not reveal any obviously identifiable fracture. The patient was subsequently discharged home. DISCHARGE DIAGNOSIS: Contusion fifth finger. DISCHARGE INSTRUCTIONS: Prevent injury. Follow up with [facility] physicians as needed. [id number] JEANE SHER MD [place]: Document: [id number] CC: JEANE SHER MD [place], [place] Name: MR#: [id number] BUENROSTRO -[id number] EMERGENCY ROOM ENCOUNTER Page 2 of 2 LCN: JUDY DSC: 10/06/2004 [place], [place] Name: MR#: TEODORA BUENROSTRO -[id number] : Admit Date: Account #: [birth year] [id number] Doctor: JEANE SHER MD EMERGENCY ROOM ENCOUNTER Page 1 of 2 OR FUND ACCOUNTANT documented in this encounter Plan of Treatment Not on filedocumented as of this encounter Visit Diagnoses Not on filedocumented in this encounter Care Teams Euclid Operator Relationship Specialty Start Date End Date Caryl Trujillo MD PCP - General Family Practice 12/16/10 documented as of this encounter
--- OUTSIDE RECORDS SUMMARY | 2021-12-30 10:46 | XMS_ITS | Encounter Summary ---
:2000 Author Organization [place] Address [address] [place] [address]. [place] [address] Care Team Providers Name Role Phone Caryl Trujillo MD Primary Care Provider [phone] Reason for Visit Reason Comments Concussion Auth/Cert - Closed Specialty Diagnoses / Procedures Referred By Contact Refer red To Contact Pediatrics Diagnoses Appendicitis [id number] Rh Pediatrics Procedures APPENDECTOMY OPEN [address] [place], [place] [address] Phone: Fax: Referral ID Status Reason Start Date Expiration Date Visits Requ ested Visits Authorized Closed 08/01/2012 01/28/2013 Encounter Details Date Type Department Care Team Description 07/31/2012 - [facility] Simon Renae MD [facility] [address] [place] [address] Appendicitis (Primary 08/01/2012 [facility] Pediatric Lakisha Díaz MD [address] [place], [place] [id number] Dx) [address] [place] [address] Social History Tobacco Use Types Packs/Day Years Used Date Never Smoker Alcohol Use Standard Drinks/Week Comments No 0 (1 standard drink = 0.6 oz pure alcoho l) Sex Assigned at Date Recorded Not on file documented as of this encounter Last Filed Vital Signs Vital Sign Reading Time Taken Comments Blood Pressure 102/52 08/01/2012 7:10 AM CDT Pulse - - Temperature 36.8 ??C (98.2 ??F) 08/01/2012 7:00 AM CDT Respiratory Rate 13 08/01/2012 7:10 AM CDT Oxygen Saturation 100% 08/01/2012 7:10 AM CDT Inhaled Oxygen Concentration - - Weight 56 kg (123 lb 7.3 oz) 07/31/2012 10:18 PM CDT Height - - Body Mass Index - - documented in this encounter Discharge Instructions Discharge Carol Narayan PA-C - 08/01/2012 1:57 PM CDT HOME [...] Walk around frequently. You may consider an vwey-enk-vojqmmh stool-softener. Your Pharmacist can assist you with [...] to discuss with the nurse or physician congressional assistant. # There is a surgeon CUP TRIMMING MACHINE OPERATOR on weekday evenings and over the weekend [...] Gregory PA-C - 08/01/2012 1:52 PM CDT [facility] General Surgery Progress Note Assessment and Plan: Assessment: POD#0 s/p Procedure(s) with comments: APPENDECTOMY OPEN - APPENDECTOMY OPEN Plan: DC home when meets criteria Rx [facility] RTC 1-3 weeks Interval History: Pain controlled [...] Gregory PA-C documented in this encounter H&P Lakisha Orlando MD - 08/01/2012 5:55 AM CDT [facility] - H&P Teodora Eisenberg Age: [...] notified. Mother states pt has seen a air intelligence officer in the past for irregular heart beat. [...] guarding. Tender in RLQ, maximal at Mc Alondra's point. Musculoskeletal: Normal range of motion. Lymphadenopathy: [...] 541 Appendicitis (primary encounter diagnosis) I, Surya Ro, am serving as a scribe on 07/31/2012 [...] Mary Samuel MD Utilization Review/ Case Management [facility] Admission Status; Secondary Review Determination Plan of Care - Roxane Garcia RN - 08/01/2012 1:29 PM CDT Problem: General Plan of Care (Pediatric) Goal: Individualization/Patient-Specific Goal (Pediatric) The patient and/or their malt liquors sales representative will achieve their patient-specific goals related [...] status for this patient is complete. See [facility] admission navigator for allergy information, prior to admission medications and immunization status. Medication history interview source(s):Patient Medication history resources (including written lists, pill bottles, clinic record):None Primary pharmacy: Changes made to AUDIENCE DEVELOPMENT MANAGER medication list: Added: adderall xl 10mg daily [...] 1 gm IV. SURGEON: Lakisha Díaz MD TOWN JUSTICE: NONE INDICATIONS: Teodora Eisenberg is a 12 [...] Individualization/Patient-Specific Goal (Pediatric) The patient and/or their malt liquors sales representative will achieve their patient-specific goals related [...] Individualization/Patient-Specific Goal (Pediatric) The patient and/or their malt liquors sales representative will achieve their patient-specific goals related to the plan of care. The patient-specific goals include:1. Will tolerate a regular diet. 2. Pain will be managed with oral medication. 3. Will tolerate ambulating in the tate. Outcome: No Change Denied abdominal pain on admit. ICAL RESEARCH MANAGEMENT ASSOCIATE documented in this encounter Plan of [...] Component Value Ref Test Analysis Performed At [facility] gist Range Method Time Signature Copath Report Patient Name: TEODORA NÚÑEZ MR#: [id number] Specimen #: [id number] Collected: 08/01/2012 Received: 08/01/2012 Reported: 08/02/2012 11:41 [...] block 2 - cross sections. ??Entirely submitted. ??CARRIEK/josh MICROSCOPIC: Microscopic evaluation is performed. ERICK/vicky 08-02-12 TESTING LAB LOCATION: [address] ??[id number] COLLECTION SITE: Client: [facility] Location: RHPED (R) Specimen Anatomical Collection Method Collection Time Receive d Time (Source) Location / / Volume Laterality 08/01/2012 6:29 AM 3 7:11 CDT AM CDT Lakisha Díaz MD [facility] Performing Organization Address City/State/ZIP Code Phon e Number [facility] CT Abdomen Pelvis w Contrast (08/01/2012 1:12 [...] UA with Microscopic (07/31/2012 10:46 PM CDT) [facility] Method Time Signature Color Urine Light Yellow [facility] Appearance Urine Clear [facility] Glucose Urine Negative NEG mg/dL [facility] Bilirubin Urine Negative NEG [facility] Ketones Urine Negative NEG mg/dL [facility] Specific [place] 1.004 1.003 - [place] Urine 1.035 [facility] Blood Urine Small (A) NEG [facility] pH Urine 5.5 5.0 - 7.0 [place] pH [facility] Protein Albumin Negative NEG mg/dL [facility] Urobilinogen Normal 0.0 - 2.0 [place] mg/dL mg/dL [facility] Nitrite Urine Negative NEG [facility] Leukocyte Negative NEG [place] Esterase Urine [facility] Source Midstream [facility] WBC Urine 1 0 - 2 [place] /HPF [facility] RBC Urine <1 0 - 2 [place] /[facility] Squamous 1 0 - 1 [place] Epithelial /HPF /HPF [facility] Specimen Anatomical Collection Method Collection Time Receive d Time (Source) Location / / Volume Laterality Urine specimen URINE SPECIMEN 07/31/2012 10:46 013 (specimen) OBTAINED BY CLEAN PM CDT 11:09 PM C DT CATCH PROCEDURE / Unknown Lupis Renae MD LAB - URINE ORDERABLES Performing Organization Address City/State/ZIP Code Phon e Number [facility] [address] [place], [place] [address] [facility] Basic metabolic panel (07/31/2012 10:46 PM CDT) [facility] Method Time Signature Sodium 142 133 - 143 [place] mmol/L [facility] Potassium 3.9 3.4 - 5.3 [place] mmol/L [facility] Chloride 102 96 - 110 [place] mmol/L [facility] Carbon Dioxide 28 20 - 32 [place] mmol/L [facility] Anion Gap 12 6 - 17 [place] mmol/L [facility] Glucose 74 60 - 99 [place] mg/dL [facility] Urea Nitrogen 7 5 - 24 [place] mg/dL [facility] Creatinine 0.71 0.39 - [place] 0.73 [facility] mg/dL [facility] GFR Estimate GFR not mL/min/1. [place] calculated, 7m2 [facility] patient <16 [facility] years old. GFR Estimate If GFR not mL/min/1. [place] calculated, 7m2 [facility] patient <16 [facility] years old. Calcium 9.5 8.7 - [place] 10.8 [facility] mg/dL [facility] Specimen Anatomical Collection Method Collection Time Receive d Time (Source) Location / / Volume Laterality Blood specimen 07/31/2012 10:46 3 (specimen) PM CDT 11:08 PM CDT Lupis Renae MD LAB - BLOOD ORDERABLES Performing Organization Address City/[facility]/ZIP [facility] Phon e Number [facility] [address] [place], [place] [address] [facility] HCG QUALitative (07/31/2012 10:46 PM CDT) [facility] Method Time Signature HCG Qualitative Negative NEG [facility] LAB Specimen Anatomical Collection Method Collection Time Receive d Time (Source) Location / / Volume Laterality Blood specimen 07/31/2012 10:46 3 (specimen) PM CDT 11:09 PM CDT Lupis Renae MD LAB - BLOOD ORDERABLES Performing Organization Address City/State/[facility] Phon e Number [facility] [address] [place], [place] [address] [facility] (ABNORMAL) CBC with platelets differential (07/31/2012 10:46 PM CDT) [facility] Method Time Signature WBC 17.3 (H) 4.0 - [place] 11.0 [facility] 10e9/L [facility] RBC Count 4.93 3.7 - 5.3 [place] 10e12/L [facility] Hemoglobin 13.9 11.7 - [place] 15.7 g/dL [facility] Hematocrit 40.3 35.0 - [place] 47.0 % [facility] MCV 82 77 - 100 [place] fl [facility] MCH 28.2 26.5 - [facility] 33.0 pg [facility] MCHC 34.5 31.5 - [place] 36.5 g/dL [facility] RDW 12.8 10.0 - [facility] 15.0 % [facility] Platelet Count 197 150 - [address] [place] [address] [place] [address] LAB Diff Method Automated [place] Method [facility] % Neutrophils 65.8 (H) 32 - 64 % [facility] % Lymphocytes 26.6 26 - 50 % [facility] % Monocytes 6.6 0 - 12 % [facility] % Eosinophils 0.6 0 - 6 % [facility] % Basophils 0.2 0 - 2 % [facility] % Immature 0.2 0 - 0.4 % [place] Granulocytes [facility] Absolute 11.4 (H) 1.3 - 7.0 [place] Neutrophil [address] LAB Absolute 4.6 1.0 - 5.8 [place] Lymphocytes [address] LAB Absolute 1.1 0.0 - 1.3 [place] Monocytes [address] LAB Absolute 0.1 0.0 - 0.7 [place] Eosinophils [address] LAB Absolute 0.0 0.0 - 0.2 [place] Basophils [address] [place] [address] LAB Abs Immature 0.0 0 - 0.03 [place] Granulocytes [address] [place] [address] LAB Specimen Anatomical Collection Method Collection Time Receive d Time (Source) Location / / Volume Laterality Blood specimen 07/31/2012 10:46 3 (specimen) PM CDT 11:08 PM CDT Lupis Renae MD LAB - BLOOD ORDERABLES Performing Organization Address City/State/ZIP Code Phon e Number [facility] [address] [place] [address] [facility] documented in this encounter Visit Diagnoses Diagnosis Appendicitis - Primary Appendicitis, unqualified documented in this encounter Administered Medications Inactive [...] 2:30 AM CDT 1,000 mLs 75 mL/hr dextrose 5 % and 0.45% NaCl New [...] on Wed08/01/12 at 0028, For 1 dose, SUNDVALL, TONY: cabinet override morphine injection 1-2 mg Given [...] ETED) 0203 (New Bag - Provider: Tony Guevara, MASOOD)0206 (ED Infusing on Admission/transfer - Provider: Tony [...] (COMPLETED) 0000 (Given - Provider: Tony Guevara RN)0030 (Given - Provider: Tony Guevara RN) 25 mL, Oral, EVERY 30 MIN, First dose on Wed08/01/12 at 0000, For 2 doses iopamidol (ISOVUE-370) 76% solution 100 mL (COMPLETED) 011 (Given - Provider: Shaye Zavala - Comment: 39 discarded) 100 mL, Intravenous, ONCE, Wed08/01/12 at 0115, For 1 dose ondansetron (ZOFRAN-ODT) disintegrating tablet 4 mg (COMPLET ED) 2252 (Given - Provider: Yady Churchill, MASOOD) 4 mg, Oral, ONCE, Wed07/31/12 at 2245, Fo r 1 dose, With dry hands, peel back foil backing and gently remove tablet; do not push oral disintegrating tablet through foil backing; administer immediately on tongue and oral disintegrating tablet di ssolves in seconds; then swallow with saliva; liquid not required. sodium chloride 0.9 % BOLUS 1,000 mL (COMPLETED) 011 (New Bag - Provider: Shaye Zavala - Comment: bulk)0139 (Stopped - Provider: Tony Guevara, RN) Intravenous, 1,000 mL, ONCE, Wed08/01/12 at 0115, For 1 dose Continuous Medication Order 07/30/2012 07/31/2012 08/01/2012 0.9 % sodium chloride IV solution (CANCELED) 0230 (New Bag - Provider: Sharon Daly, RN)0800 (New Bag - Provider: Yady Looney LPN) at 75 mL/hr, Intravenous, CONTINUOUS dextrose 5 % and 0.45% NaCl solution 1,000 mL (CANCELED) 0945 (New Bag - Provider: Roxane Garcia, RN) at 75 mL/hr, Intravenous, CONTINUOUS, Sa line lock when taking PO., Post-procedure PRN Medication Order 07/30/2012 07/31/2012 08/01/2012 bupivacaine liposome (EXPAREL) 1.3 % JUANITA G ACTING injectable suspension (CANCELED) 0638 (Given - Provid er: Lakisha Díaz MD) PRN, Starting Wed08/01/12 at 0638, Invert vial to re-suspend particles immediately prior to withdrawal from vial. Stable for 4 hours at room temperature once removed from vial., Intra-procedure ceFAZolin 1000 mg in NaCl 1000 mL (CANCELED) 0639 (Given - Provider: Lakisha Díaz MD) PRN, Starting Wed08/01/12 at 0639, Intra-procedure HYDROcodone-acetaminophen 5-325 MG per tablet 1 tablet 1603 (Given - Provider: Zelda Solitario RN)2052 (Given - Provider: Zelda Solitario RN) 1 tablet, Oral, EVERY 4 HOURS PRN, moder ate to severe pain, Starting Wed08/01/12 at 0814, Max: 5 doses in 24 hours, Post-procedure ketorolac (TORADOL) injection 15 mg (CANCELED) 1416 (Given - Provider: Roxane Garcia, MASOOD) 15 mg, Intravenous, EVERY 6 HOURS PRN, [...] solution (COMPLETED) 0039 (Given - Provider: Tony Guevara RN) Starting Wed08/01/12 at 0028, For 1 dose, TONY GUEVARA: cabine t override documented in this encounter Care Teams Data Integration Developer Relationship Specialty Start Date End Date Caryl Trujillo MD PCP - General Family Practice 12/16/10 documented as of this encounter
--- OUTSIDE RECORDS SUMMARY | 2021-12-30 10:46 | XMS_ITS | Encounter Summary ---
:2000 Author Organization [place] Address [facility] [place] [address] Care Team Providers Name Role Phone Caryl Trujillo MD Primary Care Provider [phone] Reason for Visit Reason Comments Foot Pain pt c/o 2 weeks of left ankle pain that has worsened over last day. Encounter Details Date Type Department Care Team Description [facility], [facility]07[facility]2011 [facility] Emergency Dep t MD [address] [facility] [place] [address] [address] [facility] [phone] [place], [place] [address] (Wo rk) Social History Tobacco Use Types Packs/Day Years Used Date Never Smoker Sex Assigned at Date Recorded Not on file documented as of this encounter Last Filed Vital Signs Vital Sign Reading Time Taken Comments Blood Pressure 112/75 10/07/2011 12:40 AM CDT Pulse 82 10/07/2011 12:40 AM CDT Temperature 36.6 ??C (97.8 ??F) 10/06/2011 10:42 PM CDT Respiratory Rate 16 10/07/2011 12:40 AM CDT Oxygen Saturation 98% 10/07/2011 12:40 AM CDT Inhaled Oxygen Concentration - - Weight 52.2 kg (115 lb 1.3 oz) 10/06/2011 10:42 PM CDT Height - - Body Mass Index - - documented in this encounter Discharge Instructions Discharge InstructionsStLizzy mcintosh MD - 10/07/2011 12:22 AM CDT Ice, motrin, activity as tolerated. AttachmentsThe following attachments cannot be sent through Care Everywhere. PLANTAR FASCIITIS (AZERBAIJANI)documented in this encounter ED Notes Lizzy Rothman MD - 10/07/2011 3:21 AM CDT CHIEF COMPLAINT: Left foot pain. HISTORY OF PRESENT ILLNESS: Teodora Eisenberg is a 11-year-old female who presents to the emergency department with her father complaining of left foot pain. She states that she believes she injured the left foot 2 weeks ago playing soccer. She states that the pain is worse with weightbearing and walking upstairs. She states that the pain is present in her left foot and she feels some radiation to her left ankle. She denies any traumatic injury. She denies any weakness, numbness or tingling. Shedenies any other complaints or injuries. PAST MEDICAL HISTORY: Father denies any medical problems on the part of patient. MEDICATIONS: The patient is on no regular medications. ALLERGIES: Has no known drug allergies. SOCIAL HISTORY: She is here with her father. FAMILY HISTORY: Noncontributory. REVIEW OF SYSTEMS: Problem specific negative. PHYSICAL EXAMINATION: GENERAL: The patient is alert and appropriate. VITAL SIGNS: Temperature 97.8, pulse 66, respiratory rate 18, blood pressure 111/66 and oxygen saturation 100% on room air. EXTREMITIES: The patient has some mild tenderness to palpation of the plantarsurface of the left foot at the origin and insertion of the plantar fascia. There is no significant swelling or deformity. Ankle is nontender. Neurovascular exam is normal. Achilles is intact and nontender. Remainder of exam is normal. LABORATORY AND DIAGNOSTICS: X-rays of the left ankle were obtained at triage. I ordered left foot x-rays which were negative. EMERGENCY DEPARTMENT COURSE: I felt the patient had the equivalent of plantar fasciitis. I discharged her home with plantar fascitis discharge instructions, ice, Motrin. Activity as tolerated. Followupwith orthopedic referral later this week or early next week. DIAGNOSIS: Left foot pain. LIZZY ROTHMAN MD MT: [id number] Name: TEODORA NÚÑEZ MRN: [id number] Account: [id number] : 2000 Visit Date: 10/06/2011 Document: [id number] Liliana Oliva - 10/06/2011 10:43 PM CDT Alert and oriented x 3. ABCD intact. Pt has been playing soccer since initial incident. documented in this encounter Plan of Treatment Not on filedocumented as of this encounter Procedures Procedure Name Priority Date/Time Associated Diagnosis Comme nts XR FOOT LEFT G/E 3 STAT 10/07/2011 12:12 AM Re sults for this VIEWS CDT procedure are i n the results section. XR ANKLE LEFT G/E 3 STAT 10/06/2011 11:29 PM R esults for this VIEWS CDT procedure are i n the results section. documented in this encounter Results Foot XR, G/E 3 views, left (10/07/2011 12:12 AM CDT) Anatomical Region Laterality Modality Foot, Ankle Left Other Specimen (Source) Anatomical Collection Method Collection Time Re ceived Time Location / / Volume Laterality 10/07/2011 12:12 AM CDT Impressions 10/07/2011 7:34 AM CDT FOOT ??3 VIEWS LEFT * Oct 07, 2011 12:13 :00 AM HISTORY: left foot pain FINDINGS: Negative. Lizzy Rothman MD IMG DIAGNOSTIC IMAGING ORDER FRANCES X-ray ankle G/E 3 views left (10/06/2011 11:29 PM CDT) Anatomical Region Laterality Modality Leg, Ankle, Foot Left Other Specimen (Source) Anatomical Collection Method Collection Time Re ceived Time Location / / Volume Laterality 10/06/2011 11:29 PM CDT Impressions 10/07/2011 7:30 AM CDT ANKLE ??3 VIEWS LEFT * Oct 06, 2011 11:2 9:00 PM HISTORY: Trauma FINDINGS: No evidence of fracture or dis location. Miko Rich MD IMG DIAGNOSTIC IMAGING ORDER FRANCES documented in this encounter Visit Diagnoses Diagnosis Foot pain, left Pain in limb documented in this encounter Administered Medications Inactive Administered Medications - up to 3 most recent administrations Medication Order MAR Action Action Date Dose Rate Site ibuprofen (ADVIL,MOTRIN) tablet Given 10/06/2011 11:51 PM CDT 40 0 mg 400 mg 400 mg, Oral, ONCE, On Wed10/07/11 at 0000, For 1 dose documented in this encounter Active and Recently Administered Medications Times are shown in CDT. Scheduled Medication Order 10/05/2011 10/06/2011 10/07/2011 ibuprofen (ADVIL,MOTRIN) tablet 400 mg (COMPLETED) 7771 (Given - Provider: Madison Khan RN) 400 mg, Oral, ONCE, Wed10/07/11 at 0000, For 1 dose documented in this encounter Care Teams Wood Carver Hand Relationship Specialty Start Date End Date Caryl Trujillo MD PCP - General Family Practice 12/16/10 documented as of this encounter
--- OUTSIDE RECORDS SUMMARY | 2021-12-30 10:46 | XMS_ITS | Encounter Summary ---
:2000 Author Organization [place] Address [facility] [place] [address] Care Team Providers Name Role Phone Caryl Trujillo MD Primary Care Provider [phone] Reason for Visit Reason Comments Otalgia Bilateral ear pain x1 week. Patient also has a hard time hearing. Encounter Details Date Type Department Care Team Description 01/02/2011 Office Visit [facility] Caryl Trujillo Acute o titis media Clinic Vitor Tolliver MD (Primary Dx) [address] [address] [facility], [address] [place] [address] [place], [place] [phone] (Wo rk) [address] [phone] Social History Tobacco Use Types Packs/Day Years Used Date Never Smoker Sex Assigned at Date Recorded Not on file documented as of this encounter Last Filed Vital Signs Vital Sign Reading Time Taken Comments Blood Pressure 84/52 01/02/2011 3:50 PM CDT Pulse 66 01/02/2011 3:50 PM CDT Temperature 36.6 ??C (97.9 ??F) 01/02/2011 3:50 PM CDT Respiratory Rate 16 01/02/2011 3:50 PM CDT Oxygen Saturation 98% 01/02/2011 3:50 PM CDT Inhaled Oxygen Concentration - - Weight 45.5 kg (100 lb 6.4 oz) 01/02/2011 3:50 PM CDT Height - - Body Mass Index - - documented in this encounter Progress Notes Caryl Trujillo - 01/02/2011 3:46 PM CDT SUBJECTIVE: Teodora Eisenberg is a 10 year old female who presents with a complaint of Ear Pain. Onset of symptoms was 1 week ago. Treatment measures tried include None tried. Course of illness is worsening. Associated symptoms: Otalgia: present, side: bilateral and moderate Rhinorrhea: present: and clear Fever: no noted fevers Cough: none Sore throat: Yes: with swallowing Nausea/emesis: No Diarrhea: No Other symptoms: Yes: unable to hear well Recent illnesses: sore throat end of Exposures to: none applicable at none known. Predisposing conditions include: None PE: There were no vitals taken for this visit. General appearance: alert, no acute distress Eyes: Conjunctiva without erythema or mattering. Ears: Tympanic membrane right erythematous and bulging membrane, left erythematous and bulging membrane. Nose: Nares without erythema or drainage. Throat: without erythema or exudate. No tonsilar hypertrophy. Neck: No lymphadenopathy or masses. Lungs: clear to auscultation. Heart: regular rate and rhythm without murmurs, rubs or gallops ASSESSMENT: Acute Otitis Media, bilt PLAN: See orders: lab, imaging, med and follow-up plans for this encounter. documented in this encounter Nursing Notes 01/02/2011 3:45 PM CDT >> TERESSA SANTA Fri Jan 02, 2011 3:52 PM Patient presents with: Otalgia - Bilateral ear pain x1 week. Patient also has a hard time hearing. Initial BP 84/52 Pulse 66 Temp(Src) 97.9 ??F (36.6 ??C) (Oral) Resp 16 Wt 100 lb 6.4 oz (45.541 kg) SpO2 98% Estimated Body mass index is 20.11 kg/(m^2) as calculated from the following: Height as of 12/16/10: 4' 11.25(1.505 m). Weight as of this encounter: 100 lb 6.4 oz(45.541 kg). BP completed using cuff size regular right arm. Teressa Santa CMA documented in this encounter Plan of Treatment Not on filedocumented as of this encounter Visit Diagnoses Diagnosis Acute otitis media - Primary Unspecified otitis media documented in this encounter Care Teams Promos Executive Producer Relationship Specialty Start Date End Date Caryl Trujillo MD PCP - General Family Practice 12/16/10 documented as of this encounter
--- OUTSIDE RECORDS SUMMARY | 2021-12-30 10:46 | XMS_ITS | Encounter Summary ---
:2000 Author Organization Holiday Address [facility] [place] [address] Care Team Providers Name Role Phone Caryl Trujillo MD Primary Care Provider [phone] Reason for Visit Reason Onset Date Comments No Show 05/18/2012 Encounter Details Date Type Department Care Team Description 05/10/2012 Office Visit [facility] Caryl Trujillo NO SHOW (Primary Dx) [place] [address] [address] [address] [facility], [address] [place] [address] [place], [place] [phone] (Wo rk) [address] [phone] Social History Tobacco Use Types Packs/Day Years Used Date Never Smoker Sex Assigned at Date Recorded Not on file documented as of this encounter Progress Notes Velia Holt - 05/18/2012 3:57 PM CST This patient was a no show for this scheduled appointment. ATAL NURSE documented in this encounter Plan of Treatment Not on filedocumented as of this encounter Visit Diagnoses Diagnosis NO SHOW - Primary documented in this encounter Care Teams Multi Needle Machine Operator Relationship Specialty Start Date End Date Caryl Trujillo MD PCP - General Family Practice 12/16/10 documented as of this encounter
--- OUTSIDE RECORDS SUMMARY | 2021-12-30 10:46 | XMS_ITS | Encounter Summary ---
:2000 Author Organization [place] Address [facility] [place] [address] Care Team Providers Name Role Phone Caryl Trujillo MD Primary Care Provider [phone] Reason for Visit Reason Comments Well Child Vaginal Problem Recheck sore. Formulary Issue Cream not covered by Ins. Encounter Details Date Type Department Care Team Description [facility] infant or child health check (Primary Dx); Clinic Vitor Tolliver MD Unspecified ulceration of vulva [place] [address] [facility], [address] [phone] (Wo rk) [address] [phone] Social History Tobacco Use Types Packs/Day Years Used Date Never Smoker Sex Assigned at Date Recorded Not on file documented as of this encounter Last Filed Vital Signs Vital Sign Reading Time Taken Comments Blood Pressure 90/58 12/18/2010 7:47 AM CDT Pulse 78 12/18/2010 7:47 AM CDT Temperature 36.8 ??C (98.3 ??F) 12/18/2010 7:47 AM CDT Respiratory Rate 16 12/18/2010 7:47 AM CDT Oxygen Saturation 99% 12/18/2010 7:47 AM CDT Inhaled Oxygen Concentration - - Weight 45.9 kg (101 lb 3.2 oz) 12/18/2010 7:47 AM CDT Height - - Body Mass Index 20.27 12/16/2010 9:41 AM CDT Body Mass Index Percentile 69.32 % 12/18/2010 7:47 AM CD T Growth Chart: CDC (Girls, 2-20 Years) documented in this encounter Progress Notes Caryl Trujillo - 12/18/2010 7:45 AM CDT Teodora Eisenberg is an 10 year old female here for a routine health maintenance visit, accompanied by her self and mother. QUESTIONS/CONCERNS: 1. Recheck sore in the vaginal area. 2. Cream was not covered by ins.-Would like an alternative. FAMILY/ SOCIAL HISTORY Child lives with: mother, father, brother and 2 sisters Recent family changes/social stressors: none noted Family History: No changes since last physical Language(s) spoken at home: [place] ENVIRONMENTAL RISK ASSESSMENT Is your child around anyone who smokes? NO Seat belt? YES Bike/sport helmet? YES TB exposure? NO Pets in the home? NO Guns/firearms in the home? YES, Trigger locks present? YES Water source: city water CHICKEN POX HISTORY: N/A DEVELOPMENTAL/ Behavioral Screening form: Form given. VISION Right eye: 20/20 Left eye: 20/20 Both eyes: 20/20 HEARING Right Ear: 500 Hz: RESPONSE- on Level: 20 db 1000 Hz: RESPONSE- on Level: 20 db 2000 Hz: RESPONSE- on Level: 20 db 4000 Hz: RESPONSE- on Level: no response 6000 Hz: RESPONSE- on Level: 20 db 8000 Hz: RESPONSE- on Level: 20 db Left Ear: 500 Hz: RESPONSE- on Level: no response 1000 Hz: RESPONSE- on Level: no response 2000 Hz: RESPONSE- on Level: no response 4000 Hz: RESPONSE- on Level: no response 6000 Hz: RESPONSE- on Level: no response 8000 Hz: RESPONSE- on Level: no response Pt passed at school, and is hearing fine 12/10/10 REQUIRED VITAL SIGNS COMPLETED: yes BP 90/58 Pulse 78 Temp(Src) 98.3 ??F (36.8 ??C) (Oral) Resp 16 Wt 101 lb 3.2 oz (45.904 kg) SpO2 99% No height on file. 51.47% of growth percentile based on [id number]. No unique date with height and weight on file. Will you need a sports physical in the next year? Sports Questionnaire: School: [employer] Grade: 7th Sports: Soccer 1. no - Has a doctor ever denied or restricted your participation in sports for any reason or told you to give up sports? 2. no - Do you have an ongoing medical condition (like diabetes,asthma, anemia, infections)? 3. yes- Are you currently taking any prescription or nonprescription (wjwv-vhz-hiafocj) medicines orpills? 4. no - Do you have allergies to medicines, pollens, foods or stinging insects? 5. no - Have you ever spent a night in a hospital? 6. no - Have you ever had surgery? 7. no - Have you ever passed out or nearly passed out DURING exercise? 8. no - Have you ever passed out or nearly passed out AFTER exercise? 9. no - Have you ever had discomfort, pain, tightness, or pressure in your chest during exercise? 10.. no - Does your heart race or skip beats (irregular beats) during exercise? 11. no - Has a doctor ever told you that you have High Blood Pressure, a Heart Murmur, High Cholesterol, a Heart Infection, Rheumatic Fever or Kawasaki's Disease? 12. no - Has a doctor ever ordered a test for your heart? (for example: ECG, echocardiogram, stress test) 13. no -Do you get lightheaded or feel more short of breath than expected during exercise? 14. no- Have you ever had an unexplained seizure? 15. no - Do you get tired or short of breath more quickly than your friends do during exercise? 16. no- Has any family member or relative of heart problems or had an unexpected or unexplainedsudden before age 50 (including unexplained drowning, unexplained car accident or sudden infant syndrome)? 17. no - Does anyone in your family have hypertrophic cardiomyopathy, Marfan syndrome, arrhythmogenic right ventricular cardiomyopathy, long QT syndrome, short QT syndrome, Brugada syndrome, or catecholaminergic polymorphic ventricular tachycardia? 18. no - Does anyone in your family have a heart problem, pacemaker, or implanted defibrillator? 19.no- Has anyone in your family had an unexplained fainting, unexplained seizures, or near drowning? 20. no - Have you ever had an injury, like a sprain, muscle or ligament tear or tendonitis, that caused you to miss a practice or game? 21. no - Have you had any broken or fractured bones, or dislocated joints? 22. no - Have you had a bone/joint injury that required x-rays, MRI, CT, surgery, injections, therapy, a brace, a cast, or crutches? 23. no - Have you ever had a stress fracture? 24. no - Have you been told that you have or have you had an x-ray for neck instability? 25. no - Do you regularly use [...] that you have asthma or allergies? 30. no - Do you cough, wheeze, have chest tightness, or have difficulty breathing during or after exercise? 31. no - Is there anyone in your family who has asthma? 32. no - Have you ever used an inhaler or taken asthma medicine? 33. no - Do you develop a rash or hives when you exercise? 34. no - Were you born without or are you missing a kidney, an eye, or any other organ? 35. no- Do you have groin pain or a painful bulge or hernia in the groin area? 36. no - Have you had infectious mononucleosis (mono) within the last month? 37. yes- Do you have any rashes, pressure sores, or other skin problems? 38. no - Have you had a herpes or MRSA skin infection? 39. no - Have you ever had a head injury or concussion? 40. no - Have you ever had a hit or blow to the head that caused confusion, prolonged headaches or memory problems? 41. no - Do you have a history of seizure disorder? 42. no - Do you have headaches with exercise? 43. no - Have you ever had numbness, tingling or weakness in your arms or legs after being hit or falling? 44. no - Have you ever been unable to move your arms or legs after being hit or falling? 45. no - Have you ever become ill when exercising in the heat? 46. no -Do you get frequent muscle cramps when exercising? 47. no - Do you or someone in your family has sickle cell trait or disease? 48. no [...] that you gain or lose weight? 54. no - Are you on a special diet or do you avoid certain types of foods? 55. no - Have you ever had an eating disorder? 56. yes- Do you have any concerns that you would like to discuss with a doctor? 57. NO- Have you ever had a menstrual period? 58.How old were you when you had your first menstrual period? N/A 57. How many menstrual periods have you had in the lst year? N/A Staff signature: Teressa Rose CMA HEALTH HISTORY SINCE LAST VISIT No surgery, major illness or injury since last physical exam Cardiac risk assessment: none There is no immunization history on file for this patient. ALLERGIES Not on File DAILY ACTIVITIES NUTRITION: good appetite, eats variety of foods SLEEP: No concerns, sleeps well through night ELIMINATION: Normal bowel movements and Normal urination EXERCISE/ RECREATION: Organized / Team sports: soccer ACTIVITIES: music (choir), theater and youth group at [facility] TV/ Media: < 2 hours/ day EDUCATION [...] EXTREMITIES: Full range of motion, no deformities -F: Normal female external genitalia, Charles stage . : Vulva on the left side, has 1cm superficial ulceration, very tender, no abscess and no fullness. No other abnormalities, no LN in the groin. SPORTS EXAM: Shoulder: normal Elbow: normal Hand/Wrist: normal Back: normal Quad/Ham: normal Knee: normal Ankle/Feet: normal Heel/Toe: normal Duck walk: normal ANTICIPATORY GUIDANCE The following topics were discussed: SOCIAL/ FAMILY: NUTRITION: HEALTH / SAFETY: SEXUALITY: ASSESSMENT 1. Well teen with normal growth and development Vulvar superficial ulcer, Cx done today, added prednisone and cont keflex. This may be a bug bite vsviral or bacterial infection. F/u 1 week if not improving PLAN Immunizations: Reviewed, up to date [facility]errals/Ongoing Specialty care: No Dental visit recommended: Continue care every 6 months Lifestyle, health, and safety counseling RTC: 1 year [facility] visit documented in this encounter Nursing Notes 12/18/2010 7:45 AM CDT >> TERESSA Garcia ARINA [facility] Dec 18, 2010 7:58 AM Patient presents with: Well Child Vaginal Problem - Recheck sore. Formulary Issue - Cream not covered by Ins. Initial BP 90/58 Pulse 78 Temp(Src) 98.3 ??F (36.8 ??C) (Oral) Resp 16 Wt 101 lb 3.2 oz (45.904 kg) SpO2 99% Estimated Body mass index is 20.27 kg/(m^2) as calculated from the following: Height as of 12/16/10: 4' 11.25(1.505 m). Weight as of this encounter: 101 lb 3.2 oz(45.904 kg). BP completed using cuff size regular right arm. Teressa Rose CMA documented in this encounter Plan of Treatment Not on filedocumented as of this encounter Procedures Procedure Name Priority Date/Time Associated Diagnosis Comme nts VIRAL CULTURE Routine 12/18/2010 10:20 AM Unspecified Results for this CDT ulceration of vulva procedur e are in the results section. WOUND CULTURE Routine 12/18/2010 10:19 AM Unspecified Results for this AEROBIC BACTERIAL CDT ulceration of vulva pro cedure are in the results section. HC SCREENING TEST, Routine 12/18/2010 8:13 AM Routine o r PURE TONE, AIR ONLY CDT child health check documented in this encounter Results Viral culture (12/18/2010 10:20 AM CDT) [facility] [employer] Method Time Signature Viral Culture Labia [place] Specimen [facility] Result No virus [facility] Status FINAL [facility] Specimen Anatomical Collection Method Collection Time Receive d Time (Source) Location / / Volume Laterality 12/18/2010 10:20 12/18/2010 AM CDT 10:22 AM CDT Caryl Trujillo MD LAB - MICRO GENERAL ORDERABL ES Performing Organization Address City/State/ZIP Code Phon e Number [facility] [address] [place] [address] [facility] LAB [facility] Wound culture (12/18/2010 10:19 AM CDT) [facility] [employer] Method Time Signature Specimen [place] Description [facility] Culture Micro No growth [facility] Micro Report FINAL [place] Status 12/20/2010 [facility] Specimen Anatomical Collection Method Collection Time Receive d Time (Source) Location / / Volume Laterality Specimen from 12/18/2010 10:19 12/18/2010 wound (specimen) AM CDT 10:21 AM CD T Caryl Trujillo MD LAB - MICRO GENERAL ORDERABL ES Performing Organization Address City/State/ZIP Code Phon e Number [facility] [address] [place] [address] [facility] documented in this encounter Visit Diagnoses Diagnosis Routine infant or child health check - P rimary Ulceration of vulva, unspecified documented in this encounter Care Teams Advanced Solutions Architect Relationship Specialty Start Date End Date Caryl Trujillo MD PCP - General Family Practice 12/16/10 documented as of this encounter
--- OUTSIDE RECORDS SUMMARY | 2021-12-30 10:46 | XMS_ITS | Encounter Summary ---
:2000 Author Organization [place] Address [facility] [place] [address] Care Team Providers Name Role Phone Cayrl Trujillo MD Primary Care Provider [phone] Reason for Visit Reason Comments Pharyngitis Sore throat and nasal draina ge/congestion since Wednesday. Vaginal Problem Sore in the vaginal area. Encounter Details Date Type Department Care Team Description 12/16/2010 Office Visit [facility] Caryl Trujillo PHARYNG ITIS (Primary Dx); Clinic Vitor Tolliver MD [facility] [address] [address] [facility], [address] [place] [id number] [place], [place] [phone] (Wo rk) [address] [phone] Social History Tobacco Use Types Packs/Day Years Used Date Never Smoker Sex Assigned at Date Recorded Not on file documented as of this encounter Last Filed Vital Signs Vital Sign Reading Time Taken Comments Blood Pressure 96/56 12/16/2010 9:41 AM CDT Pulse 61 12/16/2010 9:41 AM CDT Temperature 36.8 ??C (98.3 ??F) 12/16/2010 9:41 AM CDT Respiratory Rate 16 12/16/2010 9:41 AM CDT Oxygen Saturation 99% 12/16/2010 9:41 AM CDT Inhaled Oxygen Concentration - - Weight 45.7 kg (100 lb 12.8 oz) 12/16/2010 9:41 AM CDT Height 150.5 cm (4' 11.25) 12/16/2010 9:41 AM CDT Body Mass Index 20.19 12/16/2010 9:41 AM CDT Body Mass Index Percentile 68.57 % 12/16/2010 9:41 AM CD T Growth Chart: [facility] (Girls, 2-20 Years) documented in this encounter Progress Notes Caryl Trujillo - 12/16/2010 9:57 AM CDT SUBJECTIVE: Teodora Eisenberg is a 10 year old female who presents with a complaint of Sore Throat. Onset of symptoms was 4 days ago. Treatment measures tried include OTC meds. Course of illness is improving and on and off, worse in am. Associated symptoms: Otalgia: absent Rhinorrhea: present: and clear Fever: no noted fevers Cough: none Sore throat: Yes: hard to swallow and voice sounds funny Nausea/emesis: No Diarrhea: No Other symptoms: No Recent illnesses: none Exposures to: none applicable at none known. Predisposing conditions include: None [place] [employer] and has a sore on her labia, left side, x 1 wk, painful, and mom was toldabout it yest, looks like a sore, and now they are concerned. Is not sexually active and mom has no concerns regarding this. ROS: 10 point ROS neg other than the symptoms noted above in the HPI. PE: BP 96/56 Pulse 61 Temp(Src) 98.3 ??F (36.8 ??C) (Oral) Resp 16 Ht 4' 11.25 (1.505 m) Wt 100 lb 12.8 oz (45.723 kg) BMI 20.19 kg/m2 SpO2 99% General appearance: alert, no acute distress Eyes: Conjunctiva without erythema or mattering. Ears: Tympanic membranes with good landmarks bilaterally. Normal color. Nose: Nares without erythema or drainage. Throat: without erythema or exudate. No tonsilar hypertrophy. Neck: No lymphadenopathy or masses. Lungs: clear to auscultation. Heart: regular rate and rhythm without murmurs, rubs or gallops Genital area, left labia, over bartholins gland is swollen ,mildly tender but not a mass, and has open superficial ulceration, with granular tissue covering it, no drainage ASSESSMENT: 89Y PHARYNGITIS (primary encounter diagnosis) Comment: likely viral Plan: STREP GROUP A ANTIGEN (RAPID), Beta strep group A culture F/u if not improving 616.2D Bartholin cyst Comment: infection?vs bug bite but over this area? Plan: cephALEXin (KEFLEX) 500 MG capsule, lidocaine (LMX 4) 4 % CREA F/u if gets bigger, more painful, or any concerns PLAN: See orders: lab, imaging, med and follow-up plans for this encounter. documented in this encounter Nursing Notes 12/16/2010 9:45 AM CDT >> TERESSA Espinoza Dec 16, 2010 9:46 AM Patient presents with: Pharyngitis - Sore throat and nasal drainage/congestion since Wednesday. Initial BP 96/56 Pulse 61 Temp(Src) 98.3 ??F (36.8 ??C) (Oral) Resp 16 Ht 4' 11.25 (1.505 m) Wt 100 lb 12.8 oz (45.723 kg) BMI 20.19 kg/m2 SpO2 99% Estimated Body mass index is 20.19 kg/(m^2) as calculated from the following: Height as of this encounter: 4' 11.25(1.505 m). Weight as of this encounter: 100 lb 12.8 oz(45.723 kg). BP completed using cuff size regular right arm. Teressa Rose CMA documented in this encounter Plan of Treatment Not on filedocumented as of this encounter Procedures Procedure Name Priority Date/Time Associated Diagnosis Comme nts RAPID STREP SCREEN Routine 12/16/2010 9:48 AM Pharyngitis Res ults for this THROAT SWAB CDT procedure are i n the results section. BETA HEMOLYTIC Routine 12/16/2010 9:48 AM Pharyngitis Results for this STREP GROUP A CDT procedure are in CULTURE the results section. documented in this encounter Results Beta strep group A culture (12/16/2010 9:48 AM CDT) Component Value Ref Test Analysis Performed At [facility] Range Method Time Signature Specimen Throat [place] Description [facility] Culture Micro No Beta [place] Streptococcus [facility] Micro Report FINAL [facility]/18[facility]2010 [facility] Specimen Anatomical Collection Method Collection Time Receive d Time (Source) Location / / Volume Laterality Specimen from 12/16/2010 9:48 AM 12/17/19 11 9:53 throat CDT AM CDT (specimen) Caryl Trujillo MD LAB - MICRO GENERAL ORDERABL ES Performing Organization Address City/[facility]/ZIP Code Phon e Number [address] [address] [facility] STREP GROUP A ANTIGEN (RAPID) (12/16/2010 9:48 AM CDT) Component Value Ref Test Analysis Performed At [facility] Range Method Time Signature Specimen Throat [place] Description [facility] Rapid Strep A NEGATIVE: No Group A strepto coccal antigen detected by immunoassay, await [place] Screen culture report. [facility] Micro Report FINAL 12/16/2010 [place] Status [facility] Specimen Anatomical Collection Method Collection Time Receive d Time (Source) Location / / Volume Laterality Specimen from 12/16/2010 9:48 AM 12/17/19 11 9:53 throat CDT AM CDT (specimen) Caryl Trujillo MD LAB - MICRO GENERAL ORDERABL ES Performing Organization Address City/[facility] Code Phon e Number [address] [address] [facility] documented in this encounter Visit Diagnoses Diagnosis Pharyngitis - Primary Acute pharyngitis Bartholin cyst Cyst of Bartholin's gland documented in this encounter Care Teams Miller Head Assistant Wet Process Relationship Specialty Start Date End Date Caryl Trujillo MD PCP - General Family Practice 12/16/10 documented as of this encounter
--- NOTE | 2021-12-30 11:00 | CRLHL7_ITS ---
For Patients: As a result of the Century Cures Act, medical imaging exams and procedure reports are released immediately into your electronic medical record. You may view this report before your referring provider. If you have questions, please contact your health care provider. INDICATION: Evaluate anatomy. COMPARISON: 10/10/2021 TECHNIQUE: Real time graves scale imaging of the fetus was performed as well as color Doppler analysis of the umbilical vessels. FINDINGS: Sonographic imaging demonstrates a single living intrauterine gestation. Fetus demonstrates a regular cardiac rate of 141 beats per minute. Fetus has a variable position. The placenta lies posteriorly without evidence of placenta previa. The edge of the placenta is located more than 5 cm from the internal cervical os. Amniotic fluid volume appears normal. Single deepest vertical pocket: 6.5 cm. The cervix is closed and measures 3.7 cm in length. The composite ultrasound gestational age is calculated at 20 weeks 4 days with an estimated sonographic due date of 05/15/2022. The estimated weight is 384 grams which lies at the 93rd %. The following biometric measurements were obtained: Biparietal diameter: 4.5 cm/19 weeks 5 days 41st% Head circumference: 17.7 cm/20 weeks 1 day 57th% Abdominal circumference: 17.1 cm/22 weeks 0 days 96th% Femur length: 3.2 cm/19 weeks 6 days 39th% The HC/AC ratio measures: 1.04 range (1.07-1.25) On anatomic survey, there is a normal appearance of the cavum septi pellucidi, cisterna magna and cerebellum. Right cord plexus cyst is present measuring 6 x 5 x 6 millimeters. The nose, lips, and facial profile appear normal. The cervical, thoracic and lumbar spine are well visualized and appear normal. There is a normal four-chamber heart view and the left and right ventricular outflow tracts appear normal. The diaphragm and stomach appear normal. The kidneys and bladder also appear normal. There is a normal three-vessel cord and cord insertion site. The four extremities appear normal. IMPRESSION: Right choroid plexus cyst measuring 6 millimeters. The remainder of the anatomic survey is normal. Level 2 ultrasound recommended. Sonographic gestational age 20 weeks 4 days and sonographic due date 05/15/2022. Sonographic age is 5 days ahead of the clinical age. Estimated weight 93rd percentile. Abdominal circumference 96th percentile. Dictated by Osman Escobar MD @ 12/30/2021 11:54:55 AM (Electronically Signed)
== END 2021-12-30 10:40 | disposition home or self-care (01) ==
LOC: US 10:40
PROVIDERS: Visit Provider Advanced Practice Midwife
DX: Z34.92 Encounter for supervision of normal pregnancy, unspecified, second trimester (principal); O34.82 Maternal care for other abnormalities of pelvic organs, second trimester; Z3A.20 20 weeks gestation of pregnancy
CPT/HCPCS: 76805

== ENCOUNTER 2022-02-24 10:00 | Outpatient (CLI) | payer MEDICAID, SELFPAY ==
[2022-02-25 23:47] LABS: Rapid Plasma Reagin (RPR) Non Reactive (Non Reactive)
== END 2022-02-24 10:01 | disposition home or self-care (01) ==
PROVIDERS: Visit Provider Obstetrics & Gynecology
DX: Z34.92 Encounter for supervision of normal pregnancy, unspecified, second trimester (principal); Z3A.27 27 weeks gestation of pregnancy
CPT/HCPCS: 86592; 86850

== ENCOUNTER 2022-04-28 09:07 | Outpatient (CLI) | payer MEDICAID, SELFPAY ==
[2022-04-29 12:37] LABS: Strep B DNA Probe POSITIVE (Negative)
[2022-04-29 12:38] LABS: Strep B Pen/Amox Allergy No
== END 2022-04-28 09:08 | disposition home or self-care (01) ==
PROVIDERS: Visit Provider Obstetrics & Gynecology
DX: Z34.90 Encounter for supervision of normal pregnancy, unspecified, unspecified trimester (principal)
CPT/HCPCS: 87081; 87653

== ENCOUNTER 2022-05-12 09:10 | Outpatient (CLI) | payer MEDICAID, SELFPAY ==
[2022-05-12 10:16] LABS: Alanine Aminotransferase* 27 U/L (4-35); Aspartate Amino Transferase* 42 U/L (12-35); Blood Urea Nitrogen* 7 mg/dL (5-24); Creatinine* 0.6 mg/dL (0.5-1.5); Estimated Glomerular Filt Rate 128 ml/min
[2022-05-12 11:22] LABS: Total Protein Urine 16 mg/dL
[2022-05-12 11:23] LABS: Creatinine Urine 74.9 mg/dL
== END 2022-05-12 09:11 | disposition home or self-care (01) ==
PROVIDERS: Visit Provider Obstetrics & Gynecology
DX: O21.9 Vomiting of pregnancy, unspecified (principal); Z3A.38 38 weeks gestation of pregnancy
CPT/HCPCS: 82565; 82570; 84156; 84450; 84460; 84520

== ENCOUNTER 2022-05-14 05:05 | Inpatient (IN) | payer MEDICAID, SELFPAY ==
[2022-05-14] VITALS (21 sets, daily range): BP systolic 93–112; BP diastolic 52–80; PULSE 52–78; RESP 16; TEMP 36.3–36.8; O2SAT 96–99; BMI 35.2
[2022-05-14] MEDS: LACTATED RINGERS 1000 ML 1,000 ML IV (05:52)
[2022-05-14 06:25] LABS: Basophils Percent Auto 0.1 % (0.0-3.0); Hematocrit 38.7 % (33.0-51.0); Hemoglobin* 13.5 gm/dL (12.0-16.0); Lymphocytes Percent Auto 18.6 % (20-44); Mean Corpuscular HGB Conc 35 gm/dL (32-36); Mean Corpuscular Hemoglobin 29 pg (26-34); Mean Corpuscular Volume 83 fL (80-100); Monocytes Percent Auto 6.2 % (0.0-11.0); Neutrophils Percent Auto 73.1 % (42.0-72.0); Platelet Count* 192 K/uL (140-440); RDW Coefficient of Variation % 12.6 % (11.5-15.5); Red Blood Count 4.68 m/uL (4.00-5.20); White Blood Count* 12.61 K/uL (4.50-11.00)
[2022-05-14 06:28] LABS: Slide Review Reflex No
[2022-05-14] MEDS: LACTATED RINGERS 1000 ML 1,000 ML 125 ML IV ×2 (06:48→11:03)
[2022-05-14 07:16] LABS: SARS PCR* Negative SARS-CoV-2 (Negative)
--- NOTE | 2022-05-14 07:16 | P.LDBA_ITS ---
Subjective History of Present Illness Date Seen: 05/14/22 Narrative: Patient is being admitted to Labor and Delivery for Scheduled repeat delivery. She is a 22 year old -0-1-1 woman at 39 weeks, 1 day gestation. H&P 04/28/22 Dr. Diehl Specific Issues/Plans AB POSITIVE+? OB Pt - RCS [id number] Daughter Celine comes to visits with her 1. Hx of c/s for Breech.? Desires repeat .? Scheduled in 39th week. 2. Uncomplicated Asthma, exercise induced.? No inhaler needed.? 3. Right choroid plexus cyst, remainder of anatomy normal * Cell free DNA:? negative4. Estimated weight on anatomy ultrasound:? 93%, AC 96%? 5.? GBS positive.? No need to treat if no SROM before repeat FLU: Declines TDAP- 03/10/22 OB - Problem Based A/P Additional Plan (1) Previous delivery affecting : Status: Acute Plan repeat delivery today OB Exam Physical Exam Vital signs: Temp Pulse Resp BP Pulse Ox 98.2 F 73 16 106/67 98 05/14/22 05:30 05/14/22 05:30 05/14/22 05:30 05/14/22 05:30 05/14/22 05:30 Narrative: Physical exam: Vitals as noted above. General: No acute distress Psych: Alert and oriented x 3, full affect HEENT: Normocephalic, atraumatic Abdomen: soft, nontender, gravid NST: Reactive and reassuring
[2022-05-14] MEDS: CEFAZOLIN 2 GM in 0.9 % SODIUM CHLORIDE Mini-bag 100 ML IVPB (07:25)
[2022-05-14] MEDS: KETOROLAC 30 MG/ML inj IVP ×3 (08:04→19:58)
--- NOTE | 2022-05-14 08:05 | W.ANESCHARGE ---
Anesthesia Charges Start Date/Time Anesthesia Start Date: 05/14/22 Anesthesia Start Time: 07:18 Stop Date/Time Anesthesia Stop Date: 05/14/22 Anesthesia Stop Time: 08:40 Summary Emergency: No
--- NOTE | 2022-05-14 08:16 | PM.OBPRCCS ---
Procedure Pre-op/Post-op diagnoses: Pre-Op/Post-Op Diagnoses Operation Date: 05/14/22 07:00 <No data on this case meets the specified criteria> Procedure Done: Global Procedure Details: Procedures Operation Date: 05/14/22 07:00 Actual Procedure Side Surgeon p Repeat Section Cindy Diehl MD Narrative: PREOPERATIVE DIAGNOSIS: 39 weeks, 1 day gestation Previous , desires repeat POSTOPERATIVE DIAGNOSIS: 39 weeks, 1 day gestation Previous , desires repeat PROCEDURE: Repeat low-transverse section SURGEON: Cindy Diehl MD ANESTHESIA: Spinal IV FLUIDS: 650 mL crystalloid QBL: 122 mL FINDINGS: 1. Female , cephalic presentation, Apgars 8 and 9, weight 7 lb, 11 oz 2. Localized omental adhesions to anterior abdominal wall. Normal appearance to uterus, bilateral tubes and ovaries. COMPLICATIONS: None PROCEDURE IN DETAIL: Patient was taken to the operating room with IV running. She received cefazolin in preoperative prophylaxis. Spinal anesthesia had previously been administered. Garland catheter was inserted. She was prepped and draped in the usual sterile fashion. Anesthesia was tested and found to be adequate. A low-transverse skin incision was made with a scalpel and carried through to the underlying layer of fascia with the scalpel. The subcutaneous fat was dissected off the underlying fascia with Bovie. The fascia was nicked in the midline with a scalpel, and this incision was extended laterally with scissors. The rectus muscles were in the midline. Peritoneum was entered bluntly near the superior aspect of the incision well the fascia was dissected off the rectus. Bovie was used to widen this opening laterally. Artemio O retractor was inserted and tightened down, providing excellent visualization of the lower uterine segment. The bladder reflection was found to be well below the planned site for hysterotomy. Low-transverse uterine incision was made with a scalpel. Incision was widened bluntly. The 's head was grasped through the hysterotomy and delivered with the help of fundal pressure. The remainder of the body delivered without incident. Cord was clamped and cut after 30 seconds. was handed off to attending nurses. The placenta was delivered with gentle traction on the cord. The uterus was cleaned of all clots and debris with the dry lap pad. The hysterotomy was reapproximated with 0 Vicryl in a running, locked fashion. Limited use of electrocautery was used to obtain excellent hemostasis. The adnexa were examined and noted to be normal in appearance. The Artemio O retractor was removed. The hysterotomy was reexamined and found to be hemostatic. The peritoneum was reapproximated with 0 Vicryl in a running fashion. The rectus muscles were examined and electrocautery used on isolated oozing vessels. The fascia was reapproximated with 0 Vicryl in a running fashion. Subcutaneous fat was irrigated and Bovie used on oozing vessels. The subcutaneous fat was reapproximated with 2 0 plain gut suture in an interrupted fashion. The skin was closed with a subcuticular stitch of 4-0 Monocryl. Surgical glue was applied above this. Patient tolerated procedure well was taken to recovery area in stable condition.
--- NOTE | 2022-05-14 09:07 | W.ANESCHARGE ---
Anesthesia Charges Start Date/Time Anesthesia Start Date: 05/14/22 Anesthesia Start Time: 07:18 Stop Date/Time Anesthesia Stop Date: 05/14/22 Anesthesia Stop Time: 08:40 Summary Emergency: No
--- NOTE | 2022-05-14 09:07 | W.PM.NB ---
Nerve Block Nerve Block Time Seen by Provider: 08:31 Date Seen: 05/14/22 Type of block requested by surgeon for post-operative analgesia: TAP Side: bilateral Time out performed: Yes Verification of patient name: Yes Verification of date of : Yes Site marking: site marked Name of person performing procedure: Momo Continuous monitoring Was continuous monitoring of O2 sat, B/P, diagnostic cardiac sonographer, recorded every 15 minutes?: Yes Procedure Checklist: sterile prep, needles and gloves Ultrasound guided. Images saved: Yes Medications given in 5ml increments after negative aspiration: Marcaine %: 0.25 mL: 30 Needle gauge: 20 and Exparel mL: 10 Patient tolerated procedure well: Yes Additional comments: Needle noted adjacent to nerve Block Charges Block Charge (with Pro Fee): TAP Bilateral Use of Ultrasound Machine for Block: Yes- US Guidance/pain block
[2022-05-14] MEDS: ACETAMINOPHEN 500 MG TABLET 1000 MG PO (19:29)
[2022-05-14] MEDS: OXYCODONE 5 MG TABLET PO (22:34)
[2022-05-15] VITALS (8 sets, daily range): BP systolic 92–113; BP diastolic 59–74; PULSE 66–83; RESP 16–18; TEMP 36.5–37.1; O2SAT 98–99
[2022-05-15] MEDS: KETOROLAC 30 MG/ML inj IVP ×3 (02:04→14:07)
[2022-05-15] MEDS: ACETAMINOPHEN 500 MG TABLET 1000 MG PO ×3 (05:42→18:59)
[2022-05-15 05:51] LABS: Hemoglobin* 12.6 gm/dL (12.0-16.0)
[2022-05-15] MEDS: DOCUSATE SODIUM 100 MG CAPSULE PO (08:00)
--- NOTE | 2022-05-15 08:02 | P.OBPN_ITS ---
OB - PN: A/P Assessment and Plan (1) Previous delivery affecting : Status: Resolved (2) care following delivery: Status: Acute Plan 22 year old on day 1.? 1. cares.? 2. Anticipate discharge tomorrow or Wednesday.? Plan day: 1 Plan: discharge home OB - PN: Subj Subjective Date Seen: 05/15/22 Patient comments: no complaints, pain well controlled, tolerating diet and flatus present [place] infant status: bottle and doing well [place] feeding status: exclusively bottle feeding Narrative: Day 1:? Vaginal Delivery at 39 and 1/7 weeks.? ?? Complications:? denies? The patient feels well.? The pain is well controlled with current medications.? She has no new complaints.? Urinary output is adequate and she is voiding without difficulty.? Has a good appetite, is tolerating a general diet, is passing flatus, and has not had a bowel movement.? Has?small amount of rubra lochia.? She is ambulating well. She states that she feels much better than she did after her previous .? OB - PN: Obj Exam Physical Exam: Vital signs: Temp Pulse Resp BP Pulse Ox O2 Del Method 98.7 F 73 16 107/71 99 05/15/22 07:43 05/15/22 07:43 05/15/22 07:43 05/15/22 07:43 05/15/22 07:43 05/15/22 07:43 Narrative: GENERAL APPEARANCE:? normal affect, alert, no distress? MOOD:? appropriate? CHEST:? clear to auscultation and percussion? HEART:? regular rate and rhythm? ABDOMEN:? soft, non-tender the uterine fundus is?U/2 and is appropriate for the stage of recovery.? EXTREMITIES:? normal and no edema? OB - PN: Obj Data Labs Labs: Laboratory Results - last 24 hr 05/15/22 05:33 Hgb 12.6
[2022-05-15] MEDS: OXYCODONE 5 MG TABLET PO ×2 (15:19→21:50)
[2022-05-15] MEDS: IBUPROFEN 600 MG TABLET PO (20:52)
[2022-05-16] MEDS: ACETAMINOPHEN 500 MG TABLET 1000 MG PO ×2 (01:15→06:35)
[2022-05-16] MEDS: OXYCODONE 5 MG TABLET PO ×3 (02:29→10:10)
[2022-05-16] MEDS: IBUPROFEN 600 MG TABLET PO ×2 (02:29→09:13)
[2022-05-16 02:59] VITALS: BP 110/70; PULSE 60; RESP 18; TEMP 36.5; O2SAT 99
[2022-05-16 07:19] VITALS: BP 112/68; PULSE 70; RESP 16; TEMP 36.8; O2SAT 99
--- NOTE | 2022-05-16 09:55 | P.DS_ITS ---
DS: Providers Provider Time Seen by Provider: 09:55 Date Seen: 05/16/22 Date of admission: 05/14/22 05:05 Primary care physician: Not a Local Provider Admitting Clinician: Cindy Diehl MD Attending Physician on discharge: Soo Gómez MD Date of Discharge: 05/16/22 DS: Diagnosis Discharge Diagnosis (1) Status post delivery: Status: Acute Problem details: Girl, 7#11oz, apgars 8/9. Exam Const: Vital Signs, click to edit/add: Vital Signs - 24 hr 05/15/22 12:00 05/15/22 15:02 05/15/22 20:53 Temperature 98.6 F 98.0 F Pulse Rate [Pulse Oximeter] 79 75 Respiratory Rate 16 16 18 Blood Pressure [Le ft Arm] 108/67 113/74 Pulse Oximetry 98 99 Oxygen Delivery Me thod Room Air Room Air 05/16/22 02:59 05/16/22 07:19 Temperature 97.7 F 98.2 F Pulse Rate [Pulse Oximeter] 60 70 Respiratory Rate 18 16 Blood Pressure [Le ft Arm] 110/70 112/68 Pulse Oximetry 99 99 Oxygen Delivery Me thod Room Air Room Air Documenting provider has reviewed patient's vital signs: yes Common normals: no apparent distress and oriented x3 General appearance: cooperative and comfortable HENMT: Common normals: normocephalic Head and scalp: normocephalic Resp: Common normals: normal respiratory effort GI: Common normals: soft to palpation and non-tender Inspection: normal to inspection and incision Inspection of incision: healing well Palpation: soft Extremity: Common normals: normal to inspection and no pedal edema Neuro: Common normals: oriented x3 Psych: Common normals: affect normal OB - DS: Summary Hospital Course Hospital Course: The patient is a 22 year old G 3 P 2014 at 39 1/7 weeks gestation that was admitted to the Center on 05/14/22 for repeat delivery. She had an uncomplicated delivery. She delivered a viable female . She is bottle feeding. the patient has done well. Time spent discussing smoking cessation with patient: more than 10 minutes Peripartum Data Procedures: Procedures Operation Date: 05/14/22 07:00 Actual Procedure Side Surgeon p Repeat Section Cindy Diehl MD complications: none Gender: Female Discharge Plan: Home Time Spent with Patient Time attestation: Total time spent providing and/or coordinating discharge services: Time spent: Less than 30 minutes Discharge Plan Discharge Disposition: Home, Self-Care Date of Admission: 05/14/22 05:05 Attending Provider on Discharge: Soo Gómez Primary Care Provider: Provider,Not a Local Condition: Stable Anticipated Discharge Date/Time: 05/16/22 15:30 Discharge Medications: New docusate sodium 100 mg Capsule 100 mg PO BID PRN (Reason: constipation) Qty: 100 0RF ibuprofen 600 mg Tablet 600 mg PO Q6H PRN (Reason: Pain) Qty: 30 0RF oxycodone 5 mg Tablet 5 mg PO 3XD PRN (Reason: Pain) Qty: 21 0RF Continued DHA 200 mg capsule 200 mg PO QDAY cholecalciferol (vitamin D3) 25 mcg (1,000 unit) capsule 25 mcg PO QDAY Discharge Orders: Discharge Order (Routine); Ordered 05/16/22 Ordered By: Soo Gómez Patient Education: (DC) Additional Instructions: Discharge instructions were reviewed with the patient including signs and sy mptoms of infection and home going medications ACTIVITY RESTRICTIONS Lifting Restrictions: 20 pounds for 6 weeks No not submerge incision under water X 2 weeks? Nothing vaginally for 6 weeks: no tampons or intercourse Do not drive while taking narcotic pain medication (oxycodone): 1-2 weeks High intensity, high impact, or core exercise: 6 weeks Off Work or School a minimum 8 weeks. Walking, going up/down stairs: NO Restriction. Symptoms to report to doctor: * Bleeding that saturates more than one pad per hour * Passing clots larger than the size of a golf ball * Pain not relieved by prescribed medication * Fever above 100.4 degrees Fahrenheit * A foul vaginal odor * Difficulty in emotions, mood, and functions * Thoughts of hurting yourself and/or * Painful, reddened area in your breast * Any drainage, redness, or tenderness in your IV/epidural site * Severe headache that doesn't improve after taking medications * Changes in vision, including temporary loss of vision, blurred vision, and/or light sensitivity * Upper abdominal pain (usually under ribs on the right side) * Decrease in urination or painful, frequent urinating * Chest pain * Shortness of breath * Tenderness or pain with redness and/swelling in the calf(s) of your leg Optional 2-week visit: incision check, discuss infant feeding concerns, review control options and screen for anxiety/depression. 6-week visit for an annual exam. consultation services are available to all mothers and babies for the first year after delivery.? To make an appointment, please call [phone]. Discharge Diet: Regular Follow Up Appointments: Provider,Not a Local [Primary Care Provider] - Forms: [employer] Info Instructions
== END 2022-05-16 10:35 | disposition home or self-care (01) | DRG 788 ==
PROVIDERS: Admitting Provider Obstetrics & Gynecology; Visit Provider Obstetrics & Gynecology
PROC: 10D00Z1 Extraction of Products of Conception, Low, Open Approach (ICD-10-PCS; CPT 59514; principal; 2022-05-14 07:00)
DX: O34.211 Maternal care for low transverse scar from previous cesarean delivery (principal); O99.284 Endocrine, nutritional and metabolic diseases complicating childbirth; Z3A.39 39 weeks gestation of pregnancy; Z37.0 Single live birth
CPT/HCPCS: 01961; 36415; 64488; 76942; 85018; 85025; 86850; 86900; 86901; 87635; A9270; C9290; J0690; J1885; J2274; J2370; J2405; J2590; J3490; J7120

== ENCOUNTER 2024-04-13 09:05 | Outpatient (CLI) | payer MEDICAID, SELFPAY ==
[2024-04-15 01:14] LABS: HPV Source Cervix; HPV, High Risk by TMA Not Detected
== END 2024-04-13 09:06 | disposition home or self-care (01) ==
PROVIDERS: Visit Provider Registered Nurse
DX: Z12.4 Encounter for screening for malignant neoplasm of cervix (principal); Z13.220 Encounter for screening for lipoid disorders; Z13.29 Encounter for screening for other suspected endocrine disorder
CPT/HCPCS: 80061; 84443; 87624; 87625; 88141; 88142